=== PATIENT | male | born 1940 | race Caucasian/White ===

== ENCOUNTER → 2017-10-23 | Outpatient (CLI) | payer MEDICARE, OTHER ==
[~2017-10-23] MED LIST: ESOM40CA42 PO; FAMO20TA28 PO; HYDR-318 PO; HYDR-3250 PO; IBUP800T37 PO; LEVO-85 PO; LOR5/325 PO; NIAC100T35 PO; OMEP-218 PO; OXY10 PO; PHEN200T32 PO; PROBIOTIC1 EACH PO; TAMS0.4C70 PO; WAR5 PO
--- NOTE | 2017-10-23 12:34 | RADIOLOGY IMAGING REPORT ---
FACILITY: [facility] - [place] PATIENT NAME: Jose D Wilson : 1940 MR: [id number] V: [id number] EXAM DATE: ORDERING PHYSICIAN: ZULEMA RICHARD TECHNOLOGIST: Location: [facility] - [place] Patient: Jose D Wlison : 1940 Visit/Account:[id number] Date of Sevice: 10/23/2017 Exam type: HIP LEFT History: Left hip pain, no trauma Comparison: Right hip series February 09, 2012. Findings: There are mild degenerative changes of both hip joints, right greater than left. There is no evidenc e of acute fracture-dislocation involving the left hip. Incidentally noted are degenerative changes at the pubic symphysis and visualized lower lumbar spine IMPRESSION: 1. Mild degenerative changes of both hip joints , right greater than left. No evidence of acute fra cture or dislocation Report Dictated By: Tiffanie Gautam MD at 10/23/2017 12:27 PM Report E-Signed By: Tiffanie Gautam MD at 10/23/2017 12:29 PM WSN:[id number]
== END ==
LOC: RAD 09:00
PROVIDERS: ATTEND Family Medicine
DX: M16.0 Bilateral primary osteoarthritis of hip (principal)

== ENCOUNTER 2017-11-06 10:45 | Outpatient (RCR) | payer MEDICARE, OTHER ==
--- NOTE | 2017-10-25 11:12 | PT INITIAL EVALUATION ---
MEDICAL DIAGNOSIS: Thigh pain TREATMENT DIAGNOSIS: L hip OA, pain DATE OF ONSET: 08/06/17 SUBJECTIVE: Jose D Wilson (Lou) presents to PT for L groin pain, anterior hip pain with transferring into the passenger seat of a car, climbing rocks, donning his L pant leg in the morning, 5/10 pain scale. Pain first thing in the morning is 2/10, groin region. Hip FOTO 32% impairment. Pain location is L groin and described as ache. Pain scale is 2 on a ten point pain scale. Pain is worse with L active hip flexion and better with rest. REHAB PROBLEM LIST: Increased Pain Decreased ROM Decreased Strength Decreased Function Decreased Gait PREVIOUS MEDICAL HISTORY: R TKA, L RCR. OCCUPATION: Retired. Hikes 3-4 miles with [employer] on the go and L groin area ache is 2/10. OBJECTIVE: Posture: Even iliac crests. ROM: PROM L hip 125 deg. flexion, extension 10 deg., abd./adduction WNL with adduction, flexion painful at the groin. AROM L hip flexion 100 degrees, groin pain. Strength: L hip flexor 3+/5, pain limited, abductors 3/5, adductors 4/5, quad and hamstrings 5-/5. Special Tests: Positive scour, DAVID, overpressure flexion. Mobility: Independent. Gait: Mild L limp first 3-4 steps. ASSESSMENT: Pao Wilson presents as ASHLEY, OA affecting L hip flexion, pain. I' m concerned that his OA is more than moderate. Short Term Goals 4 weeks: Pao transfers into a passenger seat of a car without assisting his L hip flexion, hip pain 2/10. Patient's Goals Transfer without assisting L leg into passenger seat of car. PLAN: Patient to be seen for Strengthening/condition, Range of Motion, Stretching, Home Exercise Program focus 1x/Week for 4 Weeks Thank you for this referral. If you have any questions, comments, or concerns about this report or plan, please contact me at . [facility]
--- NOTE | 2017-11-17 16:29 | PT PLAN OF CARE ---
Physician: Dr. Aman Elliott Patient is being seen: 1x/week Therapist: Nalini Gregg, PT Medical Diagnosis: Thigh pain Treatment Diagnosis: L hip OA, pain Date of Onset: 08/06/17 Date of Initial Evaluation: 10/25/17 Date patient was last seen: 11/06/17 Number of treatments: 3 Number of cancellations/No shows: 3 INTERVENTIONS: Strengthening/condition Range of Motion Stretching Home Exercise Program GOALS: 4 weeks: Pao transfers into a passenger seat of a car without assisting his L hip flexion, hip pain 06/17. not met PATIENT'S GOAL: Transfer without assisting L leg into passenger seat of car. not met Patient Compliance: Excellent Prognosis: Good Reasons for discontinuing therapy: S: Pao's L hip pain continued to worsen, even with HEP.Ambulating 2 miles was slower and more painful. He saw Dr. Duenas this week and will have a L hip steroid injection 11/24/17. O: As of 11/06/17: ROM: PROM L hip remained the same Gait: Pao had more L trunk lean in L stance with gait and had more stiff gait the first 4-5 steps after sitting. Special Tests: Positive scour, DAVID, overpressure flexion. Mobility: Independent. A/P: Jose D Wilson continued with L hip OA symptoms that worsened over the last month. He feels he's done as much PT as he needs. I'll DC PT to HEP. Thank you. PATI
== END 2017-11-06 18:00 | disposition home or self-care (01) ==
LOC: PT 10:45
PROVIDERS: ATTEND Family Medicine
DX: M79.652 Pain in left thigh (principal); M16.12 Unilateral primary osteoarthritis, left hip
CPT/HCPCS: 97161

== ENCOUNTER 2017-12-02 14:31 | Emergency (ER) | payer MEDICARE, OTHER ==
[2017-12-02] MEDS ORDERED: BACL-1 PO (14:43)
[2017-12-02] MEDS ORDERED: CHLO25TA19 PO (14:43)
[2017-12-02] MEDS ORDERED: OMEP-218 PO (14:53)
[2017-12-02] MEDS ORDERED: ACETAMINOPHEN 325 MG TAB PO ONE (15:05)
[2017-12-02] MEDS ORDERED: METHOCARBAMOL 500 MG TAB PO ONE (15:10)
--- NOTE | 2017-12-02 15:15 | EKG ---
FACILITY: [facility] - [place] PATIENT NAME: ARMAAN VORA : [id number] MR: [id number] V: [id number] EXAM DATE: ORDERING PHYSICIAN: GRAY NO TECHNOLOGIST: Test Reason : Blood Pressure : / mmHG Vent. Rate : 093 BPM Atrial Rate : 093 BPM P-R Int : 192 ms QRS Dur : 110 ms QT Int : 358 ms P-R-T Axes : 070 018 075 degrees QTc Int : 445 ms Normal sinus rhythm Incomplete right bundle branch block Borderline ECG When compared with ECG of 27-AUG-2015 13:01, NV interval has decreased Incomplete right bundle branch block is now present Confirmed by CHRIST VALLES ([id number]) on 12/02/2017 9:53:32 PM Referred By: Confirmed By:CHRIST VALLES
[2017-12-02 15:42] LABS: PLATELET COUNT, AUTOMATED 117 K/uL (150-450)
--- NOTE | 2017-12-02 15:45 | RADIOLOGY IMAGING REPORT ---
FACILITY: [facility] - [place] PATIENT NAME: Jose D Wilson : 1940 MR: [id number] V: [id number] EXAM DATE: ORDERING PHYSICIAN: GRAY NO TECHNOLOGIST: Location: [facility] - [place] Patient: Jose D Wilson : 1940 Visit/Account:[id number] Date of Sevice: 12/02/2017 Examination: CHEST PA AND LAT Comparison: 06/11/2010. History: Chest discomfort. Findings: Mild pulmonary hyperexpansion. No consolidation, nodule, or acute peribronchial inflammatio n. No pneumothorax, edema, or effusion. Cardiac and hilar contour size is within normal limits. Thora cic spine anterior compression at approximately T8 has progressed since 2010. IMPRESSION: 1. No evidence of acute cardial pulmonary disease. 2. T8 anterior compression has progressed since 2010. Correlation with any history of acute mid thora cic pain is recommended. Report Dictated By: Tavon Guzman MD at 12/02/2017 3:39 PM Report E-Signed By: Tavon Guzman MD at 12/02/2017 3:41 PM WSN:[id number]
[2017-12-02] MEDS ORDERED: METH-542 PO (16:26)
--- NOTE | 2017-12-02 16:28 | ER Report ---
History and Physical Time Seen By MD: 14:45 Hx. of Stated Complaint: PT REPORTS CHRONIC BACK PAIN THAT'S WORSE AFTER A CORTISONE SHOT A WEEK AGO, PT ALSO REPORTS "HICCUPS" THAT ARE SEVERE. HPI/ROS CHIEF COMPLAINT: 1) hiccups, 2) back pain HISTORY OF PRESENT ILLNESS: Pt is 1 wk s/p his first corticosteroid injection into L hip for ongoing hip/back pain. Hours after injection, developed intractible hiccups. Has been placed on baclofen, and thorazine as of yesterday. At home, pt was having frequent hiccups, so brings him in for eval. Pt also has ongoing low back pain with raditation to l ant thigh. He has not had acute change in this; no new weakness, numbness, incontinence, fevers, falls. He is able to nellie po both liquids and solids. REVIEW OF SYSTEMS: Constitutional: No fever, no chills. Eyes: No discharge. ENT: No sore throat. Cardiovascular: No chest pain, no palpitations. Respiratory: No cough, no shortness of breath. Gastrointestinal: No abdominal pain, no vomiting. Genitourinary: No hematuria. Musculoskeletal: as above Skin: No rashes. Neurological: No headache. Remainder of the 14 system rev: Yes Allergies: Coded Allergies: oxycodone HCl (Verified Allergy, Unknown, RASH, 12/02/17) Home Meds Active Scripts Methocarbamol (ROBAXIN) 500 Mg Tablet, 500 MG PO TID for Muscle Relaxant for 10 Days, #30 TAB Prov:GRAY NO MD 12/02/17 Reported Medications Omeprazole Magnesium (PRILOSEC OTC) 20 Mg Tablet.dr, 1 TAB PO QDAY, TAB 12/02/17 Baclofen (BACLOFEN) 10 Mg Tablet, 10 MG PO TID, #30 TAB 12/02/17 Chlorpromazine Hcl (CHLORPROMAZINE HCL) 25 Mg Tablet, 25 MG PO 3-4XD Y for HICCUPS 12/02/17 Tamsulosin Hcl (TAMSULOSIN HCL) 0.4 Mg Cap.er.24h, 0.4 MG PO BID, CAP 08/25/15 Discontinued Reported Medications Ibuprofen (IBUPROFEN) 800 Mg Tablet, 1 TAB PO TID Y for PAIN, #50 TAB 0 Refills 09/03/15 Phenazopyridine Hcl (PHENAZOPYRIDINE HCL) 200 Mg Tablet, 200 MG PO TID Y for SPASMS, #20 TAB 0 Refills 09/03/15 Famotidine (PEPCID) 20 Mg Tablet, 20 MG PO BID, #20 TAB 0 Refills 09/03/15 Hydrocodone/Acetaminophen (Lortab 7.5-325 mg Tablet) 1 Each Tablet, 1 TAB PO Q4- 6H Y for PAIN, #30 0 Refills 09/03/15 Levofloxacin 500 Mg Tab (LEVAQUIN 500 MG TAB) 500 Mg Tablet, 500 MG PO QDAY, # 10 TAB 0 Refills 09/03/15 Niacin (NIACIN) 100 Mg Tablet, PO DAILY 08/25/15 Omeprazole Magnesium (PRILOSEC OTC) 20 Mg Tablet.dr, 1 TAB PO QDAY, TAB 08/25/15 Hx Smoking: No Smoking Status: Never Smoker Hx Substance Use Disorder: No Hx Alcohol Use: No Constitutional Vital Sign - Last 24 Hours 12/02/17 14:35 Temp 97.8 Pulse 107 Resp 14 B/P (MAP) 148/98 Pulse Ox 92 O2 Delivery Room Air Physical Exam General Appearance: The patient is alert, has no immediate need for airway protection and no signs of toxicity. [ ] Eyes: Pupils equal and round no pallor or injection. ENT, Mouth: Mucous membranes are moist. Respiratory: There are no retractions, lungs are clear to auscultation. Cardiovascular: Regular rate and rhythm. [ ] Gastrointestinal: Abdomen is soft and non tender, no masses, bowel sounds normal. Neurological: alert, oriented, nad Skin: Warm and dry, no rashes. Musculoskeletal: Neck is supple non tender. L1 ttp, no stepoffs, Extremities are nontender, nonswollen and have full range of motion. Pt has 5/5 ms le bilaterally with exception of L hip flexion/ext limited secondary to pain. No foot drop. No L5 distribution anesthesia. No singultus during ED evaluation DIFFERENTIAL DIAGNOSIS: After history and physical exam differential diagnosis was considered for back pain including but not limited to muscular pain, cauda equina, aaa, herniated disc, spine fracture, intra-abdominal causes and urinary tract infection. Medical Decision Making Data Points Result Diagram: 12/02/17 1526 12/02/17 1526 Laboratory Hematology Test 12/02/17 15:26 Red Blood Count 5.51 M/uL (4.00-5.60) Mean Corpuscular Volume 86.6 fL (80.0-96.0) Mean Corpuscular Hemoglobin 29.7 pg (26.0-33.0) Mean Corpuscular Hemoglobin Concent 34.3 g/dL (32.0-36.0) Red Cell Distribution Width 14.6 % (11.5-14.5) Mean Platelet Volume 7.9 fL (7.2-11.1) Neutrophils (%) (Auto) 71.2 % (39.4-72.5) Lymphocytes (%) (Auto) 18.0 % (17.6-49.6) Monocytes (%) (Auto) 8.6 % (4.1-12.4) Eosinophils (%) (Auto) 1.8 % (0.4-6.7) Basophils (%) (Auto) 0.4 % (0.3-1.4) Nucleated RBC Relative Count (auto) 0.7 /100WBC Neutrophils # (Auto) 7.3 K/uL (2.0-7.4) Lymphocytes # (Auto) 1.9 K/uL (1.3-3.6) Monocytes # (Auto) 0.9 K/uL (0.3-1.0) Eosinophils # (Auto) 0.2 K/uL (0.0-0.5) Basophils # (Auto) 0.0 K/uL (0.0-0.1) Nucleated RBC Absolute Count (auto) 0.07 K/uL Sodium Level 138 mmol/L (137-145) Potassium Level 4.2 mmol/L (3.5-5.0) Chloride Level 101 mmol/L (98-107) Carbon Dioxide Level 25 mmol/L (22-30) Blood Urea Nitrogen 25 mg/dl (9-21) Creatinine 1.20 mg/dl (0.66-1.25) Glomerular Filtration Rate Calc 59.0 Random Glucose 98 mg/dl (75-110) Calcium Level 10.1 mg/dl (8.4-10.2) Total Bilirubin 0.5 mg/dl (0.2-1.3) Aspartate Amino Transf (AST/SGOT) 39 U/L (0-35) Alanine Aminotransferase (ALT/SGPT) 35 U/L (0-56) Alkaline Phosphatase 77 U/L (0-126) Troponin I < 0.012 ng/ml Total Protein 7.5 g/dl (6.3-8.2) Albumin 4.0 g/dl (3.5-5.0) Lipase 113 U/L (23-300) Chemistry Test 12/02/17 15:26 White Blood Count 10.3 k/uL (4.5-11.0) Red Blood Count 5.51 M/uL (4.00-5.60) Hemoglobin 16.4 g/dL (14.0-18.0) Hematocrit 47.7 % (42.0-52.0) Mean Corpuscular Volume 86.6 fL (80.0-96.0) Mean Corpuscular Hemoglobin 29.7 pg (26.0-33.0) Mean Corpuscular Hemoglobin Concent 34.3 g/dL (32.0-36.0) Red Cell Distribution Width 14.6 % (11.5-14.5) Platelet Count 117 K/uL (150-450) Mean Platelet Volume 7.9 fL (7.2-11.1) Neutrophils (%) (Auto) 71.2 % (39.4-72.5) Lymphocytes (%) (Auto) 18.0 % (17.6-49.6) Monocytes (%) (Auto) 8.6 % (4.1-12.4) Eosinophils (%) (Auto) 1.8 % (0.4-6.7) Basophils (%) (Auto) 0.4 % (0.3-1.4) Nucleated RBC Relative Count (auto) 0.7 /100WBC Neutrophils # (Auto) 7.3 K/uL (2.0-7.4) Lymphocytes # (Auto) 1.9 K/uL (1.3-3.6) Monocytes # (Auto) 0.9 K/uL (0.3-1.0) Eosinophils # (Auto) 0.2 K/uL (0.0-0.5) Basophils # (Auto) 0.0 K/uL (0.0-0.1) Nucleated RBC Absolute Count (auto) 0.07 K/uL Glomerular Filtration Rate Calc 59.0 Calcium Level 10.1 mg/dl (8.4-10.2) Total Bilirubin 0.5 mg/dl (0.2-1.3) Aspartate Amino Transf (AST/SGOT) 39 U/L (0-35) Alanine Aminotransferase (ALT/SGPT) 35 U/L (0-56) Alkaline Phosphatase 77 U/L (0-126) Troponin I < 0.012 ng/ml Total Protein 7.5 g/dl (6.3-8.2) Albumin 4.0 g/dl (3.5-5.0) Lipase 113 U/L (23-300) EKG/Imaging EKG Interpretation 12 lead EKG: Rhythm: normal sinus rhythm [place]: normal QRS: inc rbbb ST segments: normal Monitor Interpretation: Normal Sinus Rhythm Imaging X-ray: chest was obtained. I viewed the images myself on the PACS system. My interpretation of the images is: NACPD. The radiologist interpretation had no clinically significant variation from this interpretation of note T8 compression ; pt does not have acute pain at this point ED Course/Re-evaluation ED Course Pt remains without hiccups in ED. Recommend continuing thorazine until hiccups resolved 24 hrs; no e/o acute cardiopulm/electolyte etiology; may be c/w cs adminsitration. No e/o cauda equina or other emergent cause or result of back pain. Pt comfortable in ED; we disucssed at length complications for which to return, and f/u plan. Has f/u with orthopedist this week. Ambulates without discomfort on d/c, understands SRP's. Decision to Disposition Date: Dec 02, 2017 Decision to Disposition Time: 16:49 Depart Departure Latest Vital Signs Vital Signs Date Time Temp Pulse Resp B/P (MAP) Pulse Ox O2 Delivery O2 Flow Rate FiO2 12/02/17 14:35 97.8 107 14 148/98 92 Room Air Impression: Primary Impression: Singultus Additional Impression: Back pain Condition: Improved Disposition: HOME OR SELF-CARE Referrals: ZULEMA RICHARD MD (PCP) New Scripts Methocarbamol (ROBAXIN) 500 Mg Tablet 500 MG PO TID for Muscle Relaxant for 10 Days, #30 TAB Prov: GRAY NO MD 12/02/17 Patient Instructions: Back Pain (ED), Hiccups (ED) Additional Instructions: As we discussed, return immediately if hiccups preclude your ability to eat or drink, or are associated with concerning chest pain, shortness of breath, or vomiting. Return if you develop new leg weakness, numbness, incontinence or fevers. Continue to take thorazine until your hiccups are resolved. You may take robaxin as prescribed and tylenol 650mg every 4-6 hours for back pain. Problem Qualifiers Additional Impression: Back pain Back pain location: low back pain Back pain laterality: left Sciatica presence: without sciatica GRAY NO MD Dec 02, 2017 16:28
[2017-12-02 16:40] VITALS: BP 120/86
== END 2017-12-02 16:40 | disposition home or self-care (01) ==
LOC: ER 14:49
DX: R06.6 Hiccough (principal); M54.5 Low back pain; R07.89 Other chest pain
CPT/HCPCS: 36415; 71046; 83690; 84484; 85025; 93005; 99284; A9270; 82040; 82247; 82310; 82374; 82435; 82565; 82947; 84075; 84132; 84155; 84295; 84450; 84460; 84520

== ENCOUNTER → 2017-12-08 | Outpatient (REF) | payer MEDICARE, OTHER ==
[~2017-12-08] MED LIST changes: +BACL-1 PO; +CHLO25TA19 PO; +METH-542 PO
== END ==
LOC: ZZSENDIN 10:49
PROVIDERS: ATTEND Physician Assistant
DX: M54.5 Low back pain (principal)
CPT/HCPCS: 81001

== ENCOUNTER → 2017-12-11 | Outpatient (CLI) | payer MEDICARE, OTHER ==
[~2017-12-11] MED LIST changes: +IOPAMIDOL 76% 100 ML INFUS BTL 100 ML ONE
--- NOTE | 2017-12-11 11:20 | RADIOLOGY IMAGING REPORT ---
FACILITY: [facility] - [place] PATIENT NAME: Jose D Wilson : 1940 MR: [id number] V: [id number] EXAM DATE: ORDERING PHYSICIAN: VANNESA SUAREZ TECHNOLOGIST: Location: [facility] - [place] Patient: Jose D Wilson : 1940 Visit/Account:[id number] Date of Sevice: 12/11/2017 CHEST/AB/PELV W/CONTRAST HISTORY: Neoplasm of the left kidney ADDITIONAL HISTORY: None. TECHNIQUE: Following administration of IV contrast axial images acquired through the chest abdomen a nd pelvis during the portal venous phase. Coronal and sagittal reformatting was also performed. Dose Lowering Technique One of the following dose optimization techniques was utilized in the performance of this exam: Autom ated exposure control; adjustment of the mA and/or kV according to the patient's size; or use of an i terative reconstruction technique. Specific details can be referenced in the facility's radiology C T exam operational policy. CONTRAST: 75 mL Isovue-370 COMPARISON: MR lumbar spine December 07, 2017 FINDINGS: CHEST: Lungs/Pleura: There is a 6 mm noncalcified nodule lateral aspect of the left upper lobe abutting the pleural margin best seen on image 56 of series 3. There is a 6 x 7 mm noncalcified pulmonary nodule along the posterior medial aspect the left upper lo be abutting the major fissure best seen on image 72 of series 3 There is a cluster of small nodules measuring up to 5 mm in the left upper lobe best seen on images 1 27 145 of series 3. There is a small 3 mm calcified nodule anterior aspect left lower lobe best seen on image 192 There is a three millimeter noncalcified nodule medial aspect right upper lobe best seen on image 59 There is a 7 x 3 mm noncalcified nodule right upper lobe best seen on image 73. there is a 7 mm noncalcified nodule posterior aspect of the right upper lobe best seen on image 134. . This a 3 mm nodule posterior aspect right upper lobe abutting the major fissure best seen on image 14 2 Mediastinum/lymph nodes: There are multiple enlarged hilar and mediastinal lymph nodes. The largest etta mass is in the subcarinal region measuring 5.5 x 3.4 x 5.1 cm There is a anterior mediastinal lymph node measuring 2.5 x 1.1 cm. There is a pretracheal lymph node measuring 1.2 x 0.8 cm. There is an AP window lymph node measuring 1.2 x 0.8 cm. There is a left hilar lymph node measuring 1.3 x 1.3 cm. There is a right hilar lymph node measuring 1.3 x 0.9 cm Heart/vessels: There is severe extrinsic compression along the medial aspect of the inferior vena ca va as it passes through the diaphragm secondary to herniated fat Bones/soft tissues: Metallic anchoring devices are seen in the right humeral head. There is a lytic destructive process involving the anterior aspect of the right 11th and 10th ribs. There is a lytic destructive process involving the T7 vertebral body with a moderate compression frac ture likely pathologic. Lytic destructive lesions are also seen involving L1 and L4 vertebral bodies There is a large destructive lesion involving the left iliac bone with a large heterogeneous soft tis jimi component measuring approximately 6.7 x 6.5 x 7.5 cm and extends to the anterior aspect of the le ft acetabulum where there is a pathologic fracture. There are several additional lytic lesions seen in the visualized proximal left femoral shaft. A sclerotic density in the left femoral head could re present a bone island. There are spondylotic changes also noted in the thoracolumbar spine ABDOMEN AND PELVIS: . Hepatobiliary: A faint hyperdensity is seen in the dependent portion the gallbladder possibly represe nting stones Spleen: Negative. Pancreas: The uncinate process appear slightly heterogeneous Adrenals: Is a 2.8 x 2.7 x 2.8 cm heterogeneous left adrenal mass is 1.7 x 1.5 x 1.5 cm right adrena l mas Kidneys ureters and bladder : There is a huge heterogeneous left renal mass measuring approxima tely 12.5 cm in length 8 cm in AP dimension and 11.2 cm in width extremely concerning for neoplasm. There are extensive collateral vessels surrounding the left kidney and extending into the left side o f the retroperitoneum and into the soft tissues surrounding the left hip and buttocks. There appears to be thrombosis of the right common femoral vein visualized proximal superficial femoral vein and p rofunda femoral vein, right common iliac vein, proximal left superficial femoral vein profunda femora l vein and partial thrombus in the left common iliac vein . There is also a heterogeneous appearanc e to the contrast in the inferior vena cava low the level of the renal veins suspicious for additiona l thrombus Genitalia: Prostate gland is markedly enlarged heterogeneous impinging upon the floor the bladder GI: There is extensive diverticulosis throughout the left-sided colon although no CT evidence of ac [place] diverticulitis. The appendix is visualized and does not appear inflamed. There is a small hiata l hernia. There is a 2.5 cm diverticulum projecting from the third portion of the duodenum. Vessels/spaces/nodes: There are multiple retroperitoneal lymph nodes present. A lymph node to the l eft of the SMA measures 9 x 10 mm. A lymph node just anterior to the third portion the duodenum marcin ures 1.4 x 1.1 cm . Please see above discussion under kidneys ureter and bladder describing extensive venous thrombosis. Bones/soft tissues: Please see above discussion concerning bones and soft tissues listed under the c hest CT dictation Additional findings: None pertinent. IMPRESSION: There is a very large heterogeneous left renal mass as detailed above extremely concerning for neopla sm. Extensive collateral vessels surround the left kidney extending the left-sided retroperitoneum a nd into the soft tissues surrounding the left hip and buttocks. There appears to be venous thrombosis of multiple veins in the pelvis and upper thighs likely extendi ng into the inferior vena cava as described above. There are numerous pulmonary nodules likely representing pulmonary metastases. Also noted is mediast inal adenopathy which likely metastatic Numerous lytic destructive lesions are identified in the bones including the anterior aspect of the r ight 10th and 11th ribs, T7, L1 and L4. There is also a large destructive lesion involving the left iliac bone with a large heterogeneous soft tissue component extending into the anterior aspect the le ft acetabulum where there is a pathologic fracture. Additional lytic lesions as described Uncinate process appear slightly heterogeneous this could be further evaluated with MR
== END ==
LOC: CT 01:39
PROVIDERS: ATTEND Physician Assistant
DX: D41.02 Neoplasm of uncertain behavior of left kidney (principal); N40.0 Benign prostatic hyperplasia without lower urinary tract symptoms; K57.30 Diverticulosis of large intestine without perforation or abscess without bleeding; R59.0 Localized enlarged lymph nodes; I82.890 Acute embolism and thrombosis of other specified veins; I82.3 Embolism and thrombosis of renal vein; R91.8 Other nonspecific abnormal finding of lung field
CPT/HCPCS: 71260; 74177; Q9967

== ENCOUNTER → 2017-12-18 | Outpatient (REF) | payer MEDICARE, OTHER ==
[~2017-12-18] MED LIST changes: +APIX5TAB PO; -IOPAMIDOL 76% 100 ML INFUS BTL 100 ML ONE; +LACT1CAP6 PO; +[UNRECOGNIZED DRUG - CODE] PO
[2017-12-18 16:15] LABS: PLATELET COUNT, AUTOMATED 167 K/uL (150-450)
[2017-12-18 16:19] LABS: INR 1.06
== END ==
LOC: ZZSENDIN 15:52
PROVIDERS: ATTEND Family Medicine
DX: C64.9 Malignant neoplasm of unspecified kidney, except renal pelvis (principal)
CPT/HCPCS: 85025; 85610

== ENCOUNTER → 2017-12-19 | Outpatient (CLI) | payer MEDICARE, OTHER ==
[~2017-12-19] MED LIST changes: +GADOBENATE 529MG/1ML 15ML VIAL IVP ONE
--- NOTE | 2017-12-19 11:09 | RADIOLOGY IMAGING REPORT ---
[place] [facility] [place] NAME: Jose D Wilson : 1940 MR: [id number] V: [id number] EXAM DATE: ORDERING PHYSICIAN: DOMINIQUE CLIFTON TECHNOLOGIST: Location: [facility] [place] Patient: Jose D Wilson : 1940 Visit/Account:[id number] Date of Sevice: 12/19/2017 BRAIN W W/O CONTRAST ADDITIONAL PERTINENT HISTORY: Renal cell carcinoma COMPARISON STUDIES: None. TECHNIQUE: Multi-planar, multi-sequence brain MRI was performed with and without IV contrast adminis tration. Contrast: 50 mL MultiHance FINDINGS: Ventricles / sulci / fissures: Negative. Masses / hemorrhage / midline shift: Negative. White matter: There is a tiny punctate focus of restricted diffusion in the high right parietal whit e matter with no associated mass effect or contrast enhancement. This could represent a tiny infarct and less likely a metastatic focus given the lack of contrast enhancement and mass effect Castillo-white differentiation: Normal. Extra-axial fluid collections: Negative. Intracranial vasculature and dural sinuses: Negative. Skull base / calvarium: There is a 9 x 4 mm ovoid area of contrast-enhancement in the posterior right parietal bone concerning for an osseous metastasis particularly in light of the extensive osseous me tastases seen on the recent CT of the chest abdomen and pelvis.. There is an additional 9 x 5 mm foc us of increased T1 and FLAIR signal intensity in the posterior medial right parietal bone without con trast enhancement . Visualized mastoid air cells / paranasal sinuses: There is mild mucosal thickening in the left maxill nupur sinus and left frontal sinus. Orbits: Negative. Upper neck:Negative. IMPRESSION: A tiny punctate focus of restricted diffusion in the high right parietal white matter with no associa zahida mass effect or contrast enhancement could represent a tiny infarct and less likely metastatic foc us given the lack of contrast enhancement mass effect 9 x 4 mm ovoid area of contrast-enhancement in the posterior right parietal bone which is concerning for an osseous metastasis There is an additional 9 x 5 mm focus of increased T1 and FLAIR signal intensity posterior medial rig ht parietal bone without contrast enhancement Report Dictated By: Tiffanie Gautam MD at 12/19/2017 10:47 AM Report E-Signed By: Tiffanie Gautam MD at 12/19/2017 11:04 AM WSN:[email or web address]
== END ==
LOC: MRI 01:21
PROVIDERS: ATTEND Internal Medicine Hematology
DX: R90.82 White matter disease, unspecified (principal)
CPT/HCPCS: 70553; A9577

== ENCOUNTER 2017-12-21 00:09 | Day surgery (SDC) | payer MEDICARE, OTHER ==
[~2017-12-21] VITALS: Ht 179.1 cm; Wt 76.2 kg
[2017-12-21] VITALS (10 sets, daily range): BP systolic 139–179; BP diastolic 84–114
[~2017-12-21 00:09] MED LIST changes: -GADOBENATE 529MG/1ML 15ML VIAL IVP ONE
[2017-12-21] MEDS ORDERED: PROPOFOL EMUL(*) 10MG/ML 20 ML 20 ML ONE (07:16)
[2017-12-21] MEDS ORDERED: LIDOCAINE MPF 1% 5 ML VIAL ONE (07:16)
[2017-12-21] MEDS ORDERED: ONDANSETRON 4 MG/2 ML VIAL ONE (07:16)
[2017-12-21] MEDS ORDERED: DEXAMETHASONE SOD 4 MG/ML VIAL ONE (07:16)
[2017-12-21] MEDS ORDERED: KETAMINE HCL 200 MG/20 ML MDV ONE (07:20)
[2017-12-21] MEDS ORDERED: LIDOCAINE/SOD BICARB 8.4% SYR ID ONE (07:30)
[2017-12-21] MEDS ORDERED: NORMOSOL R SOLN(*) 1000 ML BAG 1,000 ML IV PRN (07:30)
[2017-12-21] MEDS ORDERED: ceFAZolin(*) 2GM/D5W 50ML 50 ML IVPB ONE (07:30)
[2017-12-21] MEDS ORDERED: MIDAZOLAM 2 MG/2 ML VIAL IVP PRN (07:30)
[2017-12-21] MEDS ORDERED: NS(*) 0.9% 10 ML VIAL 20 ML ONE (08:13)
[2017-12-21] MEDS ORDERED: ROPIVACAINE 0.5% 20 ML VIAL ONE (08:13)
[2017-12-21] MEDS ORDERED: HEPARIN SOD LCK FLSH 100 UN/ML ONE (08:13)
--- NOTE | 2017-12-21 09:40 | Short(Outpt) Discharge Summary ---
Discharge Summary Reason for Hosp/Final Diag: (1) Renal cell carcinoma Status: Chronic Hospital Course & Plan: Right IJ Power Port placement completed without problems. Departure Discharge to: Home, Self Care Discharge Instructions Home Meds Reported Medications Omeprazole Magnesium (PRILOSEC OTC) 20 Mg Tablet.dr, 1 TAB PO QDAY, TAB 12/19/17 Lactobacillus Combination No.4 (PROBIOTIC) 1 Each Capsule, 1 EACH PO DAILY, CAPSULE 12/15/17 Hydrocodone/Acetaminophen (Lorcet Hd 10-325 mg Tablet) 1 Each Tablet, 1 TAB PO Q6-8H Y for PAIN 12/15/17 Apixaban (ELIQUIS) 5 Mg Tablet, 5 MG PO DAILY 12/15/17 Tamsulosin Hcl (TAMSULOSIN HCL) 0.4 Mg Cap.er.24h, 0.4 MG PO BID, CAP 08/25/15 Discontinued Reported Medications Omeprazole Magnesium (PRILOSEC OTC) 20 Mg Tablet.dr, 1 TAB PO QDAY, TAB 12/02/17 Baclofen (BACLOFEN) 10 Mg Tablet, 10 MG PO TID, #30 TAB 12/02/17 Chlorpromazine Hcl (CHLORPROMAZINE HCL) 25 Mg Tablet, 25 MG PO 3-4XD Y for HICCUPS 12/02/17 Discontinued Scripts Methocarbamol (ROBAXIN) 500 Mg Tablet, 500 MG PO TID for Muscle Relaxant for 10 Days, #30 TAB Prov:GRAY NO MD 12/02/17 Diet: Regular Activity: As Tolerated Special Instructions: You may shower starting on 12/23/17 but don't immerse the incisions for 2 weeks. Leave the steristrips in place until they fall off on their own. There is a stitch in your skin on the right side of your neck that SHOULD fall out over the next 2 weeks. If it doesn't, gently pull on it and see if it comes out. If not, cancer center staff can remove the suture or you can call my office at [phone] and we can have you come in to remove the suture. Follow up with your oncologist next week. Problem Qualifiers (1) Renal cell carcinoma: Laterality: unspecified laterality Qualified Codes: C64.9 - Malignant neoplasm of unspecified kidney, except renal pelvis ZULEMA RUDD MD Dec 21, 2017 09:39
--- NOTE | 2017-12-21 09:54 | Post Operative Progress Note ---
Post Operative Progress Note Date: Dec 21, 2017 Time: 09:41 Surgeon: Luciana Dictation number: [id number] Anesthesia: LMA by Dr. Geller Pre-Op Diagnosis: Renal Cell Carcinoma Post-Op Diagnosis: LYNSEY Findings: None Procedure(s): Right IJ Power Port insertion Specimen Removed:(May be N/A): None Complications: None Fluids: See anesthesia record Estimated Blood Loss: Minimal Date OP Note Dictated: Dec 21, 2017 Time OP Note Dictated: 09:43 ZULEMA RUDD MD Dec 21, 2017 09:53
--- NOTE | 2017-12-21 09:56 | RADIOLOGY IMAGING REPORT ---
FACILITY: [facility] [place] PATIENT NAME: Jose D Wilson : 1940 MR: [id number] V: [id number] EXAM DATE: ORDERING PHYSICIAN: ZULEMA RUDD TECHNOLOGIST: Location: [facility] Patient: Jose D Wilson : 1940 Visit/Account:[id number] Date of Sevice: 12/21/2017 Exam type: C-ARM FLUORO PORT/CATH History: PORT PLACEMENT Comparison: None. Findings: There is been placement of a right-sided implanted port the distal tip projects over the superior norman a cava. Two fluoroscopic spot images over the right upper chest were submitted. The total fluorosco py time was 19 seconds. The total continuous fluoroscopy dose was 0.45205 mGray per meter squared IMPRESSION: 1. As above Report Dictated By: Tiffanie Gautam MD at 12/21/2017 9:37 AM Report E-Signed By: Tiffanie Gautam MD at 12/21/2017 9:38 AM WSN:[email or web address]
--- NOTE | 2017-12-21 10:09 | RADIOLOGY IMAGING REPORT ---
FACILITY: [facility] - [place] PATIENT NAME: Jose D Wilson : 1940 MR: [id number] V: [id number] EXAM DATE: ORDERING PHYSICIAN: ZULEMA RUDD TECHNOLOGIST: Location: [facility] - [place] Patient: Jose D Wilson : 1940 Visit/Account:[id number] Date of Sevice: 12/21/2017 Exam type: CHEST SINGLE AP History: Right IJ Power Port placement Comparison: December 02, 2017. Findings: There has been placement of a right IJ catheter the distal tip projects over the superior vena cava. No pneumothorax is seen. Mildly prominent peribronchial markings and interstitial markings are seen which appear more prominent when compared the prior study. There are hypoventilatory changes from a limited inspiratory effort which could in part be related to this finding. The cardiac silhouette i s within normal limits. IMPRESSION: 1. Interval placement of a right IJ port distal tip projects over the superior vena cava with no liz dence of a pneumothorax seen Mildly prominent interstitium peribronchial markings when compared the prior study. There are hypove ntilatory changes from a limited inspiration which could account for this finding. Report Dictated By: Tiffanie Gautam MD at 12/21/2017 10:01 AM Report E-Signed By: Tiffanie Gautam MD at 12/21/2017 10:05 AM WSN:[email or web address]
--- NOTE | 2017-12-21 11:17 | OPERATIVE REPORT 1 ---
EVENT DATE: December 21, 2017 SURGEON: Aman Chowdhury MD ANESTHESIOLOGIST: Troy Geller MD ANESTHESIA: LMA PREOPERATIVE DIAGNOSIS Renal cell cancer. POSTOPERATIVE DIAGNOSIS Renal cell cancer. PROCEDURE PERFORMED Right IJ PowerPort insertion. COMPLICATIONS None. CONDITION Stable. ESTIMATED BLOOD LOSS Minimal. INDICATIONS This is a 77-year-old gentleman who has been under the care of the oncologist for renal cell cancer. They referred him to me for a PowerPort placement to facilitate chemotherapy. DESCRIPTION OF PROCEDURE The patient was brought to the operating room and placed upon the operating table. LMA anesthesia was administered and his right neck, shoulder, and chest were prepped and draped in sterile fashion. A timeout was completed, and with him in Trendelenburg, I used the ultrasound to identify the right internal jugular vein and used the access needle to access the vein. I threaded the wire through the needle and then removed the needle. I used the C-arm to confirm the wire's placement in the superior vena cava. I then anesthetized the skin in the right neck where the wire enters as well as the right infraclavicular skin, and then made a stab incision in the neck at the wire entry site, and a transverse incision in the infraclavicular skin. I dissected through the dermis and subcutaneous fat, and then made a pocket caudad to the incision. I made sure this was hemostatic, and then used the tunneler and dragged the catheter from the pocket up to the stab incision in the neck, and then threaded a dilator and sheath over the wire. I removed the dilator and wire, and then threaded the catheter through the sheath and removed the sheath. I then used the C-arm and pulled the catheter back so the tip was in the superior vena cava just below the right atrium and then cut the catheter at the length, place the port on the catheter, locked it into place, and then sutured the port down to the underlying muscle fascia with interrupted 3-0 Nylon sutures at the corners. I took some more C-arm images to confirm good placement. I then aspirated blood through the catheter and port and flushed it with 10 mL. normal saline, followed by 5 mL. of 100 units per mL. of Heparinated saline. It aspirated and flushed with no problems. I then closed the stab incision in the neck with single 3-0 chromic sutures and the infraclavicular incision was closed with 3-0 Vicryl interrupted deep dermal sutures and 4-0 Monocryl running subcuticular sutures. The skin was cleaned, dried, and Steri-Strips were applied over the incisions. The patient was awakened and LMA removed. He was transported to the recovery room in stable condition having tolerated the procedure without any apparent problems. PATI
--- NOTE | 2017-12-21 19:12 | ONCOLOGY FOLLOW UP NOTE ---
EVENT DATE: December 21, 2017 Patient is under my care for metastatic disease involving multiple bones especially the left iliac bone, multiple pulmonary nodules, mediastinal adenopathy, with big left renal mass 12.5 cm under evaluation. Patient is complaining of severe pain because of his bone metastasis and he will benefit from the use of a wheelchair at home, as he has significant pain related to his cancer, to help him for the mobility and transfers. PATI
[2017-12-28] MEDS ORDERED: CHLO25TA19 PO (17:19)
== END 2017-12-21 10:13 | disposition home or self-care (01) ==
LOC: OR 00:09
PROVIDERS: ATTEND Surgery
DX: C64.9 Malignant neoplasm of unspecified kidney, except renal pelvis (principal); N40.0 Benign prostatic hyperplasia without lower urinary tract symptoms; K21.9 Gastro-esophageal reflux disease without esophagitis; Z86.718 Personal history of other venous thrombosis and embolism
CPT/HCPCS: 36561; 71045; 76942; 77001; C1788; J1100; J1642; J2001; J2405; J2704; J2795; J3490; J0690

== ENCOUNTER 2017-12-25 02:02 | Emergency (ER) | payer MEDICARE, OTHER ==
[2017-12-25] MEDS ORDERED: METH-278 PO (02:13)
--- NOTE | 2017-12-25 02:15 | ER Report ---
History and Physical Time Seen By MD: 02:15 Hx. of Stated Complaint: back pain in the center of his back. recently diagnosed with renal cell carcinoma, in the bones HPI/ROS CHIEF COMPLAINT: back pain, hiccups HISTORY OF PRESENT ILLNESS: This is a 77 year old male. He is having mid back pain. He has a history of newly diagnosed renal cell cancer, has multiple mets to bone including the spine and hips. He has been having increased pain, and not being relieved by the hydrocodone/apap 10/325 that they have. Also trying to use Robaxin without improvement. Has chronic intractable hiccups as well, but the hiccups went away when they got in the car to head here. He has been urinating more often, despite using Flomax. No bowel movement for 7 days. No nausea, but has poor appetite, so not eating or drinking much. No fever or chills. Had recent port placement, but first use to be done later today. Biopsy of cancer, follow-up today for further planning of his care. Denies chest pain. Denies shortness of breath. Denies abdominal pain. The pain in midback is worse with any movement. Allergies: Coded Allergies: oxycodone HCl (Verified Allergy, Unknown, RASH, 12/25/17) Home Meds Active Scripts Hydromorphone Hcl (DILAUDID) 2 Mg Tablet, 2 MG PO Q4H Y for PAIN, #15 TAB 0 Refills Prov:JEANNA GOULD MD 12/25/17 Metoclopramide Hcl (REGLAN) 10 Mg Tablet, 10 MG PO Q8H Y for HICCUPS, #30 TAB 0 Refills Prov:JEANNA GOULD MD 12/25/17 Reported Medications Methocarbamol (METHOCARBAMOL) 500 Mg Tablet, 500 MG PO TID 12/25/17 Omeprazole Magnesium (PRILOSEC OTC) 20 Mg Tablet., 1 TAB PO QDAY, TAB 12/19/17 Lactobacillus Combination No.4 (PROBIOTIC) 1 Each Capsule, 1 EACH PO DAILY, CAPSULE 12/15/17 Hydrocodone/Acetaminophen (Lorcet Hd 10-325 mg Tablet) 1 Each Tablet, 1 TAB PO Q6-8H Y for PAIN 12/15/17 Apixaban (ELIQUIS) 5 Mg Tablet, 5 MG PO DAILY 12/15/17 Tamsulosin Hcl (TAMSULOSIN HCL) 0.4 Mg Cap.er.24h, 0.4 MG PO BID, CAP 08/25/15 Reviewed Nurses Notes: Yes Hx Smoking: No Smoking Status: Never Smoker Hx Substance Use Disorder: No Hx Alcohol Use: No Constitutional Vital Sign - Last 24 Hours 12/25/17 12/25/17 12/25/17 12/25/17 02:06 02:07 02:17 02:30 Temp 98.1 Pulse 123 119 Resp 16 B/P (MAP) 131/32 131/92 (105) 139/82 (101) Pulse Ox 89 89 O2 Delivery Room Air 12/25/17 12/25/17 12/25/17 12/25/17 02:32 02:47 03:00 03:02 Pulse 116 ? B/P (MAP) ???/??? (1665) Pulse Ox 90 12/25/17 12/25/17 12/25/17 12/25/17 03:17 03:30 03:47 04:00 Pulse ??? 108 B/P (MAP) 117/74 (88) 124/81 (95) Pulse Ox 94 12/25/17 12/25/17 12/25/17 12/25/17 04:07 04:22 04:30 04:37 Pulse 106 115 112 B/P (MAP) ???/??? (1665) Pulse Ox 99 97 90 12/25/17 12/25/17 12/25/17 12/25/17 04:42 04:43 06:04 06:09 Pulse 110 105 B/P (MAP) 130/94 (106) 132/86 (101) Pulse Ox 96 94 12/25/17 12/25/17 12/25/17 06:24 06:30 06:37 Pulse 96 B/P (MAP) 122/80 (94) 133/86 (102) Pulse Ox 89 Physical Exam General Appearance: The patient is alert. No acute distress. Eyes: Pupils are equal, round. No pallor, injection or icterus. ENT: Mucous membranes are moist. Respiratory: Lungs are clear to auscultation. Cardiovascular: Regular rate and rhythm. No murmurs, gallops or rubs. Gastrointestinal: Abdomen is soft, nontender to palpation. Nondistended. Normal active bowel sounds. Neurological: Alert and oriented x3. Skin: Warm and dry. No rashes. Musculoskeletal: Pain with palpation of midline spine in lower thoracic and upper lumbar are. Pain with palpation in the left hip area. DIFFERENTIAL DIAGNOSIS: After history and physical exam, differential diagnosis was considered for a patient with new diagnosis metastatic renal cell cancer, increasing pain to the mid back. On reviewing his recent imaging, there are some lesions in the spine. He also has pain in the hip or has metastatic lesions as well. No bowel movement for some time, increased urination. We'll check for urinary infection, constipation problems, and other causes of these symptoms. We'll try and provide some relief from the hiccups although no current hiccups right now. Medical Decision Making Data Points Result Diagram: 12/25/17 0240 12/25/17 0240 Laboratory Hematology Test 12/25/17 02:40 12/25/17 02:47 Red Blood Count 5.20 M/uL (4.00-5.60) Mean Corpuscular Volume 86.0 fL (80.0-96.0) Mean Corpuscular Hemoglobin 30.0 pg (26.0-33.0) Mean Corpuscular Hemoglobin Concent 34.9 g/dL (32.0-36.0) Red Cell Distribution Width 15.1 % (11.5-14.5) Mean Platelet Volume 7.4 fL (7.2-11.1) Neutrophils (%) (Auto) 72.0 % (39.4-72.5) Lymphocytes (%) (Auto) 17.4 % (17.6-49.6) Monocytes (%) (Auto) 8.1 % (4.1-12.4) Eosinophils (%) (Auto) 1.7 % (0.4-6.7) Basophils (%) (Auto) 0.8 % (0.3-1.4) Nucleated RBC Relative Count (auto) 0.0 /100WBC Neutrophils # (Auto) 6.2 K/uL (2.0-7.4) Lymphocytes # (Auto) 1.5 K/uL (1.3-3.6) Monocytes # (Auto) 0.7 K/uL (0.3-1.0) Eosinophils # (Auto) 0.1 K/uL (0.0-0.5) Basophils # (Auto) 0.1 K/uL (0.0-0.1) Nucleated RBC Absolute Count (auto) 0.00 K/uL Sodium Level 137 mmol/L (137-145) Potassium Level 3.7 mmol/L (3.5-5.0) Chloride Level 100 mmol/L (98-107) Carbon Dioxide Level 24 mmol/L (22-30) Blood Urea Nitrogen 17 mg/dl (9-21) Creatinine 1.00 mg/dl (0.66-1.25) Glomerular Filtration Rate Calc > 60.0 Random Glucose 121 mg/dl (75-110) Calcium Level 12.6 mg/dl (8.4-10.2) Total Bilirubin 1.0 mg/dl (0.2-1.3) Aspartate Amino Transf (AST/SGOT) 50 U/L (0-35) Alanine Aminotransferase (ALT/SGPT) 24 U/L (0-56) Alkaline Phosphatase 99 U/L (0-126) Total Protein 7.2 g/dl (6.3-8.2) Albumin 3.9 g/dl (3.5-5.0) Urine Color Yellow Urine Clarity Cloudy Urine pH 7.0 pH (4.8-9.5) Urine Specific Lester 1.011 Urine Protein Negative mg/dL (NEGATIVE) Urine Glucose (UA) Negative mg/dL (NEGATIVE) Urine Ketones Negative mg/dL (NEGATIVE) Urine Blood Moderate (NEGATIVE) Urine Nitrite Negative (NEGATIVE) Urine Bilirubin Negative (NEGATIVE) Urine Urobilinogen 2.0 mg/dL (0.2-1.9) Urine Leukocyte Esterase Negative (NEGATIVE) Urine RBC 3 /HPF (0-2/HPF) Urine WBC 2 /HPF (0-5/HPF) Urine Squamous Epithelial Cells None /LPF (</=FEW) Urine Amorphous Crystals Few /HPF Urine Bacteria Negative /HPF (NONE-FEW) Urine Mucus Few /HPF (NONE-FEW) Urine Yeast (Budding) Moderate /HPF Chemistry Test 12/25/17 02:40 12/25/17 02:47 White Blood Count 8.6 k/uL (4.5-11.0) Red Blood Count 5.20 M/uL (4.00-5.60) Hemoglobin 15.6 g/dL (14.0-18.0) Hematocrit 44.7 % (42.0-52.0) Mean Corpuscular Volume 86.0 fL (80.0-96.0) Mean Corpuscular Hemoglobin 30.0 pg (26.0-33.0) Mean Corpuscular Hemoglobin Concent 34.9 g/dL (32.0-36.0) Red Cell Distribution Width 15.1 % (11.5-14.5) Platelet Count 165 K/uL (150-450) Mean Platelet Volume 7.4 fL (7.2-11.1) Neutrophils (%) (Auto) 72.0 % (39.4-72.5) Lymphocytes (%) (Auto) 17.4 % (17.6-49.6) Monocytes (%) (Auto) 8.1 % (4.1-12.4) Eosinophils (%) (Auto) 1.7 % (0.4-6.7) Basophils (%) (Auto) 0.8 % (0.3-1.4) Nucleated RBC Relative Count (auto) 0.0 /100WBC Neutrophils # (Auto) 6.2 K/uL (2.0-7.4) Lymphocytes # (Auto) 1.5 K/uL (1.3-3.6) Monocytes # (Auto) 0.7 K/uL (0.3-1.0) Eosinophils # (Auto) 0.1 K/uL (0.0-0.5) Basophils # (Auto) 0.1 K/uL (0.0-0.1) Nucleated RBC Absolute Count (auto) 0.00 K/uL Glomerular Filtration Rate Calc > 60.0 Calcium Level 12.6 mg/dl (8.4-10.2) Total Bilirubin 1.0 mg/dl (0.2-1.3) Aspartate Amino Transf (AST/SGOT) 50 U/L (0-35) Alanine Aminotransferase (ALT/SGPT) 24 U/L (0-56) Alkaline Phosphatase 99 U/L (0-126) Total Protein 7.2 g/dl (6.3-8.2) Albumin 3.9 g/dl (3.5-5.0) Urine Color Yellow Urine Clarity Cloudy Urine pH 7.0 pH (4.8-9.5) Urine Specific Lester 1.011 Urine Protein Negative mg/dL (NEGATIVE) Urine Glucose (UA) Negative mg/dL (NEGATIVE) Urine Ketones Negative mg/dL (NEGATIVE) Urine Blood Moderate (NEGATIVE) Urine Nitrite Negative (NEGATIVE) Urine Bilirubin Negative (NEGATIVE) Urine Urobilinogen 2.0 mg/dL (0.2-1.9) Urine Leukocyte Esterase Negative (NEGATIVE) Urine RBC 3 /HPF (0-2/HPF) Urine WBC 2 /HPF (0-5/HPF) Urine Squamous Epithelial Cells None /LPF (</=FEW) Urine Amorphous Crystals Few /HPF Urine Bacteria Negative /HPF (NONE-FEW) Urine Mucus Few /HPF (NONE-FEW) Urine Yeast (Budding) Moderate /HPF Urinalysis Test 12/25/17 02:47 Urine Color Yellow Urine Clarity Cloudy Urine pH 7.0 pH (4.8-9.5) Urine Specific Lester 1.011 Urine Protein Negative mg/dL (NEGATIVE) Urine Glucose (UA) Negative mg/dL (NEGATIVE) Urine Ketones Negative mg/dL (NEGATIVE) Urine Blood Moderate (NEGATIVE) Urine Nitrite Negative (NEGATIVE) Urine Bilirubin Negative (NEGATIVE) Urine Urobilinogen 2.0 mg/dL (0.2-1.9) Urine Leukocyte Esterase Negative (NEGATIVE) Urine RBC 3 /HPF (0-2/HPF) Urine WBC 2 /HPF (0-5/HPF) Urine Squamous Epithelial Cells None /LPF (</=FEW) Urine Amorphous Crystals Few /HPF Urine Bacteria Negative /HPF (NONE-FEW) Urine Mucus Few /HPF (NONE-FEW) Urine Yeast (Budding) Moderate /HPF EKG/Imaging Imaging X-ray: abdomen 3 view, and thoracic and lumbar spine films were obtained. I viewed the images myself on the PACS system. My interpretation of the images is : Significant constipation, no acute disease in the chest. Some lytic lesions of L1 and L4, spondylitis change. Radiology evaluation is pending. ED Course/Re-evaluation Clinical Indication for ER IV: Hydration, IV Access ED Course Improved pain with IV Dilaudid and then Reglan to help with hiccups. Based on history, constipation seemed likely and this was demonstrated on imaging. A liter of normal saline given IV. 30cc of Milk of Magnesia, 30cc of Prune juice given orally. Dulcolax 10mg Suppository given. These were given time to work. The patient was then given an enema, combination of Fleets and soap suds. minimal production. Recommended stool softeners, Miralax, fiber, and discussion with the patient's doctors later today. Decision to Disposition Date: Dec 25, 2017 Decision to Disposition Time: 04:31 Depart Departure Latest Vital Signs Vital Signs Date Time Temp Pulse Resp B/P (MAP) Pulse Ox O2 Delivery O2 Flow Rate FiO2 12/25/17 06:37 133/86 (102) 12/25/17 06:24 96 89 12/25/17 02:06 98.1 16 Room Air Impression: Primary Impression: Back pain Additional Impressions: Metastatic renal cell carcinoma to bone Constipation Hiccups Condition: Improved Disposition: HOME OR SELF-CARE Referrals: ZULEMA RICHARD MD (PCP) New Scripts Hydromorphone Hcl (DILAUDID) 2 Mg Tablet 2 MG PO Q4H Y for PAIN, #15 TAB 0 Refills Prov: JEANNA GUOLD MD 12/25/17 Metoclopramide Hcl (REGLAN) 10 Mg Tablet 10 MG PO Q8H Y for HICCUPS, #30 TAB 0 Refills Prov: JEANNA GOULD MD 12/25/17 Patient Instructions: Back Pain (ED), Constipation (ED) Additional Instructions: Your pain in the back and hip are from cancer in the bone. We will give you the pain medication Dilaudid 2mg tablets, one every 4 hours as needed for severe pain. Talk to your doctor about plans to control chronic pain associated with the cancer and resulting pain. Part of your pain may be due to severe constipation. The hiccups you are having are due to irritation of the diaphragm, and the constipation could be contributing to this as well. The pain medicines and decreased oral intake can make constipation worse as well. Take a stool softener called colace 100mg twice a day. Take Miralax powder, one capful, mixed in liquid and taken orally, once a day. Keep drinking fluids during the day to prevent dehydration. For further hiccups, you can try taking Reglan 10mg tablets every 8 hours as needed. Problem Qualifiers Primary Impression: Back pain Back pain location: thoracic back pain Chronicity: acute Back pain laterality: midline Qualified Codes: M54.6 - Pain in thoracic spine Additional Impressions: Constipation Constipation type: unspecified constipation type Qualified Codes: K59.00 - Constipation, unspecified JEANNA GOULD MD Dec 25, 2017 02:15
[2017-12-25] MEDS ORDERED: HYDROMORPHONE HCL 1 MG/ML SYRINGE IVP ONE (02:30)
[2017-12-25] MEDS ORDERED: METOCLOPRAMIDE 10 MG/2 ML SDV IVP ONE (02:30)
[2017-12-25 02:51] LABS: PLATELET COUNT, AUTOMATED 165 K/uL (150-450)
[2017-12-25] MEDS ORDERED: BISACODYL 10 MG SUPP PR ONE (03:55)
[2017-12-25] MEDS ORDERED: MAGNESIUM HYDROXIDE* 30ML UDCP PO ONE (03:55)
[2017-12-25] MEDS ORDERED: NS(*) 0.9% 1000 ML BAG 1,000 ML IV ONE (03:55)
[2017-12-25] MEDS ORDERED: METO-734 PO (04:35)
[2017-12-25] MEDS ORDERED: HYDR2TAB74 PO (04:35)
[2017-12-25 06:37] VITALS: BP 133/86
--- NOTE | 2017-12-25 07:59 | RADIOLOGY IMAGING REPORT ---
FACILITY: [facility] [place] PATIENT NAME: Jose D Wilson : 1940 MR: [id number] V: [id number] EXAM DATE: ORDERING PHYSICIAN: JEANNA GOULD TECHNOLOGIST: Location: [facility] Patient: Jose D Wilson : 1940 Visit/Account:[id number] Date of Sevice: 12/25/2017 INDICATION: midline back pain. Midline back pain DATE: 12/25/2017 7:17 AM. TECHNIQUE: THORACIC SPINE 3 VIEWS COMPARISON: CT chest abdomen and pelvis of December 11, 2017 FINDINGS: The metastatic compression deformity of T7 is grossly unchanged. Bone density is diffusely decreased. A fracture is not immediately conspicuous. A right chest port likely terminates in the SVC . IMPRESSION: An acute fracture is not conspicuous with a metastatic compression deformity at T7 noted. Other lytic lesions are not well demonstrated. Report Dictated By: Juliette Youngblood MD at 12/25/2017 7:17 AM Report E-Signed By: Juliette Youngblood MD at 12/25/2017 7:24 AM WSN:[id number]
--- NOTE | 2017-12-25 07:59 | RADIOLOGY IMAGING REPORT ---
FACILITY: [facility] PATIENT NAME: Jose D Wilson : 1940 MR: [id number] V: [id number] EXAM DATE: ORDERING PHYSICIAN: JEANNA GOULD TECHNOLOGIST: Location: [facility] [place] Patient: Jose D Wilson : 1940 Visit/Account:[id number] Date of Sevice: 12/25/2017 INDICATION: EXAM DATE: 12/25/2017 3:03 AM COMPARISON: CT chest, abdomen and pelvis 12/11/2017. FINDINGS: PA view of the chest with upright and supine AP views of the abdomen (4 images total). The lungs are well-expanded and clear. No pleural effusion or pneumothorax. Heart size is normal. Ri ght IJ central venous catheter with port terminates in the superior vena cava. Bowel gas pattern is nonobstructive. No pneumatosis, pneumoperitoneum or portal venous gas. No eviden ce of large volume ascites or mass. There is a large volume of stool in the colon. No acute osseous abnormality. IMPRESSION: Large volume of stool in the colon suspicious for constipation. Report Dictated By: Gio Mueller MD at 12/25/2017 3:39 AM Report E-Signed By: Gio Mueller MD at 12/25/2017 3:41 AM WSN:[id number]
--- NOTE | 2017-12-26 03:23 | RADIOLOGY IMAGING REPORT ---
FACILITY: [facility] PATIENT NAME: Jose D Wilson : 1940 MR: [id number] V: [id number] EXAM DATE: ORDERING PHYSICIAN: JEANNA GOULD TECHNOLOGIST: Location: [facility] Patient: Jose D Wilson : 1940 Visit/Account:[id number] Date of Sevice: 12/25/2017 INDICATION: Back pain. EXAM DATE: 12/25/2017 3:14 AM COMPARISON: CT chest, abdomen and pelvis 12/11/2017. FINDINGS: 3 views lumbar spine. Mineralization appears low. No acute alignment abnormality or fracture. Moderat e multilevel spondylosis. Destructive lesions in the bodies of L4 and L1 better demonstrated on CT, but are apparent in at least L4 on this exam. Large amount of stool in the colon. IMPRESSION: No definite acute osseous abnormality of the lumbar spine. Destructive lesions in the L 4 and L1 better demonstrated on prior CT. Report Dictated By: Gio Mueller MD at 12/25/2017 3:42 AM Report E-Signed By: Gio Mueller MD at 12/25/2017 3:46 AM WSN:[id number]
== END 2017-12-25 06:30 | disposition home or self-care (01) ==
LOC: ER 02:15
DX: M54.6 Pain in thoracic spine (principal); M54.5 Low back pain; K59.00 Constipation, unspecified; C64.9 Malignant neoplasm of unspecified kidney, except renal pelvis; C79.51 Secondary malignant neoplasm of bone; R06.6 Hiccough
CPT/HCPCS: 72070; 72100; 74022; 81001; 85025; 96361; 96374; 96375; 99284; A9270; J1170; J2765; J7030; 82040; 82247; 82310; 82374; 82435; 82565; 82947; 84075; 84132; 84155; 84295; 84450; 84460; 84520

== ENCOUNTER 2017-12-29 06:07 | Inpatient (IN) | payer MEDICARE, OTHER ==
[~2017-12-29] VITALS: Ht 179.1 cm; Wt 72.6 kg
[~2017-12-29 06:07] MED LIST changes: +HYDR2TAB74 PO; +METH-278 PO; +METO-734 PO
--- NOTE | 2017-12-29 06:15 | ER Report ---
History and Physical Time Seen By MD: 06:14 (EDENILSON GALO DO) HPI/ROS CHIEF COMPLAINT: Weakness, not eating HISTORY OF PRESENT ILLNESS: 77-year-old male with a history of metastatic renal CA, patient was seen here in the ER on 12/25/17. He had elevated calcium of 12.6. He was discharged home on Dilaudid for back pain. There is a recent oncology note from last evening. Explained his course and plan of treatment. Patient's been having difficulty swallowing secondary to metastasis to the mediastinum and the lungs. There is a barium swallow ordered by oncology clinic. Patient's family is very concerned and is not eating. He is extremely weak. They're concerned if he falls and will not be able to get him off the floor. Patient notes that he has pain with swallowing. He has no appetite. I think secondary to his hypercalcemia. REVIEW OF SYSTEMS: Respiratory: No cough, no dyspnea. Cardiovascular: No chest pain, no palpitations. Gastrointestinal: No vomiting, no abdominal pain. Musculoskeletal: No back pain. (EDENILSON GALO DO) Allergies: Coded Allergies: oxycodone HCl (Verified Allergy, Unknown, RASH, 12/25/17) Home Meds Active Scripts Hydromorphone Hcl (DILAUDID) 2 Mg Tablet, 2 MG PO Q4H PRN for PAIN, #15 TAB 0 Refills Prov:JEANNA GOULD MD 12/25/17 Reported Medications Morphine Sulfate 15 Mg Er Tab (MORPHINE SULFATE 15 MG ER TAB) 15 Mg Tablet.er, 1 TAB PO DAILY 12/29/17 Sennosides/Docusate Sodium (SENNA-S TABLET) 1 Each Tablet, 1 EACH PO BID 12/29/17 Docusate Sodium (COLACE) 100 Mg Capsule, 100 MG PO BID, CAPSULE 12/29/17 Chlorpromazine Hcl (CHLORPROMAZINE HCL) 25 Mg Tablet, 25 MG PO TID take for hiccups 12/28/17 Omeprazole Magnesium (PRILOSEC OTC) 20 Mg Tablet.dr, 1 TAB PO QDAY, TAB 12/19/17 Lactobacillus Combination No.4 (PROBIOTIC) 1 Each Capsule, 1 EACH PO DAILY, CAPSULE 12/15/17 Apixaban (ELIQUIS) 5 Mg Tablet, 5 MG PO BID 12/15/17 Tamsulosin Hcl (TAMSULOSIN HCL) 0.4 Mg Cap.er.24h, 0.4 MG PO BID, CAP 08/25/15 Discontinued Reported Medications Methocarbamol (METHOCARBAMOL) 500 Mg Tablet, 500 MG PO TID 12/25/17 Hydrocodone/Acetaminophen (Lorcet Hd 10-325 mg Tablet) 1 Each Tablet, 1 TAB PO Q6-8H PRN for PAIN 12/15/17 Discontinued Scripts Metoclopramide Hcl (REGLAN) 10 Mg Tablet, 10 MG PO Q8H PRN for HICCUPS, #30 TAB 0 Refills Prov:JEANNA GOULD MD 12/25/17 Past Medical/Surgical History Below data was copy from oncology note last evening DIAGNOSES 1. Metastatic renal cell carcinoma. 2. Bone metastases. CHIEF COMPLAINT Patient is here today for followup of his metastatic left renal carcinoma. ONCOLOGY HISTORY Patient is a 77-year-old male who saw Nola Nunez for low back pain and left groin pain. He started the process of followup of his pain since October as per patient. He had some physical therapy and cortisone injection into the left hip without improvement. He had an MRI which showed renal mass with mets to the spine, so the patient had after that CT chest, abdomen, and pelvis done on December 11, 2017, which showed a big heterogeneous mass of the left kidney, 12.5 cm. There was also venous thrombosis with multiple veins in the pelvis and upper thighs likely extending into the inferior vena cava. There were numerous pulmonary nodules likely representing pulmonary metastasis with mediastinal adenopathy likely metastatic. There were numerous lytic, destructive lesions in the bones including the anterior aspect of the right 10th and 11th ribs, T7, L1, and L4. There was also a large destructive lesion involving the left iliac bone with a large heterogeneous soft tissue mass component extending into the anterior aspect of the left acetabulum where there is pathologic fracture. The uncinate process of the liver is heterogeneous. PET CT scan done on the December showed a large mass involving the left kidney measuring nearly 13 cm with maximum SUV of 21.3. There were bilateral adrenal gland metastases, mediastinal and lung metastases, intra-abdominal adenopathy, left axillary lymphadenopathy, and extensive osseous metastatic disease. CT-guided biopsy of the left iliac crest showed metastases consistent with clear-cell renal cell carcinoma, and the biopsy was done on the December. HISTORY OF PRESENT ILLNESS Patient is here today for followup of his left renal carcinoma with metastases to multiple organs. He is complaining of back pain, hiccups lately, and shortness of breath, especially with the hiccups. He has also benign prostatic hypertrophy, on tamsulosin. He has some swallowing difficulties. PAST MEDICAL HISTORY Benign prostatic hypertrophy with urinary retention in 2016, currently on tamsulosin. PAST SURGICAL HISTORY 1. Right knee replacement in 2010. 2. Prostate biopsy in 2008. 3. Left rotator cuff injury repair. 4. Bilateral cataract surgery. FAMILY HISTORY Brother had squamous cell carcinoma of the lip. Father had lung cancer. Sister had lung cancer. He had brother with kidney cancer. He had multiple cousins with brain, kidney, and lung cancer. SOCIAL HISTORY Patient is with two children. 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 He is a never smoker. He occasionally drinks beer. Denies any abuse of illicit drugs. (EDENILSON GALO DO) Reviewed Nurses Notes: Yes Old Medical Records Reviewed: Yes (EDENILSON GALO DO) Hx Smoking: No Smoking Status: Never Smoker Hx Substance Use Disorder: No Hx Alcohol Use: No (EDENILSON GALO DO) Constitutional Vital Sign - Last 24 Hours 12/29/17 12/29/17 12/29/17 12/29/17 06:15 06:17 06:17 06:22 Temp 98.3 Pulse 115 113 Resp 14 14 B/P (MAP) 140/89 (106) 140/89 Pulse Ox 90 94 O2 Delivery Room Air O2 Flow Rate 2.0 12/29/17 12/29/17 12/29/17 12/29/17 06:29 06:30 06:37 06:52 Pulse 108 104 Resp 11 11 B/P (MAP) 115/75 (88) 116/77 (90) Pulse Ox 93 95 12/29/17 12/29/17 12/29/17 12/29/17 07:00 07:05 07:30 07:35 Pulse 105 103 Resp 15 12 B/P (MAP) 129/80 (96) 128/82 (97) Pulse Ox 93 94 12/29/17 12/29/17 12/29/17 07:40 08:00 08:40 Pulse 102 113 Resp 13 B/P (MAP) 127/83 (98) Pulse Ox 93 89 (GRAY BARNHART MD) Physical Exam Vital signs stable, tachycardic, pulse ox 88% does not where O2 General Appearance: The patient is alert, has no immediate need for airway protection and no current signs of toxicity. Skin warm, dry, pink HEENT: Pupils equal and round no injection. Oropharynx with dry mucous membrane s, mild erythema, no exudate Respiratory: Chest is non tender, lungs are clear to auscultation. Cardiac: regular rate and rhythm Gastrointestinal: Abdomen is soft and non tender, no masses, bowel sounds normal. Musculoskeletal: Neck: Neck is supple and non tender. No lymphadenopathy Extremities have full range of motion and are non tender. No edema Skin: No rashes or lesions. DIFFERENTIAL DIAGNOSIS: After history and physical exam differential diagnosis was considered for weakness including but not limited to electrolyte abnormality, depression, anxiety, CVA, spinal cord abnormality, and infectious causes. (EDENILSON GALO DO) Medical Decision Making Data Points Result Diagram: 12/29/17 0633 12/29/17 1558 Laboratory Hematology Test 12/29/17 06:15 12/29/17 06:33 Urine Color Yellow Urine Clarity Cloudy Urine pH 6.0 pH (4.8-9.5) Urine Specific [place] 1.009 Urine Protein Negative mg/dL (NEGATIVE) Urine Glucose (UA) Negative mg/dL (NEGATIVE) Urine Ketones Negative mg/dL (NEGATIVE) Urine Blood Negative (NEGATIVE) Urine Nitrite Negative (NEGATIVE) Urine Bilirubin Negative (NEGATIVE) Urine Urobilinogen Negative mg/dL (0.2-1.9) Urine Leukocyte Esterase Negative (NEGATIVE) Urine RBC <1 /HPF (0-2/HPF) Urine WBC 1 /HPF (0-5/HPF) Urine Squamous Epithelial Cells Few /LPF (</=FEW) Urine Bacteria Few /HPF (NONE-FEW) Urine Mucus None /HPF (NONE-FEW) Red Blood Count 5.16 M/uL (4.00-5.60) Mean Corpuscular Volume 86.5 fL (80.0-96.0) Mean Corpuscular Hemoglobin 30.0 pg (26.0-33.0) Mean Corpuscular Hemoglobin Concent 34.7 g/dL (32.0-36.0) Red Cell Distribution Width 15.2 % (11.5-14.5) Mean Platelet Volume 7.6 fL (7.2-11.1) Neutrophils (%) (Auto) 77.0 % (39.4-72.5) Lymphocytes (%) (Auto) 13.3 % (17.6-49.6) Monocytes (%) (Auto) 7.8 % (4.1-12.4) Eosinophils (%) (Auto) 1.1 % (0.4-6.7) Basophils (%) (Auto) 0.8 % (0.3-1.4) Nucleated RBC Relative Count (auto) 0.0 /100WBC Neutrophils # (Auto) 7.1 K/uL (2.0-7.4) Lymphocytes # (Auto) 1.2 K/uL (1.3-3.6) Monocytes # (Auto) 0.7 K/uL (0.3-1.0) Eosinophils # (Auto) 0.1 K/uL (0.0-0.5) Basophils # (Auto) 0.1 K/uL (0.0-0.1) Nucleated RBC Absolute Count (auto) 0.00 K/uL Sodium Level 137 mmol/L (137-145) Potassium Level 3.9 mmol/L (3.5-5.0) Chloride Level 97 mmol/L (98-107) Carbon Dioxide Level 32 mmol/L (22-30) Blood Urea Nitrogen 21 mg/dl (9-21) Creatinine 1.20 mg/dl (0.66-1.25) Glomerular Filtration Rate Calc 59.0 Random Glucose 116 mg/dl (75-110) Calcium Level 13.1 mg/dl (8.4-10.2) Total Bilirubin 0.9 mg/dl (0.2-1.3) Aspartate Amino Transf (AST/SGOT) 52 U/L (0-35) Alanine Aminotransferase (ALT/SGPT) 30 U/L (0-56) Alkaline Phosphatase 96 U/L (0-126) Total Protein 7.1 g/dl (6.3-8.2) Albumin 3.8 g/dl (3.5-5.0) Chemistry Test 12/29/17 06:15 12/29/17 06:33 Urine Color Yellow Urine Clarity Cloudy Urine pH 6.0 pH (4.8-9.5) Urine Specific [place] 1.009 Urine Protein Negative mg/dL (NEGATIVE) Urine Glucose (UA) Negative mg/dL (NEGATIVE) Urine Ketones Negative mg/dL (NEGATIVE) Urine Blood Negative (NEGATIVE) Urine Nitrite Negative (NEGATIVE) Urine Bilirubin Negative (NEGATIVE) Urine Urobilinogen Negative mg/dL (0.2-1.9) Urine Leukocyte Esterase Negative (NEGATIVE) Urine RBC <1 /HPF (0-2/HPF) Urine WBC 1 /HPF (0-5/HPF) Urine Squamous Epithelial Cells Few /LPF (</=FEW) Urine Bacteria Few /HPF (NONE-FEW) Urine Mucus None /HPF (NONE-FEW) White Blood Count 9.2 k/uL (4.5-11.0) Red Blood Count 5.16 M/uL (4.00-5.60) Hemoglobin 15.5 g/dL (14.0-18.0) Hematocrit 44.7 % (42.0-52.0) Mean Corpuscular Volume 86.5 fL (80.0-96.0) Mean Corpuscular Hemoglobin 30.0 pg (26.0-33.0) Mean Corpuscular Hemoglobin Concent 34.7 g/dL (32.0-36.0) Red Cell Distribution Width 15.2 % (11.5-14.5) Platelet Count 167 K/uL (150-450) Mean Platelet Volume 7.6 fL (7.2-11.1) Neutrophils (%) (Auto) 77.0 % (39.4-72.5) Lymphocytes (%) (Auto) 13.3 % (17.6-49.6) Monocytes (%) (Auto) 7.8 % (4.1-12.4) Eosinophils (%) (Auto) 1.1 % (0.4-6.7) Basophils (%) (Auto) 0.8 % (0.3-1.4) Nucleated RBC Relative Count (auto) 0.0 /100WBC Neutrophils # (Auto) 7.1 K/uL (2.0-7.4) Lymphocytes # (Auto) 1.2 K/uL (1.3-3.6) Monocytes # (Auto) 0.7 K/uL (0.3-1.0) Eosinophils # (Auto) 0.1 K/uL (0.0-0.5) Basophils # (Auto) 0.1 K/uL (0.0-0.1) Nucleated RBC Absolute Count (auto) 0.00 K/uL Glomerular Filtration Rate Calc 59.0 Calcium Level 13.1 mg/dl (8.4-10.2) Total Bilirubin 0.9 mg/dl (0.2-1.3) Aspartate Amino Transf (AST/SGOT) 52 U/L (0-35) Alanine Aminotransferase (ALT/SGPT) 30 U/L (0-56) Alkaline Phosphatase 96 U/L (0-126) Total Protein 7.1 g/dl (6.3-8.2) Albumin 3.8 g/dl (3.5-5.0) Urinalysis Test 12/29/17 06:15 Urine Color Yellow Urine Clarity Cloudy Urine pH 6.0 pH (4.8-9.5) Urine Specific [place] 1.009 Urine Protein Negative mg/dL (NEGATIVE) Urine Glucose (UA) Negative mg/dL (NEGATIVE) Urine Ketones Negative mg/dL (NEGATIVE) Urine Blood Negative (NEGATIVE) Urine Nitrite Negative (NEGATIVE) Urine Bilirubin Negative (NEGATIVE) Urine Urobilinogen Negative mg/dL (0.2-1.9) Urine Leukocyte Esterase Negative (NEGATIVE) Urine RBC <1 /HPF (0-2/HPF) Urine WBC 1 /HPF (0-5/HPF) Urine Squamous Epithelial Cells Few /LPF (</=FEW) Urine Bacteria Few /HPF (NONE-FEW) Urine Mucus None /HPF (NONE-FEW) (GRAY BARNHART MD) ED Course/Re-evaluation Clinical Indication for ER IV: Hydration, IV Access ED Course Patient was admitted to an examination room. H&P was done. The differential diagnoses was considered. Patient's old records reviewed. There is an extensive oncology note from last evening explaining his entire case. Patient appears grossly dehydrated. I think secondary to hypercalcemia. He is unable to eat or swallow secondary to metastasis to lungs and mediastinum. A barium swallows been ordered as an outpatient test by oncology clinic. I called radiology will be scheduled this morning approximately 8:30. He'll aggressively hydrated with lactated Ringer's. Care was turned over to Dr. Barnhart at shift change. Turned Over The care of the patient was turned over to Dr. Barnhart. Dr. Galo I authorize my typed signature that I authenticated this report. (EDENILSON GALO DO) Clinical Indication for ER IV: Hydration, IV Access ED Course 12/29/2017 8:57:26 am I had spoken with gastroenterology at [facility] Dr. Veronica Alexander; explained that patient has a mediastinal mass that is compressing the esophagus causing difficulty with swallowing. She states that because this is an extrinsic mass rather than a narrowing of the esophagus itself endoscopy with dilatation would not be the best option as it could subsequently fail due to sliding of the tumor. She recommends that for nutrition patient would be best served with a PEG tube. I did speak with Dr. White who is our general surgeon technical solutions consultant and states that he is comfortable and able to do the procedure. He understands that the patient has had nothing by mouth since last evening. Plan at this time will be to call internal medicine for admission into dehydration and then placed a surgical consult for PEG tube. Family and patient are in agreement with this plan. Decision to Disposition Date: Dec 29, 2017 Decision to Disposition Time: 09:19 (GRAY BARNHART MD) Depart Departure Latest Vital Signs Vital Signs Date Time Temp Pulse Resp B/P (MAP) Pulse Ox O2 Delivery O2 Flow Rate FiO2 12/29/17 08:40 113 89 12/29/17 08:00 127/83 (98) 12/29/17 07:40 13 12/29/17 06:17 2.0 12/29/17 06:17 98.3 Room Air (GRAY BARNHART MD) Impression: Primary Impression: Dehydration Additional Impressions: Hypercalcemia Dysphagia Metastatic renal cell carcinoma to bone Renal cell carcinoma Condition: Condition Unchanged Disposition: Admitted from ER (to Dr Redd) Referrals: ZULEMA RICHARD MD (PCP) Problem Qualifiers Additional Impressions: Dysphagia Dysphagia type: unspecified Qualified Codes: R13.10 - Dysphagia, unspecified Renal cell carcinoma Laterality: unspecified laterality Qualified Codes: C64.9 - Malignant neoplasm of unspecified kidney, except renal pelvis EDENILSON GALO DO Dec 29, 2017 06:15 GRAY BARNHART MD Dec 29, 2017 08:59
[2017-12-29] MEDS ORDERED: LR(*) 1000 ML BAG 1,000 ML IV ONE (06:23)
[2017-12-29 06:45] LABS: PLATELET COUNT, AUTOMATED 167 K/uL (150-450)
[2017-12-29] MEDS ORDERED: PROMETHAZINE 25 MG/ML 1 ML AMP IVP PRN (10:05)
[2017-12-29] MEDS ORDERED: ACETAMINOPHEN 325 MG TAB PO PRN (10:05)
[2017-12-29 10:17] VITALS: BP 139/89
[2017-12-29] MEDS ORDERED: CHLORPROMAZINE IVPB PRN (10:55)
[2017-12-29] MEDS ORDERED: NS 0.9% IVPB PRN (10:55)
[2017-12-29] MEDS: D5 1/2 NS(*) 1000 ML BAG 1,000 ML IV PRN ×2 (11:02→20:41)
[2017-12-29] MEDS ORDERED: DOCU-416 PO (11:08)
[2017-12-29] MEDS ORDERED: MORP-20 PO (11:16)
[2017-12-29] MEDS ORDERED: SENN1TAB10 PO (11:16)
--- NOTE | 2017-12-29 11:19 | History & Physical ---
History of Present Illness Chief Complaint Weakness, not eating History of Present Illness He is a 77-year-old male that presented to the emergency department with complaints of weakness and not eating. He has a history of metastatic renal cancer, which has metastasized to the bone, mediastinum and lungs. He saw Dr. Umair De Luna and has planned to start immunotherapy on Monday. He has been having difficulty swallowing and has decreased appetite. The family is very concerned about the patient. At this time, the family wishes to keep him a full code and wants full treatment. He was found to have hypercalcemia. He was recommended for admission for IV hydration and PEG tube placement. History Problems: (1) Metastatic renal cell carcinoma to bone Status: Acute (2) Hiccups Status: Acute Home Meds Active Scripts Hydromorphone Hcl (DILAUDID) 2 Mg Tablet, 2 MG PO Q4H PRN for PAIN, #15 TAB 0 Refills Prov:JEANNA GOULD MD 12/25/17 Reported Medications Chlorpromazine Hcl (CHLORPROMAZINE HCL) 25 Mg Tablet, 25 MG PO TID take for hiccups 12/28/17 Methocarbamol (METHOCARBAMOL) 500 Mg Tablet, 500 MG PO TID 12/25/17 Omeprazole Magnesium (PRILOSEC OTC) 20 Mg Tablet.dr, 1 TAB PO QDAY, TAB 12/19/17 Lactobacillus Combination No.4 (PROBIOTIC) 1 Each Capsule, 1 EACH PO DAILY, CAPSULE 12/15/17 Hydrocodone/Acetaminophen (Lorcet Hd 10-325 mg Tablet) 1 Each Tablet, 1 TAB PO Q6-8H PRN for PAIN 12/15/17 Apixaban (ELIQUIS) 5 Mg Tablet, 5 MG PO DAILY 12/15/17 Tamsulosin Hcl (TAMSULOSIN HCL) 0.4 Mg Cap.er.24h, 0.4 MG PO BID, CAP 08/25/15 Discontinued Scripts Metoclopramide Hcl (REGLAN) 10 Mg Tablet, 10 MG PO Q8H PRN for HICCUPS, #30 TAB 0 Refills Prov:JEANNA GOULD MD 12/25/17 Allergies: Coded Allergies: oxycodone HCl (Verified Allergy, Unknown, RASH, 12/25/17) Hx Smoking: No Smoking Status: Never Smoker Caffeine/Cups Per Day: OCC Hx Alcohol Use: No Hx Substance Use Disorder: No Social Drug Use: Never Review of Systems All Systems Reviewed/Normal: Yes, Except as Noted Gastrointestinal: Nausea Exam Vital Signs Vital Signs Date Time Temp Pulse Resp B/P (MAP) Pulse Ox O2 Delivery O2 Flow Rate FiO2 12/29/17 10:17 98.2 112 12 139/89 (106) 86 Room Air 12/29/17 06:17 2.0 General Appearance: Alert, Awake, No Acute Distress, Afebrile Neuro: No Gross deficits Cardiovascular: Other (tachycardia) Respiratory: No Respiratory Distress, Clear to Auscultation GI: Abd Soft and Non-Tender, Other (hiccups noted throughout exam) Extremities: No Edema Integumentary: Other (small rash noted to right ankle) Psych: Alert & Oriented X3, Appropriate Mood & Affect Medical Decision Making Data Points Result Diagram: 12/29/1763212/29/17632 EKG / Imaging Imaging CT reviewed from 12/11/17 EXAM DATE: ORDERING PHYSICIAN: VANNESA SUAREZ TECHNOLOGIST: Location: [facility] Patient: Jose D Wilson : 1940 Visit/Account:[id number] Date of Sevice: 12/11/2017 CHEST/AB/PELV W/CONTRAST HISTORY: Neoplasm of the left kidney ADDITIONAL HISTORY: None. TECHNIQUE: Following administration of IV contrast axial images acquired through the chest abdomen and pelvis during the portal venous phase. Coronal and sagittal reformatting was also performed. Dose Lowering Technique One of the following dose optimization techniques was utilized in the performan ce of this exam: Automated exposure control; adjustment of the mA and/or kV according to the patient's size; or use of an iterative reconstruction technique. Specific details can be referenced in the facility's radiology CT exam operational policy. CONTRAST: 75 mL Isovue-370 COMPARISON: MR lumbar spine December 07, 2017 FINDINGS: CHEST: Lungs/Pleura: There is a 6 mm noncalcified nodule lateral aspect of the left upper lobe abutting the pleural margin best seen on image 56 of series 3. There is a 6 x 7 mm noncalcified pulmonary nodule along the posterior medial aspect the left upper lobe abutting the major fissure best seen on image 72 of series 3 There is a cluster of small nodules measuring up to 5 mm in the left upper lobe best seen on images 127 145 of series 3. There is a small 3 mm calcified nodule anterior aspect left lower lobe best seen on image 192 There is a three millimeter noncalcified nodule medial aspect right upper lobe best seen on image 59 There is a 7 x 3 mm noncalcified nodule right upper lobe best seen on image 73. there is a 7 mm noncalcified nodule posterior aspect of the right upper lobe best seen on image 134.. This a 3 mm nodule posterior aspect right upper lobe abutting the major fissure best seen on image 142 Mediastinum/lymph nodes: There are multiple enlarged hilar and mediastinal lymph nodes. The largest etta mass is in the subcarinal region measuring 5.5 x 3.4 x 5.1 cm There is a anterior mediastinal lymph node measuring 2.5 x 1.1 cm. There is a pretracheal lymph node measuring 1.2 x 0.8 cm. There is an AP window lymph node measuring 1.2 x 0.8 cm. There is a left hilar lymph node measuring 1.3 x 1.3 cm. There is a right hilar lymph node measuring 1.3 x 0.9 cm Heart/vessels: There is severe extrinsic compression along the medial aspect of the inferior vena cava as it passes through the diaphragm secondary to herniated fat Bones/soft tissues: Metallic anchoring devices are seen in the right humeral head. There is a lytic destructive process involving the anterior aspect of the right 11th and 10th ribs. There is a lytic destructive process involving the T7 vertebral body with a moderate compression fracture likely pathologic. Lytic destructive lesions are also seen involving L1 and L4 vertebral bodies There is a large destructive lesion involving the left iliac bone with a large heterogeneous soft tissue component measuring approximately 6.7 x 6.5 x 7.5 cm a nd extends to the anterior aspect of the left acetabulum where there is a pathologic fracture. There are several additional lytic lesions seen in the visualized proximal left femoral shaft. A sclerotic density in the left femoral head could represent a bone island. There are spondylotic changes also noted in the thoracolumbar spine ABDOMEN AND PELVIS: . Hepatobiliary: A faint hyperdensity is seen in the dependent portion the gallbladder possibly representing stones Spleen: Negative. Pancreas: The uncinate process appear slightly heterogeneous Adrenals: Is a 2.8 x 2.7 x 2.8 cm heterogeneous left adrenal mass is 1.7 x 1.5 x 1.5 cm right adrenal mas Kidneys ureters and bladder : There is a huge heterogeneous left renal mass measuring approximately 12.5 cm in length 8 cm in AP dimension and 11.2 cm in width extremely concerning for neoplasm. There are extensive collateral vessels surrounding the left kidney and extending into the left side of the retroperitoneum and into the soft tissues surrounding the left hip and buttocks. There appears to be thrombosis of the right common femoral vein visualized proximal superficial femoral vein and profunda femoral vein, right common iliac vein, proximal left superficial femoral vein profunda femoral vein and partial thrombus in the left common iliac vein . There is also a heterogeneous appearance to the contrast in the inferior vena cava low the level of the renal veins suspicious for additional thrombus Genitalia: Prostate gland is markedly enlarged heterogeneous impinging upon the floor the bladder GI: There is extensive diverticulosis throughout the left-sided colon although no CT evidence of acute diverticulitis. The appendix is visualized and does not appear inflamed. There is a small hiatal hernia. There is a 2.5 cm diverticulum projecting from the third portion of the duodenum. Vessels/spaces/nodes: There are multiple retroperitoneal lymph nodes present. A lymph node to the left of the SMA measures 9 x 10 mm. A lymph node just anterior to the third portion the duodenum measures 1.4 x 1.1 cm . Please see above discussion under kidneys ureter and bladder describing extensive venous thrombosis. Bones/soft tissues: Please see above discussion concerning bones and soft tissues listed under the chest CT dictation Additional findings: None pertinent. IMPRESSION: There is a very large heterogeneous left renal mass as detailed above extremely concerning for neoplasm. Extensive collateral vessels surround the left kidney extending the left-sided retroperitoneum and into the soft tissues surrounding the left hip and buttocks. There appears to be venous thrombosis of multiple veins in the pelvis and upper thighs likely extending into the inferior vena cava as described above. There are numerous pulmonary nodules likely representing pulmonary metastases. Also noted is mediastinal adenopathy which likely metastatic Numerous lytic destructive lesions are identified in the bones including the anterior aspect of the right 10th and 11th ribs, T7, L1 and L4. There is also a large destructive lesion involving the left iliac bone with a large heterogeneous soft tissue component extending into the anterior aspect the left acetabulum where there is a pathologic fracture. Additional lytic lesions as described Uncinate process appear slightly heterogeneous this could be further evaluated with MR Assessment and Plan Problems: (1) Metastatic renal cell carcinoma to bone Status: Acute Assessment & Plan: His CT from 12/11/17 showed metastatic renal cell carcinoma of the left side into the left iliac bone, with pulmonary metastasis, mediastinal adenopathy, left axillary adenopathy. He plans to start immunotherapy on Monday at the cancer center. Dr. White consulted for insertion of PEG tube. PEG tube to be placed tomorrow after hydration. Lovenox will be held in the morning. (2) Hypercalcemia Status: Acute Assessment & Plan: His calcium upon admission was 13.1. We will hydrate the patient. We will recheck BMP at 1600 today. (3) Hiccups Status: Acute Assessment & Plan: He has been receiving treatment with Clorpromazine. He will receive Clorpromazine IV BID prn during admission. (4) Dehydration Status: Acute Assessment & Plan: We will hydrate patient with IV fluids. He will have labs checked again this afternoon. (5) DVT (deep venous thrombosis) Status: Acute Assessment & Plan: He is on Eliquis for DVT to the right lower extremity. We will place him on full dosed Lovenox. Venous Thromboembolism Antithrombotics Is Pt On Any Antithrombotics?: Yes Exam Sepsis Risk: No Definite Risk Problem Qualifiers (1) DVT (deep venous thrombosis): DVT location: lower extremity Affected thrombotic vein of extremity: femoral Chronicity: acute Laterality: right Qualified Codes: I82.411 - Acute embolism and thrombosis of right femoral vein DANYELLE CHINCHILLAP Dec 29, 2017 11:18
[2017-12-29 12:28] VITALS: Ht 179.1 cm; Wt 72.6 kg
[2017-12-29 15:39] VITALS: BP 129/83
--- NOTE | 2017-12-29 16:12 | CONSULTATION ---
EVENT DATE: December 29, 2017 CONSULTING PHYSICIAN Nicholas White MD CHIEF COMPLAINT Dysphagia. HISTORY OF PRESENT ILLNESS This is a 77-year-old male who presented to the Emergency Department today with complaints of weakness and not being able to eat. He is known to have metastatic renal cancer with metastases to the bone, mediastinum, and lungs. Immunotherapy is scheduled to begin in four days. However, the patient reports that he has been having difficulty swallowing for several weeks, gradually worsening, and now he is able to swallow essentially no solids and also has difficulty with liquids. He is also reporting diminished appetite and for about three weeks has been having difficulty with persistent hiccups. PAST MEDICAL HISTORY 1. Metastatic renal cell carcinoma as above. 2. Intractable hiccups. 3. DVT diagnosed within the past month. PAST SURGICAL HISTORY 1. Left shoulder surgery. 2. Right knee replacement. HOME MEDICATIONS 1. Dilaudid 2 mg tab q.4 hours p.r.n. 2. Chlorpromazine 25 mg p.o. t.i.d. for hiccups. 3. Methocarbamol 500 mg p.o. t.i.d. 4. Omeprazole 20 mg q. day. 5. Lactobacillus combination #4 one capsule daily. 6. Lorcet 10/325 times one tab q.6-8 p.r.n. for pain. 7. Eliquis 5 mg daily. 8. Tamsulosin 0.4 mg b.i.d. ALLERGIES OXYCODONE. SOCIAL HISTORY Patient denies use of tobacco, alcohol, and illicit drugs. He is . REVIEW OF SYSTEMS CONSTITUTIONAL: No fevers. ENT/MOUTH: Dysphagia as noted above. RESPIRATORY: No dyspnea. CARDIOVASCULAR: No chest pain, although the patient does note some back pain. GASTROINTESTINAL: Appetite is greatly diminished. There is no nausea or vomiting. PHYSICAL EXAMINATION GENERAL: This is a well-developed, well-nourished, elderly, male in no acute distress, but appears weak. VITAL SIGNS: Temperature is 98.2 orally, pulse rate is 112, respiratory rate 12, blood pressure is 139/89, and O2 saturation is 86% on room air. HEAD/NECK: Head is atraumatic and normocephalic. Neck is unremarkable. The thyroid is normal size and texture. EYES: Pupils are equally reactive bilaterally. His sclerae are anicteric. Conjunctivae are not pale. ENT/MOUTH: External ears and nose appear normal. Oropharynx shows dry mucous membranes. RESPIRATORY: Lungs are clear to auscultation bilaterally. CARDIOVASCULAR: The heart has a regular rate and rhythm with an S3 noted. No murmurs detected. ABDOMEN: Bowel sounds are positive. The abdomen is soft. It is nontender. It is nondistended. There are no scars seen on the abdominal wall. INTEGUMENTARY: Skin is clear, warm, and dry. EXTREMITIES: Limbs without deformities. Legs have no edema. NEUROLOGIC: Hand nursing education consultant are equal and fairly strong bilaterally. PSYCHIATRIC: Patient is awake. He is a little drowsy during the exam, but he responds appropriately throughout the interview and exam. LABORATORY STUDIES WBC is 9.2 with 77.0% neutrophils, H/H are 15.5/44.7, platelet count is 167,000. CMP reveals the following abnormalities: Chloride is 97, CO2 is 32, random glucose is 116, calcium is 13.1, AST is 52, other LFTs within normal limits. RADIOLOGICAL STUDIES A chest x-ray was done on December 21. It shows interval placement of a right IJ port with the distal tip in the SVC. No pneumothorax was seen. There were mildly prominent interstitial peribronchial markings compared to the previous studies. CT scan of the chest, abdomen, and pelvis with contrast was done on December 11 and shows numerous nodules in both lungs. There are also multiple enlarged lymph nodes seen in the mediastinum. There was noted to be "severe extrinsic compression along the medial aspect of the IVC as it passes through the diaphragm secondary to herniated fat." There were lytic destructive lesions noted in the anterior aspect of the right 11th and 10th ribs and in the T7 vertebral body with a moderate compression fracture, also lytic destructive lesions seen involving L1 and L4 vertebral bodies. There was a large destructive lesion involving the left iliac bone "with a large heterogeneous soft tissue component measuring 6.7 x 6.5 x 7.5 cm and extends to the anterior aspect of the left acetabulum where there is a pathologic fracture. There are several additional lytic lesions in the proximal left femoral shaft." In the abdomen, there was seen a left adrenal mass on each side. There is a "huge heterogeneous left renal mass measuring approximately 12.5 cm in length, 8 cm in AP dimension, and 11.2 in width." There were extensive collateral vessels seen around the left kidney. There was noted thrombosis of the right femoral venous system. There were similar findings as well, such as an enlarged prostate gland, extensive diverticulosis, and possible gallbladder stones. ASSESSMENT 1. Advanced renal cell carcinoma with metastases to both lungs and mediastinum as well as several bones. 2. Dysphagia secondary to external esophageal compression. PLAN I have discussed with the patient and his family his dysphagia and its cause. We have also discussed ways to address his inability to take in nutrition. We discussed the use of a feeding tube, and I think it is unlikely to be successful in placement given the patient's poor ability to swallow. Patient is on the schedule for tomorrow morning to undergo PEG tube placement. I have discussed with the patient and his family the procedure, the reasons for doing it, the options, and the risks associated including bleeding and infection. They voice understanding and are in agreement with this approach. PATI
[2017-12-29] MEDS ORDERED: NS(*) 0.9% 250 ML BAG 250 ML IV PRN (16:35)
[2017-12-29] MEDS: ACETAMINOPHEN(*)1000 MG/100 ML 100 ML IVPB PRN (16:48)
[2017-12-29 19:52] VITALS: BP 142/89
[2017-12-29] MEDS ORDERED: NS 0.9% IVPB SCH (21:00)
[2017-12-29] MEDS ORDERED: CHLORPROMAZINE IVPB SCH (21:00)
[2017-12-29] MEDS ORDERED: ENOXAPARIN 100 MG/ML SYR SC ONE (21:00)
[2017-12-29 22:55] VITALS: BP 148/79
[2017-12-30] VITALS (15 sets, daily range): BP systolic 121–147; BP diastolic 79–93
[2017-12-30] MEDS: D5 1/2 NS(*) 1000 ML BAG 1,000 ML IV PRN (05:12)
[2017-12-30 05:44] LABS: PLATELET COUNT, AUTOMATED 150 K/uL (150-450)
[2017-12-30 05:51] LABS: INR 1.08
[2017-12-30] MEDS ORDERED: NORMOSOL R SOLN(*) 1000 ML BAG 1,000 ML IV ONE (08:00)
[2017-12-30] MEDS ORDERED: FAMOTIDINE(*) 20MG/50ML PREMIX 50 ML IVPB ONE (08:00)
[2017-12-30] MEDS: PANTOPRAZOLE SOD 40 MG IV VIAL IVP SCH (08:17)
[2017-12-30] MEDS ORDERED: BUPIV/EPI 0.25% 1:200,000 50ML INFIL ONE (08:38)
[2017-12-30] MEDS ORDERED: LIDOCAINE 1%MDV(*)200 MG/20 ML 1 ML ONE (08:39)
[2017-12-30] MEDS ORDERED: NS(*) 0.9% 1000 ML BAG 1,000 ML ONE (08:59)
[2017-12-30] MEDS ORDERED: MIDAZOLAM 2 MG/2 ML VIAL ONE ×2 (09:00)
[2017-12-30] MEDS ORDERED: KETAMINE HCL 500 MG/10 ML VIAL ONE ×2 (09:00)
--- NOTE | 2017-12-30 10:27 | Hospitalist Progress Note ---
Subjective Progress Notes Subjective This patient was admitted for weakness and dehydration. He had no acute events overnight. Patient Complains of: Cardiovascular: No: Chest Pain Respiratory: No: Shortness of Breath Physical Exam Vital Signs Date Time Temp Pulse Resp B/P (MAP) Pulse Ox O2 Delivery O2 Flow Rate FiO2 12/30/17 07:40 102 12/30/17 07:29 97.8 16 145/87 (106) 95 Nasal Cannula 1.0 Intake and Output 12/30/17 07:00 Intake Total 2202 ml Output Total 1650 ml Balance 552 ml Intake Oral 0 ml IV Total 2202 ml Output Urine Total 1650 ml # Voids 3 # Bowel Movements 1 Cardiovascular: Regular Rate and Rhythm Respiratory: Clear to Auscultation Extremities: No Edema Integumentary: No Cyanosis Result Diagram: 12/30/1752312/30/17523 Assessment and Plan Problems: (1) Metastatic renal cell carcinoma to bone Status: Acute Assessment & Plan: His CT from 12/11/17 showed metastatic renal cell carcinoma of the left side into the left iliac bone, with pulmonary metastasis, mediastinal adenopathy, and left axillary adenopathy. He plans to start immunotherapy on Monday at the cancer center. (2) Dehydration Status: Acute Assessment & Plan: Resolved with IV fluids. (3) Malnutrition Assessment & Plan: The malignant lesions are now causing compression of the esophagus to the point where he is unable to swallow. Dr. White is placing a PEG tube today. (4) Hypercalcemia Status: Acute Assessment & Plan: His corrected calcium is 13.2 today. We will increase his IV fluids and give him a dose of Zometa after surgery. (5) Hiccups Status: Acute Assessment & Plan: He is on treatment with Thorazine as needed. (6) DVT (deep venous thrombosis) Status: Acute Assessment & Plan: He is on Eliquis for DVT to the right lower extremity. We held this and placed him on Lovenox secondary to his procedure. Exam Sepsis Risk: No Definite Risk Problem Qualifiers (1) DVT (deep venous thrombosis): DVT location: lower extremity Affected thrombotic vein of extremity: femoral Chronicity: acute Laterality: right Qualified Codes: I82.411 - Acute embolism and thrombosis of right femoral vein ZULEMA MCGHEE DO Dec 30, 2017 10:27
[2017-12-30] MEDS ORDERED: ZOLEDRONIC ACID 4 MG/5 ML VIAL 4 MG in NS(*) 0.9% 100 ML BAG 100 ML IVPB ONE (11:00)
--- NOTE | 2017-12-30 11:01 | Medical Nutrition Therapy ---
Nutrition Anthropometrics Height (Inches): 70.50 Height (Calculated Centimeters: 179.348377 Weight (Pounds): 160 Weight (Calculated Kilograms): 72.575 Basilio Nutrition Score: Very Poor Basilio Nutrition Risk Score: 15 Dietary Referral Nutrition Risk Factors: Unplanned Loss >10lbs Nutrition Risk Comment: Physical Findings Physical Appearance: BMI 22.6 Skin Appearance Skin Appearance: Edema Edema Location Modifier: Edema Location: Type of Edema: Degree of Edema: Gastrointestinal Symptoms GI Symtoms: Appetite Changes, Weight Changes, Change in Bowel Pattern Tube Present: Bowel Sounds: Recent Bowel Pattern: Constipated Stool Characteristics: Nutritional Diagnosis Nutritional Risk Acuity 1: No Appetite Nutritional Risk Acuity 2: Swallowing Problem Nutritional Risk Acuity 3: Nausea, Cancer Past Medical History: metastatic renal cell carcinoma, hiccups Nutritional Acuity: 1-High Nutrition Diagnosis: Inadequate Food Intake Nutrition Etiology: Physiological Causes Nutrition Problem/Etiology/Sym: Inadequate oral intake related to physiological causes as evidenced by swallowing difficulty, decreased oral intake, loss of appetite and wt loss. Energy Requirement: 1908 ([id number] ([place] x 1.2-1.5)) Protein Requirement: 72 (72-86 g (1-1.2 g/kg)) Fluid Requirement: 2175 (30 ml/kg) Diet Type: Tube Feeding (TF) Nutrition Intervention: Incr diet as tolerated Nutritional Support Current Enteral / Parental: Tube Feeding Tube Feeding Formulas: Jevity 1cal/ml-Standard Current Tube Feeding Formula C: Start at 20ml/hr and increase by 20 ml q 4-6hr to final rate of 77ml/hr Feeding Route: PEG Rate: 77 ml/hr final rate Current Duration: 24 Current Calories: 8 Current Protein: 82 Total Current Calories: 1958 Free H2O bolus for hydration (: 105 ml q 4 Nutrition Monitoring & Eval RD Patient Assessment Time: [address] Assessment Type: RD Assessment Patient Nutrition Acuity: 1-High Follow Up Date: Jan 01, 2018 Nutritional Comment: 12/29. Admitted for weakness and not eating. Pt was seen in ER on 12/25, was having trouble swallowing and had no appetite. Barium swallow ordered. Pt is being treated for metastatic renal cell carcinoma, hypercalcemia, hiccups, dehydration and DVT. Pt reported nausea and constipation. Pt is within normal BMI 22.6, but reports unplanned weight loss of >10lbs. Noteable labs include: elevated random BG 116, calcium 13.2, and AST 52. Planned to be placed on PEG tube tomorrow. Will monitor pt diet, labs, and swallowing difficulty. MR 12/30 PEG tube placed this morning. Recommend starting Jevity 1 at 20ml/hr and increasing q 4-6hr to final rate of 77ml/hr. At goal rate of 77ml/hr, TF will be providing 1958 kcals and 82 g pro which will meet 100% of his estimated energy and protein needs. Recommend providing 105ml free water flush q 4hr to meet remaining fluid needs. Since pt hasn't been eating well, recommend monitoring K, phos and Mg for refeeding syndrome. Notable labs include glc 125-130, AST 42, tot pro 5.8 and alb 3.1. Monitor residuals and TF tolerance. Will remain available for further consult-KARLEE ROSE Dec 30, 2017 11:01
--- NOTE | 2017-12-30 11:06 | OPERATIVE REPORT 1 ---
EVENT DATE: December 30, 2017 SURGEON: Nicholas White MD ANESTHESIOLOGIST: Toni Gerardo MD ANESTHESIA: MAC plus local. PREOPERATIVE DIAGNOSIS Severe dysphagia secondary to stage IV renal cancer. POSTOPERATIVE DIAGNOSIS Severe dysphagia secondary to stage IV renal cancer. PROCEDURE PERFORMED Placement of PEG feeding tube. ESTIMATED BLOOD LOSS None SPECIMENS None. COMPLICATIONS None. INDICATIONS The patient has had progressive dysphagia secondary to metastatic renal cell carcinoma. He is now unable to swallow solids and very little liquids. FINDINGS At initial EGD the stomach appeared within normal limits. The esophagus was somewhat tortuous as it appeared to have extrinsic compression. There was some inflammation noted in the esophagus. DESCRIPTION OF PROCEDURE The patient was brought into the operating room and kept on the transportation cart. A timeout verified the patient's identity, the procedure, and other pertinent details. After the administration of sedation, the gastroscope was introduced into the posterior pharynx and then easily into the proximal esophagus. The scope was advanced through the entire length of the esophagus with little difficulty with the scope finally reaching the stomach. An appropriate site on the abdominal wall was selected with direct visualization of the anterior gastric wall. The epigastric abdominal wall was then clipped and was prepped and draped in sterile fashion. A 50-50 mixture of 1% plain lidocaine and 0.25% bupivacaine with epinephrine was injected into the skin and then into the subcutaneous tissues, all the way to the gastric wall. The procedure then continued in standard fashion with the passing of a catheter over a needle, through the abdominal wall and anterior gastric wall into the stomach. A guidewire was passed through this, brought out using the gastroscope, attached to the feeding tube and then drawn back through the esophagus, into the stomach and out through the abdominal wall. With the guidewire in place, a very small incision was made in the skin of the abdominal wall and this allowed the dilator tip and then the catheter to be brought easily through the abdominal wall. The scope was then replaced into the stomach and the inner cuff of the feeding tube was directly visualized and was noted to be up against the anterior gastric wall but not too tight. No blanching was observed of the mucosa. The external retaining disc was put in place and then sutured to the skin of the abdominal wall using 5 simple interrupted sutures of 0 silk. After this was done, the inner cuff was again visualized to be sure that it was not too tight. The gastroscope was withdrawn from the patient. The cap was placed on the feeding tube and he was then returned to his room in stable condition. He tolerated the procedure quite well. PATI
[2017-12-30] MEDS: NS(*) 0.9% 1000 ML BAG 1,000 ML IV PRN ×2 (11:36→17:56)
[2017-12-30] MEDS: ACETAMINOPHEN(*)1000 MG/100 ML 100 ML IVPB PRN ×2 (12:31→18:42)
[2017-12-30] MEDS: HYDROmorphone HCL 2 MG/ML SDV IVP PRN ×2 (18:00→23:42)
[2017-12-30] MEDS: ENOXAPARIN 100 MG/ML SYR SC SCH (20:41)
[2017-12-31] MEDS: NS(*) 0.9% 1000 ML BAG 1,000 ML IV PRN ×3 (01:30→22:22)
[2017-12-31 03:26] VITALS: BP 151/87
[2017-12-31] MEDS: HYDROmorphone HCL 2 MG/ML SDV IVP PRN ×2 (03:41→07:45)
[2017-12-31] MEDS: ACETAMINOPHEN(*)1000 MG/100 ML 100 ML IVPB PRN ×3 (03:41→23:34)
[2017-12-31 06:59] VITALS: BP 135/81
[2017-12-31] MEDS: ENOXAPARIN 100 MG/ML SYR SC SCH ×2 (08:32→20:55)
[2017-12-31] MEDS: PANTOPRAZOLE SOD 40 MG IV VIAL IVP SCH (08:33)
[2017-12-31] MEDS ORDERED: PHENAZOPYRIDINE 200 MG TAB FT PRN ×2 (10:05→15:20)
--- NOTE | 2017-12-31 11:52 | EKG ---
FACILITY: [facility] PATIENT NAME: ARMAAN VORA : [id number] MR: [id number] V: [id number] EXAM DATE: ORDERING PHYSICIAN: BAYRON TONEY TECHNOLOGIST: MAXIMINO Test Reason : TACHYCARDIA Blood Pressure : / mmHG Vent. Rate : 118 BPM Atrial Rate : 118 BPM P-R Int : 192 ms QRS Dur : 114 ms QT Int : 302 ms P-R-T Axes : 051 006 079 degrees QTc Int : 423 ms Sinus tachycardia Incomplete right bundle branch block Minimal voltage criteria for LVH, may be normal variant Nonspecific ST and T wave abnormality Abnormal ECG When compared with ECG of 02-DEC-2017 15:10, T wave inversion now evident in Anterior leads and diffuse ST-T abnormalities Confirmed by BAYRON TONEY ([id number]) on 12/31/2017 1:25:58 PM Referred By: DWANA Confirmed By:BAYRON TONEY
--- NOTE | 2017-12-31 12:40 | Hospitalist Progress Note ---
Subjective Progress Notes Subjective Fairly sleepy this morning, but answers questions. His and daughter are present. They are concerned about his somnolence and whether he will improve enough to begin cancer treatment. Physical Exam Vital Signs Date Time Temp Pulse Resp B/P (MAP) Pulse Ox O2 Delivery O2 Flow Rate FiO2 12/31/17 08:11 92 12/31/17 08:08 125 12/31/17 07:40 Room Air 12/31/17 06:59 98.4 15 135/81 (99) 12/31/17 03:26 0.5 Intake and Output 12/31/17 07:00 Intake Total 6105 ml Output Total 975 ml Balance 5130 ml IV Total 4200 ml Tube Feeding 640 ml Tube Irrigant 265 ml Other 1000 ml Output Urine Total 975 ml # Voids 8 General Appearance: No Acute Distress (Answers some questions, but confused) Cardiovascular: Other (Regular, tachy) GI: Other (Soft, non-distended, mild tenderness inferior to the PEG tube) Integumentary: No Jaundice, No Cyanosis Result Diagram: 12/30/17 0524 12/31/17 0529 Assessment and Plan Problems: (1) Metastatic renal cell carcinoma to bone Status: Acute Assessment & Plan: His CT from 12/11/17 showed metastatic renal cell carcinoma of the left side into the left iliac bone, with pulmonary metastasis, mediastinal adenopathy, and left axillary adenopathy. He plans to start immunotherapy on at the cancer center. However, he is too physically impaired to begin therapy at this point. I had a long discussion with his and daughter about their frustrations. They feel like the diagnosis of the cancer took many months to figure out and now that he has a diagnosis, treatment has not begun. Also, they are concerned that he is more somnolent and are afraid that this will be his new normal. They were very tearful. I also spoke with the patient's sister, by phone, who is a nurse and explained my understanding of the situation. She expressed understanding and was going to try and explain it to the family. (2) Dehydration Status: Acute Assessment & Plan: He continues to have a sinus tachycardia, which was worse this morning, but then returned to his baseline. He is not having any reported chest pain or SOB. Also, tachycardia has been noted back to 12/21 by chart review. Will follow. (3) Malnutrition Assessment & Plan: The malignant lesions are now causing compression of the esophagus to the point where he is unable to swallow. Dr. White placed a PEG tube on 12/30. Jevity has been started, but hasn't reached the full rate of administration secondary to higher residuals. (4) Hypercalcemia Status: Acute Assessment & Plan: Secondary to bone metastasis. His calcium is decreasing with IVF and Zometa (12/30). Continue to follow and hydrate. (5) Urine retention Status: Acute Assessment & Plan: He has a bit over 300cc of PVR and dysuria, so a catheter was placed. No evidence of infection. Will restart tamsulosin, then can do a voiding trial. Likely, narcotics are exacerbating. (6) Hiccups Status: Acute Assessment & Plan: Significantly improved. He is on treatment with Thorazine as needed. (7) DVT (deep venous thrombosis) Status: Acute Assessment & Plan: He is on Eliquis for DVT to the right lower extremity. We held this and placed him on Lovenox secondary to his procedure. Exam Sepsis Risk: No Definite Risk Problem Qualifiers (1) DVT (deep venous thrombosis): DVT location: lower extremity Affected thrombotic vein of extremity: femoral Chronicity: acute Laterality: right Qualified Codes: I82.411 - Acute embolism and thrombosis of right femoral vein BAYRON TONEY MD Dec 31, 2017 12:40
[2017-12-31 15:00] VITALS: BP 117/72
[2017-12-31] MEDS: CHLORPROMAZINE IVPB PRN (18:17)
[2017-12-31] MEDS: NS 0.9% IVPB PRN (18:17)
[2017-12-31 19:32] VITALS: BP 120/74
[2017-12-31] MEDS: TAMSULOSIN HCL 0.4 MG CAP FT SCH (20:55)
[2017-12-31 23:27] VITALS: BP 114/68
[2018-01-01 03:30] VITALS: BP 100/63
[2018-01-01 05:26] LABS: PLATELET COUNT, AUTOMATED 110 K/uL (150-450)
[2018-01-01 08:31] VITALS: BP 112/66
[2018-01-01] MEDS: TAMSULOSIN HCL 0.4 MG CAP FT SCH ×2 (08:42→20:48)
[2018-01-01] MEDS: ENOXAPARIN 100 MG/ML SYR SC SCH ×2 (08:43→20:49)
[2018-01-01] MEDS: NS(*) 0.9% 1000 ML BAG 1,000 ML IV PRN (08:43)
[2018-01-01] MEDS: PANTOPRAZOLE SOD 40 MG IV VIAL IVP SCH (08:50)
--- NOTE | 2018-01-01 12:00 | Medical Nutrition Therapy ---
Nutrition Anthropometrics Height (Inches): 70.50 Height (Calculated Centimeters: 179.830327 Weight (Pounds): 160 Weight (Calculated Kilograms): 72.575 Basilio Nutrition Score: Very Poor Basilio Nutrition Risk Score: 13 Dietary Referral Nutrition Risk Factors: Unplanned Loss >10lbs Nutrition Risk Comment: Physical Findings Physical Appearance: BMI 22.6 Skin Appearance Skin Appearance: Edema Edema Location Modifier: Edema Location: Type of Edema: Degree of Edema: Gastrointestinal Symptoms GI Symtoms: Appetite Changes, Weight Changes, Change in Bowel Pattern Tube Present: PEG Bowel Sounds: Recent Bowel Pattern: Constipated Stool Characteristics: Nutritional Diagnosis Nutritional Risk Acuity 2: Tube Feed Stable, Swallowing Problem Nutritional Risk Acuity 3: Cancer Past Medical History: metastatic renal cell carcinoma, hiccups Nutritional Acuity: 2-Moderate Nutrition Diagnosis: Inadequate Food Intake Nutrition Etiology: Physiological Causes Nutrition Problem/Etiology/Sym: Inadequate oral intake related to physiological causes as evidenced by swallowing difficulty, decreased oral intake, loss of appetite and wt loss. Energy Requirement: 1908 ([id number] ([place] x 1.2-1.5)) Protein Requirement: 72 (72-86 g (1-1.2 g/kg)) Fluid Requirement: 2175 (30 ml/kg) Diet Type: Tube Feeding (TF) Nutrition Intervention: Incr diet as tolerated Nutritional Support Current Enteral / Parental: Tube Feeding Tube Feeding Formulas: Jevity 1cal/ml-Standard Current Tube Feeding Formula C: Start at 20ml/hr and increase by 20 ml q 4-6hr to final rate of 77ml/hr Tube Feeding Supplement Streng: Full Feeding Route: PEG Rate: 77 ml/hr final rate Current Duration: 24 Current Calories: 1958 Current Protein: 82 Total Current Calories: 1958 Free H2O bolus for hydration (: 105 ml q 4 Nutrition Monitoring & Eval RD Patient Assessment Time: [address] Assessment Type: RD Re-Assessment Patient Nutrition Acuity: 2-Moderate Follow Up Date: Jan 06, 2018 Nutritional Comment: 12/29. Admitted for weakness and not eating. Pt was seen in ER on 12/25, was having trouble swallowing and had no appetite. Barium swallow ordered. Pt is being treated for metastatic renal cell carcinoma, hypercalcemia, hiccups, dehydration and DVT. Pt reported nausea and constipation. Pt is within normal BMI 22.6, but reports unplanned weight loss of >10lbs. Noteable labs include: elevated random BG 116, calcium 13.2, and AST 52. Planned to be placed on PEG tube tomorrow. Will monitor pt diet, labs, and swallowing difficulty. MR 8 PEG tube placed this morning. Recommend starting Jevity 1 at 20ml/hr and increasing q 4-6hr to final rate of 77ml/hr. At goal rate of 77ml/hr, TF will be providing 1958 kcals and 82 g pro which will meet 100% of his estimated energy and protein needs. Recommend providing 105ml free water flush q 4hr to meet remaining fluid needs. Since pt hasn't been eating well, recommend monitoring K, phos and Mg for refeeding syndrome. Notable labs include glc 125-130, AST 42, tot pro 5.8 and alb 3.1. Monitor residuals and TF tolerance. Will remain available for further consult-EK 01/01. TF cont and is being administered at final rate, 77ml/hr. Pt is tolerating TF well and has minimal residuals. Noteable labs include: low Hgb 12.9, Hct 37.7, potassium 3.1, albumin 2.4, and total protein 4.9. Elevated labs include: AST 88 and ALT 84. Will cont to monitor labs and TF. ROBERT CAMILO Jan 01, 2018 10:11
[2018-01-01] MEDS: POTASSIUM CHL 20 MEQ TABCR PO SCH ×2 (12:43→16:49)
[2018-01-01] MEDS: ACETAMINOPHEN(*)1000 MG/100 ML 100 ML IVPB PRN (12:56)
--- NOTE | 2018-01-01 13:33 | Hospitalist Progress Note ---
Subjective Progress Notes Subjective 77M presented with inability to swallow, pain. AMY overnight, at goal tube feed. Awake this am, having hiccups. Patient Complains of: Neurological: No: Syncope, Confusion Gastrointestinal: Other (+hiccup) Genitourinary: No Dysuria Musculoskeletal: Pain Physical Exam Vital Signs Date Time Temp Pulse Resp B/P (MAP) Pulse Ox O2 Delivery O2 Flow Rate FiO2 01/01/18 08:31 97.8 101 20 112/66 (81) 94 Room Air 01/01/18 03:30 1.0 Intake and Output0 01/01/18 07:00 Intake Total 5338 ml Output Total 1050 ml Balance 4288 ml Intake Oral 300 ml IV Total 3073 ml Tube Feeding 1435 ml Tube Irrigant 530 ml Output Urine Total 1050 ml # Bowel Movements 2 General Appearance: Alert, Awake, No Acute Distress, Other (chronically ill appearing) Neuro: No Gross deficits Eyes: PERRLA ENT: Normal Neck: No Masses Cardiovascular: Normal Rhythm & Peripheral Pulses Respiratory: No Respiratory Distress Chest: No Tenderness GI: Soft and Non-Tender Musculoskeletal: Other (+ pain) Integumentary: Skin Intact without Lesion / Mass Psych: Alert & Oriented X3 Result Diagram: 01/01/18 0513 01/01/18 0513 Assessment and Plan Problems: (1) Metastatic renal cell carcinoma to bone Status: Acute Assessment & Plan: His CT from 12/11/17 showed metastatic renal cell carcinoma of the left side into the left iliac bone, with pulmonary metastasis, mediastinal adenopathy, and left axillary adenopathy. He plans to start immunotherapy on 01/02 at the cancer center. However, he is too physically impaired to begin therapy at this point. Will offer family the option to discuss with hospice, spoke with sister by phone who is nurse (retired). Poor prognosis. (2) Dehydration Status: Acute Assessment & Plan: He continues to have a sinus tachycardia, which was worse this morning, but then returned to his baseline. He is not having any reported chest pain or SOB. Also, tachycardia has been noted back to 12/21 by chart revi ew. Will follow. (3) Malnutrition Assessment & Plan: The malignant lesions are now causing compression of the esophagus to the point where he is unable to swallow. Dr. White placed a PEG tube on 12/30. Jevity at goal. (4) Hypercalcemia Status: Acute Assessment & Plan: Secondary to bone metastasis. His calcium is decreasing with IVF and Zometa (12/30). Improving. (5) Urine retention Status: Acute Assessment & Plan: He has a bit over 300cc of PVR and dysuria, so a catheter was placed. No evidence of infection. Will restart tamsulosin, then can do a voiding trial. Likely, narcotics are exacerbating. (6) Hiccups Status: Acute Assessment & Plan: Significantly improved. He is on treatment with Thorazine as needed. No sedation this am. (7) DVT (deep venous thrombosis) Status: Acute Assessment & Plan: He is on Eliquis for DVT to the right lower extremity. We held this and placed him on Lovenox secondary to his procedure. Exam Sepsis Risk: No Definite Risk Problem Qualifiers (1) DVT (deep venous thrombosis): DVT location: lower extremity Affected thrombotic vein of extremity: femoral Chronicity: acute Laterality: right Qualified Codes: I82.411 - Acute embolism and thrombosis of right femoral vein ESTEFANIA SANTOS DO Jan 01, 2018 13:33
[2018-01-01 16:50] VITALS: BP 124/73
[2018-01-01 20:53] VITALS: BP 138/81
[2018-01-01 23:56] VITALS: BP 131/79
[2018-01-02] MEDS: NS(*) 0.9% 1000 ML BAG 1,000 ML IV PRN ×3 (01:49→23:59)
[2018-01-02 04:42] VITALS: BP 130/79
[2018-01-02 07:41] VITALS: BP 127/79
[2018-01-02] MEDS: NS 0.9% IVPB PRN ×2 (08:09→20:53)
[2018-01-02] MEDS: CHLORPROMAZINE IVPB PRN ×2 (08:09→20:53)
[2018-01-02] MEDS: POTASSIUM CHL 20 MEQ TABCR PO SCH ×2 (08:10→18:01)
[2018-01-02] MEDS: ENOXAPARIN 100 MG/ML SYR SC SCH ×2 (08:18→20:52)
[2018-01-02] MEDS: TAMSULOSIN HCL 0.4 MG CAP FT SCH ×2 (08:18→20:51)
[2018-01-02] MEDS: PANTOPRAZOLE SOD 40 MG IV VIAL IVP SCH (08:18)
[2018-01-02 10:45] VITALS: BP 119/72
--- NOTE | 2018-01-02 11:38 | Hospitalist Progress Note ---
Subjective Progress Notes Subjective This patient was admitted for weakness and malnutrition. He had no acute changes overnight. Patient Complains of: Cardiovascular: No: Chest Pain Respiratory: No: Shortness of Breath Physical Exam Vital Signs Date Time Temp Pulse Resp B/P (MAP) Pulse Ox O2 Delivery O2 Flow Rate FiO2 01/02/18 10:45 98.2 88 24 119/72 (88) 89 Room Air 01/01/18 03:30 1.0 Intake and Output 01/02/18 06:59 Intake Total 5539 ml Output Total 1600 ml Balance 3939 ml IV Total 2005 ml Tube Feeding 2655 ml Tube Irrigant 879 ml Output Urine Total 1600 ml Cardiovascular: Regular Rate and Rhythm Respiratory: Clear to Auscultation Result Diagram: 01/01/1851201/01/18512 Assessment and Plan Problems: (1) Metastatic renal cell carcinoma to bone Status: Acute Assessment & Plan: His CT from 12/11/17 showed metastatic renal cell carcinoma of the left side into the left iliac bone, with pulmonary metastasis, mediastinal adenopathy, and left axillary adenopathy. He plans to start immunotherapy on 01/02 at the cancer center. However, he is too physically impaired to begin therapy at this point. We have talked with the family about hospice and they are considering this. (2) Dehydration Status: Acute Assessment & Plan: He continues to have a sinus tachycardia. It has been doc umented in the past and he is asymptomatic. (3) Malnutrition Assessment & Plan: The malignant lesions are now causing compression of the esophagus to the point where he is unable to swallow. Dr. White placed a PEG tube on 12/30. He is receiving Jevity at goal. (4) Hypercalcemia Status: Acute Assessment & Plan: Secondary to bone metastasis. His calcium has decreased with IVF and Zometa (12/30). (5) Urine retention Status: Acute Assessment & Plan: He has a bit over 300cc of PVR and dysuria, so a catheter was placed. His tamsulosin has been restarted. He can likely do a voiding trial prior to discharge. (6) Hiccups Status: Acute Assessment & Plan: He is on treatment with Thorazine as needed. (7) DVT (deep venous thrombosis) Status: Acute Assessment & Plan: He is on Eliquis for DVT to the right lower extremity. We have held this and placed him on Lovenox secondary to his procedure. Exam Sepsis Risk: No Definite Risk Problem Qualifiers (1) DVT (deep venous thrombosis): DVT location: lower extremity Affected thrombotic vein of extremity: femoral Chronicity: acute Laterality: right Qualified Codes: I82.411 - Acute embolism and thrombosis of right femoral vein ZULEMA MCGHEE DO Jan 02, 2018 11:38
[2018-01-02 15:56] VITALS: BP 135/84
[2018-01-02 19:40] VITALS: BP 138/82
[2018-01-02 20:02] VITALS: BP 135/84
[2018-01-02] MEDS ORDERED: PROMETHAZINE 25 MG/ML 1 ML AMP IVP PRN (20:15)
[2018-01-03] VITALS: BP 107/68
[2018-01-03 04:05] VITALS: BP 133/78
[2018-01-03] MEDS: POTASSIUM CHL 20 MEQ TABCR PO SCH (08:16)
[2018-01-03] MEDS: TAMSULOSIN HCL 0.4 MG CAP FT SCH ×2 (08:16→21:38)
[2018-01-03] MEDS: ENOXAPARIN 100 MG/ML SYR SC SCH ×2 (08:17→21:38)
[2018-01-03] MEDS: PANTOPRAZOLE SOD 40 MG IV VIAL IVP SCH (08:17)
[2018-01-03 09:50] VITALS: BP 135/84
--- NOTE | 2018-01-03 10:23 | Hospitalist Progress Note ---
Subjective Progress Notes Subjective He is awake and alert. He reports pain in back/pelvis when ambulating, but fairly comfortable at rest. Physical Exam Vital Signs Date Time Temp Pulse Resp B/P (MAP) Pulse Ox O2 Delivery O2 Flow Rate FiO2 01/03/18 08:15 92 Room Air 01/03/18 06:00 82 01/03/18 04:05 98.5 16 133/78 (96) 2.0 Intake and Output 01/03/18 06:59 Intake Total 5602 ml Output Total 3375 ml Balance 2227 ml Intake Oral 200 ml IV Total 2751 ml Tube Feeding 2021 ml Tube Irrigant 630 ml Output Urine Total 3375 ml # Voids 1 # Bowel Movements 2 General Appearance: Alert, Awake, Other (speaks softly/slowly) Cardiovascular: Regular Rate and Rhythm Respiratory: Clear to Auscultation Chest: Other (port right upper chest) GI: Other (soft/minimal tenderness with PEG tube) Extremities: Warm, Perfused Result Diagram: 01/01/1851201/01/18512 Assessment and Plan Problems: (1) Metastatic renal cell carcinoma to bone Status: Acute Assessment & Plan: His CT from 12/11/17 showed metastatic renal cell carcinoma of the left side into the left iliac bone, with pulmonary metastasis, mediastinal adenopathy, and left axillary adenopathy. He had planned to start immunotherapy on 01/02 at the [facility], but he is too physically impaired to begin therapy at this point. We have talked with the family about other options such as Hospice and they are considering this. (2) Dehydration Status: Acute Assessment & Plan: Improved with IV fluids. (3) Malnutrition Assessment & Plan: The malignant lesions are now causing compression of the esophagus to the point where he was unable to swallow. Dr. White placed a PEG tube on 12/30. He is receiving Jevity at goal. (4) Hypercalcemia Status: Acute Assessment & Plan: Secondary to bone metastasis. His calcium has decreased with IV fluids and Zometa (12/30). (5) Urine retention Status: Acute Assessment & Plan: He had over 300cc of PVR and dysuria, so a catheter was placed. His tamsulosin has been restarted. He can likely do a voiding trial prior to discharge. (6) Hiccups Status: Acute Assessment & Plan: He is on treatment with Thorazine as needed. (7) DVT (deep venous thrombosis) Status: Acute Assessment & Plan: He is on Eliquis for DVT to the right lower extremity. We have held this and placed him on Lovenox secondary to his procedure. Exam Sepsis Risk: No Definite Risk Problem Qualifiers (1) DVT (deep venous thrombosis): DVT location: lower extremity Affected thrombotic vein of extremity: femoral Chronicity: acute Laterality: right Qualified Codes: I82.411 - Acute embolism and thrombosis of right femoral vein GABE BRYANT MD Jan 03, 2018 10:23
[2018-01-03] MEDS: NS(*) 0.9% 1000 ML BAG 1,000 ML IV PRN ×2 (10:35→20:03)
[2018-01-03] MEDS: ACETAMINOPHEN(*)1000 MG/100 ML 100 ML IVPB PRN ×2 (10:35→22:00)
[2018-01-03 17:10] VITALS: BP 127/79
[2018-01-03 20:24] VITALS: BP 136/80
[2018-01-03] MEDS: POTASSIUM CHL PWDR 20 MEQ PKT FT SCH (21:38)
[2018-01-04 03:17] VITALS: BP 126/78
[2018-01-04] MEDS: NS(*) 0.9% 1000 ML BAG 1,000 ML IV PRN (05:35)
[2018-01-04 05:49] LABS: PLATELET COUNT, AUTOMATED 133 K/uL (150-450)
[2018-01-04] MEDS: TAMSULOSIN HCL 0.4 MG CAP FT SCH (10:11)
[2018-01-04] MEDS: POTASSIUM CHL PWDR 20 MEQ PKT FT SCH (10:11)
[2018-01-04] MEDS: ENOXAPARIN 100 MG/ML SYR SC SCH (10:12)
[2018-01-04] MEDS: PANTOPRAZOLE SOD 40 MG IV VIAL IVP SCH (10:13)
[2018-01-04 12:46] VITALS: BP 136/77
[2018-01-04] MEDS ORDERED: PHEN200T32 FT (14:18)
--- NOTE | 2018-01-04 14:28 | Hospitalist Depart ---
Discharge Summary Reason for Hosp/Final Diag: (1) Metastatic renal cell carcinoma to bone Status: Acute Hospital Course & Plan: His CT from 12/11/17 showed metastatic renal cell carcinoma of the left side into the left iliac bone, with pulmonary metastasis, mediastinal adenopathy, and left axillary adenopathy. He had planned to start immunotherapy on 01/02 but was inpatient at that time. We have talked with the family about other options such as Hospice they currently wish to pursue aggressive therapies. Will begin immunotherapy 01.05.2018. (2) Dehydration Status: Acute Hospital Course & Plan: Improved with IV fluids. (3) Malnutrition Hospital Course & Plan: The malignant lesions are now causing compression of the esophagus to the point where he was unable to swallow. Dr. White placed a PEG tube on 12/30. Home with Jenvity 1.0 bolus tube feeds. (4) Hypercalcemia Status: Acute Hospital Course & Plan: Secondary to bone metastasis. His calcium has decreased with IV fluids and Zometa (12/30). (5) Urine retention Status: Acute Hospital Course & Plan: He had over 300cc of PVR and dysuria, so a catheter was placed. His tamsulosin has been restarted. Will d/c with [facility], will need follow up evaluation for PVR. (6) Hiccups Status: Acute Hospital Course & Plan: He is on treatment with Thorazine as needed. (7) DVT (deep venous thrombosis) Status: Acute Hospital Course & Plan: He is on Eliquis for DVT to the right lower extremity. May need changing to Savaysa in setting of malignancy. Departure Weight (Pounds): 160 Result Diagram: 01/04/1852301/04/18523 Condition: Improved Discharge: Home, Home Health PT/OT Follow Up For: PT For Strengthening Home Health RN Follow Up For: Other Discharge Instructions Home Meds Active Scripts Hydromorphone Hcl (DILAUDID) 2 Mg Tablet, 2 MG PO Q4H PRN for PAIN, #15 TAB 0 Refills Prov:JEANNA GOULD MD 12/25/17 Reported Medications Morphine Sulfate 15 Mg Er Tab (MORPHINE SULFATE 15 MG ER TAB) 15 Mg Tablet.er, 1 TAB PO DAILY 12/29/17 Sennosides/Docusate Sodium (SENNA-S TABLET) 1 Each Tablet, 1 EACH PO BID 12/29/17 Docusate Sodium (COLACE) 100 Mg Capsule, 100 MG PO BID, CAPSULE 12/29/17 Chlorpromazine Hcl (CHLORPROMAZINE HCL) 25 Mg Tablet, 25 MG PO TID take for hiccups 12/28/17 Omeprazole Magnesium (PRILOSEC OTC) 20 Mg Tablet.dr, 1 TAB PO QDAY, TAB 12/19/17 Lactobacillus Combination No.4 (PROBIOTIC) 1 Each Capsule, 1 EACH PO DAILY, CAPSULE 12/15/17 Apixaban (ELIQUIS) 5 Mg Tablet, 5 MG PO BID 12/15/17 Tamsulosin Hcl (TAMSULOSIN HCL) 0.4 Mg Cap.er.24h, 0.4 MG PO BID, CAP 08/25/15 Discontinued Reported Medications Methocarbamol (METHOCARBAMOL) 500 Mg Tablet, 500 MG PO TID 12/25/17 Hydrocodone/Acetaminophen (Lorcet Hd 10-325 mg Tablet) 1 Each Tablet, 1 TAB PO Q6-8H PRN for PAIN 12/15/17 Discontinued Scripts Metoclopramide Hcl (REGLAN) 10 Mg Tablet, 10 MG PO Q8H PRN for HICCUPS, #30 TAB 0 Refills Prov:JEANNA GOULD MD 12/25/17 Activity: As Tolerated, With Walker Special Instructions: Follow up with the cancer center tomorrow at 8am Venous Thromboembolism Antithrombotics Is Pt On Any Antithrombotics?: Yes [id number] Certification Face to Face Home Health Certification Institutional Provider conducted the [id number] encounter. Electronic Undersigning Physician Certifies Home Health. I certify that the patient has been under my care and that I had a [id number] encounter that meets the physician [id number] encounter requirements with this patient. This patient is home-bound due to safety issues and continues to require assistance with ADL's. I certify that based on my findings, that Nursing, Aides and the following Home Health services are medically necessary: Medication management, PT Medical Necessity: Nursing, Rehab Date Face to Face Conducted: Jan 04, 2018 Problem Qualifiers (1) DVT (deep venous thrombosis): DVT location: lower extremity Affected thrombotic vein of extremity: femoral Chronicity: acute Laterality: right Qualified Codes: I82.411 - Acute embolism and thrombosis of right femoral vein ESTEFANIA SANTOS DO Jan 04, 2018 14:28
--- NOTE | 2018-01-04 15:01 | Medical Nutrition Therapy ---
Nutritional Education Nutrition Education Topic: Other (tube feeding) Learning Readiness: Interested (family) Teaching Methods: Discussion, Handout Response to Teaching: Verbalize understanding Teaching Recipient: Patient, Family Nutrition Monitoring & Eval RD Patient Assessment Time: [address] Assessment Type: RD Education Patient Nutrition Acuity: 2-Moderate Follow Up Date: Jan 06, 2018 Nutritional Comment: 12/29. Admitted for weakness and not eating. Pt was seen in ER on 12/25, was having trouble swallowing and had no appetite. Barium swallow ordered. Pt is being treated for metastatic renal cell carcinoma, hypercalcemia, hiccups, dehydration and DVT. Pt reported nausea and constipation. Pt is within normal BMI 22.6, but reports unplanned weight loss of >10lbs. 01/04 Pt Noteable labs include: elevated random BG 116, calcium 13.2, and AST 52. Planned to be placed on PEG tube tomorrow. Will monitor pt diet, labs, and swallowing difficulty. MR 8/25 PEG tube placed this morning. Recommend starting Jevity 1 at 20ml/hr and increasing q 4-6hr to final rate of 77ml/hr. At goal rate of 77ml/hr, TF will be providing 1958 kcals and 82 g pro which will meet 100% of his estimated energy and protein needs. Recommend providing 105ml free water flush q 4hr to meet remaining fluid needs. Since pt hasn't been eating well, recommend monitoring K, phos and Mg for refeeding syndrome. Notable labs include glc 125-130, AST 42, tot pro 5.8 and alb 3.1. Monitor residuals and TF tolerance. Will remain available for further consult-EK 01/01. TF cont and is being administered at final rate, 77ml/hr. Pt is tolerating TF well and has minimal residuals. Noteable labs include: low Hgb 12.9, Hct 37.7, potassium 3.1, albumin 2.4, and total protein 4.9. Elevated labs include: AST 88 and ALT 84. Will cont to monitor labs and TF. MR 8/30 Pt to go home on bolis feedings of Jevity 1. Pt will recieve 360ml jevity with 120ml water flush 5X/day. Provided education to pt and family. OTILIA MCCALLUM Jan 04, 2018 15:01
== END 2018-01-04 16:00 | disposition home health service (06) | DRG 543 ==
LOC: ER 06:10 → MED 09:47
PROVIDERS: ADMIT Internal Medicine; ATTEND Internal Medicine
PROC: 0DH63UZ Insertion of Feeding Device into Stomach, Percutaneous Approach (ICD-10-PCS; principal; 2017-12-31)
PROC: 3E0G76Z Introduction of Nutritional Substance into Upper GI, Via Natural or Artificial Opening (ICD-10-PCS; 2017-12-31)
DX: C79.51 Secondary malignant neoplasm of bone (principal); C64.2 Malignant neoplasm of left kidney, except renal pelvis; C78.00 Secondary malignant neoplasm of unspecified lung; E46 Unspecified protein-calorie malnutrition; I82.411 Acute embolism and thrombosis of right femoral vein; C79.72 Secondary malignant neoplasm of left adrenal gland; C79.71 Secondary malignant neoplasm of right adrenal gland; E86.0 Dehydration; E83.52 Hypercalcemia; R06.6 Hiccough; R13.10 Dysphagia, unspecified; N40.1 Benign prostatic hyperplasia with lower urinary tract symptoms; R33.8 Other retention of urine; Z96.651 Presence of right artificial knee joint; Z88.5 Allergy status to narcotic agent; Z68.22 Body mass index [BMI] 22.0-22.9, adult
CPT/HCPCS: 36415; 36416; 81001; 82040; 82247; 82310; 82374; 82435; 82565; 82947; 82948; 83735; 84075; 84100; 84132; 84155; 84295; 84450; 84460; 84484; 84520; 85025; 85610; 87040; 87088; 93005; 96365; 97163; 97166; 99285; C9113; J0131; J1170; J1650; J2001; J2250; J2550; J3230; J3489; J3490; J7030; J7050; J7120

== ENCOUNTER 2018-01-07 22:34 | Emergency (ER) | payer MEDICARE, OTHER ==
[2017-12-29 12:28] VITALS: Wt 71.7 kg
[~2018-01-07 22:34] MED LIST changes: +DOCU-416 PO; +MORP-20 PO; +PHEN200T32 FT; +SENN1TAB10 PO
--- NOTE | 2018-01-07 22:45 | ER Report ---
History and Physical Time Seen By MD: 22:46 HPI/ROS CHIEF COMPLAINT: Hematuria HISTORY OF PRESENT ILLNESS: 77-year-old male presents with hematuria and his indwelling Reid catheter. Patient has a known history of renal cell cancer. He was recently admitted here approximately a week ago and had a G-tube placed for a tumor that was obstructing his esophagus. Agents, also undergoing immunotherapy at the [place]. Patient also has history of DVT on L Quintus 5 mg by mouth twice a day. Patient notes no symptoms of urinary burning discomfort or back pain that are new. Patient has multiple metastatic lesions secondary to renal cell carcinoma. Patient's been tolerating his tube feedings. He looks much better than he did when I saw him one week ago. REVIEW OF SYSTEMS: Respiratory: No cough, no dyspnea. Cardiovascular: No chest pain, no palpitations. Gastrointestinal: No vomiting, no abdominal pain. Musculoskeletal: No back pain. Allergies: Coded Allergies: oxycodone HCl (Verified Allergy, Unknown, RASH, 12/25/17) Home Meds Active Scripts Cephalexin 250 Mg/5 Ml Susp (KEFLEX 250 MG/5 ML SUSP) 250 Mg/5 Ml Susp.recon, 250 MG PO TID for infection, #250 BOT Prov:EDENILSON GLOVER DO 01/07/18 Phenazopyridine Hcl (PHENAZOPYRIDINE HCL) 200 Mg Tablet, 200 MG FT TID PRN for DISCOMFORT for 10 Days, #30 TAB Prov:ESTEFANIA SANTOS DO 01/04/18 Reported Medications Sennosides/Docusate Sodium (SENNA-S TABLET) 1 Each Tablet, 1 EACH PO BID 12/29/17 Docusate Sodium (COLACE) 100 Mg Capsule, 100 MG PO BID, CAPSULE 12/29/17 Chlorpromazine Hcl (CHLORPROMAZINE HCL) 25 Mg Tablet, 25 MG PO TID take for hiccups 12/28/17 Omeprazole Magnesium (PRILOSEC OTC) 20 Mg Tablet.dr, 1 TAB PO QDAY, TAB 12/19/17 Lactobacillus Combination No.4 (PROBIOTIC) 1 Each Capsule, 1 EACH PO DAILY, CAPSULE 12/15/17 Apixaban (ELIQUIS) 5 Mg Tablet, 5 MG PO BID 12/15/17 Tamsulosin Hcl (TAMSULOSIN HCL) 0.4 Mg Cap.er.24h, 0.4 MG PO BID, CAP 08/25/15 Discontinued Reported Medications Morphine Sulfate 15 Mg Er Tab (MORPHINE SULFATE 15 MG ER TAB) 15 Mg Tablet.er, 1 TAB PO DAILY 12/29/17 Discontinued Scripts Hydromorphone Hcl (DILAUDID) 2 Mg Tablet, 2 MG PO Q4H PRN for PAIN, #15 TAB 0 Refills Prov:BRYANNAJEANNA Mattson MD 12/25/17 Past Medical/Surgical History Below data was copy from recent oncology note DIAGNOSES 1. Metastatic renal cell carcinoma. 2. Bone metastases. CHIEF COMPLAINT Patient is here today for followup of his metastatic left renal carcinoma. ONCOLOGY HISTORY Patient is a 77-year-old male who saw Nola Nunez for low back pain and left groin pain. He started the process of followup of his pain since October as per patient. He had some physical therapy and cortisone injection into the left hip without improvement. He had an MRI which showed renal mass with mets to the spine, so the patient had after that CT chest, abdomen, and pelvis done on December 11, 2017, which showed a big heterogeneous mass of the left kidney, 12.5 cm. There was also venous thrombosis with multiple veins in the pelvis and upper thighs likely extending into the inferior vena cava. There were numerous pulmonary nodules likely representing pulmonary metastasis with mediastinal adenopathy likely metastatic. There were numerous lytic, destructive lesions in the bones including the anterior aspect of the right 10th and 11th ribs, T7, L1, and L4. There was also a large destructive lesion involving the left iliac bone with a large heterogeneous soft tissue mass component extending into the anterior aspect of the left acetabulum where there is pathologic fracture. The uncinate process of the liver is heterogeneous. PET CT scan done on the December showed a large mass involving the left kidney measuring nearly 13 cm with maximum SUV of 21.3. There were bilateral adrenal gland metastases, mediastinal and lung metastases, intra-abdominal adenopathy, left axillary lymphadenopathy, and extensive osseous metastatic disease. CT-guided biopsy of the left iliac crest showed metastases consistent with clear-cell renal cell carcinoma, and the biopsy was done on the December. HISTORY OF PRESENT ILLNESS Patient is here today for followup of his left renal carcinoma with metastases to multiple organs. He is complaining of back pain, hiccups lately, and shortness of breath, especially with the hiccups. He has also benign prostatic hypertrophy, on tamsulosin. He has some swallowing difficulties. PAST MEDICAL HISTORY Benign prostatic hypertrophy with urinary retention in 2016, currently on tamsulosin. PAST SURGICAL HISTORY 1. Right knee replacement in 2010. 2. Prostate biopsy in 2008. 3. Left rotator cuff injury repair. 4. Bilateral cataract surgery. FAMILY HISTORY Brother had squamous cell carcinoma of the lip. Father had lung cancer. Sister had lung cancer. He had brother with kidney cancer. He had multiple cousins with brain, kidney, and lung cancer. SOCIAL HISTORY Patient is with two children. 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 He is a never smoker. He occasionally drinks beer. Denies any abuse of illicit drugs. Reviewed Nurses Notes: Yes Old Medical Records Reviewed: Yes Hx Smoking: No Smoking Status: Never Smoker Hx Substance Use Disorder: No Hx Alcohol Use: Yes Constitutional Vital Sign - Last 24 Hours 01/07/18 01/07/18 01/07/18 01/07/18 22:42 22:42 22:49 23:00 Temp 98.5 Pulse 120 117 Resp 18 B/P (MAP) 133/80 133/80 (97) 108/68 (81) Pulse Ox 90 88 O2 Delivery Room Air 01/07/18 01/07/18 01/07/18 01/07/18 23:04 23:19 23:30 23:34 Pulse 112 109 106 B/P (MAP) 115/75 (88) Pulse Ox 88 90 89 01/07/18 23:49 Pulse 104 Pulse Ox 90 Physical Exam General Appearance: The patient is alert, has no immediate need for airway protection and no current signs of toxicity. I'll signs stable, afebrile Eyes: Pupils equal and round no injection. Respiratory: Chest is non tender, lungs are clear to auscultation. Cardiac: regular rate and rhythm Gastrointestinal: Abdomen is soft and non tender, no masses, bowel sounds normal. Reid catheter with red tinged urine Musculoskeletal: Neck: Neck is supple and non tender. Extremities have full range of motion and are non tender. Skin: No rashes or lesions. DIFFERENTIAL DIAGNOSIS: After history and physical exam differential diagnosis was considered for urinary tract infection, renal bleed, bladder bleeding. Medical Decision Making Data Points Laboratory Hematology Test 01/07/18 23:17 Urine Color Red Urine Clarity Slightly-cloudy Urine pH 6.0 pH (4.8-9.5) Urine Specific [place] 1.004 Urine Protein 100 mg/dL (NEGATIVE) Urine Glucose (UA) Negative mg/dL (NEGATIVE) Urine Ketones Negative mg/dL (NEGATIVE) Urine Blood Large (NEGATIVE) Urine Nitrite Negative (NEGATIVE) Urine Bilirubin Negative (NEGATIVE) Urine Urobilinogen Negative mg/dL (0.2-1.9) Urine Leukocyte Esterase Small (NEGATIVE) Urine RBC 17 /HPF (0-2/HPF) Urine WBC 20 /HPF (0-5/HPF) Urine Squamous Epithelial Cells Few /LPF (NONE-FEW) Urine Transitional Epithelial Cells Few /LPF (NONE-FEW) Urine Bacteria Moderate /HPF (NONE-FEW) Urine Mucus None /HPF (NONE-FEW) Chemistry Test 01/07/18 23:17 Urine Color Red Urine Clarity Slightly-cloudy Urine pH 6.0 pH (4.8-9.5) Urine Specific [place] 1.004 Urine Protein 100 mg/dL (NEGATIVE) Urine Glucose (UA) Negative mg/dL (NEGATIVE) Urine Ketones Negative mg/dL (NEGATIVE) Urine Blood Large (NEGATIVE) Urine Nitrite Negative (NEGATIVE) Urine Bilirubin Negative (NEGATIVE) Urine Urobilinogen Negative mg/dL (0.2-1.9) Urine Leukocyte Esterase Small (NEGATIVE) Urine RBC 17 /HPF (0-2/HPF) Urine WBC 20 /HPF (0-5/HPF) Urine Squamous Epithelial Cells Few /LPF (NONE-FEW) Urine Transitional Epithelial Cells Few /LPF (NONE-FEW) Urine Bacteria Moderate /HPF (NONE-FEW) Urine Mucus None /HPF (NONE-FEW) Urinalysis Test 01/07/18 23:17 Urine Color Red Urine Clarity Slightly-cloudy Urine pH 6.0 pH (4.8-9.5) Urine Specific [place] 1.004 Urine Protein 100 mg/dL (NEGATIVE) Urine Glucose (UA) Negative mg/dL (NEGATIVE) Urine Ketones Negative mg/dL (NEGATIVE) Urine Blood Large (NEGATIVE) Urine Nitrite Negative (NEGATIVE) Urine Bilirubin Negative (NEGATIVE) Urine Urobilinogen Negative mg/dL (0.2-1.9) Urine Leukocyte Esterase Small (NEGATIVE) Urine RBC 17 /HPF (0-2/HPF) Urine WBC 20 /HPF (0-5/HPF) Urine Squamous Epithelial Cells Few /LPF (NONE-FEW) Urine Transitional Epithelial Cells Few /LPF (NONE-FEW) Urine Bacteria Moderate /HPF (NONE-FEW) Urine Mucus None /HPF (NONE-FEW) ED Course/Re-evaluation ED Course She was minute to an examination room. H&P was done. The dental diagnoses was considered. Patient underwent immunotherapy. On 01/05/18. He's having some hematuria now. His hematuria has no infectious symptoms associated with it. A urinalysis will be performed. There are a few white cells in it and some leukocyte esterase. A urinary cultures ordered. Patient will be covered with Keflex. The hematuria may be from his Eliquis. It may also be from tumor related to his immunotherapy. Causing some hematuria since he has renal cell carcinoma. I reassured the family that it is not likely serious. He's advised to continue on all of his medications. In follow-up with oncology next week. Decision to Disposition Date: Jan 07, 2018 Decision to Disposition Time: 23:40 Depart Departure Latest Vital Signs Vital Signs Date Time Temp Pulse Resp B/P (MAP) Pulse Ox O2 Delivery O2 Flow Rate FiO2 01/07/18 23:49 104 90 01/07/18 23:30 115/75 (88) 01/07/18 22:42 98.5 18 Room Air Impression: Primary Impression: Hematuria Additional Impressions: Urinary tract infection Metastatic renal cell carcinoma Condition: Improved Disposition: HOME OR SELF-CARE Referrals: ZULEMA RICHARD MD (PCP) New Scripts Cephalexin 250 Mg/5 Ml Susp (KEFLEX 250 MG/5 ML SUSP) 250 Mg/5 Ml Susp.recon 250 MG PO TID for infection, #250 BOT Prov: EDENILSON GLOVER DO 01/07/18 Patient Instructions: Urinary Tract Infection in Men (ED) Additional Instructions: Give Keflex 125 mg per 5 mL>>> give 20 mL 3 times daily for the 1st day, then use prescription that was written Follow-up with your oncology doctors next week Problem Qualifiers Primary Impression: Hematuria Hematuria type: unspecified type Qualified Codes: R31.9 - Hematuria, unsp ecified Additional Impressions: Urinary tract infection Urinary tract infection type: acute cystitis Hematuria presence: without hematuria Qualified Codes: N30.00 - Acute cystitis without hematuria Metastatic renal cell carcinoma Laterality: unspecified laterality Qualified Codes: C64.9 - Malignant neoplasm of unspecified kidney, except renal pelvis EDENILSON GLOVER DO Jan 07, 2018 22:45
[2018-01-07 23:30] VITALS: BP 115/75
[2018-01-07] MEDS ORDERED: CEPHALEXIN SUSP 125 MG/5 ML PO ONE (23:40)
[2018-01-07] MEDS ORDERED: CEPH250S35 PO (23:55)
[2018-01-08] MEDS ORDERED: LOR5/325 PO (18:43)
[2018-01-08] MEDS ORDERED: ONDA4TAB97 PO (18:43)
[2018-01-08] MEDS ORDERED: PROC-5 PO (18:43)
== END 2018-01-08 00:35 | disposition home or self-care (01) ==
LOC: ER 22:38
DX: R31.9 Hematuria, unspecified (principal); N30.00 Acute cystitis without hematuria; C64.9 Malignant neoplasm of unspecified kidney, except renal pelvis
CPT/HCPCS: 81001; 87088; 99283; A9270

== ENCOUNTER → 2018-01-14 | Outpatient (CLI) | payer MEDICARE, OTHER ==
[2017-12-29 12:28] VITALS: BMI 22.6
[~2018-01-14] MED LIST changes: +AMOX400S72 FT; +CEFT1VIA63 IVP; +CEPH250S35 PO; +DOCU50LI30 FT; +ENOX100D5 SC; +HYDR5SOL FT; +ONDA4TAB97 PO; +PROC-5 PO
[2018-01-21 16:31] VITALS: BP 120/75
== END ==
LOC: AMB 16:29
PROVIDERS: ATTEND Nurse Practitioner
DX: R31.9 Hematuria, unspecified (principal); N13.9 Obstructive and reflux uropathy, unspecified
CPT/HCPCS: A0425; A0428

== ENCOUNTER 2018-01-21 16:19 | Inpatient (IN) | payer MEDICARE, OTHER ==
[~2018-01-21] VITALS: Ht 180.3 cm; Wt 77.1 kg
[~2018-01-21 16:19] MED LIST changes: -AMOX400S72 FT; -DOCU50LI30 FT; -ENOX100D5 SC; -HYDR5SOL FT
[2018-01-21 16:32] VITALS: BP 120/75
--- NOTE | 2018-01-21 17:52 | History & Physical ---
History of Present Illness Chief Complaint Weak History of Present Illness 77yo male with PMHx significant for metastatic renal cell carcinoma, lower extremity DVT, gross hematuria, recent IVC filter placement, embolization of left kidney/renal cell tumor. He was admitted to [facility] approximately two weeks ago with gross hematuria, which ultimately necessitated his transfer to [facility] for IVC filter placement and embolization of the left kidney/tumor. Following his procedures, his course has been complicated by intolerance of tube feedings, progressive weakness, low grade fever, decreased level of functioning. His family was also having a very difficult time being with him due to the distance from his home in [place], [place]. He has now been transferred back to [facility] to continue his care. 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 (4) Back pain Status: Chronic (5) Renal cell carcinoma Status: Chronic (6) Dehydration Status: Acute (7) DVT (deep venous thrombosis) Status: Chronic (8) Malnutrition Status: Chronic (9) Urine retention Status: Chronic (10) Status post insertion of percutaneous endoscopic gastrostomy (PEG) tube Status: Resolved Home Meds Active Scripts Ceftriaxone Sodium (CEFTRIAXONE) 1 Gm Vial, 1 GM IVP Q24H@0800 for 3 Days, VIAL Prov:BAYRON TONEY MD 01/14/18 Phenazopyridine Hcl (PHENAZOPYRIDINE HCL) 200 Mg Tablet, 200 MG FT TID PRN for DISCOMFORT for 10 Days, #30 TAB Prov:ESTEFANIA SANTOS DO 01/04/18 Reported Medications Hydrocodone Bit/Acetaminophen (HYDROCODON-ACETAMINOPHEN 5-325) 1 Each Tablet, 1 EACH PO Q4-6H, TAB 01/08/18 Ondansetron Hcl (ZOFRAN) 4 Mg Tablet, 4 MG PO Q8H, TAB 01/08/18 Docusate Sodium (COLACE) 100 Mg Capsule, 100 MG PO BID, CAPSULE 12/29/17 Chlorpromazine Hcl (CHLORPROMAZINE HCL) 25 Mg Tablet, 25 MG PO TID take for hiccups 12/28/17 Omeprazole Magnesium (PRILOSEC OTC) 20 Mg Tablet., 1 TAB PO QDAY, TAB 12/19/17 Lactobacillus Combination No.4 (PROBIOTIC) 1 Each Capsule, 1 EACH PO DAILY, CAPSULE 12/15/17 Discontinued Reported Medications Prochlorperazine Maleate (PROCHLORPERAZINE MALEATE) 10 Mg Tablet, 10 MG PO Q8H PRN for NAUSEA/VOMITING, TAB 01/08/18 Sennosides/Docusate Sodium (SENNA-S TABLET) 1 Each Tablet, 1 EACH PO BID 12/29/17 Apixaban (ELIQUIS) 5 Mg Tablet, 5 MG PO BID 12/15/17 Tamsulosin Hcl (TAMSULOSIN HCL) 0.4 Mg Cap.er.24h, 0.4 MG PO BID, CAP 08/25/15 Discontinued Scripts Cephalexin 250 Mg/5 Ml Susp (KEFLEX 250 MG/5 ML SUSP) 250 Mg/5 Ml Susp.recon, 250 MG PO TID for infection, #250 BOT Prov:EDENILSON GLOVER Erik KIDD 01/07/18 Allergies: Coded Allergies: oxycodone HCl (Verified Allergy, Unknown, RASH, 12/25/17) Patient History: FH: diabetes mellitus MOTHER, BROTHER OR SISTER FH: heart disease MOTHER, FH: kidney cancer BROTHER OR SISTER FH: lung cancer FATHER, BROTHER OR SISTER Hx Smoking: No Smoking Status: Never Smoker Caffeine/Cups Per Day: OCC Hx Alcohol Use: Yes Hx Substance Use Disorder: No Social Drug Use: Never Review of Systems Constitutional: Fever, Weight Loss Neurological: Weakness Gastrointestinal: Nausea, Constipation, Abdominal Pain Genitourinary: Hematuria Musculoskeletal: Pain Exam General Appearance: Other (He is somewhat somnolent, but awakens easily and answers questions/states "it is good to be home") Neuro: Other (generalized weakness in all muscle groups) Eyes: PERRLA ENT: Other (oral mucosa dry/tacky) Neck: No Masses Cardiovascular: Regular Rate and Rhythm Respiratory: Other (poor effort/diminished breath sounds at bases/no obvious rales or wheezes) Chest: No Tenderness, Other (Port right upper chest) GI: Other (Soft, but some tenderness elicited with palaption over upper abdomen/PEG tube site clean and dry/BS present, but diminished) Extremities: Warm, Perfused, Edema Integumentary: Generalized Fragile Skin Assessment and Plan Problems: (1) Renal cell carcinoma Status: Chronic Assessment & Plan: Advanced stage/metastatic. His left kidney/tumor has now been embolized and hematuria appears to have resolved. He is back on anticoagulation with Lovenox. His functional status has declined significantly. Will evaluate to see if any specific cause (ie acute infection) and treat as needed. He and his family have decided to pursue DNI/DNR status. (2) DVT (deep venous thrombosis) Status: Chronic Assessment & Plan: He has IVC filter in place and has been restarted on anticoagulation therapy with Lovenox. (3) Fever Status: Acute Assessment & Plan: He could have at least a few potential causes including acute infectious etiologies, tumor/kidney necrosis/lysis following the embolization, malignancy. Will check CXR, UA and culture. Will cover with broad spectrum IV antibiotics at least until have results. (4) Dehydration Status: Acute Assessment & Plan: Will give gentle IV fluids. Try to resume his tube feedings, but apparently he was not tolerating very well due to what sounds like an ileus (following his embolization). (5) Malnutrition Status: Chronic Assessment & Plan: Will try to restart his tube feedings. Copies to: DOMINIQUE CLIFTON MD; ALFA ROJO MD ; Venous Thromboembolism Antithrombotics Is Pt On Any Antithrombotics?: Yes Problem Qualifiers (1) Renal cell carcinoma: Laterality: left Qualified Codes: C64.2 - Malignant neoplasm of left kidney, except renal pelvis GABE BRYANT MD Jan 21, 2018 17:52
[2018-01-21 18:00] LABS: PLATELET COUNT, AUTOMATED 231 K/uL (150-450)
--- NOTE | 2018-01-21 19:02 | RADIOLOGY IMAGING REPORT ---
FACILITY: [facility] PATIENT NAME: Jose D Wilson : 1940 MR: [id number] V: [id number] EXAM DATE: ORDERING PHYSICIAN: GABE BRYANT TECHNOLOGIST: Location: [facility] [place] Patient: Jose D Wilson : 1940 Visit/Account:[id number] Date of Sevice: 01/21/2018 EXAMINATION: Portable chest radiograph single view at 6:05 PM. HISTORY: Fever/lethargy. COMPARISON: 12/21/2017. FINDINGS: A single portable AP view of the chest is obtained. Lines/tubes: Right internal jugular approach port with catheter tip in the region of the lower SVC. Lungs/pleura: Mild streaky opacity at the left lung base. No evidence of pneumothorax or pleural eff usion. Mild prominence of the pulmonary interstitium, similar to previous examination. Heart: Negative. Mediastinum: Stable mediastinal contours. Calcified plaque at the aortic arch. Bony structures/body wall: Multilevel degenerative changes in the spine. IMPRESSION: Mild streaky opacity at the left lung base may represent subsegmental atelectasis. Small superimposed infiltrate is not excluded. Stable mild prominence of the pulmonary interstitium. Report Dictated By: Osman Britton MD at 01/21/2018 6:55 PM Report E-Signed By: Osman Britton MD at 01/21/2018 6:58 PM WSN:[id number]
[2018-01-21] MEDS: PIPERACILLIN/TAZO*3.375GM VIAL 3.375 GM in NS(*) 0.9% 100 ML ADDVANT BAG 100 ML IVPB SCH (19:54)
[2018-01-21 20:05] VITALS: BP 126/72
[2018-01-21] MEDS: DOCUSATE SOD LIQ 100 MG/10 ML UDC FT SCH (20:16)
[2018-01-21] MEDS: HYDROmorphone HCL 2 MG/ML SDV IVP PRN (22:14)
[2018-01-21] MEDS: ENOXAPARIN 100 MG/ML SYR SC SCH (22:16)
[2018-01-22] MEDS: PIPERACILLIN/TAZO*3.375GM VIAL 3.375 GM in NS(*) 0.9% 100 ML ADDVANT BAG 100 ML IVPB SCH ×4 (00:45→18:25)
[2018-01-22] MEDS: NS(*) 0.9% 1000 ML BAG 1,000 ML IV PRN ×2 (04:33→15:55)
[2018-01-22 07:10] VITALS: BP 119/65
--- NOTE | 2018-01-22 08:47 | Antimicrobial Stewardship ---
Antimicrobial Time Out Antimicrobial Stewardship MD Service: Hospitalist Indications: HAP Antimicrobial Used [facility] Start Date: Jan 19, 2018 Culture Results: No Eligible for PO Conversion Eligable for PO Conversion: No Reviewed with Provider Reviewed w/ Provider on Rounds: Yes Date Reviewed w/ Provider: Jan 22, 2018 Comments Comments 1. HAP- Reported fever, elevated WBC, possible infiltrate on Chest Xray per [facility], started on empiric Zosyn on 01/19/18 at [facility]. Continue present management until complete evaluation. Chest xray at [facility] shows possible infiltrate. Pt not coughing or symptomatic, but received immunotherapy on 01/05/18 (opdivo + yervoy). Will monitor and de-escalate therapy as appropriate. Antibiotics for 5 days would be complete course. WIll continue to follow. Milana Moore, PharmD, BCOP MILANA MOORE Jan 22, 2018 08:47
--- NOTE | 2018-01-22 09:33 | Hospitalist Progress Note ---
Subjective Progress Notes Subjective This patient was transferred from [facility] for ongoing management of renal cell carcinoma. He had no acute events overnight. Patient Complains of: Cardiovascular: No: Chest Pain Respiratory: No: Shortness of Breath Physical Exam Vital Signs Date Time Temp Pulse Resp B/P (MAP) Pulse Ox O2 Delivery O2 Flow Rate FiO2 01/22/18 07:22 92 Room Air 01/22/18 07:10 98.2 104 24 119/65 (83) 01/21/18 20:20 0.5 Intake and Output 01/22/18 07:00 Intake Total 1802 ml Output Total 1300 ml Balance 502 ml Intake Oral 20 ml IV Total 1300 ml Tube Feeding 452 ml Tube Irrigant 30 ml Output Urine Total 1300 ml Cardiovascular: Regular Rate and Rhythm Respiratory: Clear to Auscultation Result Diagram: 01/21/18175301/21/181753 Assessment and Plan Problems: (1) Renal cell carcinoma Status: Chronic Assessment & Plan: Advanced stage/metastatic. His left kidney/tumor has now been embolized and hematuria appears to have resolved. He is back on anticoagulation with Lovenox. His functional status has declined significantly. (2) DVT (deep venous thrombosis) Status: Chronic Assessment & Plan: He has IVC filter in place and has been restarted on anticoagulation therapy with Lovenox. (3) Fever Status: Acute Assessment & Plan: He was started on treatment with Zosyn while at [facility]. He has a faint infiltrate, but no symptoms of pneumonia. We will continue the Zosyn for another 24hrs and reevaluate. (4) Dehydration Status: Acute Assessment & Plan: Resolved with IV fluids and tube feedings. (5) Malnutrition Status: Chronic Assessment & Plan: His tube feedings have been restarted. Exam Sepsis Risk: Sepsis Risk Problem Qualifiers (1) Renal cell carcinoma: Laterality: left Qualified Codes: C64.2 - Malignant neoplasm of left kidney, except renal pelvis ZULEMA MCGHEE DO Jan 22, 2018 09:33
[2018-01-22 10:40] VITALS: Ht 180.3 cm; Wt 77.1 kg
[2018-01-22] MEDS: ENOXAPARIN 100 MG/ML SYR SC SCH ×2 (10:51→23:46)
[2018-01-22] MEDS: DOCUSATE SOD LIQ 100 MG/10 ML UDC FT SCH ×2 (10:51→22:03)
[2018-01-22] MEDS: HYDROmorphone HCL 2 MG/ML SDV IVP PRN (13:50)
[2018-01-22 13:57] VITALS: BP 113/69
--- NOTE | 2018-01-22 16:02 | Medical Nutrition Therapy ---
Nutrition Anthropometrics Height (Inches): 70.00 Height (Calculated Centimeters: 177.262504 Weight (Pounds): 158 Weight (Calculated Kilograms): 71.668 BMI: 22.7 Basilio Nutrition Score: Probably Inadequate Basilio Nutrition Risk Score: 15 Dietary Referral Nutrition Risk Factors: Unplanned Loss >10lbs, Diff. Swallowing, Tube Feeding Nutrition Risk Comment: Physical Findings Physical Appearance: 22.7 Skin Appearance Skin Appearance: Edema Edema Location Modifier: Both Edema Location: Ankle Type of Edema: Degree of Edema: Gastrointestinal Symptoms GI Symtoms: Constipation Tube Present: PEG Bowel Sounds: Recent Bowel Pattern: Constipated Stool Characteristics: Nutrition/Food History Poor TF Tolerance Nutritional Diagnosis Nutritional Risk Acuity 1: Malnutrition Nutritional Risk Acuity 2: Tube Feed Stable Nutritional Risk Acuity 3: Cancer Nutritional Risk Acuity 4: Modified Diet Past Medical History: Hx of hematuria, singultus, renal cell carcinoma, DVT, malnutrition Nutritional Acuity: 1-High Nutrition Diagnosis: Inadequate Nutr. Support Nutrition Etiology: Intol. Nutrition Support Nutrition Problem/Etiology/Sym: Inadequate Nutrition support, as related to intolerance of nutrition support, as evidenced by TF. Energy Requirement: 2200 (Prior vists needs) Protein Requirement: 94 (prior visit needs) Diet Type: Tube Feeding (TF) Nutrition Intervention: Cont diet as ordered Nutrition Monitoring & Eval RD Patient Assessment Time: [address] Assessment Type: RD Screen Patient Nutrition Acuity: 1-High Follow Up Date: Jan 25, 2018 Nutritional Comment: 01/22. Pt admitted after complaint of weakness. Pt is being treated for acute fever and dehydration and chronic renal cell carcinoma, DVT, and malnutrition. Notable labs include: elevated RBC 13.4, creatinine 1.3, AST 89, ALT 66. Low labs: RBC 3.19, Hgb 9.1, Hct 27.1, sodium 129, and albumin 2.8. Reported from last visit, pt was 70in and 158lbs. Pt on TF. Recommend Jevity 1, final rate of 90ml/hr, for a total of 2290 kcal and 96g of protein. This will meet 100% of kcal and 100% protein needs. Pt currently receiving at 60ml/hr, tolerating well. Increase TF as tolerated til final rate. Will cont to monitor TF. MR Nutritional Support Current Enteral / Parental: Tube Feeding Tube Feeding Supplement Streng: Full Rate: 80ml/hr final rate Current Calories: 5 Current Protein: 85 Total Current Calories: 2035 Recommended Enteral / Parental: Tube Feeding Recommended Tube Feeding Formu: Jevity 1cal/ml-Standard Tube Feeding Supplement Streng: Full Recommended Rate: 90ml/hr final rate Recommended Calories: 2290 Recommended Protein: 96 Total Recommended Calories: 2290 ROBERT LOGAN Jan 22, 2018 14:12
[2018-01-22] MEDS: chlorproMAZINE 25 MG TAB PO PRN (18:26)
[2018-01-22 19:40] VITALS: BP 129/75
[2018-01-23] MEDS: PIPERACILLIN/TAZO*3.375GM VIAL 3.375 GM in NS(*) 0.9% 100 ML ADDVANT BAG 100 ML IVPB SCH ×4 (01:19→19:30)
[2018-01-23] MEDS: NS(*) 0.9% 1000 ML BAG 1,000 ML IV PRN ×2 (03:07→17:19)
[2018-01-23] MEDS: chlorproMAZINE 25 MG TAB PO PRN ×2 (07:14→17:19)
[2018-01-23 07:27] VITALS: BP 135/73
[2018-01-23] MEDS: DOCUSATE SOD LIQ 100 MG/10 ML UDC FT SCH ×2 (09:42→20:15)
--- NOTE | 2018-01-23 10:07 | Hospitalist Progress Note ---
Subjective Progress Notes Subjective 77M admitted for bleeding, AMY overnight. Doing well after ablation of kidney to stop bleeding. Patient Complains of: Neurological: Weakness Cardiovascular: No: Chest Pain Gastrointestinal: Other (hiccups); No Nausea, No Vomiting Physical Exam Vital Signs Date Time Temp Pulse Resp B/P (MAP) Pulse Ox O2 Delivery O2 Flow Rate FiO2 01/23/18 07:38 91 Room Air 01/23/18 07:27 98.6 105 20 135/73 (93) 01/21/18 20:20 0.5 Intake and Output 01/23/18 07:00 Intake Total 3265 ml Output Total 2275 ml Balance 990 ml Intake Oral 35 ml IV Total 1589 ml Tube Feeding 1581 ml Tube Irrigant 60 ml Output Urine Total 2275 ml # Bowel Movements 2 General Appearance: Alert, Awake (easily falls asleep while we are in room discussing plan), No Acute Distress Neuro: No Gross deficits Eyes: PERRLA ENT: Normal Cardiovascular: Normal Rhythm & Peripheral Pulses Respiratory: No Respiratory Distress GI: Soft and Non-Tender : Normal (+ jaime) Extremities: Soft and Non Tender, Warm, Pulses, Perfused Psych: Alert & Oriented X3 Result Diagram: 01/21/18175301/21/181753 Assessment and Plan Problems: (1) Renal cell carcinoma Status: Chronic Assessment & Plan: Advanced stage/metastatic. His left kidney/tumor has now been embolized and hematuria appears to have resolved. He is back on anticoagulation with Lovenox. His functional status has declined significantly. Does not qualify for ECF likely needs SNU, cost of immunotherapy likely to be barrier. insists it is up to patient how much treatment he wants to pursue. Continue PT/OT. (2) DVT (deep venous thrombosis) Status: Chronic Assessment & Plan: He has IVC filter in place and has been restarted on anti coagulation therapy with Lovenox. (3) Fever Status: Acute Assessment & Plan: He was started on treatment with Zosyn while at [facility]. He has a faint infiltrate, but no symptoms of pneumonia. We will continue the Zosyn through 01.23.2018 and then monitor off Abx. (4) Dehydration Status: Acute Assessment & Plan: Resolved with IV fluids and tube feedings. (5) Malnutrition Status: Chronic Assessment & Plan: His tube feedings have been restarted. Exam Sepsis Risk: Sepsis Risk Problem Qualifiers (1) Renal cell carcinoma: Laterality: left Qualified Codes: C64.2 - Malignant neoplasm of left kidney, except renal pelvis ESTEFANIA SANTOS DO Jan 23, 2018 10:07
[2018-01-23] MEDS: HYDROCOD/ACETAMIN 2.5-108/5 ML 5 ML UDC FT PRN ×2 (10:23→20:14)
[2018-01-23] MEDS: ENOXAPARIN 100 MG/ML SYR SC SCH ×2 (10:34→23:36)
[2018-01-23 17:27] VITALS: BP 138/80
[2018-01-23 21:18] VITALS: BP 118/62
[2018-01-24] MEDS: NS(*) 0.9% 1000 ML BAG 1,000 ML IV PRN (01:19)
[2018-01-24 06:16] LABS: PLATELET COUNT, AUTOMATED 270 K/uL (150-450)
[2018-01-24] MEDS ORDERED: PIPERACILLIN/TAZO*3.375GM VIAL 3.375 GM in NS(*) 0.9% 100 ML ADDVANT BAG 100 ML IVPB SCH (09:00)
[2018-01-24] MEDS: DOCUSATE SOD LIQ 100 MG/10 ML UDC FT SCH (09:11)
[2018-01-24] MEDS: chlorproMAZINE 25 MG TAB PO PRN (09:11)
[2018-01-24 09:12] VITALS: BP 139/80
[2018-01-24] MEDS: HYDROCOD/ACETAMIN 2.5-108/5 ML 5 ML UDC FT PRN (09:12)
[2018-01-24] MEDS ORDERED: COLCHICINE 0.6 MG TAB FT ONE ×2 (10:30→14:00)
[2018-01-24] MEDS ORDERED: AMOX/CLAV 400 MG/5 ML 50ML BTL FT SCH ×2 (10:30→14:00)
[2018-01-24] MEDS: ENOXAPARIN 100 MG/ML SYR SC SCH (10:31)
[2018-01-24] MEDS ORDERED: AMOX400S72 FT (10:33)
[2018-01-24] MEDS ORDERED: HYDR5SOL FT (10:33)
[2018-01-24] MEDS ORDERED: DOCU50LI30 FT (10:33)
[2018-01-24] MEDS ORDERED: ENOX100D5 SC (10:33)
--- NOTE | 2018-01-24 10:40 | Medical Nutrition Therapy ---
Nutrition Anthropometrics Height (Inches): 71.00 Height (Calculated Centimeters: 180.595830 Weight (Pounds): 170 Weight (Calculated Kilograms): 77.111 BMI: 22.7 Basilio Nutrition Score: Probably Inadequate Basilio Nutrition Risk Score: 14 Dietary Referral Nutrition Risk Factors: Unplanned Loss >10lbs, Diff. Swallowing, Tube Feeding Nutrition Risk Comment: Nutritional Diagnosis Nutritional Risk Acuity 1: Malnutrition Nutritional Risk Acuity 2: Head/Neck/GI Cancer (RENAL cA), Tube Feed Stable Nutritional Risk Acuity 4: Modified Diet Past Medical History: Hx of hematuria, singultus, renal cell carcinoma, DVT, malnutrition Nutritional Acuity: 1-High Nutrition Diagnosis: Increased Nutrient Needs Nutrition Etiology: Physiological Causes Nutrition Problem/Etiology/Sym: Increased nutritional needs r/t dx stage 4 renal Ca AEB alb 2.3, H/H 8.8/26.1. Energy Requirement: 2200 (Prior vists needs) Protein Requirement: 94 (prior visit needs) Diet Type: Tube Feeding (TF) Nutrition Intervention: Nutrition support Nutritional Support Current Enteral / Parental: Tube Feeding Tube Feeding Formulas: Jevity 1cal/ml-Standard Tube Feeding Supplement Streng: Full Rate: 90ml/hr final rate Current Calories: 2290 Current Protein: 90 Total Current Calories: 2290 Nutrition Monitoring & Eval Nutritional Goals Comment: TF will meet nutritional needs RD Patient Assessment Time: [address] Assessment Type: RD Re-Assessment Patient Nutrition Acuity: 1-High Follow Up Date: Jan 28, 2018 Nutritional Comment: 01/22. Pt admitted after complaint of weakness. Pt is being treated for acute fever and dehydration and chronic renal cell carcinoma, DVT, and malnutrition. Notable labs include: elevated RBC 13.4, creatinine 1.3, AST 89, ALT 66. Low labs: RBC 3.19, Hgb 9.1, Hct 27.1, sodium 129, and albumin 2.8. Reported from last visit, pt was 70in and 158lbs. Pt on TF. Recommend Jevity 1, final rate of 90ml/hr, for a total of 2290 kcal and 96g of protein. This will meet 100% of kcal and 100% protein needs. Pt currently receiving at 60ml/hr, tolerating well. Increase TF as tolerated til final rate. Will cont to monitor TF. MR 01/24 TF increased to 90ml/hr which meet nutr needs. Pt has been recieving 80ml/hr and is tolerating it well with no residuals and soft abdomin. Pt has dx hemaotoma with kidney/tumor embolized . Alb cont low at 2.3 H/h low at 8.8/26.1. Will cont to monitor. OTILIA ALBERTO Jan 24, 2018 10:40
--- NOTE | 2018-01-24 10:44 | Hospitalist Depart ---
Discharge Summary Reason for Hosp/Final Diag: (1) Pneumonia Status: Acute Hospital Course & Plan: He was started on treatment with Zosyn while at [facility]. He has a faint LLL infiltrate, which is most likely brand representative of a pneumonia. He was initially placed on IV Zosyn for a healthcare associated pneumonia and then transitioned to Augmentin 1000mg BID via feeding tube. He showed improvement in his clinical status during his stay. He will finish a full course of antibiotics with his evening dose on 01/28/18. (2) Renal cell carcinoma Status: Chronic Hospital Course & Plan: Advanced stage/metastatic. His left kidney/tumor has now been embolized and hematuria appears to have resolved. He is back on anticoagulation with Lovenox. His functional status had declined significantly, but did improve with treatment of his LLL pneumonia, dehydration, poor nutrition. [facility] to continue [facility]/OT as well as his immunotherapy. (3) DVT (deep venous thrombosis) Status: Chronic Hospital Course & Plan: He has IVC filter in place and has been restarted on anticoagulation therapy with Lovenox. (4) Dehydration Status: Acute Hospital Course & Plan: Resolved with IV fluids and tube feedings. (5) Malnutrition Status: Chronic Hospital Course & Plan: His tube feedings were restarted. He has been tolerating them without significant problems. Departure Weight (Pounds): 170 Result Diagram: 01/24/18 0532 01/24/18 0532 Item Value Date Time Random Glucose 89 mg/dl 01/10/18 0537 Glomerular Filtration Rate Calc > 60.0 01/10/18 0537 Carbon Dioxide Level 25 mmol/L 01/10/18 0537 Blood Urea Nitrogen 15 mg/dl 01/10/18 0537 Creatinine 1.10 mg/dl 01/10/18 0537 Prothrombin Time 14.9 seconds H 01/08/18 1907 Prothromb Time International Ratio 1.17 01/08/18 1907 Carbon Dioxide Level 25 mmol/L 01/09/18 0513 Blood Urea Nitrogen 15 mg/dl 01/09/18 0513 Creatinine 0.90 mg/dl 01/09/18 0513 Glomerular Filtration Rate Calc > 60.0 01/09/18 0513 White Blood Count 13.4 k/uL H 01/21/18 1754 Hemoglobin 9.1 g/dL L 01/21/18 1754 Hematocrit 27.1 % L 01/21/18 1754 Platelet Count 231 K/uL 01/21/18 1754 Sodium Level 129 mmol/L L 01/21/18 1754 Potassium Level 3.9 mmol/L 01/21/18 1754 Chloride Level 98 mmol/L 01/21/18 1754 Carbon Dioxide Level 26 mmol/L 01/21/18 1754 Blood Urea Nitrogen 18 mg/dl 01/21/18 1754 Creatinine 1.30 mg/dl H 01/21/18 1754 Glomerular Filtration Rate Calc 53.8 01/21/18 1754 Random Glucose 108 mg/dl 01/21/18 1754 Calcium Level 8.3 mg/dl L 01/21/18 1754 Total Bilirubin 0.7 mg/dl 01/21/18 1754 Aspartate Amino Transf (AST/SGOT) 89 U/L H 01/21/18 1754 Alanine Aminotransferase (ALT/SGPT) 66 U/L H 01/21/18 1754 Alkaline Phosphatase 112 U/L 01/21/18 1754 Total Protein 6.3 g/dl 01/21/18 1754 Albumin 2.8 g/dl L 01/21/18 1754 Urine Mucus None /HPF 01/21/18 2130 Urine Granular Casts Few /LPF H 01/21/18 2130 Urine Bacteria Few /HPF 01/21/180 Urine Transitional Epithelial Cells Few /LPF 01/21/180 Urine Squamous Epithelial Cells None /LPF 01/21/180 Urine WBC Clumps Few /HPF 01/21/182129 Urine WBC 67 /HPF 01/21/182129 Urine RBC 35 /HPF 01/21/180 Urine Leukocyte Esterase Trace H 01/21/182129 Urine Urobilinogen Negative mg/dL 01/21/182129 Urine Bilirubin Negative 01/21/182129 Urine Nitrite Negative 01/21/182129 Urine Blood Large 01/21/182129 Urine Ketones Negative mg/dL 01/21/182129 Urine Glucose (UA) Negative mg/dL 01/21/182129 Urine Protein 100 mg/dL 01/21/182129 Urine Specific [place] 1.017 01/21/182129 Urine pH 5.0 pH 01/21/182129 Urine Clarity Slightly-cloudy 01/21/182129 Urine Color Yellow 01/21/182129 [facility] *LIVE* [address] [place] [address] BOBO RICHARDSON M.D., DIRECTOR OF LABORATORY SERVICES ESTEFANIA MERRITT M.D., PATHOLOGIST RUN DATE: 01/24/18 Specimen Inquiry Report PAGE 1 RUN TIME: 1004 PATIENT: JOSE D WILSON ACCT: [id number] LOC: [facility] U: [id number] AGE/SX: 77/M ROOM: [facility] RE01/21/[address]: GABE BRYANT MD : 1940 BED: 271 DIS: STATUS: ADM IN TLOC: -------- ---- SPEC #: [id number] NOE: 01/21/18 STATUS: COMP REQ #: [id number] RECD: 01/21/[address]: GABE BRYANT MD SOURCE: JODIE ENTR: 01/21/[address] [facility] [address]: ALFA ROJO MD [facility]: ORDERED: CULT URINE COMMENTS: Has specimen been collected/obtained? Y Procedure Result Verified ------ ------ URINE CULTURE Final 01/24/18-1004 NO GROWTH AFTER 2 DAYS Imaging PATIENT NAME: Jose D Wilson : 1940 MR: [id number] V: [id number] EXAM DATE: ORDERING PHYSICIAN: GABE BRYANT TECHNOLOGIST: Location: [facility] [place] Patient: Jose D Wilson : 1940 Visit/Account:[id number] Date of Sevice: 01/21/2018 EXAMINATION: Portable chest radiograph single view at 6:05 PM. HISTORY: Fever/lethargy. COMPARISON: 12/21/2017. FINDINGS: A single portable AP view of the chest is obtained. Lines/tubes: Right internal jugular approach port with catheter tip in the region of the lower SVC. Lungs/pleura: Mild streaky opacity at the left lung base. No evidence of pneumothorax or pleural effusion. Mild prominence of the pulmonary interstitium, similar to previous examination. Heart: Negative. Mediastinum: Stable mediastinal contours. Calcified plaque at the aortic arch. Bony structures/body wall: Multilevel degenerative changes in the spine. IMPRESSION: Mild streaky opacity at the left lung base may represent subsegmental atelectasis. Small superimposed infiltrate is not excluded. Stable mild prominence of the pulmonary interstitium. Report Dictated By: Osman Britton MD at 01/21/2018 6:55 PM Report E-Signed By: Osman Britton MD at 01/21/2018 6:58 PM WSN:[id number] Condition: Improved Discharge: [facility] Time Spent: > 30 min Discharge Instructions Home Meds Active Scripts Docusate Sodium (DOCU LIQUID) 50 Mg/5 Ml Liquid, 100 MG FT BID for 30 Days, #1 BOTTLE 1 Refill Prov:GABE BRYANT MD 01/24/18 Hydrocodone Bit/Acetaminophen (HYDROCODONE-ACETAMIN 2.5-108/5) 5 Ml Solution, 10 ML FT Q4H PRN for PAIN for 30 Days, #1 BOT 0 Refills Prov:GABE BRYANT MD 01/24/18 Enoxaparin Sodium (LOVENOX) 100 Mg/1 Ml Disp.syrin, 70 MG SC Q12H@1100,2300 for 60 Days, #1 VIAL 1 Refill Prov:GABE BRYANT MD 01/24/18 Amoxicillin/Potassium Clav (AMOX TR-K CLV 400-57/5 SUSP) 400 Mg/5 Ml Susp.recon, 1000 MG FT Q12H for 5 Days, #1 BOT 0 Refills Prov:GABE BRYANT MD 01/24/18 Reported Medications Chlorpromazine Hcl (CHLORPROMAZINE HCL) 25 Mg Tablet, 25 MG PO TID take for hiccups 12/28/17 Discontinued Reported Medications Hydrocodone Bit/Acetaminophen (HYDROCODON-ACETAMINOPHEN 5-325) 1 Each Tablet, 1 EACH PO Q4-6H, TAB 01/08/18 Ondansetron Hcl (ZOFRAN) 4 Mg Tablet, 4 MG PO Q8H, TAB 01/08/18 Docusate Sodium (COLACE) 100 Mg Capsule, 100 MG PO BID, CAPSULE 12/29/17 Omeprazole Magnesium (PRILOSEC OTC) 20 Mg Tablet.dr, 1 TAB PO QDAY, TAB 12/19/17 Lactobacillus Combination No.4 (PROBIOTIC) 1 Each Capsule, 1 EACH PO DAILY, CAPSULE 12/15/17 Discontinued Scripts Ceftriaxone Sodium (CEFTRIAXONE) 1 Gm Vial, 1 GM IVP Q24H@0800 for 3 Days, VIAL Prov:BAYRON TONEY MD 01/14/18 Phenazopyridine Hcl (PHENAZOPYRIDINE HCL) 200 Mg Tablet, 200 MG FT TID PRN for DISCOMFORT for 10 Days, #30 TAB Prov:ESTEFANIA SANTOS DO 01/04/18 Activity: As Tolerated (with assistance/PT/OT) Special Instructions: Tube feedings as written (Jevity full-strength at 90cc/hr). Copies to: DOMINIQUE CLIFTON MD; ALFA ROJO MD ; Venous Thromboembolism Antithrombotics Is Pt On Any Antithrombotics?: Yes Problem Qualifiers (1) Renal cell carcinoma: Laterality: left Qualified Codes: C64.2 - Malignant neoplasm of left kidney, except renal pelvis GABE BRYANT MD Jan 24, 2018 10:44
[2018-01-31] MEDS ORDERED: CARISOPRODOL 350 MG TAB ONE (07:53)
[2018-02-08] MEDS ORDERED: TRIA15OI20 TP (10:02)
== END 2018-01-24 12:55 | DRG 194 ==
LOC: MED 16:19
PROVIDERS: ADMIT Internal Medicine; ATTEND Internal Medicine
PROC: 3E0G76Z Introduction of Nutritional Substance into Upper GI, Via Natural or Artificial Opening (ICD-10-PCS; principal; 2018-01-21)
DX: J18.9 Pneumonia, unspecified organism (principal); C64.2 Malignant neoplasm of left kidney, except renal pelvis; C79.9 Secondary malignant neoplasm of unspecified site; I82.509 Chronic embolism and thrombosis of unspecified deep veins of unspecified lower extremity; E44.1 Mild protein-calorie malnutrition; E86.0 Dehydration; Z79.01 Long term (current) use of anticoagulants; R06.6 Hiccough; Z93.1 Gastrostomy status; Z68.22 Body mass index [BMI] 22.0-22.9, adult
CPT/HCPCS: 36415; 71045; 81001; 82040; 82247; 82310; 82374; 82435; 82565; 82947; 84075; 84100; 84132; 84155; 84295; 84450; 84460; 84520; 84550; 85025; 87088; 97163; 97166; J1170; J1650; J2543; J7030; J7050; Q0161

== ENCOUNTER 2018-01-24 12:55 | Inpatient (IN) | payer MEDICARE, OTHER ==
[2018-01-22 10:40] VITALS: Ht 177.8 cm; Wt 75.3 kg
[~2018-01-24] VITALS: Ht 177.8 cm; Wt 75.3 kg
[~2018-01-24 12:55] MED LIST changes: +AMOX400S72 FT; +DOCU50LI30 FT; +ENOX100D5 SC; +HYDR5SOL FT
[2018-01-24 13:10] VITALS: BP 141/75
--- NOTE | 2018-01-24 13:57 | ECF H&P BLANK ---
ECF H&P UPDATE History of Present Illness Chief Complaint Weak History of Present Illness 77yo male with PMHx significant for metastatic renal cell carcinoma, lower extremity DVT, gross hematuria, recent IVC filter placement, embolization of left kidney/renal cell tumor. He was admitted to [facility] approximately two weeks ago with gross hematuria, which ultimately necessitated his transfer to [facility] for IVC filter placement and embolization of the left kidney/tumor. Following his procedures, his course has been complicated by intolerance of tube feedings, progressive weakness, low grade fever, decreased level of functioning. His family was also having a very difficult time being with him due to the distance from his home in [place], [place]. He has now been transferred back to [facility] to continue his care. 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 (4) Back pain Status: Chronic (5) Renal cell carcinoma Status: Chronic (6) Dehydration Status: Acute (7) DVT (deep venous thrombosis) Status: Chronic (8) Malnutrition Status: Chronic (9) Urine retention Status: Chronic (10) Status post insertion of percutaneous endoscopic gastrostomy (PEG) tube Status: Resolved Home Meds Active Scripts Ceftriaxone Sodium (CEFTRIAXONE) 1 Gm Vial, 1 GM IVP Q24H@0800 for 3 Days, VIAL Prov:BAYRON TONEY MD 01/14/18 Phenazopyridine Hcl (PHENAZOPYRIDINE HCL) 200 Mg Tablet, 200 MG FT TID PRN for DISCOMFORT for 10 Days, #30 TAB Prov:ESTEFANIA SANTOS DO 01/04/18 Reported Medications Hydrocodone Bit/Acetaminophen (HYDROCODON-ACETAMINOPHEN 5-325) 1 Each Tablet, 1 EACH PO Q4-6H, TAB 01/08/18 Ondansetron Hcl (ZOFRAN) 4 Mg Tablet, 4 MG PO Q8H, TAB 01/08/18 Docusate Sodium (COLACE) 100 Mg Capsule, 100 MG PO BID, CAPSULE 12/29/17 Chlorpromazine Hcl (CHLORPROMAZINE HCL) 25 Mg Tablet, 25 MG PO TID take for hiccups 12/28/17 Omeprazole Magnesium (PRILOSEC OTC) 20 Mg Tablet., 1 TAB PO QDAY, TAB 12/19/17 Lactobacillus Combination No.4 (PROBIOTIC) 1 Each Capsule, 1 EACH PO DAILY, CAPSULE 12/15/17 Discontinued Reported Medications Prochlorperazine Maleate (PROCHLORPERAZINE MALEATE) 10 Mg Tablet, 10 MG PO Q8H PRN for NAUSEA/VOMITING, TAB 01/08/18 Sennosides/Docusate Sodium (SENNA-S TABLET) 1 Each Tablet, 1 EACH PO BID 12/29/17 Apixaban (ELIQUIS) 5 Mg Tablet, 5 MG PO BID 12/15/17 Tamsulosin Hcl (TAMSULOSIN HCL) 0.4 Mg Cap.er.24h, 0.4 MG PO BID, CAP 08/25/15 Discontinued Scripts Cephalexin 250 Mg/5 Ml Susp (KEFLEX 250 MG/5 ML SUSP) 250 Mg/5 Ml Susp.recon, 250 MG PO TID for infection, #250 BOT Prov:EDENILSON GLOVER Erik KIDD 01/07/18 Allergies: Coded Allergies: oxycodone HCl (Verified Allergy, Unknown, RASH, 12/25/17) Patient History: FH: diabetes mellitus MOTHER, BROTHER OR SISTER FH: heart disease MOTHER, FH: kidney cancer BROTHER OR SISTER FH: lung cancer FATHER, BROTHER OR SISTER Hx Smoking: No Smoking Status: Never Smoker Caffeine/Cups Per Day: OCC Hx Alcohol Use: Yes Hx Substance Use Disorder: No Social Drug Use: Never Review of Systems Constitutional: Fever, Weight Loss Neurological: Weakness Gastrointestinal: Nausea, Constipation, Abdominal Pain Genitourinary: Hematuria Musculoskeletal: Pain Exam General Appearance: Other (He is somewhat somnolent, but awakens easily and answers questions/states "it is good to be home") Neuro: Other (generalized weakness in all muscle groups) Eyes: PERRLA ENT: Other (oral mucosa dry/tacky) Neck: No Masses Cardiovascular: Regular Rate and Rhythm Respiratory: Other (poor effort/diminished breath sounds at bases/no obvious rales or wheezes) Chest: No Tenderness, Other (Port right upper chest) GI: Other (Soft, but some tenderness elicited with palaption over upper abdomen/PEG tube site clean and dry/BS present, but diminished) Extremities: Warm, Perfused, Edema Integumentary: Generalized Fragile Skin Assessment and Plan Problems: (1) Renal cell carcinoma Status: Chronic Assessment & Plan: Advanced stage/metastatic. His left kidney/tumor has now been embolized and hematuria appears to have resolved. He is back on anticoagulation with Lovenox. His functional status has declined significantly. Will evaluate to see if any specific cause (ie acute infection) and treat as needed. He and his family have decided to pursue DNI/DNR status. (2) DVT (deep venous thrombosis) Status: Chronic Assessment & Plan: He has IVC filter in place and has been restarted on anticoagulation therapy with Lovenox. (3) Fever Status: Acute Assessment & Plan: He could have at least a few potential causes including a cute infectious etiologies, tumor/kidney necrosis/lysis following the embolization, malignancy. Will check CXR, UA and culture. Will cover with broad spectrum IV antibiotics at least until have results. (4) Dehydration Status: Acute Assessment & Plan: Will give gentle IV fluids. Try to resume his tube feedings, but apparently he was not tolerating very well due to what sounds like an ileus (following his embolization). (5) Malnutrition Status: Chronic Assessment & Plan: Will try to restart his tube feedings. Copies to: DOMINIQUE CLIFTON MD; ALFA ROJO MD ; Venous Thromboembolism Antithrombotics Is Pt On Any Antithrombotics?: Yes Problem Qualifiers (1) Renal cell carcinoma: Laterality: left Qualified Codes: C64.2 - Malignant neoplasm of left kidney, except renal pelvis GABE BRYANT MD Jan 21, 2018 17:52 <Electronically signed by GABE BRYANT MD> D/ 53 51 [address] [facility]ENTERPaulo/ CC: DOMINIQUE CLIFTON MD; ALFA ROJO MD Mr. Wilson will be admitted to [facility] for ongoing rehabilitative therapy, antibiotics, immunotherapy. GABE BRYANT MD Jan 24, 2018 13:57
[2018-01-24] MEDS ORDERED: COLCHICINE 0.6 MG TAB FT ONE (14:00)
[2018-01-24] MEDS: AMOX/CLAV 400 MG/5 ML 50ML BTL FT SCH ×2 (14:21→20:21)
[2018-01-24] MEDS: chlorproMAZINE 25 MG TAB PO PRN ×2 (14:43→20:29)
[2018-01-24] MEDS: DOCUSATE SOD LIQ 100 MG/10 ML UDC FT SCH (20:21)
[2018-01-24] MEDS: ENOXAPARIN 100 MG/ML SYR SC SCH (22:38)
[2018-01-25 07:30] VITALS: BP 130/71
[2018-01-25] MEDS: DOCUSATE SOD LIQ 100 MG/10 ML UDC FT SCH ×2 (09:00→20:57)
[2018-01-25] MEDS: AMOX/CLAV 400 MG/5 ML 50ML BTL FT SCH ×2 (09:25→20:57)
[2018-01-25] MEDS: HYDROCOD/ACETAMIN 2.5-108/5 ML 5 ML UDC FT PRN ×2 (09:25→18:04)
--- NOTE | 2018-01-25 10:21 | PT ECF NOTE ---
Type of Note: Initial Note Primary Medical Diagnosis: Metastatic Renal Cell Carcinoma Physical Therapy Evaluation Date: 01/24/2018 SUBJECTIVE: Prior Hospitalization: 12/25/17: [facility] due to [facility] pain, was discharged home that day. 12/29-01/04: [facility] for dehydration. Pt having difficulty swallowing. Found to have metastasis to the mediastinum and lungs. PEG tube placed 12/30/2017. Pt discharged home. 01/08-01/14: [facility] for hematuria. Pt's admission complicated by Eliquis and Lovenox. Pt underwent cystoscopy 01/13. Pt transferred to [facility] ([facility]) on 01/14/18. 01/21-01/24: Pt transferred from [facility] back to [facility] following IVC filter placement and embolization of L kidney renal cell tumor. It is reported Pt had the following complications while at [facility]: intolerance to tube feeds, weakness, fever, decrease in function. 01/24: Pt admitted [facility] for [facility]. Prior Level of Function: Prior to hospitalizations stated above, Pt's family reports he was able to ambulate house-hold distances with his Rollator walker. Prior Living Status: Single level house, Spouse, Assist by family Community Services: Home health [facility] Accessibility: All needs on one level, no stairs. Equipment Owned: Rollator, Wheelchair Medical Complications/Past Medical History: Metastatic Renal Cell CA. Psychosocial Support: Pt's and children Pain Scale (0-10): Pt reports neck pain, L hip/thigh pain, and L great toe pain "from gout". OBJECTIVE: Strength: NT due to low energy Bed Mobility: Mod-Max A x2 Assistive device: Bed rail, Head of bed elevated Transfers: unable at this time due to L great toe gout. ASSESSMENT: Pt presents with decreased strength, activity tolerance, and independence with functional mobility compared to before recent hospitalizations (outlined above). Pt will benefit from skilled PT for strengthening and functional mobility training in order to increase independence and quality of life as Pt is expressing desire to treat cancer and be more mobile. Problem List/Current Limitations: Pain, Decreased activity tolerance, Decreased strength, Decreased balance, Generalized weakness Short Term Goals: 1. SBA bed mobility. 2. SBA transfers. 3. SBA ambulation x 50' with RW/Rollator walker. 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 Patient Goals: "Get up and move around" Rehabilitation Prognosis: Poor Barriers for Discharge: advanced cancer diagnosis PLAN: The patient will benefit from skilled physical therapy services 5 times per week for 2 weeks including: Therapeutic Exercise, Therapeutic Activities, Transfer Training, Gait Training, Stair Training, Manual Therapy, ADL's, Safety Training, Neuromuscular Re-educ., Wound Care, Pt/Caregiver Training, Bed Mobility Thank you for this referral. If you have any questions, concerns, or comments about this report or plan, please contact me at . Katherine Galo, PT, DPT [facility]CS MTDD
[2018-01-25] MEDS: ENOXAPARIN 100 MG/ML SYR SC SCH ×2 (11:09→22:17)
--- NOTE | 2018-01-25 11:46 | OT ECF NOTE ---
Type of Note: Initial Note Primary Medical Diagnosis: Generalized weakness with diagnosis of Metastatic Renal Cell Carcinoma Occupational Therapy Evaluation Date: 01/24/18 SUBJECTIVE: Prior Hospitalization: 12/25/17: [facility] due to back pain, was discharged home that day. 12/29-01/04: [facility] for dehydration. Pt having difficulty swallowing. Found to have metastasis to the mediastinum and lungs. PEG tube placed 12/30/2017. Pt discharged home. 01/08-01/14: [facility] for hematuria. Pt's admission complicated by Eliquis and Lovenox. Pt underwent cystoscopy 01/13. Pt transferred to [facility] ([facility]) on 01/14/18. 01/21-01/24: Pt transferred from [facility] to [facility] following IVC filter placement and embolization of L kidney renal cell tumor. It is reported Pt had the following complications while at [facility]: intolerance to tube feeds, weakness, fever, decrease in function. 01/24: Pt admitted [facility] for [facility]. Prior Level of Function: Prior to hospitalizations stated above, Pt's family reports he was able to ambulate house-hold distances with his Rollator walker. Prior Level of Function: Prior to recent hospitalizations, pt's family reports he was ambulating household distances with 4WW and occasionally requiring assist for ADLs/IADLs. Prior Living Status: Single level house Spouse Assist by family Community Services: Home health custodial Accessibility: All needs on one level Equipment Owned: Rollator, Wheelchair, Bedside commode, Hospital bed Medical Complications/Past Medical History: Please refer to EMR Psychosocial Support: Supportive spouse Pain Scale (0-10): No numerical rating. Pt reporting pain in neck, back, L) LE, and bilateral toes from "gout" OBJECTIVE: Strength: MMT: Right Left Shoulder Flexion WFL WFL Elbow Flexion WFL WFL Wrist Extension WFL WFL Forklift Wheel Loader WFL WFL (5= normal, 4= good, 3= fair, 2= poor, 1= trace) ROM: Both upper extremities, Minimally limited Functional Transfer: Assistive Device: EZ lift/RW Transfer Ability: Mod Ax2 supine to sit and sit to supine bed mobility with HOB raised. Seated EOB for UB/LB ther ex and reaching. Pt unable to tolerate standing at this time secondary to pain in feet due to possible gout. ADL: Upper body dressing: Assistive device: Upper body dressing ability: N/T Lower body dressing: Assistive device: Lower body dressing ability: N/T Toileting: Assistive device: Toileting ability: N/T Grooming/hygiene: Assistive device: Grooming ability: N/T Bathing: Assistive device: Bathing ability: N/T Standardized Assessment: Jayson Index of Activities of Daily Livin/20 upon initial evaluation (01/24/18). ASSESSMENT: Pao presents to [facility] with significant weakness s/p multiple recent hospital admissions. Currently, he requires EZ lift for functional mobility, assist for stand pivots with RW, and Mod-Max A for ADLs. He will benefit from skilled OT services to improve activity tolerance and optimize (I) with ADLs to improve quality of life. Problem List/Current Limitations: Pain Decreased activity tolerance Decreased strength Decreased ROM Generalized weakness Short Term Goals: 1) Pt will be Min A toileting. 2) Pt will be Min A UB/LB dressing. 3) Pt will be Min A grooming/hygiene. 4) Pt will be Mod A shower task. 5) Pt Jayson Index of ADLs score will improve by 2 points. 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 If you have any questions, concerns, or comments about this report or plan, please contact me at . Veronica Bernstein MS, OTR/L Occupational Therapist PATI
[2018-01-25] MEDS: COLCHICINE 0.6 MG TAB PO SCH ×2 (12:22→20:57)
[2018-01-25] MEDS: chlorproMAZINE 25 MG TAB PO PRN ×2 (13:45→16:11)
--- NOTE | 2018-01-25 13:51 | Consultant Pharmacy Review ---
Intermodal Dispatcher Review Medication Review Do All Mecications have a Diag: Yes Beers Criteria Medication 2015 Antipsycholtics (conventional): Chlorpromazine (for hiccups) Other General Cautions Lexicomp Interaction Analysis A = No known interaction C = Monitor therapy X = Avoid combination B = No action needed D = Consider therapy modification Drugs in this analysis: Augmentin; ChlorproMAZINE; Docusate Sodium (SYN); Lortab; Lovenox * Drug-Drug Interactions D ChlorproMAZINE ([employer] OPERATIONS SPECIALIST Depressants) Lortab (HYDROcodone) Pneumococcal Vaccine HX Pneumo Vac ([id number]): Yes (74) HX Pneumo Vac (Pneumovax): No Comments Regarding the Review Patient is a candidate to receive the Pneumovax 1 year after the Prevnar 13 vaccine. Patient should receive an influenza vaccination when it is available. Monitor patient for falls due to lortab elixir and chlorpromazine. BETZY ARELLANO Jan 25, 2018 13:51
--- NOTE | 2018-01-25 16:10 | Medical Nutrition Therapy ---
Nutrition Anthropometrics Height (Inches): 70.00 Height (Calculated Centimeters: 177.677721 Weight (Pounds): 166 Weight (Calculated Kilograms): 75.296 BMI: 23.8 Basilio Nutrition Score: Basilio Nutrition Risk Score: Dietary Referral Nutrition Risk Factors: Unplanned Loss >10lbs, Diff. Swallowing, Tube Feeding Nutrition Risk Comment: Physical Findings Physical Appearance: 23.8 Skin Appearance Skin Appearance: Edema Edema Location Modifier: Both Edema Location: Lower Extremity Type of Edema: Degree of Edema: 1+ Gastrointestinal Symptoms GI Symtoms: Nausea, Appetite Changes, Change in Bowel Pattern Tube Present: Bowel Sounds: Recent Bowel Pattern: Stool Characteristics: Nutrition/Food History Difficulty Swallowing, Tube Feed Prior to Admit Nutritional Diagnosis Nutritional Risk Acuity 1: Malnutrition Nutritional Risk Acuity 2: Head/Neck/GI Cancer, Tube Feed Stable Nutritional Risk Acuity 4: Modified Diet Past Medical History: Hx of hematuria, singultus, renal cell carcinoma, DVT, malnutrition Nutritional Acuity: 1-High Nutrition Diagnosis: Increased Nutrient Needs Nutrition Problem/Etiology/Sym: Increased nutritional needs r/t dx stage 4 renal Ca AEB alb 2.3, H/H 8.8/26.1. Energy Requirement: 2200 (prior visit) Protein Requirement: 94 (prior visit) Fluid Requirement: 2200 Diet Type: Tube Feeding (TF) Nutrition Intervention: Cont diet as ordered Nutritional Support Current Enteral / Parental: Tube Feeding Tube Feeding Formulas: Jevity 1cal/ml-Standard Tube Feeding Supplement Streng: Full Feeding Route: PEG Rate: 80ml/hr final rate Current Calories: 2035 Current Protein: 85 Total Current Calories: 2035 Recommended Enteral / Parental: Tube Feeding Recommended Tube Feeding Formu: Jevity 1cal/ml-Standard Tube Feeding Supplement Streng: Full Recommended Rate: 90ml/hr final rate Recommended Calories: 2290 Recommended Protein: 90 Total Recommended Calories: 2290 Nutrition Monitoring & Eval RD Patient Assessment Time: [address] Assessment Type: RD Assessment Patient Nutrition Acuity: 1-High Follow Up Date: Jan 30, 2018 Nutritional Comment: 01/24. Pt transfered to [facility] from [facility] floor. Pt currently on TF, receving at final rate of 80ml/hr and had been tolerating it well. Recommend increasing TF to 90ml/hr, providing 2290kcal and 90g of protein. This will meet pt needs. Pt has dx hemaotoma with kidney/tumor embolized . NOtable labs include: low albumin 2.3, RBC 3.04, Hct 26.1, sodium 131. Elevated labs include WBC 13.1, random BG 140, and AST 52. Will cont to monitor. ROBERT CAMILO Jan 24, 2018 16:21
[2018-01-25 16:20] VITALS: BP 178/93
[2018-01-25 17:45] VITALS: BP 146/88
--- NOTE | 2018-01-25 18:45 | ONCOLOGY FOLLOW UP NOTE ---
EVENT DATE: January 25, 2018 DIAGNOSES 1. Metastatic renal cell carcinoma. 2. Bone metastases. CHIEF COMPLAINT Patient is admitted for extending care for physical therapy, and he is due for his second cycle of Yervoy and Opdivo on the January. ONCOLOGY HISTORY Patient is a 77-year-old male who saw Nola Nunez for low back pain and left groin pain. He started the process of followup of his pain since October as per patient. He had some physical therapy and cortisone injection into the left hip without improvement. He had an MRI which showed renal mass with mets to the spine, so the patient had after that CT chest, abdomen, and pelvis done on December 11, 2017, which showed a big heterogeneous mass of the left kidney, 12.5 cm. There was also venous thrombosis with multiple veins in the pelvis and upper thighs likely extending into the inferior vena cava. There were numerous pulmonary nodules likely representing pulmonary metastasis with mediastinal adenopathy likely metastatic. There were numerous lytic, destructive lesions in the bones including the anterior aspect of the right 10th and 11th ribs, T7, L1, and L4. There was also a large destructive lesion involving the left iliac bone with a large heterogeneous soft tissue mass component extending into the anterior aspect of the left acetabulum where there is pathologic fracture. The uncinate process of the liver is heterogeneous. PET CT scan done on the December showed a large mass involving the left kidney measuring nearly 13 cm with maximum SUV of 21.3. There were bilateral adrenal gland metastases, mediastinal and lung metastases, intra-abdominal adenopathy, left axillary lymphadenopathy, and extensive osseous metastatic disease. CT-guided biopsy of the left iliac crest showed metastases consistent with clear-cell renal cell carcinoma, and the biopsy was done on the December. Patient started treatment with Opdivo and Yervoy at the beginning of January 2018. HISTORY OF PRESENT ILLNESS Patient is doing fine currently. His general condition is improving currently on physical therapy and feeding. Patient developed with his anticoagulation hematuria, and the patient has been referred to hospital in [place] where he had placement of an IVC filter, which was placed from above rather than down because IVC was blocked from below. He had also tying of the blood vessels supplying the kidney where he had bleeding. His hematuria resolved completely, and his general condition is improving gradually. He was back to the hospital in [facility] two to three days ago, and his general condition is improving. He is complaining of some hiccups and pain, especially in the back, but generally his pain is under control. PAST MEDICAL HISTORY Benign prostatic hypertrophy with urinary retention in 2016, currently on tamsulosin. PAST SURGICAL HISTORY 1. Right knee replacement in 2010. 2. Prostate biopsy in 2008. 3. Left rotator cuff injury repair. 4. Bilateral cataract surgery. FAMILY HISTORY Brother had squamous cell carcinoma of the lip. Father had lung cancer. Sister had lung cancer. He had brother with kidney cancer. He had multiple cousins with brain, kidney, and lung cancer. SOCIAL HISTORY Patient is with two children. 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 He is a never smoker. He occasionally drinks beer. Denies any abuse of illicit drugs. CURRENT MEDICATIONS 1. Tamsulosin 0.4 mg daily. 2. Baclofen 10 mg t.i.d. p.r.n. ALLERGIES OXYCONTIN which caused rash. REVIEW OF SYSTEMS CONSTITUTIONAL: Patient has loss of appetite and loss of weight. He lost about 10 pounds in the last three weeks. No fever, chills, or sweating. No recent infection. HEENT: Ears: No tinnitus or hearing problem. Nose: No nasal discharge or epistaxis. Throat: No sore throat or mouth ulcers. Eyes: No diplopia or visual changes. RESPIRATORY: He has shortness of breath. No cough, expectoration, or hemoptysis. CARDIOVASCULAR: No chest pain, orthopnea, or paroxysmal nocturnal dyspnea (PND). No edema. No palpitations. GASTROINTESTINAL: He has the hiccups, and he has some difficulty swallowing lately. No nausea or vomiting. No diarrhea. He has constipation. No heartburn or swallowing difficulties. No abdominal pain. No jaundice. No hematemesis, melena, or rectal bleeding. GENITOURINARY: He has benign prostatic hypertrophy, on tamsulosin. MUSCULOSKELETAL: He has back pain. NEUROLOGICAL: He had one episode of numbness in the chin of the face. No tingling or numbness in the hands or feet. No headaches or convulsions. HEMATOLOGIC/LYMPHATIC: No bleeding or easy bruising. No weakness or fatigue. No enlarged lymph nodes. SKIN: No skin rash or lumps. PSYCHIATRIC: No anxiety or depression. PHYSICAL EXAMINATION GENERAL: Looks stable. Well developed, well nourished, and in no acute distress. VITAL SIGNS: Reviewed. HEENT: Head: Atraumatic. No sinus tenderness to palpation. Eyes: No icterus or conjunctivitis. Mouth and Throat: No oral thrush or mucositis. NECK: Supple. No cervical or supraclavicular lymphadenopathy. LUNGS: Clear to auscultation and percussion bilaterally. HEART: Regular rate and rhythm. No gallops, murmurs, clicks, or rubs. ABDOMEN: Soft and lax. No tenderness. No hepatosplenomegaly. No masses. EXTREMITIES: No cyanosis, clubbing, or edema. LYMPHATICS: No peripheral lymphadenopathy. NEUROLOGICAL: Conscious, alert, and oriented times three. No focal motor or sensory deficits. PSYCHIATRIC: Mood and affect appear normal. SKIN: No skin rash, bruise, or purpuric eruption. DIAGNOSTIC DATA CBC showed white count 8.8, hemoglobin 14.5, hematocrit 42.2, platelets 158,000. Patient will have blood work which will be done tomorrow prior to his treatment. ASSESSMENT 1. Metastatic renal cell carcinoma of the left side, especially the left iliac bone, with multiple pulmonary metastases, mediastinal adenopathy, bilateral adrenal and intra-abdominal adenopathy, left axillary adenopathy. MRI of the brain done on the December was negative for brain metastasis, but there may be some osseous metastasis in the posterior right parietal bone. PET/CT scan done on the December showed a large mass involving the left kidney measuring nearly 13 cm with SUV 21.3 with bilateral adrenal gland metastases, mediastinal and lung metastases, intra-abdominal adenopathy, left axillary lymphadenopathy, and extensive osseous metastatic disease. CT-guided biopsy the left iliac bone done on the December came back positive for metastases from clear-cell renal cell carcinoma. Patient started treatment with Yervoy and Opdivo the beginning of January 2018. He tolerated the first cycle well without any complications. He developed hematuria from anticoagulation, and the patient referred to the hospital in [place] where he had placement of IVC filter and tying of the blood vessels of the bleeding kidney. He is doing fine currently. There is not any hematuria. It seems also his general condition is improving. I had a long discussion with the patient and his regarding further management. I told them that imaging right now would not be a good idea to decide about response to treatment because of the progression expected from the immune therapy. I am planning to treat him at least for two to three months prior to doing an imaging study at that time, but if his general condition continues to improve, this means that he is responding to the current treatment. They are agreeable with the plan of management. I am planning to proceed with his second cycle of Yervoy and Opdivo on the January. I will see him in three weeks after that with CBC, chemistry panel, TSH, free T3, free T4, and magnesium level. 2. Bone metastases. I am planning to continue Xgeva 120 mg subcutaneously every four weeks. PLAN 1. Yervoy and Opdivo cycle #2. 2. Xgeva 120 mg subcutaneously every four weeks. 3. Patient to return in three weeks prior to the next cycle of Yervoy and Opdivo with CBC, chem panel, TSH, free T3, free T4, and magnesium level. 4. Continue Lovenox as anticoagulation. 5. Patient to contact us for any new concerns or complaints. MTDD
[2018-01-25] MEDS: TAMSULOSIN HCL 0.4 MG CAP PO SCH (20:57)
[2018-01-26] MEDS: HYDROCOD/ACETAMIN 2.5-108/5 ML 5 ML UDC FT PRN ×2 (02:50→16:48)
[2018-01-26 05:59] LABS: PLATELET COUNT, AUTOMATED 319 K/uL (150-450)
[2018-01-26 07:35] VITALS: BP 133/78
[2018-01-26] MEDS: DOCUSATE SOD LIQ 100 MG/10 ML UDC FT SCH ×2 (09:00→20:34)
[2018-01-26] MEDS: TAMSULOSIN HCL 0.4 MG CAP PO SCH ×2 (11:12→20:39)
[2018-01-26] MEDS: COLCHICINE 0.6 MG TAB PO SCH ×2 (11:12→20:38)
[2018-01-26] MEDS: AMOX/CLAV 400 MG/5 ML 50ML BTL FT SCH ×3 (11:13→20:39)
[2018-01-26] MEDS: ENOXAPARIN 100 MG/ML SYR SC SCH ×2 (11:13→21:35)
[2018-01-26 16:40] VITALS: BP 111/68
[2018-01-26] MEDS: chlorproMAZINE 25 MG TAB PO PRN (16:48)
[2018-01-27] MEDS: chlorproMAZINE 25 MG TAB PO PRN ×3 (00:35→14:11)
[2018-01-27 07:50] VITALS: BP 135/76
[2018-01-27] MEDS: DOCUSATE SOD LIQ 100 MG/10 ML UDC FT SCH ×2 (09:00→20:42)
[2018-01-27] MEDS: COLCHICINE 0.6 MG TAB PO SCH ×2 (09:39→20:42)
[2018-01-27] MEDS: TAMSULOSIN HCL 0.4 MG CAP PO SCH ×2 (09:39→20:42)
[2018-01-27] MEDS: AMOX/CLAV 400 MG/5 ML 50ML BTL FT SCH ×2 (09:40→20:43)
[2018-01-27] MEDS: ENOXAPARIN 100 MG/ML SYR SC SCH ×2 (11:37→23:09)
[2018-01-27 16:45] VITALS: BP 130/77
[2018-01-27] MEDS: HYDROCOD/ACETAMIN 2.5-108/5 ML 5 ML UDC FT PRN (19:37)
[2018-01-28] MEDS: chlorproMAZINE 25 MG TAB PO PRN ×2 (01:29→19:39)
[2018-01-28 07:57] VITALS: BP 130/80
[2018-01-28] MEDS: DOCUSATE SOD LIQ 100 MG/10 ML UDC FT SCH ×2 (09:00→19:18)
[2018-01-28] MEDS: TAMSULOSIN HCL 0.4 MG CAP PO SCH ×2 (09:19→20:28)
[2018-01-28] MEDS: AMOX/CLAV 400 MG/5 ML 50ML BTL FT SCH ×2 (09:19→20:29)
[2018-01-28] MEDS: COLCHICINE 0.6 MG TAB PO SCH ×2 (09:20→20:28)
[2018-01-28] MEDS: ENOXAPARIN 100 MG/ML SYR SC SCH ×2 (10:51→23:41)
[2018-01-28 16:30] VITALS: BP 134/83
[2018-01-28] MEDS: HYDROCOD/ACETAMIN 2.5-108/5 ML 5 ML UDC FT PRN (20:28)
[2018-01-28] MEDS: HYDROCORTISONE 1% CR 28.35 GM TP SCH (20:29)
[2018-01-29 07:50] VITALS: BP 148/78
[2018-01-29] MEDS: DOCUSATE SOD LIQ 100 MG/10 ML UDC FT SCH ×2 (09:00→21:00)
[2018-01-29] MEDS: HYDROCORTISONE 1% CR 28.35 GM TP SCH ×2 (09:02→21:23)
[2018-01-29] MEDS: COLCHICINE 0.6 MG TAB PO SCH ×2 (09:02→21:22)
[2018-01-29] MEDS: TAMSULOSIN HCL 0.4 MG CAP PO SCH ×2 (09:02→21:23)
[2018-01-29] MEDS: AMOX/CLAV 400 MG/5 ML 50ML BTL FT SCH ×2 (09:06→21:22)
[2018-01-29] MEDS: ENOXAPARIN 100 MG/ML SYR SC SCH ×2 (11:06→23:00)
--- NOTE | 2018-01-29 13:22 | Medical Nutrition Therapy ---
Nutrition Anthropometrics Height (Inches): 70.00 Height (Calculated Centimeters: 177.884324 Weight (Pounds): 166 Weight (Calculated Kilograms): 75.296 BMI: 23.8 Basilio Nutrition Score: Basilio Nutrition Risk Score: Dietary Referral Nutrition Risk Factors: Unplanned Loss >10lbs, Diff. Swallowing, Tube Feeding Nutrition Risk Comment: Physical Findings Physical Appearance: 23.8 Skin Appearance Skin Appearance: Edema Edema Location Modifier: Left Edema Location: Lower Extremity Type of Edema: Degree of Edema: 2+ Gastrointestinal Symptoms GI Symtoms: Appetite Changes Tube Present: Bowel Sounds: Recent Bowel Pattern: Stool Characteristics: Nutritional Diagnosis Nutritional Risk Acuity 1: Malnutrition Nutritional Risk Acuity 2: Head/Neck/GI Cancer, Tube Feed Stable Nutritional Risk Acuity 4: Modified Diet Past Medical History: Hx of hematuria, singultus, renal cell carcinoma, DVT, malnutrition Nutritional Acuity: 1-High Nutrition Diagnosis: Increased Nutrient Needs Nutrition Problem/Etiology/Sym: Increased nutritional needs r/t dx stage 4 renal Ca AEB alb 2.3, H/H 8.8/26.1. Energy Requirement: 2200 (prior visit) Protein Requirement: 94 (prior visit) Fluid Requirement: 2200 Diet Type: Tube Feeding (TF) Nutrition Intervention: Cont diet as ordered Nutritional Support Current Enteral / Parental: Tube Feeding Tube Feeding Formulas: Jevity 1cal/ml-Standard Tube Feeding Supplement Streng: Full Feeding Route: PEG Rate: 80ml/hr final rate Current Calories: 2035 Current Protein: 85 Total Current Calories: 2035 Recommended Enteral / Parental: Tube Feeding Recommended Tube Feeding Formu: Jevity 1cal/ml-Standard Tube Feeding Supplement Streng: Full Recommended Rate: 90ml/hr final rate Recommended Calories: 2290 Recommended Protein: 90 Total Recommended Calories: 2290 Nutrition Monitoring & Eval RD Patient Assessment Time: [address] Assessment Type: RD Re-Assessment Patient Nutrition Acuity: 1-High Follow Up Date: Feb 06, 2018 Nutritional Comment: 01/24. Pt transfered to [facility] from [facility]. Pt currently on TF, receving at final rate of 80ml/hr and had been tolerating it well. Recommend increasing TF to 90ml/hr, providing 2290kcal and 90g of protein. This will meet pt needs. Pt has dx hemaotoma with kidney/tumor embolized . NOtable labs include: low albumin 2.3, RBC 3.04, Hct 26.1, sodium 131. Elevated labs include WBC 13.1, random BG 140, and AST 52. Will cont to monitor. MR 01/29. Pt cont on TF and clear liquids. Now, receiving at final rate of 90ml/hr, tolerating well. Noted 10ml of residuals this morning. No new labs available for pt. Will cont to monitor TF. MR LOGANROBERT Jan 29, 2018 08:18
[2018-01-29] MEDS ORDERED: OMEP-125 PO (14:44)
[2018-01-29] MEDS ORDERED: L.AC1CAP6 PO (14:44)
[2018-01-29] MEDS ORDERED: CHLO25TA19 PO (14:44)
[2018-01-29] MEDS ORDERED: TAMS0.4C70 PO (14:44)
[2018-01-29] MEDS ORDERED: SENN1TAB28 PO (14:44)
[2018-01-29] MEDS ORDERED: ONDA4TAB PO (14:44)
[2018-01-29] MEDS ORDERED: PROC10TA4 PO (14:44)
[2018-01-29] MEDS ORDERED: DOCU-416 PO (14:44)
[2018-01-29] MEDS ORDERED: APIX5TAB4 PO (14:44)
[2018-01-29] MEDS ORDERED: HYDR2TAB74 PO (14:44)
[2018-01-29] MEDS: chlorproMAZINE 25 MG TAB PO PRN ×2 (14:54→23:00)
[2018-01-29 15:10] VITALS: BP 126/81
[2018-01-29] MEDS ORDERED: INFLUENZA VIRUS VAC 0.5ML SYR IM ONLY ONE (15:50)
[2018-01-29] MEDS: HYDROmorphone HCL 2 MG TAB PO PRN (21:23)
[2018-01-30 07:20] VITALS: BP_SYST 118; BP_SYST 137; BP_DIAS 71; BP_DIAS 73
[2018-01-30] MEDS: TAMSULOSIN HCL 0.4 MG CAP PO SCH ×2 (08:59→20:38)
[2018-01-30] MEDS: COLCHICINE 0.6 MG TAB PO SCH ×2 (08:59→20:38)
[2018-01-30] MEDS: AMOX/CLAV 400 MG/5 ML 50ML BTL FT SCH ×2 (08:59→20:38)
[2018-01-30] MEDS: HYDROCORTISONE 1% CR 28.35 GM TP SCH ×2 (09:00→20:38)
[2018-01-30] MEDS: DOCUSATE SOD LIQ 100 MG/10 ML UDC FT SCH ×3 (09:00→21:00)
[2018-01-30] MEDS: ENOXAPARIN 100 MG/ML SYR SC SCH ×2 (10:48→22:13)
[2018-01-30] MEDS: chlorproMAZINE 25 MG TAB PO PRN ×2 (11:49→20:38)
[2018-01-30 15:50] VITALS: BP 106/69
[2018-01-31 08:00] VITALS: BP 113/70
[2018-01-31] MEDS: DOCUSATE SOD LIQ 100 MG/10 ML UDC FT SCH ×2 (09:00→20:52)
[2018-01-31] MEDS: AMOX/CLAV 400 MG/5 ML 50ML BTL FT SCH (09:28)
[2018-01-31] MEDS: HYDROCORTISONE 1% CR 28.35 GM TP SCH ×2 (09:28→20:52)
[2018-01-31] MEDS: TAMSULOSIN HCL 0.4 MG CAP PO SCH ×2 (09:29→20:52)
[2018-01-31] MEDS: COLCHICINE 0.6 MG TAB PO SCH ×2 (09:29→20:52)
[2018-01-31] MEDS: ENOXAPARIN 100 MG/ML SYR SC SCH ×2 (11:27→23:00)
[2018-01-31] MEDS: chlorproMAZINE 25 MG TAB PO PRN ×2 (12:40→20:52)
--- NOTE | 2018-01-31 13:17 | Hospitalist Progress Note ---
Subjective Progress Notes Subjective Still a bit weak but overall feeling better. Physical Exam Vital Signs Date Time Temp Pulse Resp B/P (MAP) Pulse Ox O2 Delivery O2 Flow Rate FiO2 01/31/18 12:40 95 Room Air 01/31/18 08:00 97.8 109 14 113/70 (84) Intake and Output 01/31/18 07:00 Intake Total 2102 ml Output Total 1375 ml Balance 727 ml Intake Oral 250 ml Tube Feeding 1672 ml Tube Irrigant 180 ml Output Urine Total 1375 ml # Bowel Movements 2 General Appearance: Alert, Awake, No Acute Distress Neuro: No Gross deficits Eyes: PERRLA Cardiovascular: Other (Tachy, regular.) Respiratory: No Respiratory Distress, Clear to Auscultation GI: Soft and Non-Tender, Other (Feeding tube in RUQ) Extremities: Warm, Perfused, Other (No edema.) Psych: Appropriate Mood & Affect Assessment and Plan Problems: (1) Pneumonia Status: Acute Assessment & Plan: He was started on treatment with Zosyn while at [facility]. He had a faint LLL infiltrate, which was most likely premium service representative of a pneumonia. He was initially placed on IV Zosyn for a healthcare associated pneumonia and then transitioned to Augmentin 1000mg BID via feeding tube. He showed improvement in his clinical status during his stay. He completed a full course of antibiotics. (2) Renal cell carcinoma Status: Chronic Assessment & Plan: Advanced stage/metastatic. His left kidney/tumor has now been embolized and hematuria appears to have resolved. He is back on anticoagulation with Lovenox. His functional status had declined significantly, but did improve with treatment of his LLL pneumonia, dehydration, poor nutrition. He was transferred to [facility] to continue PT/OT as well as his immunotherapy. (3) DVT (deep venous thrombosis) Status: Chronic Assessment & Plan: He has IVC filter in place and has been restarted on anticoagulation therapy with Lovenox. Will talk with Dr. De Luna about Lovenox versus Eliquis at [place]. (4) Dehydration Status: Acute Assessment & Plan: Resolved with IV fluids and tube feedings. (5) Malnutrition Status: Chronic Assessment & Plan: His tube feedings were restarted. He has been tolerating them without significant problems. For convenience, will switch him to 12 hour feedings at night. (6) Hypothyroidism Status: Acute Assessment & Plan: His TSH is high and free T3 is low. This can be caused by Opdivo. Will start levothyroxine at 25mcg daily. He will need a repeat TSH in 4- 6 weeks. Time Spent on Plan of Care: < 30 min GUERA BRYANT MD Jan 31, 2018 13:17
[2018-01-31] MEDS ORDERED: HYDR28OI TP (14:23)
--- NOTE | 2018-01-31 14:35 | Hospitalist Depart ---
Discharge Summary Reason for Hosp/Final Diag: (1) Pneumonia Status: Acute Hospital Course & Plan: He was started on treatment with Zosyn while at [facility]. He had a faint LLL infiltrate, which was most likely residential sales representative of a pneumonia. He was initially placed on IV Zosyn for a healthcare associated pneumonia and then transitioned to Augmentin 1000mg BID via feeding tube. He showed improvement in his clinical status during his stay. He completed a full course of antibiotics. (2) Renal cell carcinoma Status: Chronic Hospital Course & Plan: Advanced stage/metastatic. His left kidney/tumor has now been embolized and hematuria appears to have resolved. He is back on anticoagulation with Lovenox. His functional status had declined significantly, but did improve with treatment of his LLL pneumonia, dehydration, poor nutrit ion. He was transferred to [facility] to continue PT/OT as well as his immunotherapy. (3) DVT (deep venous thrombosis) Status: Chronic Hospital Course & Plan: He had IVC filter placed and was restarted on anticoagulation therapy with Lovenox. The patient was switched to Eliquis, which he had been on in the past, for discharge. (4) Dehydration Status: Acute Hospital Course & Plan: Resolved with IV fluids and tube feedings. (5) Malnutrition Status: Chronic Hospital Course & Plan: His tube feedings were restarted. He has been tolerating them without significant problems. For convenience, will switch him to 12 hour feedings at night. (6) Hypothyroidism Status: Acute Hospital Course & Plan: His TSH is high and free T3 is low. This can be caused by Opdivo. Will start levothyroxine at 25mcg daily. He will need a repeat TSH in 4-6 weeks. Departure Weight (Pounds): 166 Result Diagram: 01/26/18 0550 01/26/18 0550 Condition: Improved Discharge: Home, Home Health PT/OT Follow Up For: PT For Strengthening, OT For ADL's Home Health RN Follow Up For: Cathether Care, Nursing Assessment Time Spent: < 30 min Discharge Instructions Home Meds Active Scripts Levothyroxine Sodium (LEVOTHYROXINE SODIUM) 25 Mcg Tablet, 0.025 MG PO QDAY@06, #30 TAB Prov:DANYELLE CHINCHILLAP 02/02/18 Apixaban (Eliquis) 5 Mg (74 Tabs) Tab.ds.pk, 1 TAB PO BID, #60 TAB Prov:DANYELLE CHINCHILLA HOUSE STEWARD/STEWARDESS 02/02/18 Ondansetron (ZOFRAN ODT) 8 Mg Tab.rapdis, 8 MG PO Q8H PRN for NAUSEA, #30 TAB Prov:DANYELLE CHINCHILLA HOUSE STEWARD/STEWARDESS 02/01/18 Hydrocortisone Acetate (ANTI-ITCH) 28 Gm Oint...g., 1 ROSS TP BID PRN for ITCHING, #28 GM Prov:GUERA BRYANT MD 01/31/18 Reported Medications Docusate Sodium (COLACE) 100 Mg Capsule, 100 MG PO BID, CAPSULE 01/29/18 Chlorpromazine Hcl (CHLORPROMAZINE HCL) 25 Mg Tablet, 25 MG PO TID PRN for HICCUPS 01/29/18 L.acidoph & Paracasei,B.lactis (Probiotic) 1 Each Capsule, PO DAILY 01/29/18 Omeprazole (OMEPRAZOLE) 20 Mg Capsule.dr, 1 CAP PO QDAY PRN for REFLUX, CAP 01/29/18 Tamsulosin Hcl (TAMSULOSIN HCL) 0.4 Mg Cap.er.24h, 0.4 MG PO BID, CAP 01/29/18 Discontinued Reported Medications Ondansetron (ZOFRAN ODT) 4 Mg Tab.rapdis, 8 MG PO Q8H PRN for NAUSEA, TAB.KEVIN 01/29/18 Hydromorphone Hcl (DILAUDID) 2 Mg Tablet, 2 MG PO Q4H PRN for PAIN 01/29/18 Sennosides/Docusate Sodium (SENNA S TABLET) 1 Each Tablet, 1 EACH PO BID 01/29/18 Prochlorperazine Maleate (Compazine) 10 Mg Tablet, 1 TAB PO Q6-8H PRN for NAUSEA 01/29/18 Chlorpromazine Hcl (CHLORPROMAZINE HCL) 25 Mg Tablet, 25 MG PO TID take for hiccups 12/28/17 Discontinued Scripts Hydrocodone Bit/Acetaminophen (HYDROCODONE-ACETAMIN 2.5-108/5) 5 Ml Solution, 10 ML FT Q4H PRN for PAIN for 30 Days, #1 BOT 0 Refills Prov:GABE BRYANT MD 01/24/18 Docusate Sodium (DOCU LIQUID) 50 Mg/5 Ml Liquid, 100 MG FT BID for 30 Days, #1 BOTTLE 1 Refill Prov:GABE BRYANT MD 01/24/18 Enoxaparin Sodium (LOVENOX) 100 Mg/1 Ml Disp.syrin, 70 MG SC Q12H@1100,2300 for 60 Days, #1 VIAL 1 Refill Prov:GABE BRYANT MD 01/24/18 Amoxicillin/Potassium Clav (AMOX TR-K CLV 400-57/5 SUSP) 400 Mg/5 Ml Susp.recon, 1000 MG FT Q12H for 5 Days, #1 BOT 0 Refills Prov:GABE BRYANT MD 01/24/18 Follow up Referrals: Internal Medicine @ [facility] with EFRAÍN CANTU MD Oncology @ [facility] with Dr. De Luna Urology with SAMANTHA MORRIS MD Activity: As Tolerated Special Instructions: F/U with Dr. Cantu 02/08/2018 at 9:15am Continue tube feeding diet. Copies to: DOMINIQUE CLIFTON MD; SAMANTHA MORRIS MD; EFRAÍN CANTU MD ; Venous Thromboembolism Antithrombotics Is Pt On Any Antithrombotics?: Yes [id number] Certification Face to Face Home Health Certification Institutional Provider conducted the [id number] encounter. Electronic Undersigning Physician Certifies Home Health. I certify that the patient has been under my care and that I had a [id number] encounter that meets the physician [id number] encounter requirements with this patient. This patient is home-bound due to safety issues and continues to require assistance with ADL's. I certify that based on my findings, that Nursing, Aides and the following Home Health services are medically necessary: PT, OT Medical Necessity: Nursing, Rehab Date Face to Face Conducted: Jan 31, 2018 GUERA BRYANT MD Jan 31, 2018 14:35
--- NOTE | 2018-01-31 15:08 | Medical Nutrition Therapy ---
Nutrition Anthropometrics Height (Inches): 70.00 Height (Calculated Centimeters: 177.105651 Weight (Pounds): 166 Weight (Calculated Kilograms): 75.296 BMI: 23.8 Basilio Nutrition Score: Basilio Nutrition Risk Score: Dietary Referral Nutrition Risk Factors: Unplanned Loss >10lbs, Diff. Swallowing, Tube Feeding Nutrition Risk Comment: Nutritional Diagnosis Nutritional Risk Acuity 1: Tube Feed Unstable, Malnutrition Nutritional Risk Acuity 2: Head/Neck/GI Cancer Nutritional Risk Acuity 4: Modified Diet Past Medical History: Hx of hematuria, singultus, renal cell carcinoma, DVT, malnutrition Nutritional Acuity: 1-High Nutrition Diagnosis: Increased Nutrient Needs Nutrition Problem/Etiology/Sym: Increased nutritional needs r/t dx stage 4 renal Ca AEB alb 2.3, H/H 8.8/26.1. Energy Requirement: 2200 (prior visit) Protein Requirement: 94 (prior visit) Fluid Requirement: 2200 Diet Type: Soft Mechanical, Tube Feeding (TF) Nutrition Intervention: Cont diet as ordered, Nutrition support Nutritional Support Current Enteral / Parental: Tube Feeding Tube Feeding Formulas: Osmolite 1.5cal/ml-Hi Dani Tube Feeding Supplement Streng: Full Feeding Route: PEG Rate: 90ml/ hr increase 10, q 4 hrs to 125ml/hr final rate Current Duration: 12 Current Calories: 2250 Current Protein: 95 Total Current Calories: 2250 Recommended Enteral / Parental: Tube Feeding Recommended Tube Feeding Formu: Jevity 1cal/ml-Standard Tube Feeding Supplement Streng: Full Recommended Rate: 90ml/hr final rate Recommended Calories: 2290 Recommended Protein: 90 Total Recommended Calories: 2290 Nutrition Monitoring & Eval Nutritional Goals Comment: TF will meet nutr needs RD Patient Assessment Time: [address] Assessment Type: RD Re-Assessment Patient Nutrition Acuity: 1-High Follow Up Date: Feb 06, 2018 Nutritional Comment: 01/24. Pt transfered to [facility] from [facility] floor. Pt currently on TF, receving at final rate of 80ml/hr and had been tolerating it well. Recommend increasing TF to 90ml/hr, providing 2290kcal and 90g of protein. This will meet pt needs. Pt has dx hemaotoma with kidney/tumor embolized . NOtable labs include: low albumin 2.3, RBC 3.04, Hct 26.1, sodium 131. Elevated labs include WBC 13.1, random BG 140, and AST 52. Will cont to monitor. MR 01/29. Pt cont on TF and clear liquids. Now, receiving at final rate of 90ml/hr, tolerating well. Noted 10ml of residuals this morning. No new labs available for pt. Will cont to monitor TF. MR 01/31 Pt's TF changed to Osmolite 1.5 at final rate 125ml/hr X 12 hrs to meet nutritional needs at nighttime and allow more freedom during daytime and possibly increased intake during the daytime. This will continue for home use. OTILIA ALBERTO Jan 31, 2018 15:08
[2018-01-31 16:00] VITALS: BP 134/78
[2018-02-01] MEDS: HYDROmorphone HCL 2 MG TAB PO PRN (02:09)
[2018-02-01] MEDS: LEVOTHYROXINE SOD 0.025 MG TAB PO SCH (05:55)
[2018-02-01 08:00] VITALS: BP 102/69
[2018-02-01] MEDS: HYDROCORTISONE 1% CR 28.35 GM TP SCH ×2 (09:00→20:38)
[2018-02-01] MEDS: DOCUSATE SODIUM 100 MG CAP PO SCH ×2 (09:00→20:38)
[2018-02-01] MEDS: TAMSULOSIN HCL 0.4 MG CAP PO SCH ×2 (09:12→20:38)
[2018-02-01] MEDS: COLCHICINE 0.6 MG TAB PO SCH ×2 (09:14→20:38)
[2018-02-01] MEDS: ENOXAPARIN 100 MG/ML SYR SC SCH ×2 (11:22→20:41)
[2018-02-01] MEDS ORDERED: ONDANSETRON 4 MG ODT TABDP SL PRN ×2 (14:55→15:05)
[2018-02-01] MEDS ORDERED: ONDA8TAB94 PO (15:37)
[2018-02-01 19:00] VITALS: BP 92/68
[2018-02-02] MEDS: chlorproMAZINE 25 MG TAB PO PRN (02:50)
[2018-02-02] MEDS: LEVOTHYROXINE SOD 0.025 MG TAB PO SCH (05:54)
[2018-02-02 07:30] VITALS: BP 115/66
[2018-02-02] MEDS: DOCUSATE SODIUM 100 MG CAP PO SCH (09:00)
[2018-02-02] MEDS: HYDROCORTISONE 1% CR 28.35 GM TP SCH (09:02)
[2018-02-02] MEDS: TAMSULOSIN HCL 0.4 MG CAP PO SCH (09:02)
[2018-02-02] MEDS: COLCHICINE 0.6 MG TAB PO SCH (09:02)
[2018-02-02] MEDS ORDERED: APIX5TAB4 PO (09:06)
[2018-02-02] MEDS ORDERED: LEVO25TA61 PO (09:06)
--- NOTE | 2018-02-02 10:48 | OT ECF NOTE ---
Type of Note: Discharge Note Primary Medical Diagnosis: Generalized weakness with diagnosis of Metastatic Renal Cell Carcinoma Occupational Therapy Evaluation Date: 01/24/18 SUBJECTIVE: Prior Hospitalization: 12/25/17: Pt seen at [facility] ER due to back pain, was discharged home that day. 12/29-01/04: Admitted to [facility] for dehydration. Pt having difficulty swallowing. Found to have metastasis to the mediastinum and lungs. PEG tube placed 12/30/2017. Pt discharged home. 01/08-01/14: Admitted to [facility] for hematuria. Pt's admission complicated by Eliquis and Lovenox. Pt underwent cystoscopy 01/13. Pt transferred to [facility] ([facility]) on 01/14/18. 01/21-01/24: Pt transferred from [facility] back to [facility] following IVC filter placement and embolization of L kidney renal cell tumor. It is reported Pt had the following complications while at [facility]: intolerance to tube feeds, weakness, fever, decrease in function. 01/24: Pt admitted to [facility] ECF for rehabilitation. Prior Level of Function: Prior to hospitalizations stated above, Pt's family reports he was able to ambulate house-hold distances with his Rollator walker. Prior Level of Function: Prior to recent hospitalizations, pt's family reports he was ambulating household distances with 4WW and occasionally requiring assist for ADLs/IADLs. Prior Living Status: Single level house Spouse Assist by family Community Services: Home health assisted Accessibility: All needs on one level Equipment Owned: Rollator, Wheelchair, Bedside commode, Hospital bed Medical Complications/Past Medical History: Please refer to EMR Psychosocial Support: Supportive spouse Pain Scale (0-10): No numerical rating. 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 Toileting: Assistive device: Toileting ability: Min A Grooming/hygiene: Assistive device: Grooming ability: Set up Bathing: Assistive device: Bath chair, hand held shower, grab bars. Bathing ability: Min A Standardized Assessment: Jayson Index of Activities of Daily Livin/20 upon initial evaluation (01/24/18). on this evaluation upon d/c. ASSESSMENT: Pao presents to [facility] with significant weakness s/p multiple recent hospital admissions. Currently, he requires EZ lift for functional mobility, assist for stand pivots with RW, and Mod-Max A for ADLs. He will benefit from skilled OT services to improve activity tolerance and optimize (I) with ADLs to improve quality of life. Problem List/Current Limitations: Pain Decreased activity tolerance Decreased strength Decreased ROM Generalized weakness Short Term Goals: 1) Pt will be Min A toileting. Goal met. 2) Pt will be Min A UB/LB dressing. Goal met. 3) Pt will be Min A grooming/hygiene. Goal met. 4) Pt will be Mod A shower task. Goal met. 5) Pt Jayson Index of ADLs score will improve by 2 points. Goal met. Systems Checkout Mechanic Goals: Optimize (I) with ADLs and functional mobility Patient Goals: "Get up and move around" Rehabilitation Prognosis: Poor Barriers to Discharge: Advanced cancer diagnosis PLAN: The patient will d/c to home with HH care and assistance from for ADL's. Thank you for this referral. If you have any questions, concerns, or comments about this report or plan, please contact me at . Alessandra García, OTR/L Occupational Therapist PATI
--- NOTE | 2018-02-02 20:52 | PT ECF NOTE ---
Type of Note: Initial Note Primary Medical Diagnosis: Metastatic Renal Cell Carcinoma Physical Therapy Evaluation Date: 01/24/2018 SUBJECTIVE: Prior Hospitalization: 12/25/17: [facility] due to [facility] pain, was discharged home that day. 12/29-01/04: Admitted to [facility] for dehydration. Pt having difficulty swallowing. Found to have metastasis to the mediastinum and lungs. PEG tube placed 12/30/2017. Pt discharged home. 01/08-01/14: [facility] for hematuria. Pt's admission complicated by Eliquis and Lovenox. Pt underwent cystoscopy 01/13. Pt transferred to [facility] ([facility]) on 01/14/18. 01/21-01/24: Pt transferred from [facility] to [facility] following IVC filter placement and embolization of L kidney renal cell tumor. It is reported Pt had the following complications while at [facility]: intolerance to tube feeds, weakness, fever, decrease in function. 01/24: Pt admitted to [facility] for rehabilitation. Prior Level of Function: Prior to hospitalizations stated above, Pt's family reports he was able to ambulate house-hold distances with his Rollator walker. Prior Living Status: Single level house, Spouse, Assist by family Community Services: Home health [facility] Accessibility: All needs on one level, no stairs. Equipment Owned: Rollator, Wheelchair Medical Complications/Past Medical History: Metastatic Renal Cell CA. Psychosocial Support: Pt's and children Pain Scale (0-10): Pt reports neck pain, L hip/thigh pain, and L great toe pain "from gout". OBJECTIVE: Bed Mobility: SBA/Modified indep Assistive device: Bed rail Transfers: SBA/Modified indep Gait: SBA/modified indep x 200' with FWW ASSESSMENT: Pt demos significant improvement with functional mobility and has been provided with handouts for home exercise routine. Short Term Goals: (Met) 1. SBA bed mobility. 2. SBA transfers. 3. SBA ambulation x 50' with RW/Rollator walker. Fpc Goals: Increase independence with functional mobility. (Met) Patient Goals: "Get up and move around" (Met) Rehabilitation Prognosis: Poor Barriers for Discharge: advanced cancer diagnosis PLAN: Pt plans to transition home with assistance from [facility] services and family support. Thank you for this referral. If you have any questions, concerns, or comments about this report or plan, please contact me at . H. Dunia Artis, PT, MPT, OMAbdelrahman FELIPED
== END 2018-02-02 10:15 | disposition home health service (06) | DRG 193 ==
LOC: ECF 12:55
PROVIDERS: ADMIT Internal Medicine; ATTEND Internal Medicine
DX: J18.9 Pneumonia, unspecified organism (principal); I82.221 Chronic embolism and thrombosis of inferior vena cava; C64.2 Malignant neoplasm of left kidney, except renal pelvis; I82.509 Chronic embolism and thrombosis of unspecified deep veins of unspecified lower extremity; C79.51 Secondary malignant neoplasm of bone; C78.00 Secondary malignant neoplasm of unspecified lung; C79.72 Secondary malignant neoplasm of left adrenal gland; C79.71 Secondary malignant neoplasm of right adrenal gland; E46 Unspecified protein-calorie malnutrition; R06.6 Hiccough; N40.0 Benign prostatic hyperplasia without lower urinary tract symptoms; Z23 Encounter for immunization; Z79.01 Long term (current) use of anticoagulants; Z93.1 Gastrostomy status; Z68.22 Body mass index [BMI] 22.0-22.9, adult; Z96.651 Presence of right artificial knee joint; Z88.5 Allergy status to narcotic agent
CPT/HCPCS: 36415; 82040; 82247; 82310; 82374; 82435; 82565; 82947; 84075; 84132; 84155; 84295; 84450; 84460; 84520; 85025; 90471; 90674; 97163; 97167; J1650; Q0161; S0119

== ENCOUNTER → 2018-02-23 | Outpatient (REF) | payer MEDICARE, OTHER ==
[2018-01-22 10:40] VITALS: BMI 22.7
[~2018-02-23] MED LIST changes: +APIX5TAB4 PO; +HYDR28OI TP; +L.AC1CAP6 PO; +LEVO25TA61 PO; +OMEP-125 PO; +ONDA4TAB PO; +ONDA8TAB94 PO; +PROC10TA4 PO; +SENN1TAB28 PO; +SENN8.6T34 PO; +TRIA15OI20 TP
== END ==
DX: Z02.9 Encounter for administrative examinations, unspecified (principal)
CPT/HCPCS: 87088

== ENCOUNTER 2018-03-07 10:49 | Inpatient (IN) | payer MEDICARE, OTHER ==
[2018-01-22 10:40] VITALS: Ht 177.8 cm; Wt 68.5 kg
[~2018-03-07] VITALS: Ht 177.8 cm; Wt 68.5 kg
[~2018-03-07 10:49] MED LIST changes: -SENN8.6T34 PO
[2018-03-07 11:23] VITALS: BP 134/83
[2018-03-07] MEDS ORDERED: LEVO25TA61 PO (12:01)
[2018-03-07] MEDS ORDERED: PROC-5 PO (12:01)
[2018-03-07] MEDS ORDERED: predniSONE 20 MG TAB PO SCH (12:20)
[2018-03-07] MEDS ORDERED: DOCUSATE SODIUM 100 MG CAP PO PRN (12:20)
[2018-03-07] MEDS ORDERED: PANTOPRAZOLE SOD 20 MG TABEC PO PRN (12:20)
--- NOTE | 2018-03-07 12:34 | History & Physical ---
History of Present Illness Chief Complaint Weakness History of Present Illness This patient presented to the oncology clinic for a routine visit and was noted to be significantly weaker than previously. He does have renal cell carcinoma with metastasis to the bone. He is on treatment with Ipilimumab and nivolumab. He also underwent embolization of his left kidney in January. He reports becoming progressively weaker since last Monday. His blood work from the cancer center showed elevated liver enzymes and an increased creatinine. History Problems: (1) Hypothyroidism Status: Acute (2) Renal cell carcinoma Status: Chronic (3) Hiccups Status: Chronic (4) Metastatic renal cell carcinoma to bone Status: Chronic (5) DVT (deep venous thrombosis) Status: Chronic (6) Status post insertion of percutaneous endoscopic gastrostomy (PEG) tube Status: Resolved Home Meds Active Scripts Apixaban (Eliquis) 5 Mg (74 Tabs) Tab.ds.pk, 1 TAB PO BID, #60 TAB 6 Refills Prov:EFRAÍN HESS MD 02/23/18 Triamcinolone Acetonide 0.1% Oint 15 Gm Tube (TRIAMCINOLONE ACETONIDE 0.1% 15 GM TUBE) 15 Gm Oint...g., 15 GM TP BID PRN for RASH, #30 TUBE 1 Refill Prov:EFRAÍN HESS MD 02/08/18 Reported Medications Prochlorperazine Maleate (PROCHLORPERAZINE MALEATE) 10 Mg Tablet, 1 TAB PO Q6-8H PRN for NAUSEA 03/07/18 Levothyroxine Sodium (LEVOTHYROXINE SODIUM) 25 Mcg Tablet, 25 MCG PO QDAY pt takes this at 1700 daily due to feeding tube feedings throughout NOC 03/07/18 Docusate Sodium (COLACE) 100 Mg Capsule, 100 MG PO BID PRN for constipation, CAPSULE 01/29/18 Chlorpromazine Hcl (CHLORPROMAZINE HCL) 25 Mg Tablet, 25 MG PO TID PRN for HICCUPS 01/29/18 L.acidoph & Paracasei,B.lactis (Probiotic) 1 Each Capsule, PO DAILY 01/29/18 Omeprazole (OMEPRAZOLE) 20 Mg Capsule.dr, 1 CAP PO QDAY PRN for REFLUX, CAP 01/29/18 Tamsulosin Hcl (TAMSULOSIN HCL) 0.4 Mg Cap.er.24h, 0.4 MG PO BID, CAP 01/29/18 Discontinued Scripts Levothyroxine Sodium (LEVOTHYROXINE SODIUM) 25 Mcg Tablet, 0.025 MG PO QDAY@06, #30 TAB Prov:DANYELLE CHINCHILLA HUMAN RESOURCES REPRESENTATIVE 02/02/18 Ondansetron (ZOFRAN ODT) 8 Mg Tab.rapdis, 8 MG PO Q8H PRN for NAUSEA, #30 TAB Prov:DANYELLE CHINCHILLA HUMAN RESOURCES REPRESENTATIVE 02/01/18 Allergies: Coded Allergies: oxycodone HCl (Verified Allergy, Unknown, RASH, 12/25/17) Patient History: FH: bladder cancer BROTHER OR SISTER FH: breast cancer BROTHER OR SISTER FH: diabetes mellitus MOTHER, , Age:82 BROTHER OR SISTER FH: heart disease MOTHER, , Age:82 BROTHER OR SISTER FH: kidney cancer FH: lung cancer FATHER, , Age:71 BROTHER OR SISTER Hx Smoking: No Smoking Status: Never Smoker Caffeine Intake: Soda Caffeine/Cups Per Day: Occasionally Hx Alcohol Use: No Hx Substance Use Disorder: No Social Drug Use: Never Review of Systems All Systems Reviewed/Normal: Yes, Except as Noted Neurological: Weakness Exam Vital Signs Vital Signs Date Time Temp Pulse Resp B/P (MAP) Pulse Ox O2 Delivery O2 Flow Rate FiO2 03/07/18 11:23 95 03/07/18 11:23 Room Air 03/07/18 11:23 111 18 134/83 (100) Neuro: No Gross deficits Eyes: PERRLA Cardiovascular: Regular Rate and Rhythm Respiratory: Clear to Auscultation GI: Abd Soft and Non-Tender Extremities: No Edema Integumentary: No Cyanosis Assessment and Plan Problems: (1) Hepatitis Assessment & Plan: 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 Dr. De Luna has recommended that he be started on prednisone and 1mg/kg daily. Follow up labs are ordered for the morning. (2) ARF (acute renal failure) Assessment & Plan: He did undergo embolization of the left kidney in early January, but his creatinine has been steadily increasing since early February. He has been started on IV fluids and a renal ultrasound has been ordered. (3) Renal cell carcinoma Status: Chronic Assessment & Plan: He is on immune treatments through the cancer center. (4) DVT (deep venous thrombosis) Status: Chronic Assessment & Plan: He is on chronic treatment with Eliquis and also had an IVC placed 2months ago. (5) Hypothyroidism Status: Acute Assessment & Plan: He is on chronic treatment with Synthroid. (6) Urine retention Status: Chronic Assessment & Plan: He is on chronic treatment with Flomax. Venous Thromboembolism Antithrombotics Is Pt On Any Antithrombotics?: Yes Exam Sepsis Risk: No Definite Risk ZULEMA MCGHEE DO Mar 07, 2018 12:34
[2018-03-07] MEDS ORDERED: DOCUSATE SOD LIQ 100 MG/10 ML UDC PO PRN (13:00)
[2018-03-07] MEDS: PREDNISONE PO SCH (13:47)
[2018-03-07] MEDS ORDERED: SENN8.6T35 PO (14:05)
[2018-03-07] MEDS: NS(*) 0.9% 1000 ML BAG 1,000 ML IV PRN (14:44)
--- NOTE | 2018-03-07 15:41 | RADIOLOGY IMAGING REPORT ---
FACILITY: [facility] PATIENT NAME: Jose D Wilson : 1940 MR: [id number] V: [id number] EXAM DATE: ORDERING PHYSICIAN: ZULEMA MCGHEE TECHNOLOGIST: Location: [facility] Patient: Jose D Wilson : 1940 Visit/Account:[id number] Date of Sevice: 03/07/2018 KIDNEYS EXAMINATION: Renal ultrasound. History: History of left adrenal/renal mass, renal failure COMPARISON STUDIES: CT of the chest abdomen and pelvis December 11, 2017 FINDINGS: Kidneys: Right kidney- 9.4 x 4.9 x 3.8 cm Left kidney-15.4 x 6.8 x 5.1 cm There is a huge heterogeneous partially enhancing mass in the left kidney posteriorly measuring appro ximately 10.9 x 8 x 9.5 cm the mass appears slightly decreased when compared to the prior study. Resistive index on the right 0.69 on the left 0.53 Hydronephrosis: none Bladder: Is a Reid catheter within the urinary bladder. Urinary bladder prevoid volume 96 mL. Post void residual 0 mL. Right ureteral jet was present. Prostate gland appears prominent measuring 5.4 x 4.3 x 5.8 cm. Abdominal aorta and IVC: Not seen due to anterior abdominal wall dressing IMPRESSION: Huge heterogeneous partially enhancing mass in left kidney as described above. This appears slightly decreased in size when compared the prior study from December 11, 2017. By history the patient has und ergone cryoablation Report Dictated By: Tiffanie Gautam MD at 03/07/2018 3:30 PM Report E-Signed By: Tiffanie Gautam MD at 03/07/2018 3:37 PM WSN:[email or web address]
[2018-03-07 15:55] VITALS: BP 147/89
[2018-03-07 19:03] VITALS: BP 132/87
[2018-03-07] MEDS: APIXABAN 2.5 MG TABLET PO SCH (21:44)
[2018-03-07] MEDS: TAMSULOSIN HCL 0.4 MG CAP PO SCH (21:44)
[2018-03-07 23:11] VITALS: BP 131/84
[2018-03-08 03:49] VITALS: BP 138/85
[2018-03-08] MEDS: NS(*) 0.9% 1000 ML BAG 1,000 ML IV PRN ×2 (04:27→21:39)
[2018-03-08] MEDS: LEVOTHYROXINE SOD 0.025 MG TAB PO SCH (06:07)
[2018-03-08 06:08] LABS: PLATELET COUNT, AUTOMATED 179 K/uL (150-450)
[2018-03-08 07:12] VITALS: BP 149/94
[2018-03-08] MEDS: PREDNISONE PO SCH (09:42)
[2018-03-08] MEDS: TAMSULOSIN HCL 0.4 MG CAP PO SCH ×2 (09:42→20:22)
[2018-03-08] MEDS: APIXABAN 2.5 MG TABLET PO SCH ×2 (09:42→20:22)
[2018-03-08] MEDS: PANTOPRAZOLE SOD 20 MG TABEC PO PRN (10:20)
[2018-03-08] MEDS: chlorproMAZINE 25 MG TAB PO PRN ×2 (10:20→20:22)
[2018-03-08 10:49] VITALS: BP 145/86
--- NOTE | 2018-03-08 12:29 | Hospitalist Progress Note ---
Subjective Progress Notes Subjective He and his report improvement in his strength. No concerns from staff. 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 Dr. Ross has recommended that he be started on prednisone and 1mg/kg daily. LFT's are trending down. Continue current treatment. (2) ARF (acute renal failure) Assessment & Plan: He did undergo embolization of the left kidney in early January, but his creatinine has been steadily increasing since early February. He has been started on IV fluids with some improvement in creatinine, which will be continued. Renal US showed a slightly decrease in size of the left renal mass. No abnormalities with the right kidney. (3) Renal cell carcinoma Status: Chronic Assessment & Plan: He is on immune treatments through the cancer center. (4) DVT (deep venous thrombosis) Status: Chronic Assessment & Plan: He is on chronic treatment with Eliquis, which has been continued and also had an IVC placed 2months ago. (5) Hypothyroidism Status: Acute Assessment & Plan: He is on chronic treatment with Synthroid. (6) Urine retention Status: Chronic Assessment & Plan: He is on chronic treatment with Flomax, but has a chronic Reid catheter currently, which was changed on 03/07. Exam Sepsis Risk: No Definite Risk BAYRNO TONEY MD Mar 08, 2018 12:29
--- NOTE | 2018-03-08 15:33 | Medical Nutrition Therapy ---
Nutrition Anthropometrics Height (Inches): 70.00 Height (Calculated Centimeters: 177.607791 Weight (Pounds): 152 Weight (Calculated Kilograms): 68.946 BMI: 21.8 Hx Weight Loss: Yes (166# -01/24/18) Basilio Nutrition Score: Probably Inadequate Basilio Nutrition Risk Score: 16 Dietary Referral Nutrition Risk Factors: Diff. Swallowing, Tube Feeding Nutrition Risk Comment: Nutritional Diagnosis Nutritional Risk Acuity 2: Head/Neck/GI Cancer (renal Ca), Tube Feed Stable Nutritional Risk Acuity 4: Modified Diet Past Medical History: Hx of hematuria, singultus, renal cell carcinoma, DVT, malnutrition Nutritional Acuity: 2-Moderate Nutrition Diagnosis: Increased Nutrient Needs Nutrition Etiology: Physiological Causes Nutrition Problem/Etiology/Sym: AEB dx renal Ca with alb 2.9 Energy Requirement: 2400 (M-St -J X 1.3 SF) Protein Requirement: 88 (1.3 gm/kg) Diet Type: Diet as Tolerated CHARLES/REG, Tube Feeding (TF) Nutrition Intervention: Cont diet as ordered, Encourage intake, Between meal supplement Additional Diet Restrictions: OFFER NUTR SUPPLMENT Nutritional Support Current Enteral / Parental: Tube Feeding Tube Feeding Formulas: Osmolite 1.5cal/ml-Hi Dani Current Tube Feeding Formula C: 95ml/hr Tube Feeding Supplement Streng: Full Feeding Route: PEG Current Duration: 16 Current Calories: 2280 Current Protein: 95 Free H2O bolus for hydration (: 125 ml q 4 hrs during TF Nutrition Monitoring & Eval Nutritional Goals Comment: TF would meet nutr need augments with oral intake as tolerated RD Patient Assessment Time: [address] Assessment Type: RD Assessment Patient Nutrition Acuity: 2-Moderate Nutritional Comment: 03/08 Pt admitted for weakness s/p chemo tx for renal Ca. Pt has been on TF of Osmolite 1.5 at home at 90ml/hr X 14 hrs. Pt tried to advance to 125ml/hr at 12 hrs but was unable to tolerate it. Pt currently on 95ml/hr X 16 hrs to meet 95% est kcal and 107% est protein needs. Pt is taking small amounts of oral intake. states was giving pt nutr supplment to augment TF at home. Will offer nutr supplment orally while in facility. Wt is down 14# (8%) past month. Alb 2.9, BUN 59, creatinine 2.8, BG 212. Pt is on prednisone which may contribute to elevated BG. Will cont to monitor. OTILIA MCCALLUM Mar 08, 2018 15:33
[2018-03-08 15:36] VITALS: BP 130/84
[2018-03-08 19:36] VITALS: BP 127/78
[2018-03-09] MEDS: LEVOTHYROXINE SOD 0.025 MG TAB PO SCH (05:25)
[2018-03-09 05:48] LABS: PLATELET COUNT, AUTOMATED 209 K/uL (150-450)
[2018-03-09 07:10] VITALS: BP 149/99
--- NOTE | 2018-03-09 08:03 | Medical Nutrition Therapy ---
Nutrition Monitoring & Eval RD Patient Assessment Time: [address] Assessment Type: RD Assessment Patient Nutrition Acuity: 2-Moderate Follow Up Date: Mar 12, 2018 Nutritional Comment: 03/08 Pt admitted for weakness s/p chemo tx for renal Ca. Pt has been on TF of Osmolite 1.5 at home at 90ml/hr X 14 hrs. Pt tried to advance to 125ml/hr at 12 hrs but was unable to tolerate it. Pt currently on 95ml/hr X 16 hrs to meet 95% est kcal and 107% est protein needs. Pt is taking small amounts of oral intake. states was giving pt nutr supplment to augment TF at home. Will offer nutr supplment orally while in facility. Wt is down 14# (8%) past month. Alb 2.9, BUN 59, creatinine 2.8, BG 212. Pt is on prednisone which may contribute to elevated BG. Will cont to monitor. OTILIA MCCALLUM Mar 09, 2018 08:03
[2018-03-09] MEDS: TAMSULOSIN HCL 0.4 MG CAP PO SCH ×2 (09:42→20:18)
[2018-03-09] MEDS: APIXABAN 2.5 MG TABLET PO SCH ×2 (09:42→20:18)
[2018-03-09] MEDS: PREDNISONE PO SCH (09:42)
[2018-03-09] MEDS: PANTOPRAZOLE SOD 20 MG TABEC PO PRN (10:42)
--- NOTE | 2018-03-09 12:08 | Hospitalist Progress Note ---
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 AMY overnight, eating well this am. Remains weak. Physical Exam Vital Signs Date Time Temp Pulse Resp B/P (MAP) Pulse Ox O2 Delivery O2 Flow Rate FiO2 03/08/18 20:26 Room Air 03/08/18 19:36 97.8 108 20 127/78 (94) 95 Intake and Output 03/09/18 06:59 Intake Total 1535 ml Output Total 3175 ml Balance -1640 ml Intake Oral 0 ml IV Total 1000 ml Tube Feeding 380 ml Tube Irrigant 155 ml Output Urine Total 3175 ml # Bowel Movements 1 General Appearance: Alert, Awake, No Acute Distress, Afebrile Neuro: No Gross deficits Eyes: PERRLA ENT: Normal Neck: No Masses Cardiovascular: Normal Rhythm & Peripheral Pulses Respiratory: No Respiratory Distress GI: Soft and Non-Tender (+ PEG) : Normal (+ Reid) Musculoskeletal: No Weakness/Pain Extremities: Soft and Non Tender, Warm, Pulses, Perfused; No Edema Integumentary: Skin Intact without Lesion / Mass Result Diagram: 03/09/18 05003/09/18 050 Assessment and Plan Problems: (1) Hepatitis Assessment & Plan: It is suspected that 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 Dr. Ross has recommended that he be started on prednisone and 1mg/kg daily. LFT's are trending down. Continue current treatment. (2) ARF (acute renal failure) Assessment & Plan: He did undergo embolization of the left kidney in early January, but his creatinine has been steadily increasing since early February. May be a component of autoimmune in FANNY as well. He has been started on IV fluids with some improvement in creatinine, which will be continued. Renal US showed a slightly decrease in size of the left renal mass. No abnormalities with the right kidney. (3) Renal cell carcinoma Status: Chronic Assessment & Plan: He is on immune treatments through the cancer center. (4) DVT (deep venous thrombosis) Status: Chronic Assessment & Plan: He is on chronic treatment with Eliquis, which has been continued and also had an IVC placed 2months ago. (5) Hypothyroidism Status: Acute Assessment & Plan: He is on chronic treatment with Synthroid. (6) Urine retention Status: Chronic Assessment & Plan: He is on chronic treatment with Flomax, but has a chronic Reid catheter currently, which was changed on 03/07. Discussed possible d/c of Reid, with current FANNY will keep in to monitor output. May be appropriate for d/c and voiding trial this hospitalization. Exam Sepsis Risk: No Definite Risk ROSARIO ESTEFANIA SESAY DO Mar 09, 2018 12:08
[2018-03-09] MEDS ORDERED: INFLUENZA VIRUS VAC 0.5ML SYR IM ONLY ONE (12:20)
--- NOTE | 2018-03-09 12:43 | PROGRESS NOTE ---
DATE: March 09, 2018 Patient is a 78-year-old male with metastatic renal cell carcinoma. He presented to the cancer center on 03/07/2018 for cycle #4 of Panda and Alonzo. However, at that time he was noted to be increasingly weak. He fell at home. He was requiring significant care. On review of his labs, he was noted to have significantly elevated LFTs (AST 190, ALT 328, alkaline phosphatase 958). Dr. Ross suspected an immune-mediated hepatitis from his immunotherapy. Treatment was held, and he was admitted to [facility]. I spoke with the hospitalist, and the patient was started on prednisone 1 mg/kg on 03/07/2018. When seen on 03/08/2018, LFTs had decreased somewhat He was re- evaluated again today. LFTs are slowly returning to normal. He also had noted renal insufficiency, but this is also very slowly improving. As reviewed with Dr. Hamilton, hospitalist, he will continue the current prednisone dose of 1 mg/kg (70 mg) for a total of two weeks. He will then be slowly tapered over the next one to two months. All of this was discussed with his who remains somewhat overwhelmed about the level of care he requires. Our social sciences lecturer will assist in this, but at this point, he will likely remain in the hospital for the next few days. Physical therapy will be consulted. A total of 30 minutes was spent with the patient, his and hospital staff reviewing current status and coordinating care. PATI
[2018-03-09 16:03] VITALS: BP 124/82
[2018-03-09 20:12] VITALS: BP 135/90
[2018-03-09] MEDS: chlorproMAZINE 25 MG TAB PO PRN (20:18)
[2018-03-09] MEDS: NS(*) 0.9% 1000 ML BAG 1,000 ML IV PRN (20:18)
[2018-03-10] MEDS: LEVOTHYROXINE SOD 0.025 MG TAB PO SCH (05:28)
[2018-03-10 06:55] VITALS: BP 153/100
[2018-03-10 09:15] VITALS: BP 130/99
[2018-03-10] MEDS: TAMSULOSIN HCL 0.4 MG CAP PO SCH ×2 (09:18→20:44)
[2018-03-10] MEDS: APIXABAN 2.5 MG TABLET PO SCH ×2 (09:18→20:44)
[2018-03-10] MEDS: PREDNISONE PO SCH (09:18)
--- NOTE | 2018-03-10 12:24 | Medical Nutrition Therapy ---
Nutrition Anthropometrics Height (Inches): 70.00 Height (Calculated Centimeters: 177.421336 Weight (Pounds): 152 Weight (Calculated Kilograms): 68.946 BMI: 21.8 Hx Weight Loss: Yes (166# -01/24/18) Basilio Nutrition Score: Probably Inadequate Basilio Nutrition Risk Score: 15 Dietary Referral Nutrition Risk Factors: Diff. Swallowing, Tube Feeding Nutrition Risk Comment: Physical Findings Physical Appearance: WNR Skin Appearance Skin Appearance: Edema Edema Location Modifier: Both Edema Location: Ankle Type of Edema: Degree of Edema: 1+ Gastrointestinal Symptoms GI Symtoms: Nausea Tube Present: PEG Bowel Sounds: Recent Bowel Pattern: Stool Characteristics: Nutrition/Food History Tube Feed Prior to Admit Improving Nutritional Diagnosis Nutritional Risk Acuity 2: Head/Neck/GI Cancer (renal Ca), Tube Feed Stable Nutritional Risk Acuity 4: Modified Diet Past Medical History: Hx of hematuria, singultus, renal cell carcinoma, DVT, malnutrition Nutritional Acuity: 2-Moderate Nutrition Diagnosis: Increased Nutrient Needs Nutrition Etiology: Physiological Causes Nutrition Problem/Etiology/Sym: AEB dx renal Ca with alb 2.9 Energy Requirement: 2400 (M-St -J X 1.3 SF) Protein Requirement: 88 (1.3 gm/kg) Diet Type: Diet as Tolerated CHARLES/REG, Tube Feeding (TF) Nutrition Intervention: Cont diet as ordered, Encourage intake, Between meal supplement Additional Diet Restrictions: OFFER NUTR SUPPLMENT Nutritional Support Current Enteral / Parental: Tube Feeding Tube Feeding Formulas: Osmolite 1.5cal/ml-Hi Dani Current Tube Feeding Formula C: 100 mL/hr Tube Feeding Supplement Streng: Full Feeding Route: PEG Current Duration: 12 Current Calories: 1800 Current Protein: 75 Free H2O bolus for hydration (: 125 ml q 4 hrs during TF Nutrition Monitoring & Eval RD Patient Assessment Time: [address] Assessment Type: RD Re-Assessment Patient Nutrition Acuity: 2-Moderate Follow Up Date: Mar 11, 2018 Nutritional Comment: 03/08 Pt admitted for weakness s/p chemo tx for renal Ca. Pt has been on TF of Osmolite 1.5 at home at 90ml/hr X 14 hrs. Pt tried to advance to 125ml/hr at 12 hrs but was unable to tolerate it. Pt currently on 95ml/hr X 16 hrs to meet 95% est kcal and 107% est protein needs. Pt is taking small amounts of oral intake. states was giving pt nutr supplment to augment TF at home. Will offer nutr supplment orally while in facility. Wt is down 14# (8%) past month. Alb 2.9, BUN 59, creatinine 2.8, BG 212. Pt is on prednisone which may contribute to elevated BG. Will cont to monitor. 03/10 TF updated to Osmolite 1.5 @ 100mL/hr X 12 hours. This provides 1800 Kcal, 75 grams protein, and 914mL free water. Pt has been tolerating TF with minimal residuals. Oral intake is fair with pt consuming 15-100% of meals and occasional nutritional supplement. TF plus oral intake probably meeting pts Kcal/protein needs. Alb 2.9, Glu 166, High AST/ALT/Alk Phos, High BUN/Creat. Follow labs, TF tolerance, oral intake, etc. -RUBI RODRIGUEZ Mar 10, 2018 12:24
--- NOTE | 2018-03-10 13:06 | Hospitalist Progress Note ---
Subjective Progress Notes Subjective He reports doing "OK". He has been tolerating tube feedings and a small amount of oral intake. Physical Exam Vital Signs Date Time Temp Pulse Resp B/P (MAP) Pulse Ox O2 Delivery O2 Flow Rate FiO2 03/10/18 06:55 97.5 111 16 153/100 (117) 95 Room Air Intake and Output 03/10/18 07:00 Intake Total 785 ml Output Total 2750 ml Balance -1965 ml Intake Oral 640 ml Tube Irrigant 145 ml Output Urine Total 2750 ml General Appearance: Alert, Awake Cardiovascular: Regular Rate and Rhythm Respiratory: Clear to Auscultation GI: Soft and Non-Tender, Other (PEG tube site clean and dry) Extremities: Warm, Perfused Result Diagram: 03/09/18 0507 03/10/18 0608 Item Value Date Time Albumin 2.9 g/dl L 03/10/18 0608 Total Protein 6.5 g/dl 03/10/18 0608 Alkaline Phosphatase 535 U/L H 03/10/18 0608 Alanine Aminotransferase (ALT/SGPT) 202 U/L H 03/10/18 0608 Aspartate Amino Transf (AST/SGOT) 73 U/L H 03/10/18 0608 Total Bilirubin 0.4 mg/dl 03/10/18 0608 Calcium Level 8.7 mg/dl 03/10/18 0608 Assessment and Plan Problems: (1) Hepatitis Assessment & Plan: 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 Dr. Ross has recommended that he be started on steroids. He is currently prednisone 70mg daily (1mg/kg). LFT's are continuing to trend down. No changes at this time. (2) ARF (acute renal failure) Assessment & Plan: He did undergo embolization of the left kidney in early January, but his creatinine has been steadily increasing since early February. May be a component of autoimmune in FANNY as well. He has been started on IV fluids with some improvement in creatinine, which will be continued. Renal US showed a slightly decrease in size of the left renal mass. No abnormalities with the right kidney. (3) Renal cell carcinoma Status: Chronic Assessment & Plan: He has been on Yervoy and Opdivo through the cancer center. He has been eating a little better. Will see if can modify his tube feedings to 12 hours overnight and allow him to eat during the day. Will see how his appetite responds and how much he is able to take in. (4) DVT (deep venous thrombosis) Status: Chronic Assessment & Plan: He is on chronic treatment with Eliquis, which has been continued. He also had an IVC placed 2 months ago. (5) Hypothyroidism Status: Acute Assessment & Plan: He is on chronic treatment with Synthroid. (6) Urine retention Status: Chronic Assessment & Plan: He is on chronic treatment with Flomax, but has a chronic Reid catheter (changed on 03/07). We discussed possible d/c of Reid - with current FANNY will keep in to monitor output. Will see if can contact Dr. Gramajo re nancying possible removal and voiding trial this hospitalization. Exam Sepsis Risk: No Definite Risk GABE BRYANT MD Mar 10, 2018 13:06
[2018-03-10 13:54] VITALS: BP 144/88
[2018-03-10] MEDS: chlorproMAZINE 25 MG TAB PO PRN ×2 (13:57→20:44)
[2018-03-10 19:06] VITALS: BP 146/99
[2018-03-10 22:36] VITALS: BP 140/86
[2018-03-11] MEDS: NS(*) 0.9% 1000 ML BAG 1,000 ML IV PRN ×2 (02:12→16:35)
[2018-03-11 02:16] VITALS: BP 147/93
[2018-03-11 06:04] LABS: PLATELET COUNT, AUTOMATED 210 K/uL (150-450)
[2018-03-11] MEDS: LEVOTHYROXINE SOD 0.025 MG TAB PO SCH (06:08)
[2018-03-11 08:16] VITALS: BP 143/95
[2018-03-11] MEDS: TAMSULOSIN HCL 0.4 MG CAP PO SCH ×2 (08:23→20:43)
[2018-03-11] MEDS: PREDNISONE PO SCH (08:23)
[2018-03-11] MEDS: APIXABAN 2.5 MG TABLET PO SCH ×2 (08:23→20:43)
--- NOTE | 2018-03-11 10:17 | Hospitalist Progress Note ---
Subjective Progress Notes Subjective This patient was admitted for hepatitis. He had no acute issues overnight. Patient Complains of: Neurological: Dizziness Cardiovascular: No: Chest Pain Respiratory: No: Shortness of Breath Physical Exam Vital Signs Date Time Temp Pulse Resp B/P (MAP) Pulse Ox O2 Delivery O2 Flow Rate FiO2 03/11/18 08:16 98.3 110 22 143/95 (111) 93 Room Air Intake and Output 03/11/18 07:00 Intake Total 2055 ml Output Total 3250 ml Balance -1195 ml Intake Oral 600 ml IV Total 1000 ml Tube Irrigant 455 ml Output Urine Total 1750 ml Other 1500 ml Cardiovascular: Regular Rate and Rhythm Respiratory: Clear to Auscultation Result Diagram: 03/11/1852103/11/18 0553 Assessment and Plan Problems: (1) Hepatitis Assessment & Plan: 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 Dr. Ross has recommended that he be started on steroids. He is currently prednisone 70mg daily (1mg/kg). There are no plans to taper therapy at this time. His liver function has been gradually improving. We will give him a lab holiday tomorrow. (2) ARF (acute renal failure) Assessment & Plan: He did undergo embolization of the left kidney in early January, but his creatinine has been steadily increasing since early February. Renal US showed a slightly decrease in size of the left renal mass. His creatinine has been improving with fluids and steroids. (3) Renal cell carcinoma Status: Chronic Assessment & Plan: He has been on Yervoy and Opdivo through the cancer center. He has been eating a little better. (4) DVT (deep venous thrombosis) Status: Chronic Assessment & Plan: He is on chronic treatment with Eliquis, which has been continued. He also had an IVC placed 2 months ago. (5) Hypothyroidism Status: Acute Assessment & Plan: He is on chronic treatment with Synthroid. (6) Urine retention Status: Chronic Assessment & Plan: He is on chronic treatment with Flomax, but has a chronic Reid catheter (changed on 03/07). We discussed possible d/c of Reid - with current FANNY will keep in to monitor output. (7) Malnutrition Assessment & Plan: He is on chronic tube feedings at home. We have modified his regimen. Exam Sepsis Risk: No Definite Risk ZULEMA MCGHEE DO Mar 11, 2018 10:17
[2018-03-11] MEDS: INSULIN HUM LISPRO 100 UN/ML 3 ML VIAL SUBQ PRN ×2 (11:43→21:08)
[2018-03-11 15:13] VITALS: BP 134/93
--- NOTE | 2018-03-11 15:35 | Medical Nutrition Therapy ---
Nutrition Anthropometrics Height (Inches): 70.00 Height (Calculated Centimeters: 177.739058 Weight (Pounds): 152 Weight (Calculated Kilograms): 68.946 BMI: 21.8 Hx Weight Loss: Yes (166# -01/24/18) Basilio Nutrition Score: Probably Inadequate Basilio Nutrition Risk Score: 16 Dietary Referral Nutrition Risk Factors: Diff. Swallowing, Tube Feeding Nutrition Risk Comment: Physical Findings Physical Appearance: WNR Skin Appearance Skin Appearance: Edema Edema Location Modifier: Both Edema Location: Ankle Type of Edema: Degree of Edema: 1+ Gastrointestinal Symptoms GI Symtoms: Nausea Tube Present: PEG Bowel Sounds: Recent Bowel Pattern: Stool Characteristics: Nutrition/Food History Tube Feed Prior to Admit Nutritional Diagnosis Nutritional Risk Acuity 2: Head/Neck/GI Cancer (renal Ca), Tube Feed Stable Nutritional Risk Acuity 4: Modified Diet Past Medical History: Hx of hematuria, singultus, renal cell carcinoma, DVT, malnutrition Nutritional Acuity: 2-Moderate Nutrition Diagnosis: Increased Nutrient Needs Nutrition Etiology: Physiological Causes Nutrition Problem/Etiology/Sym: AEB dx renal Ca with alb 2.9 Energy Requirement: 2400 (M-St -J X 1.3 SF) Protein Requirement: 88 (1.3 gm/kg) Diet Type: Diet as Tolerated CHARLES/REG, Tube Feeding (TF) Nutrition Intervention: Cont diet as ordered, Encourage intake, Between meal supplement Additional Diet Restrictions: OFFER NUTR SUPPLMENT Nutritional Support Current Enteral / Parental: Tube Feeding Tube Feeding Formulas: Osmolite 1.5cal/ml-Hi Dani Current Tube Feeding Formula C: 100 mL/hr Tube Feeding Supplement Streng: Full Feeding Route: PEG Current Duration: 12 Current Calories: 1800 Current Protein: 75 Free H2O bolus for hydration (: 125 ml q 4 hrs during TF Nutrition Monitoring & Eval Nutrition Goals: Eat 50-100% Meal RD Patient Assessment Time: [address] Assessment Type: RD Re-Assessment Patient Nutrition Acuity: 2-Moderate Follow Up Date: Mar 14, 2018 Nutritional Comment: 03/08 Pt admitted for weakness s/p chemo tx for renal Ca. Pt has been on TF of Osmolite 1.5 at home at 90ml/hr X 14 hrs. Pt tried to advance to 125ml/hr at 12 hrs but was unable to tolerate it. Pt currently on 95ml/hr X 16 hrs to meet 95% est kcal and 107% est protein needs. Pt is taking small amounts of oral intake. states was giving pt nutr supplment to augment TF at home. Will offer nutr supplment orally while in facility. Wt is down 14# (8%) past month. Alb 2.9, BUN 59, creatinine 2.8, BG 212. Pt is on prednisone which may contribute to elevated BG. Will cont to monitor. 03/10 TF updated to Osmolite 1.5 @ 100mL/hr X 12 hours. This provides 1800 Kcal, 75 grams protein, and 914mL free water. Pt has been tolerating TF with minimal residuals. Oral intake is fair with pt consuming 15-100% of meals and occasional nutritional supplement. TF plus oral intake probably meeting pts Kcal/protein needs. Alb 2.9, Glu 166, High AST/ALT/Alk Phos, High BUN/Creat. Follow labs, TF tolerance, oral intake, etc. -DEON 03/11/18 Alb 2.9, Glu 183, AST/ALT/Alk Phos continue to slow decrease. Tolerating TF. Also continues to tolerate and consume small portions of meals. Encourage intake, follow labs, etc. -RUBI RODRIGUEZ Mar 11, 2018 15:35
[2018-03-11 19:42] VITALS: BP 133/87
[2018-03-12] MEDS: chlorproMAZINE 25 MG TAB PO PRN (01:54)
[2018-03-12 03:20] VITALS: BP 128/83
[2018-03-12] MEDS: LEVOTHYROXINE SOD 0.025 MG TAB PO SCH (05:34)
[2018-03-12 06:41] VITALS: BP 142/93
[2018-03-12] MEDS: NS(*) 0.9% 1000 ML BAG 1,000 ML IV PRN (07:21)
[2018-03-12] MEDS: INSULIN HUM LISPRO 100 UN/ML 3 ML VIAL SUBQ PRN ×4 (07:48→21:34)
[2018-03-12] MEDS: PREDNISONE PO SCH (09:33)
[2018-03-12] MEDS: TAMSULOSIN HCL 0.4 MG CAP PO SCH ×2 (09:33→21:28)
[2018-03-12] MEDS: APIXABAN 2.5 MG TABLET PO SCH ×2 (09:33→21:28)
[2018-03-12] MEDS: PANTOPRAZOLE SOD 40 MG TABEC PO SCH (09:33)
--- NOTE | 2018-03-12 11:01 | Hospitalist Progress Note ---
Subjective Progress Notes Subjective He has no complaints this morning. He had no acute events overnight. Patient Complains of: Cardiovascular: No: Chest Pain Respiratory: No: Shortness of Breath Physical Exam Vital Signs Date Time Temp Pulse Resp B/P (MAP) Pulse Ox O2 Delivery O2 Flow Rate FiO2 03/12/18 06:41 97.9 114 20 142/93 (109) 94 Room Air Intake and Output 03/12/18 07:00 Intake Total 2136 ml Output Total 3350 ml Balance -1214 ml Intake Oral 836 ml IV Total 1000 ml Tube Irrigant 300 ml Output Urine Total 3350 ml General Appearance: Alert, Awake, No Acute Distress, Afebrile Neuro: No Gross deficits Cardiovascular: Regular Rate and Rhythm Respiratory: No Respiratory Distress, Clear to Auscultation Extremities: Warm, Perfused; No Edema Psych: Alert & Oriented X3, Appropriate Mood & Affect Result Diagram: 03/11/1852103/11/18 0553 Assessment and Plan Problems: (1) Hepatitis Assessment & Plan: 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 Dr. Ross has recommended that he be started on steroids. He is currently prednisone 70mg daily (1mg/kg). There are no plans to taper therapy at this time. His liver function has been gradually improving. We will draw labs tomorrow morning. PT/OT recommending patient have 2 caregivers with 24 hour care. Awaiting social work recommendations for discharge. (2) ARF (acute renal failure) Status: Acute Assessment & Plan: He did undergo embolization of the left kidney in early January, but his creatinine has been steadily increasing since early February. Renal US showed a slightly decrease in size of the left renal mass. His creatinine has been improving with fluids and steroids. (3) Renal cell carcinoma Status: Chronic Assessment & Plan: He has been on Yervoy and Opdivo through the cancer center. He has been eating a little better. (4) DVT (deep venous thrombosis) Status: Chronic Assessment & Plan: He is on chronic treatment with Eliquis, which has been continued. He also had an IVC placed 2 months ago. (5) Hypothyroidism Status: Acute Assessment & Plan: He is on chronic treatment with Synthroid. (6) Urine retention Status: Chronic Assessment & Plan: He is on chronic treatment with Flomax, but has a chronic Reid catheter (changed on 03/07). We discussed possible d/c of Reid - with current FANNY will keep in to monitor output. (7) Malnutrition Assessment & Plan: He is on chronic tube feedings at home. We have modified his regimen. Exam Sepsis Risk: No Definite Risk DANYELLE CHINCHILLA MASTER SCHEDULER Mar 12, 2018 11:01
[2018-03-12 14:54] VITALS: BP 127/89
[2018-03-12] MEDS ORDERED: ONDANSETRON 4 MG ODT TABDP SL PRN (15:35)
[2018-03-12 19:14] VITALS: BP 129/90
[2018-03-13] MEDS: chlorproMAZINE 25 MG TAB PO PRN ×2 (01:17→22:04)
[2018-03-13] MEDS: NS(*) 0.9% 1000 ML BAG 1,000 ML IV PRN ×2 (01:59→18:09)
[2018-03-13 05:43] LABS: PLATELET COUNT, AUTOMATED 210 K/uL (150-450)
[2018-03-13] MEDS: LEVOTHYROXINE SOD 0.025 MG TAB PO SCH (05:48)
[2018-03-13 08:10] VITALS: BP 145/95
[2018-03-13] MEDS: PANTOPRAZOLE SOD 40 MG TABEC PO SCH (08:22)
[2018-03-13] MEDS: TAMSULOSIN HCL 0.4 MG CAP PO SCH ×2 (08:22→21:35)
[2018-03-13] MEDS: PREDNISONE PO SCH (08:22)
[2018-03-13] MEDS: APIXABAN 2.5 MG TABLET PO SCH ×2 (08:23→21:35)
[2018-03-13] MEDS: INSULIN HUM LISPRO 100 UN/ML 3 ML VIAL SUBQ PRN ×4 (08:57→21:37)
--- NOTE | 2018-03-13 09:38 | Hospitalist Progress Note ---
Subjective Progress Notes Subjective He reports improvement in his stomach this morning. Denies nausea. He had no acute events overnight. Patient Complains of: Cardiovascular: No: Chest Pain Respiratory: No: Shortness of Breath Physical Exam Vital Signs Date Time Temp Pulse Resp B/P (MAP) Pulse Ox O2 Delivery O2 Flow Rate FiO2 03/12/18 19:52 Room Air 03/12/18 19:14 98.1 100 16 129/90 (103) 94 Intake and Output 03/13/18 06:59 Intake Total 700 ml Output Total 3325 ml Balance -2625 ml Intake Oral 340 ml Tube Irrigant 360 ml Output Urine Total 3325 ml # Voids 1 General Appearance: Alert, Awake, No Acute Distress, Afebrile Neuro: No Gross deficits Cardiovascular: Regular Rate and Rhythm Respiratory: No Respiratory Distress, Clear to Auscultation GI: Soft and Non-Tender Extremities: Warm, Perfused; No Edema Psych: Alert & Oriented X3, Appropriate Mood & Affect Result Diagram: 03/13/1852703/13/18527 Assessment and Plan Problems: (1) Hepatitis Assessment & Plan: 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 Dr. Ross has recommended that he be started on steroids. He is currently prednisone 70mg daily (1mg/kg). There are no plans to taper therapy at this time. His liver function has been gradually improving. We will draw labs tomorrow morning. PT/OT recommending patient have 2 caregivers with 24 hour care. Awaiting social work recommendations for discharge. (2) ARF (acute renal failure) Status: Acute Assessment & Plan: He did undergo embolization of the left kidney in early January, but his creatinine has been steadily increasing since early February. Renal US showed a slightly decrease in size of the left renal mass. His creatinine has been improving with fluids and steroids. (3) Renal cell carcinoma Status: Chronic Assessment & Plan: He has been on Yervoy and Opdivo through the cancer center. He has been eating a little better. (4) DVT (deep venous thrombosis) Status: Chronic Assessment & Plan: He is on chronic treatment with Eliquis, which has been continued. He also had an IVC placed 2 months ago. (5) Hypothyroidism Status: Acute Assessment & Plan: He is on chronic treatment with Synthroid. (6) Urine retention Status: Chronic Assessment & Plan: He is on chronic treatment with Flomax, but has a chronic Reid catheter (changed on 03/07). We discussed possible d/c of Reid - with current FANNY will keep in to monitor output. (7) Malnutrition Assessment & Plan: He is on chronic tube feedings at home. We have modified his regimen. (8) Hyperglycemia Status: Acute Assessment & Plan: He has hyperglycemia secondary to steroid use. He will be placed on sliding scale insulin #2. Exam Sepsis Risk: No Definite Risk DANYELLE CHINCHILLA LURE MAKER Mar 13, 2018 09:38
[2018-03-13 15:16] VITALS: BP 119/80
[2018-03-13 18:55] VITALS: BP 129/90
[2018-03-14 05:22] VITALS: BP 141/89
[2018-03-14] MEDS: LEVOTHYROXINE SOD 0.025 MG TAB PO SCH (05:27)
[2018-03-14 08:12] VITALS: BP 135/87
[2018-03-14] MEDS: APIXABAN 2.5 MG TABLET PO SCH ×2 (08:25→20:32)
[2018-03-14] MEDS: PANTOPRAZOLE SOD 40 MG TABEC PO SCH (08:25)
[2018-03-14] MEDS: TAMSULOSIN HCL 0.4 MG CAP PO SCH ×2 (08:25→20:32)
[2018-03-14] MEDS: NS(*) 0.9% 1000 ML BAG 1,000 ML IV PRN (08:26)
[2018-03-14] MEDS: PREDNISONE PO SCH (08:26)
[2018-03-14 11:21] VITALS: BP 132/92
--- NOTE | 2018-03-14 11:22 | Hospitalist Progress Note ---
Subjective Progress Notes Subjective 78M admitted for hepatitis 2/2 immunotherapy for stage 4 RCC. AMY overnight, family now refusing hospice as they will not allow tube feeds while on hospice. Patient Complains of: Cardiovascular: No: Chest Pain Gastrointestinal: No Nausea, No Vomiting Physical Exam Vital Signs Date Time Temp Pulse Resp B/P (MAP) Pulse Ox O2 Delivery O2 Flow Rate FiO2 03/14/18 08:12 98.7 97 16 135/87 (103) 95 Room Air Intake and Output 03/14/18 06:59 Intake Total 1295 ml Output Total 3325 ml Balance -2030 ml Intake Oral 905 ml Tube Irrigant 390 ml Output Urine Total 3325 ml General Appearance: Alert, Awake, No Acute Distress Neuro: No Gross deficits Eyes: PERRLA ENT: Normal Cardiovascular: Normal Rhythm & Peripheral Pulses Respiratory: No Respiratory Distress GI: Soft and Non-Tender Extremities: Soft and Non Tender, Warm, Pulses, Perfused; No Edema Integumentary: Skin Intact without Lesion / Mass Result Diagram: 03/13/1852703/13/18527 Assessment and Plan Problems: (1) Hepatitis Assessment & Plan: 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 Dr. Ross has recommended that he be started on steroids. He is currently prednisone 70mg daily (1mg/kg). There are no plans to taper therapy at this time. His liver function has been gradually improving. PT/OT recommending patient have 2 caregivers with 24 hour care. Awaiting social work recommendations for discharge. (2) ARF (acute renal failure) Status: Acute Assessment & Plan: He did undergo embolization of the left kidney in early January, but his creatinine has been steadily increasing since early February. Renal US showed a slightly decrease in size of the left renal mass. His creatinine has been improving with fluids and steroids. (3) Renal cell carcinoma Status: Chronic Assessment & Plan: Stage 4. He has been on Yervoy and Opdivo through the cancer center. He has been eating a little better. Dr Ross requesting abdominal CT before he sees him to evaluate for disease progression. (4) DVT (deep venous thrombosis) Status: Chronic Assessment & Plan: He is on chronic treatment with Eliquis, which has been continued. He also had an IVC placed 2 months ago. (5) Hypothyroidism Status: Acute Assessment & Plan: He is on chronic treatment with Synthroid. (6) Urine retention Status: Chronic Assessment & Plan: He is on chronic treatment with Flomax, but has a chronic Reid catheter (changed on 03/07). We discussed possible d/c of Reid - with current FANNY will keep in to monitor output. (7) Malnutrition Assessment & Plan: He is on chronic tube feedings at home. We have modified his regimen. (8) Hyperglycemia Status: Acute Assessment & Plan: He has hyperglycemia secondary to steroid use. He will be placed on sliding scale insulin #2. Exam Sepsis Risk: No Definite Risk ROSARIO ESTEFANIA SESAY DO Mar 14, 2018 11:22
--- NOTE | 2018-03-14 13:28 | Medical Nutrition Therapy ---
Nutrition Anthropometrics Height (Inches): 70.00 Height (Calculated Centimeters: [phone] Weight (Pounds): 152 Weight (Calculated Kilograms): 68.946 BMI: 21.8 Hx Weight Loss: Yes (166# -01/24/18) Basilio Nutrition Score: Probably Inadequate Basilio Nutrition Risk Score: 16 Dietary Referral Nutrition Risk Factors: Diff. Swallowing, Tube Feeding Nutrition Risk Comment: Nutritional Diagnosis Nutritional Risk Acuity 2: Head/Neck/GI Cancer (renal Ca), Tube Feed Stable, Swallowing Problem Nutritional Risk Acuity 4: Modified Diet Past Medical History: Hx of hematuria, singultus, renal cell carcinoma, DVT, malnutrition Nutritional Acuity: 2-Moderate Nutrition Diagnosis: Increased Nutrient Needs Nutrition Etiology: Physiological Causes Nutrition Problem/Etiology/Sym: AEB dx renal Ca with alb 2.9 Energy Requirement: 2400 (M-St -J X 1.3 SF) Protein Requirement: 88 (1.3 gm/kg) Diet Type: Diet as Tolerated CHARLES/REG, Tube Feeding (TF) Nutrition Intervention: Cont diet as ordered, Encourage intake, Between meal supplement Additional Diet Restrictions: OFFER NUTR SUPPLMENT Nutritional Support Current Enteral / Parental: Tube Feeding Tube Feeding Formulas: Osmolite 1.5cal/ml-Hi Dani Current Tube Feeding Formula C: 100 mL/hr Tube Feeding Supplement Streng: Full Feeding Route: PEG Current Duration: 12 Current Calories: 1800 Current Protein: 75 Free H2O bolus for hydration (: 125 ml q 4 hrs during TF Nutrition Monitoring & Eval Nutrition Goals: Eat 75-100% Meal Nutrition Follow-Up: Fair Intake RD Patient Assessment Time: [address] Assessment Type: RD Re-Assessment Patient Nutrition Acuity: 2-Moderate Follow Up Date: Mar 18, 2018 Nutritional Comment: 03/08 Pt admitted for weakness s/p chemo tx for renal Ca. Pt has been on TF of Osmolite 1.5 at home at 90ml/hr X 14 hrs. Pt tried to advance to 125ml/hr at 12 hrs but was unable to tolerate it. Pt currently on 95ml/hr X 16 hrs to meet 95% est kcal and 107% est protein needs. Pt is taking small amounts of oral intake. states was giving pt nutr supplment to augment TF at home. Will offer nutr supplment orally while in facility. Wt is down 14# (8%) past month. Alb 2.9, BUN 59, creatinine 2.8, BG 212. Pt is on prednisone which may contribute to elevated BG. Will cont to monitor. 03/10 TF updated to Osmolite 1.5 @ 100mL/hr X 12 hours. This provides 1800 Kcal, 75 grams protein, and 914mL free water. Pt has been tolerating TF with minimal residuals. Oral intake is fair with pt consuming 15-100% of meals and occasional nutritional supplement. TF plus oral intake probably meeting pts Kcal/protein needs. Alb 2.9, Glu 166, High AST/ALT/Alk Phos, High BUN/Creat. Follow labs, TF tolerance, oral intake, etc. -DRT 03/11/18 Alb 2.9, Glu 183, AST/ALT/Alk Phos continue to slow decrease. Tolerating TF. Also continues to tolerate and consume small portions of meals. Encourage intake, follow labs, etc. -DRT 03/14 Alb 3. BG elevated up to 275. Pt tolerating TF with no residual, diarrhea, distention etc. Will cont to monitor. states will handle TF when pt returns home. OTILIA ALBERTO Mar 14, 2018 13:28
[2018-03-14 14:11] VITALS: BP 126/83
[2018-03-14] MEDS ORDERED: NS(*) 0.9% 1000 ML BAG 1,000 ML IV PRN (15:22)
[2018-03-14] MEDS ORDERED: IOPAMIDOL 76% 75 ML INFUS BTL 75 ML ONE (15:49)
[2018-03-14] MEDS: INSULIN HUM LISPRO 100 UN/ML 3 ML VIAL SUBQ PRN ×2 (17:32→20:33)
[2018-03-14 19:13] VITALS: BP 132/88
--- NOTE | 2018-03-14 22:53 | RADIOLOGY IMAGING REPORT ---
FACILITY: [facility] PATIENT NAME: Jose D Wilson : 1940 MR: [id number] V: [id number] EXAM DATE: ORDERING PHYSICIAN: ESTEFANIA SESAY TECHNOLOGIST: Location: [facility] Patient: Jose D Wilson : 1940 Visit/Account:[id number] Date of Sevice: 03/14/2018 EXAMINATION: CT chest, abdomen, and pelvis with IV contrast HISTORY: Progression of disease, history of renal cell cancer TECHNIQUE: Axial CT images of the chest, abdomen, and pelvis were obtained with IV contrast, with c oronal and sagittal 2D reconstructed images. One of the following dose optimization techniques was utilized in the performance of this exam: Autom ated exposure control; adjustment of the mA and/or kV according to the patient's size; or use of an i terative reconstruction technique. Specific details can be referenced in the facility's radiology C T exam operational policy. Contrast: 75 mL of IV Isovue-[id number]. COMPARISON: 12/11/2017. FINDINGS: Chest: Lungs and pleura: Many of the previously noted small pulmonary nodules have decreased in size. On the prior exam there was a 6 mm subpleural nodule in the left upper lobe laterally. There is only a residual faint 1-2 mm nodular focus at this location on today's exam (series 3, image 87). On the prior exam there was a 7 mm subpleural nodule in the left upper lobe posteriorly along the med ial aspect of the fissure. There is only some faint linear density in this region on today's exam (im age 100). Small cluster of nodules in the left upper lobe anteriorly on the prior exam has resolved. Previously noted subcentimeter nodules in the right upper lobe have also resolved. There is a stable 3 mm nodule in the right lower lobe anteriorly (image 252). Stable 3 mm calcified granuloma in the right lower lobe anteriorly (image 287). There is no evidence of any new or enlarging pulmonary nodule or mass. No pleural effusion. The centr al airways are patent. Mediastinum and moris: Dominant etta mass in the subcarinal region has decreased in size and current ly measures 2.0 x 3.5 cm (series 2, image 63), previously 3.9 x 5.2 cm. An anterior mediastinal lymph node measures 1.4 x 0.7 cm (image 48), previously 2.5 x 1.1 cm. A lymph node in the AP window measures 0.9 x 0.7 cm (image 50), previously 1.2 x 0.8 cm. A right hilar lymph node has increased slightly in size and currently measures 2.1 x 1.6 cm (image 59 ), previously 1.8 x 1.3 cm. No other enlarging hilar or mediastinal lymph nodes. Heart, aorta, and great vessels: Normal caliber thoracic aorta. Vascular calcifications, including c oronary artery calcifications. Normal heart size. No pericardial effusion. Right IJ central venous po rt, with tip near the cavoatrial junction. Chest lymph node assessment: Hilar and mediastinal lymph nodes as noted above. No other enlarged lym ph nodes elsewhere in the chest. Bones: There are 13 rib-bearing thoracic-type vertebral segments. There has been progressive aide raquel of the T8 vertebral body with an underlying lytic lesion. Currently 80% loss of height at this l evel, previously 60%. This was previously labeled as T7 on the prior exam. No other focal osseous les ions in the chest. Chest wall: Negative. Lower neck: Negative. Abdomen/pelvis: Liver: Negative. Gallbladder and bile ducts: Negative. Spleen: Negative. Pancreas: Negative. Adrenal glands: The prior left adrenal mass has decreased in size and currently measures approximate ly 1.5 x 0.9 cm, previously 2.9 x 2.4 cm. There is mild thickening of the right adrenal gland without focal mass. Kidneys: There are new embolization coils along the left renal hilum, with localized streak artifact . This partially obscures visualization of the left kidney. There has however been moderate size decr ease of the heterogeneous left renal mass. This currently measures approximately 6.1 x 8.3 x 9.0 cm i n maximal diameter (AP x Trans x CC), previously 8 x 11 x 12.5 cm. Posterior margin of the ass sligh tly invades the left quadratus lumborum muscle. Stable small hypodensities in the right kidney.Bowel and peritoneum: The small bowel and colon are normal in caliber. No bowel obstruction. Extensive col onic diverticulosis. Percutaneous gastrostomy tube in place. No ascites. Pelvic structures: The urinary bladder is decompressed, with a Reid catheter in place. Moderate prostatic enlargement. Lymph node assessment: No enlarged lymph nodes in the abdomen or pelvis. Previously noted lymph node s adjacent to the upper SMA have decreased in size. For example, a lymph node to the right of the SMA and anterior to the third portion of the duodenum measures 0.9 x 0.5 cm, previously 1.4 x 1.1 cm. A lymph node to the left of the SMA has likely decreased in size, but this region is partially obscured on today's exam from the embolization coils. No progressive adenopathy along the retroperitoneum or elsewhere in the abdomen and pelvis. Vessels: Normal caliber abdominal aorta. Mild vascular calcifications. IVC filter in place. The left renal vessels are poorly visualized due to streak artifact from embolization coils. Musculoskeletal: Destructive lytic lesion again noted involving the anterior left iliac bone. On th e prior exam there was an associated large soft tissue component measuring up to 7.5 cm. No residual measurable soft tissue mass is present in this region. Destructive lytic lesions again noted involvin g the L1 and L4 vertebral bodies. There is new mild wedging of L1 measuring 20%. No other new osseous findings in the lumbar spine or bony pelvis. Body wall: Negative. IMPRESSION: 1. Overall positive treatment response. The left renal mass has partially decreased in size. In addit ion, there has been improvement in multiple pulmonary nodules, mediastinal lymph nodes, left adrenal mass, and soft tissue component of the left iliac bone metastasis. 2. A right hilar lymph node has mildly increased in size. Otherwise no evidence of progressive metast atic disease. 3. Progressive compression fracture at T8 with underlying metastasis. There is additional new mild we dging at L1 at the level of a metastatic lesion. Report Dictated By: Milton Abdullahi MD at 03/14/2018 10:11 PM Report E-Signed By: Milton Abdullahi MD at 03/14/2018 10:48 PM WSN:[id number]
[2018-03-15] MEDS: LEVOTHYROXINE SOD 0.025 MG TAB PO SCH (05:49)
[2018-03-15 07:15] VITALS: BP 134/81
[2018-03-15] MEDS: TAMSULOSIN HCL 0.4 MG CAP PO SCH ×2 (08:17→20:31)
[2018-03-15] MEDS: APIXABAN 2.5 MG TABLET PO SCH ×2 (08:17→20:31)
[2018-03-15] MEDS: PANTOPRAZOLE SOD 40 MG TABEC PO SCH (08:17)
[2018-03-15] MEDS: PREDNISONE PO SCH (08:18)
--- NOTE | 2018-03-15 09:39 | Hospitalist Progress Note ---
Subjective Progress Notes Subjective He has no complaints this morning. He had no acute events overnight. Patient Complains of: Cardiovascular: No: Chest Pain Respiratory: No: Shortness of Breath Physical Exam Vital Signs Date Time Temp Pulse Resp B/P (MAP) Pulse Ox O2 Delivery O2 Flow Rate FiO2 03/15/18 07:15 98.5 105 16 134/81 (98) 93 Room Air Intake and Output 03/15/18 06:59 Intake Total 6863 ml Output Total 4275 ml Balance 2588 ml Intake Oral 1317 ml IV Total 4256 ml Tube Feeding 1200 ml Tube Irrigant 90 ml Output Urine Total 4275 ml # Bowel Movements 1 General Appearance: Alert, Awake, No Acute Distress, Afebrile Neuro: No Gross deficits Cardiovascular: Regular Rate and Rhythm Respiratory: No Respiratory Distress, Clear to Auscultation GI: Soft and Non-Tender Psych: Alert & Oriented X3, Appropriate Mood & Affect Result Diagram: 03/13/18 0528 03/15/18 0720 Assessment and Plan Problems: (1) Hepatitis Assessment & Plan: 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 Dr. Ross has recommended that he be started on steroids. He is currently prednisone 70mg daily (1mg/kg). He will stay on 70 mg for 2 weeks, then decrease 10mg every week until done. His liver function has been gradually improving. PT/OT recommending patient have 2 caregivers with 24 hour care. Awaiting social work recommendations for discharge. (2) ARF (acute renal failure) Status: Acute Assessment & Plan: He did undergo embolization of the left kidney in early January, but his creatinine has been steadily increasing since early February. Renal US showed a slightly decrease in size of the left renal mass. His creatinine has been improving with fluids and steroids. (3) Renal cell carcinoma Status: Chronic Assessment & Plan: Stage 4. He has been on Yervoy and Opdivo through the cancer center. He has been eating a little better. Dr Ross requesting abdominal CT before he sees him to evaluate for disease progression, he will discuss results with patient this afternoon. (4) DVT (deep venous thrombosis) Status: Chronic Assessment & Plan: He is on chronic treatment with Eliquis, which has been continued. He also had an IVC placed 2 months ago. (5) Hypothyroidism Status: Acute Assessment & Plan: He is on chronic treatment with Synthroid. (6) Urine retention Status: Chronic Assessment & Plan: He is on chronic treatment with Flomax, but has a chronic Reid catheter (changed on 03/07). We discussed possible d/c of Reid - with current FANNY will keep in to monitor output. (7) Malnutrition Assessment & Plan: He is on chronic tube feedings at home. We have modified his regimen. (8) Hyperglycemia Status: Acute Assessment & Plan: He has hyperglycemia secondary to steroid use. He will be p laced on sliding scale insulin #2. Exam Sepsis Risk: No Definite Risk DANYELLE CHINCHILLA WILDLIFE PHOTOGRAPHER Mar 15, 2018 09:39
[2018-03-15] MEDS: HEPARIN FLSH (PORT) 500 UN/5ML IVP PRN (09:59)
[2018-03-15 11:17] VITALS: BP 123/78
[2018-03-15 11:28] VITALS: BP 120/70
[2018-03-15] MEDS: INSULIN HUM LISPRO 100 UN/ML 3 ML VIAL SUBQ PRN ×3 (11:59→20:32)
[2018-03-15 15:42] VITALS: BP 134/89
[2018-03-15 19:07] VITALS: BP 119/79
[2018-03-15 23:20] VITALS: BP 126/75
[2018-03-16] MEDS: LEVOTHYROXINE SOD 0.025 MG TAB PO SCH (05:48)
[2018-03-16 05:55] VITALS: BP 127/84
[2018-03-16 07:44] VITALS: BP 130/94
[2018-03-16] MEDS: TAMSULOSIN HCL 0.4 MG CAP PO SCH ×2 (09:35→21:08)
[2018-03-16] MEDS: PREDNISONE PO SCH (09:35)
[2018-03-16] MEDS: APIXABAN 2.5 MG TABLET PO SCH ×2 (09:35→21:08)
[2018-03-16] MEDS: PANTOPRAZOLE SOD 40 MG TABEC PO SCH (09:35)
--- NOTE | 2018-03-16 10:16 | Hospitalist Progress Note ---
Subjective Progress Notes Subjective He has no complaints this morning. He had no acute events overnight. Patient Complains of: Cardiovascular: No: Chest Pain Respiratory: No: Shortness of Breath Physical Exam Vital Signs Date Time Temp Pulse Resp B/P (MAP) Pulse Ox O2 Delivery O2 Flow Rate FiO2 03/16/18 07:44 94 Room Air 03/16/18 07:44 98.5 96 130/94 (106) 03/16/18 05:55 18 Intake and Output 03/16/18 07:00 Intake Total 4147 ml Output Total 3300 ml Balance 847 ml Intake Oral 1326 ml IV Total 1488 ml Tube Feeding 1183 ml Tube Irrigant 150 ml Output Urine Total 3300 ml General Appearance: Alert, Awake, No Acute Distress, Afebrile Neuro: No Gross deficits Cardiovascular: Regular Rate and Rhythm Respiratory: No Respiratory Distress, Clear to Auscultation Psych: Alert & Oriented X3, Appropriate Mood & Affect Result Diagram: 03/13/18 0528 03/15/18 0720 Assessment and Plan Problems: (1) Hepatitis Assessment & Plan: 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 Dr. Ross has recommended that he be started on steroids. He is currently prednisone 70mg daily (1mg/kg). He will stay on 70 mg for 2 weeks, then decrease 10mg every week until done. His liver function has been gradually improving. PT/OT recommending patient have 2 caregivers with 24 hour care. Awaiting social work recommendations for discharge. (2) ARF (acute renal failure) Status: Acute Assessment & Plan: He did undergo embolization of the left kidney in early January, but his creatinine has been steadily increasing since early February. Renal US showed a slightly decrease in size of the left renal mass. His creatinine has been improving with fluids and steroids. (3) Renal cell carcinoma Status: Chronic Assessment & Plan: Stage 4. He has been on Yervoy and Opdivo through the cancer center. He has been eating a little better. Dr Ross requesting abdominal CT before he sees him to evaluate for disease progression, he will discuss results with patient this afternoon. (4) DVT (deep venous thrombosis) Status: Chronic Assessment & Plan: He is on chronic treatment with Eliquis, which has been continued. He also had an IVC placed 2 months ago. (5) Hypothyroidism Status: Acute Assessment & Plan: He is on chronic treatment with Synthroid. (6) Urine retention Status: Chronic Assessment & Plan: He is on chronic treatment with Flomax, but has a chronic Reid catheter (changed on 03/07). We discussed possible d/c of Reid - with current FANNY will keep in to monitor output. (7) Malnutrition Assessment & Plan: He is on chronic tube feedings at home. We have modified his regimen. (8) Hyperglycemia Status: Acute Assessment & Plan: He has hyperglycemia secondary to steroid use. He will be placed on sliding scale insulin #2. Exam Sepsis Risk: No Definite Risk DANYELLE CHINCHILLA PERINATAL TECH Mar 16, 2018 10:16
[2018-03-16 15:31] VITALS: BP 119/81
[2018-03-16] MEDS: INSULIN HUM LISPRO 100 UN/ML 3 ML VIAL SUBQ PRN ×2 (16:34→21:09)
[2018-03-16 20:25] VITALS: BP 123/81
[2018-03-16 23:46] VITALS: BP 106/72
[2018-03-17 03:15] VITALS: BP 118/85
[2018-03-17] MEDS: LEVOTHYROXINE SOD 0.025 MG TAB PO SCH (06:04)
[2018-03-17 08:10] VITALS: BP 127/91
[2018-03-17] MEDS: TAMSULOSIN HCL 0.4 MG CAP PO SCH ×2 (12:04→21:16)
[2018-03-17] MEDS: PREDNISONE PO SCH (12:04)
[2018-03-17] MEDS: PANTOPRAZOLE SOD 40 MG TABEC PO SCH (12:04)
[2018-03-17] MEDS: APIXABAN 2.5 MG TABLET PO SCH ×4 (12:04→21:16)
--- NOTE | 2018-03-17 12:32 | Medical Nutrition Therapy ---
Nutrition Anthropometrics Height (Inches): 70.00 Height (Calculated Centimeters: 177.370486 Weight (Pounds): 150 Weight (Calculated Kilograms): 68.039 BMI: 21.8 Hx Weight Loss: Yes (166# -01/24/18) Basilio Nutrition Score: Probably Inadequate Basilio Nutrition Risk Score: 17 Dietary Referral Nutrition Risk Factors: Diff. Swallowing, Tube Feeding Nutrition Risk Comment: Physical Findings Physical Appearance: WNR Skin Appearance Skin Appearance: Edema Edema Location Modifier: Both Edema Location: Ankle Type of Edema: Degree of Edema: 1+ Gastrointestinal Symptoms GI Symtoms: Nausea Tube Present: PEG, Feeding Bowel Sounds: Recent Bowel Pattern: Stool Characteristics: Nutritional Diagnosis Nutritional Risk Acuity 2: Head/Neck/GI Cancer (renal Ca), Tube Feed Stable, Swallowing Problem Nutritional Risk Acuity 4: Modified Diet Past Medical History: Hx of hematuria, singultus, renal cell carcinoma, DVT, malnutrition Nutritional Acuity: 2-Moderate Nutrition Diagnosis: Increased Nutrient Needs Nutrition Etiology: Physiological Causes Nutrition Problem/Etiology/Sym: AEB dx renal Ca with alb 2.9 Energy Requirement: 2400 (M-St -J X 1.3 SF) Protein Requirement: 88 (1.3 gm/kg) Diet Type: Diet as Tolerated CHARLES/REG, Tube Feeding (TF) Nutrition Intervention: Cont diet as ordered, Encourage intake, Between meal supplement Additional Diet Restrictions: OFFER NUTR SUPPLMENT Nutritional Support Current Enteral / Parental: Tube Feeding Tube Feeding Formulas: Osmolite 1.5cal/ml-Hi Dani Current Tube Feeding Formula C: 100 mL/hr Tube Feeding Supplement Streng: Full Feeding Route: PEG Current Duration: 12 Current Calories: 1800 Current Protein: 75 Free H2O bolus for hydration (: 125 ml q 4 hrs during TF Nutrition Monitoring & Eval RD Patient Assessment Time: [address] Assessment Type: RD Re-Assessment Patient Nutrition Acuity: 2-Moderate Follow Up Date: Mar 18, 2018 Nutritional Comment: 03/08 Pt admitted for weakness s/p chemo tx for renal Ca. Pt has been on TF of Osmolite 1.5 at home at 90ml/hr X 14 hrs. Pt tried to advance to 125ml/hr at 12 hrs but was unable to tolerate it. Pt currently on 95ml/hr X 16 hrs to meet 95% est kcal and 107% est protein needs. Pt is taking small amounts of oral intake. states was giving pt nutr supplment to augment TF at home. Will offer nutr supplment orally while in facility. Wt is down 14# (8%) past month. Alb 2.9, BUN 59, creatinine 2.8, BG 212. Pt is on prednisone which may contribute to elevated BG. Will cont to monitor. 03/10 TF updated to Osmolite 1.5 @ 100mL/hr X 12 hours. This provides 1800 Kcal, 75 grams protein, and 914mL free water. Pt has been tolerating TF with minimal residuals. Oral intake is fair with pt consuming 15-100% of meals and occasional nutritional supplement. TF plus oral intake probably meeting pts Kcal/protein needs. Alb 2.9, Glu 166, High AST/ALT/Alk Phos, High BUN/Creat. Follow labs, TF tolerance, oral intake, etc. -DRT 03/11/18 Alb 2.9, Glu 183, AST/ALT/Alk Phos continue to slow decrease. Tolerating TF. Also continues to tolerate and consume small portions of meals. Encourage intake, follow labs, etc. -DRT 03/14 Alb 3. BG elevated up to 275. Pt tolerating TF with no residual, diarrhea, distention etc. Will cont to monitor. states will handle TF when pt returns home. BK 03/17/18 order for Calorie count to begin 03/17/18. Follow intake to calculate Kcal consumed. -RUBI RODRIGUEZ Mar 17, 2018 12:32
--- NOTE | 2018-03-17 13:03 | Hospitalist Progress Note ---
Subjective Progress Notes Subjective The patient denies pain. States he has been eating better. Still very weak. Physical Exam Vital Signs Date Time Temp Pulse Resp B/P (MAP) Pulse Ox O2 Delivery O2 Flow Rate FiO2 03/17/18 08:10 98.0 89 20 127/91 (103) 95 Room Air Intake and Output 03/17/18 07:00 Intake Total 1983 ml Output Total 2050 ml Balance -67 ml Intake Oral 658 ml Tube Feeding 1325 ml Output Urine Total 2050 ml # Bowel Movements 1 General Appearance: Alert, Awake, No Acute Distress Neuro: No Gross deficits Cardiovascular: Regular Rate and Rhythm Respiratory: Clear to Auscultation GI: Soft and Non-Tender Extremities: Warm, Perfused Psych: Appropriate Mood & Affect Result Diagram: 03/13/1828 03/15/18 07 Assessment and Plan Problems: (1) Hepatitis Assessment & Plan: 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 Dr. Ross has recommended that he be started on steroids. He is currently prednisone 70mg daily (1mg/kg). He will stay on 70 mg for 2 weeks, then decrease 10mg every week until done. His liver function has been gradually improving. PT/OT recommending patient have 2 caregivers with 24 hour care. Awaiting social work assistance with discharge. [facility]. (2) ARF (acute renal failure) Status: Acute Assessment & Plan: He did undergo embolization of the left kidney in early January, but his creatinine has been steadily increasing since early February. Renal US showed a slightly decrease in size of the left renal mass. His creatinine has been improving with fluids and steroids. Will repeat labs in am. (3) Renal cell carcinoma Status: Chronic Assessment & Plan: Stage 4. He has been on Yervoy and Opdivo through the cancer center. He has been eating a little better. Dr Ross requested abdominal CT and did see the patient to discuss these results. (4) DVT (deep venous thrombosis) Status: Chronic Assessment & Plan: He is on chronic treatment with Eliquis, which has been co ntinued. He also had an IVC placed 2 months ago. (5) Hypothyroidism Status: Acute Assessment & Plan: He is on chronic treatment with Synthroid. (6) Urine retention Status: Chronic Assessment & Plan: He is on chronic treatment with Flomax, but has a chronic Reid catheter (changed on 03/07). We discussed possible d/c of Reid - with current FANNY will keep in to monitor output. (7) Malnutrition Assessment & Plan: He is on chronic tube feedings at home. We have modified his regimen. He is now eating some as well. Will order daily calorie counts and weights. (8) Hyperglycemia Status: Acute Assessment & Plan: He has hyperglycemia secondary to steroid use. He will be placed on sliding scale insulin #2. Time Spent on Plan of Care: < 30 min Exam Sepsis Risk: No Definite Risk GUERA BRYANT MD Mar 17, 2018 13:03
[2018-03-17 16:28] VITALS: BP 128/86
[2018-03-17 19:11] VITALS: BP 125/76
[2018-03-17] MEDS: INSULIN HUM LISPRO 100 UN/ML 3 ML VIAL SUBQ PRN (21:15)
[2018-03-17] MEDS: chlorproMAZINE 25 MG TAB PO PRN (21:56)
[2018-03-17 23:41] VITALS: BP 118/74
[2018-03-18] MEDS: LEVOTHYROXINE SOD 0.025 MG TAB PO SCH (05:50)
[2018-03-18] MEDS: HEPARIN FLSH (PORT) 500 UN/5ML IVP PRN (05:51)
[2018-03-18 06:12] LABS: PLATELET COUNT, AUTOMATED 193 K/uL (150-450)
[2018-03-18] MEDS: TAMSULOSIN HCL 0.4 MG CAP PO SCH ×2 (08:06→21:10)
[2018-03-18] MEDS: PANTOPRAZOLE SOD 40 MG TABEC PO SCH (08:06)
[2018-03-18] MEDS: PREDNISONE PO SCH (08:07)
[2018-03-18] MEDS: APIXABAN 2.5 MG TABLET PO SCH ×2 (08:07→21:10)
[2018-03-18 08:31] VITALS: BP 112/79
[2018-03-18 11:03] VITALS: BP 134/89
--- NOTE | 2018-03-18 11:58 | Medical Nutrition Therapy ---
Nutrition Anthropometrics Height (Inches): 70.00 Height (Calculated Centimeters: 177.321722 Weight (Pounds): 150 Weight (Calculated Kilograms): 68.039 BMI: 21.8 Hx Weight Loss: Yes (166# -01/24/18) Basilio Nutrition Score: Probably Inadequate Basilio Nutrition Risk Score: 17 Dietary Referral Nutrition Risk Factors: Diff. Swallowing, Tube Feeding Nutrition Risk Comment: Physical Findings Physical Appearance: WNR Skin Appearance Skin Appearance: Edema Edema Location Modifier: Both Edema Location: Ankle Type of Edema: Degree of Edema: 1+ Gastrointestinal Symptoms GI Symtoms: Nausea Tube Present: PEG, Feeding Bowel Sounds: Recent Bowel Pattern: Stool Characteristics: Nutrition/Food History Tube Feed Prior to Admit Nutritional Diagnosis Nutritional Risk Acuity 2: Head/Neck/GI Cancer (renal Ca), Tube Feed Stable, Swallowing Problem Nutritional Risk Acuity 4: Modified Diet Past Medical History: Hx of hematuria, singultus, renal cell carcinoma, DVT, malnutrition Nutritional Acuity: 2-Moderate Nutrition Diagnosis: Increased Nutrient Needs Nutrition Etiology: Physiological Causes Nutrition Problem/Etiology/Sym: AEB dx renal Ca with alb 2.9 Energy Requirement: 2400 (M-St -J X 1.3 SF) Protein Requirement: 88 (1.3 gm/kg) Diet Type: Diet as Tolerated CHARLES/REG, Tube Feeding (TF) Nutrition Intervention: Cont diet as ordered, Encourage intake, Between meal supplement Calorie Count: 1450 Calorie/Protein Count Date: Mar 17, 2018 Protien: 59 Additional Diet Restrictions: OFFER NUTR SUPPLMENT Nutritional Support Current Enteral / Parental: Tube Feeding Tube Feeding Formulas: Osmolite 1.5cal/ml-Hi Dani Current Tube Feeding Formula C: 100 mL/hr Tube Feeding Supplement Streng: Full Feeding Route: PEG Current Duration: 12 Current Calories: 1800 Current Protein: 75 Free H2O bolus for hydration (: 125 ml q 4 hrs during TF Nutrition Monitoring & Eval RD Patient Assessment Time: [address] Assessment Type: RD Re-Assessment Patient Nutrition Acuity: 2-Moderate Follow Up Date: Mar 19, 2018 Nutritional Comment: 03/08 Pt admitted for weakness s/p chemo tx for renal Ca. Pt has been on TF of Osmolite 1.5 at home at 90ml/hr X 14 hrs. Pt tried to advance to 125ml/hr at 12 hrs but was unable to tolerate it. Pt currently on 95ml/hr X 16 hrs to meet 95% est kcal and 107% est protein needs. Pt is taking small amounts of oral intake. states was giving pt nutr supplment to augment TF at home. Will offer nutr supplment orally while in facility. Wt is down 14# (8%) past month. Alb 2.9, BUN 59, creatinine 2.8, BG 212. Pt is on prednisone which may contribute to elevated BG. Will cont to monitor. 03/10 TF updated to Osmolite 1.5 @ 100mL/hr X 12 hours. This provides 1800 Kcal, 75 grams protein, and 914mL free water. Pt has been tolerating TF with minimal residuals. Oral intake is fair with pt consuming 15-100% of meals and occasional nutritional supplement. TF plus oral intake probably meeting pts Kcal/protein needs. Alb 2.9, Glu 166, High AST/ALT/Alk Phos, High BUN/Creat. Follow labs, TF tolerance, oral intake, etc. -DRT 03/11/18 Alb 2.9, Glu 183, AST/ALT/Alk Phos continue to slow decrease. Tolerating TF. Also continues to tolerate and consume small portions of meals. Encourage intake, follow labs, etc. -DRT 03/14 Alb 3. BG elevated up to 275. Pt tolerating TF with no residual, diarrhea, distention etc. Will cont to monitor. states will handle TF when pt returns home. BK 03/17/18 order for Calorie count to begin 03/17/18. Follow intake to calculate Kcal consumed. -DRT 03/18/18 PO Calorie Count for 03/17: approximately 1450 Kcals and 59 grams protein. -RUBI RODRIGUEZ Mar 18, 2018 11:58
--- NOTE | 2018-03-18 12:13 | Hospitalist Progress Note ---
Subjective Progress Notes Subjective AMY overnight, has meeting with [facility] for intake evaluation today. Eating well. Patient Complains of: Neurological: No: Syncope Gastrointestinal: No Nausea, No Vomiting Physical Exam Vital Signs Date Time Temp Pulse Resp B/P (MAP) Pulse Ox O2 Delivery O2 Flow Rate FiO2 03/18/18 11:03 97.6 94 134/89 (104) 97 Room Air 03/17/18 23:41 20 Intake and Output 03/18/18 06:59 Intake Total 2374 ml Output Total 2650 ml Balance -276 ml Intake Oral 1155 ml Tube Feeding 1119 ml Tube Irrigant 100 ml Output Urine Total 2650 ml # Bowel Movements 1 General Appearance: Alert, Awake, No Acute Distress Neuro: No Gross deficits Eyes: PERRLA ENT: Normal Cardiovascular: Normal Rhythm & Peripheral Pulses Respiratory: No Respiratory Distress GI: Soft and Non-Tender : Normal (+ Reid) Extremities: Soft and Non Tender, Warm, Pulses, Perfused; No Edema Integumentary: Skin Intact without Lesion / Mass Result Diagram: 03/18/18 0540 03/18/18 0540 Assessment and Plan Problems: (1) Hepatitis Assessment & Plan: 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 Dr. Ross has recommended that he be started on steroids. He is currently prednisone 70mg daily (1mg/kg). He will stay on 70 mg for 2 weeks, then decrease 10mg every week until done. His liver function has been gradually improving. PT/OT recommending patient have 2 caregivers with 24 hour care. Awaiting social work assistance with discharge. The patient's has looked in to [facility] they are evaluating him 1330 today. (2) ARF (acute renal failure) Status: Acute Assessment & Plan: He did undergo embolization of the left kidney in early January, but his creatinine has been steadily increasing since early February. Renal US showed a slightly decrease in size of the left renal mass. His creatinine has been improving with fluids and steroids. Cr stable 1.4, appears to be new baseline. (3) Renal cell carcinoma Status: Chronic Assessment & Plan: Stage 4. He has been on Yervoy and Opdivo through the cancer center. He has been eating a little better. Dr Ross requested abdominal CT and did see the patient to discuss these results. (4) DVT (deep venous thrombosis) Status: Chronic Assessment & Plan: He is on chronic treatment with Eliquis, which has been continued. He also had an IVC placed 2 months ago. (5) Hypothyroidism Status: Acute Assessment & Plan: He is on chronic treatment with Synthroid. (6) Urine retention Status: Chronic Assessment & Plan: He is on chronic treatment with Flomax, but has a chronic Reid catheter (changed on 03/07). We discussed possible d/c of Reid - with current FANNY will keep in to monitor output. Recommend follow up outpatient to discuss d/c Reid. (7) Malnutrition Assessment & Plan: He is on chronic tube feedings at home. We have modified his regimen. He is now eating some as well. Will order daily calorie counts and weights. (8) Hyperglycemia Status: Acute Assessment & Plan: He has hyperglycemia secondary to steroid use. He will be placed on sliding scale insulin #2. Exam Sepsis Risk: No Definite Risk ROSARIO ESTEFANIA SESAY DO Mar 18, 2018 12:13
[2018-03-18 19:19] VITALS: BP 129/77
[2018-03-18] MEDS: INSULIN HUM LISPRO 100 UN/ML 3 ML VIAL SUBQ PRN (21:11)
[2018-03-18 23:11] VITALS: BP 115/75
[2018-03-19 03:04] VITALS: BP 101/92
[2018-03-19] MEDS: LEVOTHYROXINE SOD 0.025 MG TAB PO SCH (06:18)
[2018-03-19 07:14] VITALS: BP 114/70
[2018-03-19] MEDS: APIXABAN 2.5 MG TABLET PO SCH (08:55)
[2018-03-19] MEDS: PREDNISONE PO SCH (08:56)
[2018-03-19] MEDS: PANTOPRAZOLE SOD 40 MG TABEC PO SCH (08:56)
[2018-03-19] MEDS: TAMSULOSIN HCL 0.4 MG CAP PO SCH (08:57)
[2018-03-19] MEDS ORDERED: APIXABAN 2.5 MG TABLET PO SCH (09:00)
[2018-03-19] MEDS ORDERED: PRED20TA6 PO (09:54)
[2018-03-19] MEDS ORDERED: PANT40TA65 PO (09:54)
[2018-03-19] MEDS ORDERED: PRED-1 PO (09:54)
--- NOTE | 2018-03-19 10:21 | Hospitalist Depart ---
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 Dr. Clifton has recommended that he be started on steroids. He is currently prednisone 70mg daily (1mg/kg). He will stay on 70 mg for 2 weeks (03/20), then decrease 10mg every week on Monday until done. His liver function has been gradually improving. PT/OT recommending patient have 2 caregivers with 24 hour care. The patient's has looked in to [facility] they have accepted the patient. He will also have home health. (2) ARF (acute renal failure) Status: Acute Hospital Course & Plan: He did undergo embolization of the left kidney in early January, but his creatinine has been steadily increasing since early February. Renal US showed a slightly decrease in size of the left renal mass. His creatinine has been improving with fluids and steroids. Cr stable 1.4, appears to be new baseline. (3) Renal cell carcinoma Status: Chronic Hospital Course & Plan: Stage 4. He has been on Yervoy and Opdivo through the cancer center. He has been eating a little better. Dr Clifton requested abdominal CT and did see the patient to discuss these results. (4) DVT (deep venous thrombosis) Status: Chronic Hospital Course & Plan: He is on chronic treatment with Eliquis, which has been continued. He also had an IVC placed 2 months ago. (5) Hypothyroidism Status: Acute Hospital Course & Plan: He is on chronic treatment with Synthroid. (6) Urine retention Status: Chronic Hospital Course & Plan: He is on chronic treatment with Flomax, but has a chronic Reid catheter (changed on 03/07). We discussed possible d/c of Reid - with current FANNY and enlarged prostate will keep in to monitor output. Recommend follow up outpatient to discuss d/c Reid. Dr. Gramajo will follow up with patient after discharge. (7) Malnutrition Hospital Course & Plan: He is on chronic tube feedings at home. We have modified his regimen. He is now eating well at approximately 5864-8764 calories. (8) Hyperglycemia Status: Acute Hospital Course & Plan: He has hyperglycemia secondary to steroid use. He was placed on sliding scale insulin #2 during admission. He has been only requiring 2 units at times, with sugars 150 or less. At this time, recommend follow up with primary care provider to assure blood sugars are not elevated. Departure Latest Vital Signs Vital Signs 03/19/18 03/19/18 07:14 08:58 Temp 97.3 Pulse 88 Resp 17 B/P (MAP) 114/70 (85) Pulse Ox 94 O2 Delivery Room Air Weight (Pounds): 151 Result Diagram: 03/18/1853903/18/18539 Condition: Improved Discharge: Home Health, Assisted Living PT/OT Follow Up For: PT For Strengthening, OT For ADL's, PT Evaluation and Treat, OT Evaluation and Treat Home Health RN Follow Up For: Medication Management, Cathether Care Discharge Instructions Home Meds Active Scripts Prednisone 10 Mg Tab (PREDNISONE 10 MG TAB) 10 Mg Tablet, 10 MG PO DIRECTED, #40 TAB 70 mg for one day, then 60 mg for 7 days, then 50 mg for 7 days, then 40 mg for 7 days, then 30 mg for 7 days, then 20 mg, for 7 days, then 10 mg for 7 days (Decrease every Monday) (Split dose with 20mg and 10mg) Prov:DANYELLE CHINCHILLA [facility] 03/19/18 Prednisone (PREDNISONE) 20 Mg Tablet, 20 MG PO DIRECTED, #70 TAB 70 mg for one day, then 60 mg for 7 days, then 50 mg for 7 days, then 40 mg for 7 days, then 30 mg for 7 days, then 20 mg, for 7 days, then 10 mg for 7 days (Decrease every Monday) (Split dose with 20mg and 10mg) Prov:DANYELLE CHINCHILLA [facility] 03/19/18 Pantoprazole Sodium (PANTOPRAZOLE SODIUM) 40 Mg Tablet.dr, 40 MG PO QDAY, #30 TAB Prov:DANYELLE CHINCHILLA [facility] 03/19/18 Sennosides (SENNA) 8.6 Mg Tablet, 8.6 MG PO BID PRN for CONSTIPATION for 30 Days, #30 Prov:ZULEMA MCGHEE DO 03/07/18 Apixaban (Eliquis) 5 Mg (74 Tabs) Tab.ds.pk, 1 TAB PO BID, #60 TAB 6 Refills Prov:EFRAÍN CANTU MD 02/23/18 Triamcinolone Acetonide 0.1% Oint 15 Gm Tube (TRIAMCINOLONE ACETONIDE 0.1% 15 GM TUBE) 15 Gm Oint...g., 15 GM TP BID PRN for RASH, #30 TUBE 1 Refill Prov:EFRAÍN CANTU MD 02/08/18 Reported Medications Prochlorperazine Maleate (PROCHLORPERAZINE MALEATE) 10 Mg Tablet, 1 TAB PO Q6-8H PRN for NAUSEA 03/07/18 Levothyroxine Sodium (LEVOTHYROXINE SODIUM) 25 Mcg Tablet, 25 MCG PO QDAY pt takes this at 1700 daily due to feeding tube feedings throughout NOC 03/07/18 Docusate Sodium (COLACE) 100 Mg Capsule, 100 MG PO BID PRN for constipation, CAPSULE 01/29/18 Chlorpromazine Hcl (CHLORPROMAZINE HCL) 25 Mg Tablet, 25 MG PO TID PRN for HICCUPS 01/29/18 L.acidoph & Paracasei,B.lactis (Probiotic) 1 Each Capsule, PO DAILY 01/29/18 Tamsulosin Hcl (TAMSULOSIN HCL) 0.4 Mg Cap.er.24h, 0.4 MG PO BID, CAP 01/29/18 Discontinued Reported Medications Omeprazole (OMEPRAZOLE) 20 Mg Capsule.dr, 1 CAP PO QDAY PRN for REFLUX, CAP 01/29/18 Diet: Regular Activity: As Tolerated, With Walker Special Instructions: Please follow up with Cancer Center within 1-2 weeks regarding liver function, and further recommendations for taper of steroids. Please follow up with Dr. Cantu regarding blood sugars with steroid use. Copies to: DOMINIQUE CLIFTON MD; EFRAÍN CANTU MD ; Venous Thromboembolism Antithrombotics Is Pt On Any Antithrombotics?: Yes [id number] Certification Face to Face Home Health Certification Institutional Provider conducted the [id number] encounter. Electronic Undersigning Physician Certifies Home Health. I certify that the patient has been under my care and that I had a [id number] encounter that meets the physician [id number] encounter requirements with this patient. This patient is home-bound due to safety issues and continues to require assistance with ADL's. I certify that based on my findings, that Nursing, Aides and the following Home Health services are medically necessary. Medical Necessity: Nursing, Rehab Date Face to Face Conducted: Mar 19, 2018 DANYELLE CHINCHILLA Mar 19, 2018 10:21
[2018-03-19 11:15] VITALS: BP 111/67
--- NOTE | 2018-03-19 12:52 | Medical Nutrition Therapy ---
Nutrition Anthropometrics Height (Inches): 70.00 Height (Calculated Centimeters: 177.802925 Weight (Pounds): 151 Weight (Calculated Kilograms): 68.492 BMI: 21.8 Hx Weight Loss: Yes (166# -01/24/18) Basilio Nutrition Score: Probably Inadequate Basilio Nutrition Risk Score: 17 Dietary Referral Nutrition Risk Factors: Diff. Swallowing, Tube Feeding Nutrition Risk Comment: Physical Findings Physical Appearance: WNR Skin Appearance Skin Appearance: Edema Edema Location Modifier: Both Edema Location: Ankle Type of Edema: Degree of Edema: 1+ Gastrointestinal Symptoms GI Symtoms: Nausea Tube Present: PEG Bowel Sounds: Recent Bowel Pattern: Stool Characteristics: Nutritional Diagnosis Nutritional Risk Acuity 2: Head/Neck/GI Cancer (renal Ca), Tube Feed Stable, Swallowing Problem Nutritional Risk Acuity 4: Modified Diet Past Medical History: Hx of hematuria, singultus, renal cell carcinoma, DVT, malnutrition Nutritional Acuity: 2-Moderate Nutrition Diagnosis: Increased Nutrient Needs Nutrition Etiology: Physiological Causes Nutrition Problem/Etiology/Sym: AEB dx renal Ca with alb 2.9 Energy Requirement: 2400 (M-St -J X 1.3 SF) Protein Requirement: 88 (1.3 gm/kg) Diet Type: Diet as Tolerated CHARLES/REG, Tube Feeding (TF) Nutrition Intervention: Cont diet as ordered, Encourage intake, Between meal supplement Calorie Count: 1070 Calorie/Protein Count Date: Mar 18, 2018 Protien: 32 Additional Diet Restrictions: OFFER NUTR SUPPLMENT Nutritional Support Current Enteral / Parental: Tube Feeding Tube Feeding Formulas: Osmolite 1.5cal/ml-Hi Dani Current Tube Feeding Formula C: 100 mL/hr Tube Feeding Supplement Streng: Full Feeding Route: PEG Current Duration: 12 Current Calories: 1800 Current Protein: 75 Free H2O bolus for hydration (: 125 ml q 4 hrs during TF Nutrition Monitoring & Eval RD Patient Assessment Time: [address] Assessment Type: RD Re-Assessment Patient Nutrition Acuity: 2-Moderate Follow Up Date: Mar 23, 2018 Nutritional Comment: 03/08 Pt admitted for weakness s/p chemo tx for renal Ca. Pt has been on TF of Osmolite 1.5 at home at 90ml/hr X 14 hrs. Pt tried to advance to 125ml/hr at 12 hrs but was unable to tolerate it. Pt currently on 95ml/hr X 16 hrs to meet 95% est kcal and 107% est protein needs. Pt is taking small amounts of oral intake. states was giving pt nutr supplment to augment TF at home. Will offer nutr supplment orally while in facility. Wt is down 14# (8%) past month. Alb 2.9, BUN 59, creatinine 2.8, BG 212. Pt is on prednisone which may contribute to elevated BG. Will cont to monitor. 03/10 TF updated to Osmolite 1.5 @ 100mL/hr X 12 hours. This provides 1800 Kcal, 75 grams protein, and 914mL free water. Pt has been tolerating TF with minimal residuals. Oral intake is fair with pt consuming 15-100% of meals and occasional nutritional supplement. TF plus oral intake probably meeting pts Kcal/protein needs. Alb 2.9, Glu 166, High AST/ALT/Alk Phos, High BUN/Creat. Follow labs, TF tolerance, oral intake, etc. -DRT 03/11/18 Alb 2.9, Glu 183, AST/ALT/Alk Phos continue to slow decrease. Tolerating TF. Also continues to tolerate and consume small portions of meals. Encourage intake, follow labs, etc. -DRT 03/14 Alb 3. BG elevated up to 275. Pt tolerating TF with no residual, diarrhea, distention etc. Will cont to monitor. states will handle TF when pt returns home. BK 03/17/18 order for Calorie count to begin 03/17/18. Follow intake to calculate Kcal consumed. -DRT 03/18/18 PO Calorie Count for 03/17: approximately 1450 Kcals and 59 grams protein. -DRT 03/19 Day 2 PO Calorie count for 03/18: 1070 kcal, 32 grams protein. This is meeting 45% of kcal needs, and 36% protein needs. Encouraged pt to increase intake by ordering full meals instead of 1/2 servings. Pt's trying to get pt discharged and moved over to [facility] living today. Will be available for any questions or concerns. SHEFALI SAMANIEGO Mar 19, 2018 09:35
[2018-03-19] MEDS: HEPARIN FLSH (PORT) 500 UN/5ML IVP PRN (13:02)
== END 2018-03-19 13:39 | disposition home or self-care (01) | DRG 442 ==
LOC: MED 10:49
PROVIDERS: ADMIT Family Medicine; ATTEND Family Medicine
DX: K75.4 Autoimmune hepatitis (principal); N17.9 Acute kidney failure, unspecified; C64.9 Malignant neoplasm of unspecified kidney, except renal pelvis; E46 Unspecified protein-calorie malnutrition; T45.1X5A Adverse effect of antineoplastic and immunosuppressive drugs, initial encounter; E03.9 Hypothyroidism, unspecified; R33.9 Retention of urine, unspecified; R73.9 Hyperglycemia, unspecified; T38.0X5A Adverse effect of glucocorticoids and synthetic analogues, initial encounter; Y92.230 Patient room in hospital as the place of occurrence of the external cause; Z79.01 Long term (current) use of anticoagulants; Z86.718 Personal history of other venous thrombosis and embolism; Z91.81 History of falling; Z68.21 Body mass index [BMI] 21.0-21.9, adult
CPT/HCPCS: 36415; 36416; 71260; 74177; 76705; 82040; 82247; 82310; 82374; 82435; 82565; 82947; 82948; 83735; 84075; 84132; 84155; 84295; 84439; 84443; 84450; 84460; 84481; 84520; 85025; 85027; 87077; 87088; 87186; 97161; 97165; J1642; J7030; J7040; J7512; Q0161; Q9967; S0119

== ENCOUNTER 2018-03-09 09:00 | Outpatient (RCR) | payer MEDICARE, OTHER ==
[2017-12-15 10:01] VITALS: BP 134/77
--- NOTE | 2017-12-15 17:50 | ONCOLOGY CONSULTATION ---
EVENT DATE: December 15, 2017 REFERRING PHYSICIAN Nola Nunez PA-C REASON FOR CONSULTATION Evaluation and management of possible left kidney cancer with metastatic disease. ONCOLOGY HISTORY Patient is a 77-year-old male who saw Nola Nunez for low back pain and left groin pain. He started the process of followup of his pain since October as per patient. He had some physical therapy and cortisone injection into the left hip without improvement. He had an MRI which showed renal mass with mets to the spine, so the patient had after that CT chest, abdomen and pelvis done on December 11, 2017 which showed a big heterogeneous mass of the left kidney 12.5 cm. There was also venous thrombosis with multiple veins in the pelvis and upper thighs likely extending into the inferior vena cava. There were numerous pulmonary nodules likely representing pulmonary metastasis with mediastinal adenopathy likely metastatic. There were numerous lytic destructive lesions in the bones including the anterior aspect of the right tenth and eleventh ribs, T7 , L1 and number 4. There was also a large destructive lesion involving the left iliac bone with a large heterogeneous soft tissue mass component extending into the anterior aspect of the left acetabulum where there is pathologic fracture. The uncinate process of the liver is heterogeneous. PAST MEDICAL HISTORY Benign prostatic hypertrophy with urinary retention in 2016, currently on tamsulosin. PAST SURGICAL HISTORY 1. Right knee replacement in 2010. 2. Prostate biopsy in 2008. 3. Left rotator cuff injury repair. 4. Bilateral cataract surgery. FAMILY HISTORY Brother had squamous cell carcinoma of the lip. Father had lung cancer. Sister had lung cancer. He had brother with kidney cancer. He had multiple cousins with brain, kidney and lung cancer. SOCIAL HISTORY Patient is with two children. 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 He is a never smoker. He occasionally drinks beer. Denies any abuse of illicit drugs. CURRENT MEDICATIONS 1. Tamsulosin 0.4 mg daily. 2. Baclofen 10 mg t.i.d. p.r.n. ALLERGIES OXYCONTIN, with caused rash. REVIEW OF SYSTEMS CONSTITUTIONAL: Patient has loss of appetite and loss of weight. He lost about 10 pounds in the last three weeks. No fever, chills or sweating. No recent infection. HEENT: Ears: No tinnitus or hearing problem. Nose: No nasal discharge or epistaxis. Throat: No sore throat or mouth ulcers. Eyes: No diplopia or visual changes. RESPIRATORY: No shortness of breath. No cough, expectoration or hemoptysis. CARDIOVASCULAR: No chest pain, orthopnea, or paroxysmal nocturnal dyspnea (PND) . No edema. No palpitations. GASTROINTESTINAL: No nausea or vomiting. No diarrhea. He has constipation. No heartburn or swallowing difficulties. No abdominal pain. No jaundice. No hematemesis, melena or rectal bleeding. GENITOURINARY: He has benign prostatic hypertrophy, on tamsulosin. MUSCULOSKELETAL: He has pain in the back radiating to the left groin. NEUROLOGICAL: He had one episode of numbness in the chin of the face. No tingling or numbness in the hands or feet. No headaches or convulsions. HEMATOLOGIC/LYMPHATIC: No bleeding or easy bruising. No weakness or fatigue. No enlarged lymph nodes. SKIN: No skin rash or lumps. PSYCHIATRIC: No anxiety or depression. PHYSICAL EXAMINATION GENERAL: Looks stable. Well-developed, well-nourished, and in no acute distress. VITAL SIGNS: Blood pressure 134/77, pulse 103 per minute, respirations 16 per minute, temperature 97.3, pulse ox 94% on room air. HEENT: Head: Atraumatic. No sinus tenderness to palpation. Eyes: No icterus or conjunctivitis. Mouth and Throat: No oral thrush or mucositis. NECK: Supple. No cervical or supraclavicular lymphadenopathy. LUNGS: Clear to auscultation and percussion bilaterally. HEART: Regular rate and rhythm. No gallops, murmurs, clicks or rubs. ABDOMEN: Soft and lax. No tenderness. No hepatosplenomegaly. No masses. EXTREMITIES: No cyanosis, clubbing or edema. LYMPHATICS: No peripheral lymphadenopathy. NEUROLOGICAL: Conscious, alert and oriented times three. No focal motor or sensory deficits. PSYCHIATRIC: Mood and affect appear normal. SKIN: No skin rash, bruise or purpuric eruption. ASSESSMENT 1. Metastatic disease involving multiple bones, especially the left iliac bone , multiple pulmonary nodules, mediastinal adenopathy with a big left renal mass 12.5 cm. I had a long discussion with the patient and his family today regarding further evaluation and management. I am planning to get staging workup with MRI of the brain and PET CT scan . I am planning to send the patient for CT-guided biopsy of the left iliac bone. I will refer the patient to Dr. Chowdhury for placement of central port. Further management with depend on the results of the pathology. If the patient will prove to have clear cell renal cell carcinoma, then the treatment will be immunotherapy with Yervoy and Opdivo, but if the patient proves to have transitional cell carcinoma, then first line of treatment will be chemotherapy with rampart-based chemotherapy and immunotherapy with dicentric will be a second line treatment. I am planning also to check his LDH with CBC and chem panel. I will see the patient after all this to decide about further management. I talked to the patient and his family today including the and daughter about the prognosis and they are aware that the patient has incurable disease and the main purpose of treatment is actually palliative treatment. 2. Bone metastasis. I am planning to consider Xgeva 120 mg subcutaneously every month after dental evaluation and treatment. PLAN 1. PET CT scan. 2. MRI of the brain. 3. Referral to Dr. Chowdhury for placement of central port. 4. CBC, chem panel and LDH. 5. Stop Eliquis for three days prior to his procedure with a CT-guided biopsy. and to resume it the same night after the biopsy at the same dose. 6. Patient to return after the above for further evaluation and management. 7. Consider Xgeva 120 mg subcutaneously every month after dental evaluation and treatment. 8. Patient is to contact us for any new concerns or complaints. MTDD
[2017-12-28 16:34] VITALS: BP 120/70
--- NOTE | 2017-12-28 19:50 | [facility] ONCOLOGY NOTE ---
EVENT DATE: December 28, 2017 DIAGNOSES 1. Metastatic renal cell carcinoma. 2. Bone metastases. CHIEF COMPLAINT Patient is here today for followup of his metastatic left renal carcinoma. ONCOLOGY HISTORY Patient is a 77-year-old male who saw Nola Nunez for low back pain and left groin pain. He started the process of followup of his pain since October as per patient. He had some physical therapy and cortisone injection into the left hip without improvement. He had an MRI which showed renal mass with mets to the spine, so the patient had after that CT chest, abdomen, and pelvis done on December 11, 2017, which showed a big heterogeneous mass of the left kidney, 12.5 cm. There was also venous thrombosis with multiple veins in the pelvis and upper thighs likely extending into the inferior vena cava. There were numerous pulmonary nodules likely representing pulmonary metastasis with mediastinal adenopathy likely metastatic. There were numerous lytic, destructive lesions in the bones including the anterior aspect of the right 10th and 11th ribs, T7, L1, and L4. There was also a large destructive lesion involving the left iliac bone with a large heterogeneous soft tissue mass component extending into the anterior aspect of the left acetabulum where there is pathologic fracture. The uncinate process of the liver is heterogeneous. PET CT scan done on the December showed a large mass involving the left kidney measuring nearly 13 cm with maximum SUV of 21.3. There were bilateral adrenal gland metastases, mediastinal and lung metastases, intra-abdominal adenopathy, left axillary lymphadenopathy, and extensive osseous metastatic disease. CT-guided biopsy of the left iliac crest showed metastases consistent with clear-cell renal cell carcinoma, and the biopsy was done on the December. HISTORY OF PRESENT ILLNESS Patient is here today for followup of his left renal carcinoma with metastases to multiple organs. He is complaining of back pain, hiccups lately, and shortness of breath, especially with the hiccups. He has also benign prostatic hypertrophy, on tamsulosin. He has some swallowing difficulties. PAST MEDICAL HISTORY Benign prostatic hypertrophy with urinary retention in 2016, currently on tamsulosin. PAST SURGICAL HISTORY 1. Right knee replacement in 2010. 2. Prostate biopsy in 2008. 3. Left rotator cuff injury repair. 4. Bilateral cataract surgery. FAMILY HISTORY Brother had squamous cell carcinoma of the lip. Father had lung cancer. Sister had lung cancer. He had brother with kidney cancer. He had multiple cousins with brain, kidney, and lung cancer. SOCIAL HISTORY Patient is with two children. 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 He is a never smoker. He occasionally drinks beer. Denies any abuse of illicit drugs. CURRENT MEDICATIONS 1. Tamsulosin 0.4 mg daily. 2. Baclofen 10 mg t.i.d. p.r.n. ALLERGIES OXYCONTIN which caused rash. REVIEW OF SYSTEMS CONSTITUTIONAL: Patient has loss of appetite and loss of weight. He lost about 10 pounds in the last three weeks. No fever, chills, or sweating. No recent infection. HEENT: Ears: No tinnitus or hearing problem. Nose: No nasal discharge or epistaxis. Throat: No sore throat or mouth ulcers. Eyes: No diplopia or visual changes. RESPIRATORY: He has shortness of breath. No cough, expectoration, or hemoptysis. CARDIOVASCULAR: No chest pain, orthopnea, or paroxysmal nocturnal dyspnea (PND). No edema. No palpitations. GASTROINTESTINAL: He has the hiccups, and he has some difficulty swallowing lately. No nausea or vomiting. No diarrhea. He has constipation. No heartburn or swallowing difficulties. No abdominal pain. No jaundice. No hematemesis, melena, or rectal bleeding. GENITOURINARY: He has benign prostatic hypertrophy, on tamsulosin. MUSCULOSKELETAL: He has back pain. NEUROLOGICAL: He had one episode of numbness in the chin of the face. No tingling or numbness in the hands or feet. No headaches or convulsions. HEMATOLOGIC/LYMPHATIC: No bleeding or easy bruising. No weakness or fatigue. No enlarged lymph nodes. SKIN: No skin rash or lumps. PSYCHIATRIC: No anxiety or depression. PHYSICAL EXAMINATION GENERAL: Looks stable. Well developed, well nourished, and in no acute distress. VITAL SIGNS: Blood pressure 120/70, pulse 112 per minute, respirations 16 per minute, temperature 97.6, pulse ox 88% on room air. HEENT: Head: Atraumatic. No sinus tenderness to palpation. Eyes: No icterus or conjunctivitis. Mouth and Throat: No oral thrush or mucositis. NECK: Supple. No cervical or supraclavicular lymphadenopathy. LUNGS: Clear to auscultation and percussion bilaterally. HEART: Regular rate and rhythm. No gallops, murmurs, clicks, or rubs. ABDOMEN: Soft and lax. No tenderness. No hepatosplenomegaly. No masses. EXTREMITIES: No cyanosis, clubbing, or edema. LYMPHATICS: No peripheral lymphadenopathy. NEUROLOGICAL: Conscious, alert, and oriented times three. No focal motor or sensory deficits. PSYCHIATRIC: Mood and affect appear normal. SKIN: No skin rash, bruise, or purpuric eruption. DIAGNOSTIC DATA PET CT scan done on the December showed a large mass involving the left kidney measuring 13 cm with SUV 21.3. There were also bilateral adrenal gland metastases, mediastinal and lung metastases, intra-abdominal lymphadenopathy, left axillary lymphadenopathy, and extensive osseous metastatic disease. CT-guided biopsy of the left iliac bone done on the December came back positive for metastases from clear-cell renal cell carcinoma. ASSESSMENT 1. Metastatic renal cell carcinoma of the left side, especially the left iliac bone, with multiple pulmonary metastases, mediastinal adenopathy, bilateral adrenal and intra-abdominal adenopathy, left axillary adenopathy. MRI of the brain done on the December was negative for brain metastasis, but there may be some osseous metastasis in the posterior right parietal bone. PET CT scan done on the December showed a large mass involving the left kidney measuring nearly 13 cm with SUV 21.3 with bilateral adrenal gland metastases, mediastinal and lung metastases, intra-abdominal adenopathy, left axilla lymphadenopathy, and extensive osseous metastatic disease. CT-guided biopsy the left iliac bone done on the December came back positive for metastases from clear-cell renal cell carcinoma. I had a long discussion with the patient and his family today regarding further management. I am planning to treat him with immune therapy with combination of Yervoy and Opdivo. Patient had already his port placed, and I plan to start the treatment by the beginning of the next week. I explained the plan of management which will include four cycles of Yervoy and Opdivo for four cycles every three weeks. Then after that, the patient will have Opdivo every other week until disease progression. Side effects expected from the treatment were explained to the patient and his family. They are agreeable with such plan. 2. Bone metastases. I am planning to start Xgeva 120 mg subcutaneously every four weeks. PLAN 1. Yervoy and Opdiva to start next week. 2. CBC, chem panel to be checked weekly. 3. Xgeva 120 mg subcutaneously every four weeks. 4. Patient to return in three weeks after starting treatment with CBC, chem panel, TSH, free T4, and magnesium level. 5. Chlorpromazine 25 mg q.6 hours p.r.n. for hiccups. 6. Continue Eliquis. 7. Barium swallow for evaluation of the difficulty swallowing. 8. Physical therapy to avoid diffuse atrophy of his muscle as the patient is moving. 9. Radiation Therapy consult for possible radiation of the left iliac bone. 10. Patient is to contact us for any new concern or complaints. MTDD
[2018-01-05 10:06] VITALS: BP 133/81
[2018-01-05] MEDS: NS(*) 0.9% 500 ML BAG 500 ML IV PRN (11:36)
[2018-01-05] MEDS: HEPARIN FLSH (PORT) 500 UN/5ML IVP PRN (12:34)
[2018-01-05 13:00] VITALS: BP 129/81
--- NOTE | 2018-01-12 13:58 | Pharmacy Note ---
Pharmacy Note Note: Clinical Pharmacist Note (LATE ENTRY) Chemotherapy Education Visit Date: 01/05/18 Chemotherapy Regimen: Ipilimumab and Nivolumab Q21D The regimen includes ipilimumab and nivolumab given every 21 days for four cycles The schedule of treatment administration was explained in detail to the patient in regards to lab visits, timing and sequence of premedications and chemotherapy, followed by any supportive medications to be given. Discussed the purpose of the port and why we administer chemotherapy through a port. Port placed prior to chemo ed appointment. Patient's diagnosis, treatment plan, and intent of treatment along with goals are outlined on the signed consent form, that was reviewed and signed at the end of this appointment. The goal is palliative treatment (symptom control from disease). The potential for drug/drug interaction and drug/food interactions were explained to the patient. A medication reconciliation was reviewed by the pharmacist today. We reviewed and discussed toxicities of supportive care medications and how to appropriately use supportive medications including the schedule of anti-emetics. These medications include the following: Take home medications: ondansetron, prochlorperazine Pre-medications: none required Supportive Medications: none required at this time We have also discussed the potential for long and short term side effects of chemotherapy including, but not limited to the side effects outlined below: - Adrenal insufficiency: May occur requiring hormone replacement and/or steroid therapy. Monitor for signs and symptoms of adrenal insufficiency such as anorexia, nausea, vomiting, abdominal pain, weakness, fatigue, lethargy, and confusion. -Dermatologic Toxicity: Immune mediated rash, possible SJS or TEN, onset of rash between 18 days to 3 months after starting. Monitor for any signs of rash or skin changes. - Diabetes Mellitus: May experience increased blood sugars or even DKA. Monitor for hyperglycemia (increased thirst, headaches, blurred vision, fatigue, weight loss, frequent urination). - Encephalitis: Immune mediated encephalitis may occur. Monitor for signs and symptoms of new onset confusion, seizures, sensation, or movement changes. -GI Toxicity/Diarrhea: Diarrhea or colitis may occur in patients receiving immunotherapy. Monitor for diarrhea and signs of dehydration, electrolyte changes. -Hepatotoxicity: Monitor liver function tests ALT, AST, Alk Phos, T bili. Signs of hepatotoxicity include jaundice and confusion. -Hypophysitis: Monitor for signs of hypophysitis such as headache, nausea, vomiting, thirst, dilute urine. -Infusion-related reactions: Patient may experience severe infusion reactions during the infusion. Any signs or symptoms of infusion reaction should be reported immediately and the infusion interrupted. -Nephrotoxicity: Changes in renal function have been reported. Monitor Scr, CrCL, and for any changes in urine production. -Ocular Toxicity: Uveitis and Iritis have been reported, report any vision changes. -Pulmonary Toxicity: Immune therapy has been reported to cause pneumonitis and interstitial lung disease. Monitor for any changes in respiratory function. -Thyroid Toxicity: Immune mediated hyper or hypothyroidism have been reported as well as thyroiditis. Monitor thyroid function tests periodically. -Other Immune Mediated Toxicities: Other clinically relevant and potentially fatal immune mediated toxicities may occur or develop during treatment or after discontinuation as the immune system is activated and may attack any body system or tissue. More common toxicities related to treatment include: fatigue, headache, weight loss, diarrhea, nausea, vomiting, electrolyte changes, decreased appetite, cough, fever, and edema. -Low WBCs or neutropenia: Patient may experience bone marrow toxicity that would increase their risk for infection. Patient is aware to look for signs and symptoms of infection (e.g. fever of higher than 100.4F, chills, sore throat, etc.) and knows what number to call and when to contact the clinic. Advised patient of things they can do such as wash hands with soap and water often, avoid people who are sick, and avoid crowds during times of low blood counts (typically 7-10 days post chemotherapy). Discussed the need for pegfilgrastim with dose dense AC to reduce the risk of neutropenia. - Low RBCs or anemia: Anemia is when you don't have enough red blood cells to carry oxygen through your body, which causes fatigue, weakness, lightheadedness, pale skin, SOB, or headaches. Discussed the importance of getting enough restful sleep at night and eating a diet rich in iron. Lab values will be closely monitored to check your RBCs. Advised patient to contact the clinic if they have a fast heart rate, dizziness, or lightheadedness. -Low platelet counts or thrombocytopenia: Patient may experience low platelets which can lead to increased risk of bleeding, easy bruising, black or bloody stools, or small red or purple spots on the skin. Platelets help blood to clot and if your platelets are low enough, bleeding may not stop after a few minutes. Excessive bleeding or bruising, red spots on your skin or new onset headaches require a phone call to the clinic. - Fatigue (feeling tired): Some patients may experience fatigue, or feel tired, weak, low energy, drained or exhausted. You will experience fatigue after chemotherapy, but the amounts for each person and chemotherapy will differ. Advised patient to stay active as much as they can with light exercise, take short naps if needed, get a restful night of sleep, and eat a well-balanced diet. Call the clinic if you are unable to get out of bed or do typical daily activities, have shortness of breath, or have trouble walking small distances. -Nausea or vomiting: Most patients may experience some level of nausea (feeling queasy or sick to your stomach) or vomiting. Advised patient to take their anti-nausea medications as prescribed, drink plenty of fluids, eat several small meals throughout the day, eat bland easy to digest foods, and speak to our millwright supervisor if they have questions. Call the clinic if the nausea or vomiting is not eased by your medications and lasts 12 hours or longer, or if unable to eat or drink, or keep medicines down. - Appetite changes (eating less or more): You may experience a decrease or increase in your appetite that might last a day, weeks or months. Advised patient to set a schedule for eating and drink high protein drinks to maintain calories. Ask your doctor or nurse for a millwright supervisor consult to help manage your appetite changes or if you have concerns about your appetite changes. Contact the clinic if you notice a change in weight and if you are unable to take in more than a few bites of food or sips of liquid at mealtimes. Favorite foods may also taste different or may not be pleasing. Patient was given the Standard Chemotherapy Education Binder with appropriate phone numbers and we reviewed symptoms that would prompt a call to the clinic. Upcoming appointments were discussed and patient knows to follow up at the trouble locator test desk to get print outs of their schedule and the processes to change/cancel an appointment. Consent was reviewed with the patient and signed in my presence. The treating physician will review and sign the consent. Allergies were reviewed: Oxycodone At the end of this discussion, the patient and his and children verbalized understanding of the provided education and information and all of their questions were answered to their satisfaction. Patient and his family know how to reach me if further questions or concerns come up. Time spent with the patient: 180 minutes, with all 180 minutes being spent counseling on the detailed information above. Milana Moore, PharmD, [facility] MILANA MOORE Jan 12, 2018 13:57
[2018-01-22 10:40] VITALS: Ht 176.5 cm; Wt 67.0 kg
[2018-01-26 08:12] VITALS: BP 128/80
[2018-02-02 05:53] LABS: PLATELET COUNT, AUTOMATED 276 K/uL (150-450)
[2018-02-08 10:24] VITALS: BP 110/67
[2018-02-08 10:40] LABS: PLATELET COUNT, AUTOMATED 234 K/uL (150-450)
[2018-02-16 07:55] VITALS: BP 102/60
[2018-02-16] MEDS: HEPARIN FLSH (PORT) 500 UN/5ML IVP PRN (08:57)
[2018-02-16] MEDS: LIDOCAINE/SOD BICARB 8.4% SYR ID PRN (08:57)
[2018-02-16] MEDS: NS(*) 0.9% 500 ML BAG 500 ML IV PRN (08:57)
[2018-02-16 10:17] VITALS: BP 132/86
[2018-02-23 09:47] VITALS: BP 124/83
[2018-02-23 10:20] LABS: PLATELET COUNT, AUTOMATED 228 K/uL (150-450)
[2018-03-02 10:31] VITALS: BP 138/74
[2018-03-02 10:35] LABS: PLATELET COUNT, AUTOMATED 244 K/uL (150-450)
[2018-03-07 08:12] VITALS: BP 112/75
[2018-03-07] MEDS: NS(*) 0.9% 500 ML BAG 500 ML IV PRN (08:30)
[2018-03-07] MEDS: LIDOCAINE/SOD BICARB 8.4% SYR ID PRN (08:30)
--- NOTE | 2018-03-08 23:11 | ONCOLOGY FOLLOW UP NOTE ---
EVENT DATE: March 07, 2018 CHIEF COMPLAINT "I don't feel good." reports that she is having much difficulty caring for him at home. HISTORY OF PRESENT ILLNESS Patient is a 78-year-old male who is seen today for consideration of cycle #4 of Yervoy and Opdivo. He had been tolerating this fairly well, but over the past week has been increasingly weak. He fell at home yesterday. He relates no bowel movement for three to five days, and his tells me that he is not eating. He is receiving tube feeding per PEG. He is requiring significant care at home. His is not resting, and they are both overwhelmed by how poorly he feels. He has no increase in cough. He is producing urine via Reid catheter, which appears clear. ONCOLOGY HISTORY Patient is a 78-year-old male who presented with low back pain and left groin pain in October 2017. He had some physical therapy and cortisone injection into the left hip without improvement. He had an MRI which showed renal mass with mets to the spine, followed by CT chest, abdomen, and pelvis done on December 11, 2017, which showed a big heterogeneous mass of the left kidney, 12.5 cm. There was also venous thrombosis with multiple veins in the pelvis and upper thighs likely extending into the inferior vena cava. There were numerous pulmonary nodules likely representing pulmonary metastasis with mediastinal adenopathy, likely metastatic. There were numerous lytic, destructive lesions in the bones including the anterior aspect of the right 10th and 11th ribs, T7, L1, and L4. There was also a large destructive lesion involving the left iliac bone with a large heterogeneous soft tissue mass component extending into the anterior aspect of the left acetabulum where there is pathologic fracture. The uncinate process of the liver is heterogeneous. PET CT scan done on the December showed a large mass involving the left kidney measuring nearly 13 cm with maximum SUV of 21.3. There were bilateral adrenal gland metastases, mediastinal and lung metastases, intra-abdominal adenopathy, left axillary lymphadenopathy, and extensive osseous metastatic disease. CT-guided biopsy on the December of the left iliac crest showed metastases consistent with clear-cell renal cell carcinoma. Began Yervoy and Opdivo on 01/05/18 with plans to proceed with maintenance Opdivo after four cycles. PAST MEDICAL HISTORY 1. Metastatic renal cell carcinoma. 2. Bone metastases. 3. BPH with urinary retention. PAST SURGICAL HISTORY 1. Right knee replacement in 2010. 2. Prostate biopsy in 2008. 3. Left rotator cuff injury repair. 4. Bilateral cataract surgery. 5. Left renal embolization, 01/16/18. FAMILY HISTORY Brother had squamous cell carcinoma of the lip. Father had lung cancer. Sister had lung cancer. He had brother with kidney cancer. He had multiple cousins with brain, kidney, and lung cancer. SOCIAL HISTORY Patient is with two children. 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 He is a never smoker. He occasionally drinks beer. Denies any abuse of illicit drugs. REVIEW OF SYSTEMS A 12-point review of systems is performed and is negative except as stated above. PHYSICAL EXAMINATION VITAL SIGNS: Weight 67 kg, BP 112/75, P 120, R 18, temp 97.9, O2 saturation 96%. GENERAL: Patient is a well-developed but ill-appearing male in no acute distress. He requires significant assistance with transfers and is not ambulating well at this time. HEAD: Normocephalic, atraumatic. EYES: Sclerae anicteric. MOUTH: Slightly dry mucous membranes without lesions. NECK: Supple. No adenopathy. LUNGS: Slightly diminished but clear bilaterally. CARDIOVASCULAR: Heart rate regular, with mild tachycardia at 120 per minute. ABDOMEN: Soft, nontender, with hypoactive bowel sounds. PEG tube in place. EXTREMITIES: Bilateral lower-extremity edema. NEUROLOGIC: Nonfocal. LABORATORY CBC today reveals a WBC of 7.3, hemoglobin 11.1, hematocrit 33.2, platelets 208,000. CMP shows a sodium of 126, BUN 61, creatinine 3.2, AST 190, ALT 328, alkaline phosphatase 958. TSH and T4 are within normal limits. T3 is pending. IMPRESSION AND PLAN The patient is a 78-year-old male with metastatic left renal cell carcinoma with metastases to multiple organs. Today he presents with significantly increased liver function tests as well as increased BUN and creatinine. 1. Hold treatment today. 2. I reviewed above with Dr. Ross. Immune-mediated hepatitis is suspected. At this point, he will be admitted to the hospital for evaluation and treatment. We suggest prednisone 1 mg/kg, which I have communicated with Dr. Hunter, hospitalist. Will continue to evaluate and assess whether or not he can receive further immunotherapy based on his response to this treatment. 3. Renal insufficiency. BUN and creatinine are 61 and 3.2 respectively. He has had a left renal embolization in January 2018. Renal ultrasound is suggested to rule out the possibility of clot or other issue. 4. Follow up once he is released from the hospital and/or extended care facility for continued care. A total of one hour was spent with patient and his reviewing current status and arranging for coordination of care and admission to the hospital. PATI
[~2018-03-09] VITALS: Ht 176.5 cm; Wt 67.0 kg
[~2018-03-09 09:00] MED LIST changes: +ALTEPLASE RECOMB 2 MG VIAL IVP PRN; +DEXTROSE 5%(*) 100 ML BAG 100 ML IVPB PRN; +IPILIMUMAB IVPB ONE; +KETAMINE HCL 500 MG/10 ML VIAL ONE; +LIDOCAINE MPF 1% 5 ML VIAL ONE; +MIDAZOLAM 2 MG/2 ML VIAL ONE; +NIVOLUMAB IV ONE; +NS 0.9% IV ONE; +NS 0.9% IVPB ONE; +NS(*) 0.9% 100 ML BAG 100 ML IVPB PRN; +ONDANSETRON 4 MG/2 ML VIAL ONE; +PROPOFOL EMUL(*) 10MG/ML 20 ML 20 ML ONE; +ROCURONIUM BROM 10 MG/ML 10 ML ONE; +SENN8.6T35 PO; +WATER FOR INJ,STERILE 20 ML IVP PRN; +[UNRECOGNIZED DRUG - OTHER] IV ONE
== END 2018-03-14 ==
LOC: ONC 09:00
PROVIDERS: ATTEND Internal Medicine Hematology
DX: Z51.11 Encounter for antineoplastic chemotherapy (principal); C64.2 Malignant neoplasm of left kidney, except renal pelvis; C78.00 Secondary malignant neoplasm of unspecified lung; C79.51 Secondary malignant neoplasm of bone; C79.72 Secondary malignant neoplasm of left adrenal gland; C79.71 Secondary malignant neoplasm of right adrenal gland; R59.0 Localized enlarged lymph nodes; M54.9 Dorsalgia, unspecified; R06.02 Shortness of breath; M89.8X5 Other specified disorders of bone, thigh; N40.0 Benign prostatic hyperplasia without lower urinary tract symptoms; Z79.899 Other long term (current) drug therapy; K59.00 Constipation, unspecified
CPT/HCPCS: 36415; 83735; 84439; 84443; 84480; 84481; 85025; 85027; 96365; 96367; 96413; G0463; J1642; J7040; J7050; J9228; J9299; 82040; 82247; 82310; 82374; 82435; 82565; 82947; 84075; 84132; 84155; 84295; 84450; 84460; 84520; 87088; 99202; 99212; J2001; J2250; J2405; J2704; J3490

== ENCOUNTER 2018-03-13 16:15 | Outpatient (RCR) | payer MEDICARE, OTHER ==
[2018-01-22 10:40] VITALS: BMI 22.7
[~2018-03-13 16:15] MED LIST changes: -ALTEPLASE RECOMB 2 MG VIAL IVP PRN; +BELLADONNA ALKALOIDS/OPIUM 30 MG SUPP PR ONE; -DEXTROSE 5%(*) 100 ML BAG 100 ML IVPB PRN; -IPILIMUMAB IVPB ONE; -KETAMINE HCL 500 MG/10 ML VIAL ONE; -LIDOCAINE MPF 1% 5 ML VIAL ONE; -MIDAZOLAM 2 MG/2 ML VIAL ONE; -NIVOLUMAB IV ONE; -NS 0.9% IV ONE; -NS 0.9% IVPB ONE; -NS(*) 0.9% 100 ML BAG 100 ML IVPB PRN; -ONDANSETRON 4 MG/2 ML VIAL ONE; -PROPOFOL EMUL(*) 10MG/ML 20 ML 20 ML ONE; -ROCURONIUM BROM 10 MG/ML 10 ML ONE; +SENN8.6T34 PO; -SENN8.6T35 PO; -WATER FOR INJ,STERILE 20 ML IVP PRN; -[UNRECOGNIZED DRUG - OTHER] IV ONE
== END 2018-03-13 16:16 | disposition home or self-care (01) ==
LOC: PT 16:15
PROVIDERS: ATTEND Internal Medicine Hematology
DX: Z02.9 Encounter for administrative examinations, unspecified (principal)

== ENCOUNTER → 2018-03-27 | Outpatient (CLI) | payer MEDICARE, OTHER ==
[2018-01-22 10:40] VITALS: BMI 22.7
[~2018-03-27] MED LIST changes: -BELLADONNA ALKALOIDS/OPIUM 30 MG SUPP PR ONE; +PANT40TA65 PO; +PRED-1 PO; +PRED20TA6 PO; -SENN8.6T34 PO; +SENN8.6T35 PO
[2018-03-27 08:15] LABS: PLATELET COUNT, AUTOMATED 177 K/uL (150-450)
== END ==
LOC: ZZSPRING 01:41
PROVIDERS: ATTEND Internal Medicine Hematology
DX: C64.9 Malignant neoplasm of unspecified kidney, except renal pelvis (principal)
CPT/HCPCS: 36415; 82040; 82247; 82310; 82374; 82435; 82565; 82947; 84075; 84132; 84155; 84295; 84450; 84460; 84520; 85025

== ENCOUNTER 2018-04-03 01:01 | Emergency (ER) | payer MEDICARE, OTHER ==
[2018-01-22 10:40] VITALS: Wt 69.9 kg
--- NOTE | 2018-04-03 01:05 | ER Report ---
History and Physical Time Seen By : 01:04 HPI/ROS CHIEF COMPLAINT: Pain in penis HISTORY OF PRESENT ILLNESS: 78-year-old male with a known history of metastatic renal cell cancer with a chronic indwelling Reid catheter. History shows that they attempted to remove the catheter, but patient was unable to void his urine. He is undergoing chemotherapy and radiation. He is followed by oncology. Patient and his think that it was pulled while he was standing in the shower. They think that the bulb may be lodged in the prostate area. REVIEW OF SYSTEMS: Respiratory: No cough, no dyspnea. Cardiovascular: No chest pain, no palpitations. Gastrointestinal: As above Musculoskeletal: No back pain. Allergies: Coded Allergies: oxycodone HCl (Verified Allergy, Unknown, RASH, 12/25/17) Home Meds Active Scripts Prednisone 10 Mg Tab (PREDNISONE 10 MG TAB) 10 Mg Tablet, 10 MG PO DIRECTED, #40 TAB 70 mg for one day, then 60 mg for 7 days, then 50 mg for 7 days, then 40 mg for 7 days, then 30 mg for 7 days, then 20 mg, for 7 days, then 10 mg for 7 days (Decrease every Monday) (Split dose with 20mg and 10mg) Prov:DANYELLE CHINCHILLA [facility] 03/19/18 Prednisone (PREDNISONE) 20 Mg Tablet, 20 MG PO DIRECTED, #70 TAB 70 mg for one day, then 60 mg for 7 days, then 50 mg for 7 days, then 40 mg for 7 days, then 30 mg for 7 days, then 20 mg, for 7 days, then 10 mg for 7 days (Decrease every Monday) (Split dose with 20mg and 10mg) Prov:DANYELLE CHINCHILLA [facility] 03/19/18 Pantoprazole Sodium (PANTOPRAZOLE SODIUM) 40 Mg Tablet.dr, 40 MG PO QDAY, #30 TAB Prov:DANYELLE CHINCHILLA [facility] 03/19/18 Sennosides (SENNA) 8.6 Mg Tablet, 8.6 MG PO BID PRN for CONSTIPATION for 30 Days, #30 Prov:ZULEMA MCGHEE DO 03/07/18 Apixaban (Eliquis) 5 Mg (74 Tabs) Tab.ds.pk, 1 TAB PO BID, #60 TAB 6 Refills Prov:EFRAÍN HESS MD 02/23/18 Triamcinolone Acetonide 0.1% Oint 15 Gm Tube (TRIAMCINOLONE ACETONIDE 0.1% 15 GM TUBE) 15 Gm Oint...g., 15 GM TP BID PRN for RASH, #30 TUBE 1 Refill Prov:EFRAÍN HESS MD 02/08/18 Reported Medications Prochlorperazine Maleate (PROCHLORPERAZINE MALEATE) 10 Mg Tablet, 1 TAB PO Q6-8H PRN for NAUSEA 03/07/18 Levothyroxine Sodium (LEVOTHYROXINE SODIUM) 25 Mcg Tablet, 25 MCG PO QDAY pt takes this at 1700 daily due to feeding tube feedings throughout NOC 03/07/18 Docusate Sodium (COLACE) 100 Mg Capsule, 100 MG PO BID PRN for constipation, CAPSULE 01/29/18 Chlorpromazine Hcl (CHLORPROMAZINE HCL) 25 Mg Tablet, 25 MG PO TID PRN for HICCUPS 01/29/18 L.acidoph & Paracasei,B.lactis (Probiotic) 1 Each Capsule, PO DAILY 01/29/18 Tamsulosin Hcl (TAMSULOSIN HCL) 0.4 Mg Cap.er.24h, 0.4 MG PO BID, CAP 01/29/18 Reviewed Nurses Notes: Yes Old Medical Records Reviewed: Yes Hx Smoking: No Smoking Status: Never Smoker Hx Substance Use Disorder: No Hx Alcohol Use: No Constitutional Vital Sign - Last 24 Hours 04/03/18 04/03/18 04/03/18 04/03/18 01:06 01:30 01:31 01:44 Temp 97.8 Pulse 121 105 97 Resp 24 B/P (MAP) 132/106 110/80 (90) Pulse Ox 95 97 04/03/18 04/03/18 01:49 02:00 Pulse 96 B/P (MAP) 124/86 (99) Pulse Ox 95 Intake and Output 04/02/18 04/02/18 04/03/18 14:59 22:59 06:59 Output Total 500 ml Balance -500 ml Physical Exam General Appearance: patient is alert, has no immediate need for airway protection and no current signs of toxicity. Moderate distress, restless and agitated, appears uncomfortable Eyes: Pupils equal and round no injection. Respiratory: Chest is non tender, lungs are clear to auscultation. Cardiac: regular rate and rhythm Gastrointestinal: Abdomen is soft and non tender, no masses, bowel sounds normal. Genital:circumcised male genitalia with intact Reid catheter. There is no erythema, redness or discharge noted at the meatus. There appears to be draining yellow urine. The patient is still very uncomfortable Musculoskeletal: Neck: Neck is supple and non tender. Extremities have full range of motion and are non tender. Skin: No rashes or lesions. DIFFERENTIAL DIAGNOSIS: After history and physical exam differential diagnosis was considered for urinary tract infection, catheter problem, blocked catheter, Catheter dislodgment Medical Decision Making ED Course/Re-evaluation ED Course Patient was admitted to an examination room. H&P was done. The differential diagnoses was considered. On clinical examination, patient appears very uncomfortable. His catheter appears to be in the right place and draining urine. The balloon is deflated. The catheters inserted. Further, and the balloon is reinflated. There was a gush of urine. When the catheter was read placed in the proper place. There was good drainage of urine. Patient feels much better. Advised to follow-up as planned with oncology clinic Decision to Disposition Date: Apr 03, 2018 Decision to Disposition Time: 01:54 Depart Departure Latest Vital Signs Vital Signs Date Time Temp Pulse Resp B/P (MAP) Pulse Ox O2 Delivery O2 Flow Rate FiO2 04/03/18 02:00 124/86 (99) 04/03/18 01:49 96 95 04/03/18 01:06 97.8 24 Impression: Primary Impression: Problem with Reid catheter Additional Impression: Metastatic renal cell carcinoma to bone Condition: Improved Disposition: HOME OR SELF-CARE Referrals: EFRAÍN HESS MD (PCP) Patient Instructions: Reid Catheter Placement and Care (ED) Additional Instructions: Follow-up with Dr. Gramajo if any further problems develop Problem Qualifiers Primary Impression: Problem with Reid catheter Encounter type: initial encounter Qualified Codes: T83.9XXA - Unspecified complication of genitourinary prosthetic device, implant and graft, initial encounter EDENILSON GLOVER DO Apr 03, 2018 01:05
[2018-04-03] MEDS ORDERED: LIDOCAINE 2% JELLY 5 ML TUBE TP ONE (01:15)
[2018-04-03 02:00] VITALS: BP 124/86
== END 2018-04-03 02:06 | disposition home or self-care (01) ==
LOC: ER 01:23
DX: T83.9XXA Unspecified complication of genitourinary prosthetic device, implant and graft, initial encounter (principal); C64.9 Malignant neoplasm of unspecified kidney, except renal pelvis; C79.51 Secondary malignant neoplasm of bone
CPT/HCPCS: 99283; A9270

== ENCOUNTER → 2018-04-03 | Outpatient (CLI) | payer MEDICARE, OTHER ==
[2018-01-22 10:40] VITALS: BMI 22.7
[2018-04-03 08:20] LABS: PLATELET COUNT, AUTOMATED 127 K/uL (150-450)
== END ==
LOC: ZZSPRING 01:08
PROVIDERS: ATTEND Internal Medicine Hematology
DX: C64.9 Malignant neoplasm of unspecified kidney, except renal pelvis (principal)
CPT/HCPCS: 36415; 82040; 82247; 82310; 82374; 82435; 82565; 82947; 84075; 84132; 84155; 84295; 84450; 84460; 84520; 85025

== ENCOUNTER → 2018-04-10 | Outpatient (CLI) | payer MEDICARE, OTHER ==
[2018-01-22 10:40] VITALS: BMI 22.7
[2018-04-10 08:41] LABS: PLATELET COUNT, AUTOMATED 189 K/uL (150-450)
== END ==
LOC: ZZSPRING 00:56
PROVIDERS: ATTEND Internal Medicine Hematology
DX: C64.9 Malignant neoplasm of unspecified kidney, except renal pelvis (principal)
CPT/HCPCS: 36415; 82040; 82247; 82310; 82374; 82435; 82565; 82947; 84075; 84132; 84155; 84295; 84450; 84460; 84520; 85025

== ENCOUNTER → 2018-04-17 | Outpatient (CLI) | payer MEDICARE, OTHER ==
[2018-01-22 10:40] VITALS: BMI 22.7
[2018-04-17 08:21] LABS: PLATELET COUNT, AUTOMATED 247 K/uL (150-450)
== END ==
LOC: ZZSPRING 01:25
PROVIDERS: ATTEND Internal Medicine Hematology
DX: C64.9 Malignant neoplasm of unspecified kidney, except renal pelvis (principal)
CPT/HCPCS: 36415; 82040; 82247; 82310; 82374; 82435; 82565; 82947; 84075; 84132; 84155; 84295; 84450; 84460; 84520; 85025

== ENCOUNTER → 2018-06-07 | Outpatient (CLI) | payer MEDICARE, OTHER ==
[2018-01-22 10:40] VITALS: BMI 22.7
[~2018-06-07] MED LIST changes: +SULF-198 PO; +[UNRECOGNIZED DRUG - CODE] IV
--- NOTE | 2018-06-07 15:21 | RADIOLOGY IMAGING REPORT ---
FACILITY: [facility] [place] PATIENT NAME: Jose D Wilson : 1940 MR: [id number] V: [id number] EXAM DATE: ORDERING PHYSICIAN: EFRAÍN HESS TECHNOLOGIST: Location: [facility] Patient: Jose D Wilson : 1940 Visit/Account:[id number] Date of Sevice: 06/07/2018 Exam type: ACUTE ABDOMEN SERIES 3 VIEW History: Renal cell carcinoma and diarrhea Comparison: December 25, 2017. Findings: Bowel gas pattern is nonspecific. A vena cava umbrella projects over the right side of L1 and 2. Nu merous embolization coils project over the left mid abdomen.. Peg tube projects over the left mid ab domen. There is a lytic destructive lesions through the left iliac bone extending into the left acet abulum is present with suggestion of a pathologic fracture. PA view the chest reveals no evidence of acute pulmonary infiltrates or pleural effusions. The cardi ac swelling is normal in size. Some implanted right IJ port distal tip of the superior vena cava. T here are postsurgical changes the right shoulder. Mildly prominent right hilar shadows appear simila r to the prior study IMPRESSION: 1. Bowel gas pattern is nonspecific. Lytic destructive lesion through the left iliac bone extending the left acetabulum is present with reyes ggestion of a pathologic fracture No evidence of acute pulmonary consolidation Report Dictated By: Tiffanie Gautam MD at 06/07/2018 3:10 PM Report E-Signed By: Tiffanie Gautam MD at 06/07/2018 3:15 PM WSN:[id number]
== END ==
LOC: LAB 14:04
PROVIDERS: ATTEND Internal Medicine
DX: C64.9 Malignant neoplasm of unspecified kidney, except renal pelvis (principal); R19.7 Diarrhea, unspecified; E03.9 Hypothyroidism, unspecified
CPT/HCPCS: 74022; 81001

== ENCOUNTER → 2018-06-21 | Outpatient (RCR) | payer MEDICARE, OTHER ==
[2018-01-22 10:40] VITALS: Ht 176.5 cm; Wt 74.8 kg
[2018-03-23 10:00] VITALS: BP 112/76
[2018-03-23 10:20] LABS: PLATELET COUNT, AUTOMATED 195 K/uL (150-450)
[2018-04-13 12:05] VITALS: BP 112/70
[2018-04-13] MEDS: NS(*) 0.9% 500 ML BAG 500 ML IV PRN (12:09)
[2018-04-13] MEDS: LIDOCAINE/SOD BICARB 8.4% SYR ID PRN (12:09)
[2018-04-13] MEDS: HEPARIN FLSH (PORT) 500 UN/5ML IVP PRN (12:10)
[2018-04-13 13:39] VITALS: BP 112/74
--- NOTE | 2018-04-14 17:30 | [facility] ONCOLOGY NOTE ---
EVENT DATE: April 13, 2018 DIAGNOSES 1. Metastatic renal cell carcinoma. 2. Bone metastases. CHIEF COMPLAINT Patient is here today for resuming treatment with Opdivo after stopping medication for liver enzyme elevation. ONCOLOGY HISTORY Patient is a 77-year-old male who saw Nola Nunez for low back pain and left groin pain. He started the process of followup of his pain since October as per patient. He had some physical therapy and cortisone injection into the left hip without improvement. He had an MRI which showed renal mass with mets to the spine, so the patient had after that CT chest, abdomen, and pelvis done on December 11, 2017, which showed a big heterogeneous mass of the left kidney, 12.5 cm. There was also venous thrombosis with multiple veins in the pelvis and upper thighs likely extending into the inferior vena cava. There were numerous pulmonary nodules likely representing pulmonary metastasis with mediastinal adenopathy likely metastatic. There were numerous lytic, destructive lesions in the bones including the anterior aspect of the right 10th and 11th ribs, T7, L1, and L4. There was also a large destructive lesion involving the left iliac bone with a large heterogeneous soft tissue mass component extending into the anterior aspect of the left acetabulum where there is pathologic fracture. The uncinate process of the liver is heterogeneous. PET/CT scan done on the December showed a large mass involving the left kidney measuring nearly 13 cm with maximum SUV of 21.3. There were bilateral adrenal gland metastases, mediastinal and lung metastases, intra-abdominal adenopathy, left axillary lymphadenopathy, and extensive osseous metastatic disease. CT-guided biopsy of the left iliac crest showed metastases consistent with clear-cell renal cell carcinoma, and the biopsy was done on the December. Patient started treatment with Opdivo and Yervoy at the beginning of January 2018. Patient received three doses of Yervoy and Opdivo every month, and the treatment was stopped after that because of the elevation of the liver enzymes thought to be due to immune reaction. Patient started Opdivo single agent on the April. HISTORY OF PRESENT ILLNESS Patient is here today to start his treatment with Opdivo after normalization of his liver enzymes after steroid therapy. He is really doing very well currently in a fpc. He has some hiccups after eating, but other than that, he is really doing very well. PAST MEDICAL HISTORY Benign prostatic hypertrophy with urinary retention in 2016, currently on tamsulosin. PAST SURGICAL HISTORY 1. Right knee replacement in 2010. 2. Prostate biopsy in 2008. 3. Left rotator cuff injury repair. 4. Bilateral cataract surgery. FAMILY HISTORY Brother had squamous cell carcinoma of the lip. Father had lung cancer. Sister had lung cancer. He had brother with kidney cancer. He had multiple cousins with brain, kidney, and lung cancer. SOCIAL HISTORY Patient is with two children. 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 He is a never smoker. He occasionally drinks beer. Denies any abuse of illicit drugs. CURRENT MEDICATIONS 1. Tamsulosin 0.4 mg daily. 2. Baclofen 10 mg t.i.d. p.r.n. ALLERGIES OXYCONTIN which caused rash. REVIEW OF SYSTEMS CONSTITUTIONAL: No appetite or weight change. No fever, chills, or sweating. No recent infection. HEENT: Ears: No tinnitus or hearing problem. Nose: No nasal discharge or epistaxis. Throat: No sore throat or mouth ulcers. Eyes: No diplopia or visual changes. RESPIRATORY: No shortness of breath. No cough, expectoration or hemoptysis. CARDIOVASCULAR: No chest pain, orthopnea, or paroxysmal nocturnal dyspnea (PND). No edema. No palpitations. GASTROINTESTINAL: He has hiccups after eating. No nausea or vomiting. No diarrhea or constipation. No change in bowel movements. No heartburn or swallowing difficulties. No abdominal pain. No jaundice. No hematemesis, melena, or rectal bleeding. GENITOURINARY: No hematuria or dysuria. MUSCULOSKELETAL: No pain in the muscles, joints, or bones. NEUROLOGICAL: No tingling or numbness in the hands or feet. No headaches or convulsions. HEMATOLOGIC/LYMPHATIC: No bleeding or easy bruising. No weakness or fatigue. No enlarged lymph nodes. SKIN: No skin rash or lumps. PSYCHIATRIC: No anxiety or depression. PHYSICAL EXAMINATION GENERAL: Looks stable. Well developed, well nourished, and in no acute distress. VITAL SIGNS: Blood pressure 112/70, pulse 90 per minute, respirations 16 per minute, temperature 98.5, pulse ox 95% on room air. HEENT: Head: Atraumatic. No sinus tenderness to palpation. Eyes: No icterus or conjunctivitis. Mouth and Throat: No oral thrush or mucositis. NECK: Supple. No cervical or supraclavicular lymphadenopathy. LUNGS: Clear to auscultation and percussion bilaterally. HEART: Regular rate and rhythm. No gallops, murmurs, clicks, or rubs. ABDOMEN: Soft and lax. No tenderness. No hepatosplenomegaly. No masses. EXTREMITIES: No cyanosis, clubbing, or edema. LYMPHATICS: No peripheral lymphadenopathy. NEUROLOGICAL: Conscious, alert, and oriented times three. No focal motor or sensory deficits. PSYCHIATRIC: Mood and affect appear normal. SKIN: No skin rash, bruise, or purpuric eruption. DIAGNOSTIC DATA Chem panel totally normal except sodium 133, carbon dioxide 21, BUN 26, total protein 6, albumin 3.1. Liver enzymes are totally normal. CBC showed white count 6000, hemoglobin 13.6, hematocrit 40%, platelets 189,000. ASSESSMENT 1. Metastatic renal cell carcinoma of the left kidney with metastasis to the left iliac bone and multiple pulmonary metastases, mediastinal adenopathy, bilateral adrenal and intra-abdominal adenopathy, and left axillary adenopathy. MRI of the brain done December was negative for brain metastasis, but there may be some osseous metastasis in the posterior right parietal skull bone. PET/CT scan done on the December showed a large mass involving the left kidney measuring about 13 cm with SUV 21.3 with bilateral adrenal gland metastases, mediastinal and lung metastases, intra-abdominal adenopathy, left axillary lymphadenopathy, and extensive osseous metastatic disease. CT-guided biopsy the left iliac bone done on the December came back positive for metastases from clear-cell renal cell carcinoma. Patient started treatment with Yervoy and Opdivo at the beginning of January 2018. He received three courses, and treatment was stopped after that because of the development of elevation of the liver enzymes which normalized after stopping the treatment and steroid therapy. Patient developed also hematuria with anticoagulation, so he was referred to the hospital in [place] with placement of inferior vena cava filter and tying of the blood vessels of the bleeding kidney. He is doing fine currently. I am planning to resume his treatment with Opdivo, which he will start on the April, and I will monitor his liver enzymes every week. If he develops elevation of liver enzymes again, I am planning to stop Opdivo and will look for other alternatives, but if the patient does not have elevation of his liver enzymes, will continue Opdivo until disease progression. I explained that to the patient and his . They are agreeable with the plan of management. I am planning to see him in two weeks from now with CBC, chemistry panel, TSH, free T3, free T4, and magnesium level. 2. Bony metastases. Continue Xgeva 120 mg subcutaneously every four weeks. 3. Elevated liver enzymes, thought to be due to new reaction from his current treatment with Yervoy and Opdivo. Yervoy is discontinued already, and we will monitor his liver enzymes with Opdivo therapy. PLAN 1. Opdivo cycle #1. 2. Xgeva 120 mg subcutaneously every four weeks. 3. Patient to return in two weeks with CBC, chem panel, TSH, free T3, free T4, and magnesium level. 4. CMP to be checked weekly. 5. Patient to contact us for any new concern or complaint. 6. Continue on anticoagulation. MTDD
[2018-04-27 08:56] VITALS: BP 116/81
[2018-04-27] MEDS: HEPARIN FLSH (PORT) 500 UN/5ML IVP PRN (09:06)
[2018-04-27] MEDS: LIDOCAINE/SOD BICARB 8.4% SYR ID PRN (09:06)
[2018-04-27] MEDS: NS(*) 0.9% 500 ML BAG 500 ML IV PRN (10:05)
[2018-04-27 11:00] VITALS: BP 109/71
--- NOTE | 2018-04-28 09:37 | ONCOLOGY FOLLOW UP NOTE ---
EVENT DATE: April 27, 2018 CHIEF COMPLAINT Followup for metastatic renal cell carcinoma. HISTORY OF PRESENT ILLNESS Patient is a 78-year-old male who is seen today for consideration of cycle #2 of Opdivo. He is now home and doing very well. His weight is stable and most recent labs have been within normal limits. He has intermittent hiccups and esophageal spasms but this is controlled on p.r.n. chlorpromazine. He will continue prednisone 10 mg through May 01, 2018 and then discontinue this. They have an appointment to see Dr. Koroma, urologist, today as he still has his Reid catheter. He is not using his tube feeding. He and his are considering going to [place], [place] from May through July and understand that treatment would have to be arranged there. ONCOLOGY HISTORY Patient is a 78-year-old male who presented with low back pain and left groin pain in October 2017. He had some physical therapy and cortisone injection into the left hip without improvement. He had an MRI which showed renal mass with mets to the spine, followed by CT chest, abdomen, and pelvis done on December 11, 2017, which showed a big heterogeneous mass of the left kidney, 12.5 cm. There was also venous thrombosis with multiple veins in the pelvis and upper thighs likely extending into the inferior vena cava. There were numerous pulmonary nodules likely representing pulmonary metastasis with mediastinal adenopathy, likely metastatic. There were numerous lytic, destructive lesions in the bones including the anterior aspect of the right 10th and 11th ribs, T7, L1, and L4. There was also a large destructive lesion involving the left iliac bone with a large heterogeneous soft tissue mass component extending into the anterior aspect of the left acetabulum where there is pathologic fracture. The uncinate process of the liver is heterogeneous. PET CT scan done on the December showed a large mass involving the left kidney measuring nearly 13 cm with maximum SUV of 21.3. There were bilateral adrenal gland metastases, mediastinal and lung metastases, intra-abdominal adenopathy, left axillary lymphadenopathy, and extensive osseous metastatic disease. CT-guided biopsy on the December of the left iliac crest showed metastases consistent with clear-cell renal cell carcinoma. Began Yervoy and Opdivo on January 05, 2018 with plans to proceed with maintenance Opdivo after four cycles. 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 Began single agent Opdivo on April 13, 2018. PAST MEDICAL HISTORY 1. Metastatic renal cell carcinoma. 2. Bone metastases. 3. BPH with urinary retention. PAST SURGICAL HISTORY 1. Right knee replacement in 2010. 2. Prostate biopsy in 2008. 3. Left rotator cuff injury repair. 4. Bilateral cataract surgery. 5. Left renal embolization, 01/16/18. FAMILY HISTORY Brother had squamous cell carcinoma of the lip. Father had lung cancer. Sister had lung cancer. He had brother with kidney cancer. He had multiple cousins with brain, kidney, and lung cancer. SOCIAL HISTORY Patient is with two children. 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 He is a never smoker. He occasionally drinks beer. Denies any abuse of illicit drugs. CURRENT MEDICATIONS 1. Tamsulosin 0.4 mg daily. 2. Chlorpromazine 25 mg t.i.d. p.r.n. 3. Prednisone 10 mg daily through May 01, 2018. ALLERGIES OXYCONTIN causes rash. LABS CBC today reveals WBC of 9.4, hemoglobin 14.2, hematocrit 42.8, platelets 200,000. CMP is within normal limits except for random glucose of 187. Thyroid function test on April 13, 2018 were within normal limits. REVIEW OF SYSTEMS A 12-point review of systems is performed and is negative except as stated above. PHYSICAL EXAMINATION VITAL SIGNS: Weight 71.2 kg, BP 116/81, pulse 112, R 17, temp 97.6, O2 saturation 96%. GENERAL: Patient is a well-developed, well-nourished male in no acute distress. HEAD: Normocephalic, atraumatic. EYES: Sclerae anicteric. MOUTH: Moist mucous membranes. No lesions. NECK: Supple. No palpable adenopathy. CARDIOVASCULAR: Heart rate was mildly tachycardic with regular rhythm. LUNGS: Clear bilaterally. ABDOMEN: Soft, nontender active bowel sounds. EXTREMITIES: No edema. NEUROLOGIC: Nonfocal. IMPRESSION AND PLAN The patient is a 78-year-old male diagnosed with metastatic renal cell carcinoma. 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 Re-started single-agent Opdivo on April 13, 2018. 1. Metastatic renal cell carcinoma. Cycles #2 of Opdivo. He has tolerated this without issue. 2. Bone metastases. Patient will continue Xgeva 120 mg subcutaneous every four weeks. 3. Hiccups/esophageal spasms. Chlorpromazine 25 mg t.i.d. is refilled. He uses this on a p.r.n. basis. 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 He has been on a long prednisone taper and will continue 10 mg daily through May 01, 2018. Prednisone will then be discontinued. 5. . Still with Reid catheter. They have tried to remove it twice but he had significant residual urine. He has an appointment to see Dr. Koroma today. 6. Weight. Weight is very stable. He is eating a full diet and having no issues. He still has his G-tube in and will consider discontinuing this in the future. 7. Followup in two weeks for cycle #3 of treatment. MTDD
[2018-05-11 08:50] VITALS: BP 115/76
[2018-05-11] MEDS: NS(*) 0.9% 500 ML BAG 500 ML IV PRN (09:56)
[2018-05-11] MEDS: LIDOCAINE/SOD BICARB 8.4% SYR ID PRN (09:57)
--- NOTE | 2018-05-11 10:52 | [facility] ONCOLOGY NOTE ---
EVENT DATE: May 11, 2018 DIAGNOSES 1. Metastatic renal cell carcinoma. 2. Bone metastases. CHIEF COMPLAINT Patient is here today for treatment with Opdivo for his metastatic renal cell carcinoma. ONCOLOGY HISTORY Patient is a 78-year-old male who saw Nola Nunez for low back pain and left groin pain. He started the process of followup of his pain since October as per patient. He had some physical therapy and cortisone injection into the left hip without improvement. He had an MRI which showed renal mass with mets to the spine, so the patient had after that CT chest, abdomen, and pelvis done on December 11, 2017, which showed a big heterogeneous mass of the left kidney, 12.5 cm. There was also venous thrombosis with multiple veins in the pelvis and upper thighs likely extending into the inferior vena cava. There were numerous pulmonary nodules likely representing pulmonary metastasis with mediastinal adenopathy likely metastatic. There were numerous lytic, destructive lesions in the bones including the anterior aspect of the right 10th and 11th ribs, T7, L1, and L4. There was also a large destructive lesion involving the left iliac bone with a large heterogeneous soft tissue mass component extending into the anterior aspect of the left acetabulum where there is pathologic fracture. The uncinate process of the liver is heterogeneous. PET/CT scan done on December 20, 2017 showed a large mass involving the left kidney measuring nearly 13 cm with maximum SUV of 21.3. There were bilateral adrenal gland metastases, mediastinal and lung metastases, intra-abdominal adenopathy, left axillary lymphadenopathy, and extensive osseous metastatic disease. CT-guided biopsy of the left iliac crest showed metastases consistent with clear-cell renal cell carcinoma, and the biopsy was done on December 22, 2017. Patient started treatment with Opdivo and Yervoy at the beginning of January 2018. Patient received three doses of Yervoy and Opdivo every month, and the treatment was stopped after that because of the elevation of the liver enzymes thought to be due to immune reaction. Patient started Opdivo single agent on April 13, 2018. Treatment with Opdivo is stopped on May 11, 2018, because of the rise of the liver enzymes again. HISTORY OF PRESENT ILLNESS Patient is here today for followup of his renal cell carcinoma metastatic disease, on treatment with Opdivo single agent. He is complaining of some shortness of breath and some weakness and fatigue and hiccups but other than that he is really stable and his general condition is stable. PAST MEDICAL HISTORY Benign prostatic hypertrophy with urinary retention in 2016, currently on tamsulosin. PAST SURGICAL HISTORY 1. Right knee replacement in 2010. 2. Prostate biopsy in 2008. 3. Left rotator cuff injury repair. 4. Bilateral cataract surgery. FAMILY HISTORY Brother had squamous cell carcinoma of the lip. Father had lung cancer. Sister had lung cancer. He had brother with kidney cancer. He had multiple cousins with brain, kidney, and lung cancer. SOCIAL HISTORY Patient is with two children. 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 He is a never smoker. He occasionally drinks beer. Denies any abuse of illicit drugs. CURRENT MEDICATIONS 1. Tamsulosin 0.4 mg daily. 2. Baclofen 10 mg t.i.d. p.r.n. ALLERGIES OXYCONTIN which caused rash. REVIEW OF SYSTEMS CONSTITUTIONAL: No appetite or weight change. No fever, chills, or sweating. No recent infection. HEENT: Ears: No tinnitus or hearing problem. Nose: No nasal discharge or epistaxis. Throat: No sore throat or mouth ulcers. Eyes: No diplopia or visual changes. RESPIRATORY: Patient has shortness of breath. CARDIOVASCULAR: No chest pain, orthopnea, or paroxysmal nocturnal dyspnea (PND). No edema. No palpitations. GASTROINTESTINAL: He has hiccups. GENITOURINARY: No hematuria or dysuria. MUSCULOSKELETAL: No pain in the muscles, joints, or bones. NEUROLOGICAL: No tingling or numbness in the hands or feet. No headaches or convulsions. HEMATOLOGIC/LYMPHATIC: He is weak, tired and fatigued. SKIN: No skin rash or lumps. PSYCHIATRIC: No anxiety or depression. PHYSICAL EXAMINATION GENERAL: Looks stable. Well developed, well nourished, and in no acute distress. VITAL SIGNS: Blood pressure 115/76, pulse 107 per minute, respirations 16 per minute, temperature 98.3, pulse ox 95% on room air. HEENT: Head: Atraumatic. No sinus tenderness to palpation. Eyes: No icterus or conjunctivitis. Mouth and Throat: No oral thrush or mucositis. NECK: Supple. No cervical or supraclavicular lymphadenopathy. LUNGS: Clear to auscultation and percussion bilaterally. HEART: Regular rate and rhythm. No gallops, murmurs, clicks, or rubs. ABDOMEN: Soft and lax. No tenderness. No hepatosplenomegaly. No masses. EXTREMITIES: No cyanosis, clubbing, or edema. LYMPHATICS: No peripheral lymphadenopathy. NEUROLOGICAL: Conscious, alert, and oriented times three. No focal motor or sensory deficits. PSYCHIATRIC: Mood and affect appear normal. SKIN: No skin rash, bruise, or purpuric eruption. DIAGNOSTIC DATA CBC showed white count 4.9, hemoglobin 13.3, hematocrit 39.5, platelets 146,000. Chem panel totally normal except carbon dioxide 20, creatinine 1.6, blood sugar 182. AST 60, ALT 90, alkaline phosphatase 281, TSH normal at 2.23. ASSESSMENT 1. Metastatic renal cell carcinoma of the left kidney with metastasis to the left iliac bone and multiple pulmonary metastases, mediastinal adenopathy, bilateral adrenal and intra-abdominal adenopathy, and left axillary adenopathy. MRI of the brain done December 19, 2017 was negative for brain metastasis but there may be some osseous metastasis of the posterior right parietal skull bone. PET/CT scan done on December 20, 2017 showed a large mass involving the left kidney measuring 13 cm with SUV 21.3 with bilateral adrenal gland metastases, mediastinal and lung metastases, intra-abdominal adenopathy, left axillary lymphadenopathy and extensive osseous metastatic disease. CT-guided biopsy of the left iliac bone done on December 22, 2017 came back positive for metastases from clear-cell renal cell carcinoma. Patient started treatment with Yervoy and Opdivo at the beginning of January 2018. He received three courses and treatment was stopped because of the development of elevation of the liver enzymes, which normalized after stopping the treatment and steroid therapy. Patient developed also hematuria with anticoagulation so patient was referred to the hospital in [facility] with placement of inferior vena cava filter and tying of the blood vessels of the bleeding kidney. Patient is doing fine currently regarding the bleeding. Patient resumed treatment with single agent Opdivo on April 13, 2018, but his liver enzymes today have started to rise up again and for this reason I am planning to stop his treatment with Opdivo for fear of autoimmune hepatitis due to the immune reaction from Opdivo. I am planning to bring him in a week with CBC, chem panel, TSH, free T3, free T4 and I will treat him in the future with temsirolimus after normalization of his liver enzymes. I explained that to the patient and his and they are agreeable with the plan of management. 2. Bony metastases. Continue Xgeva 120 mg subcutaneously every four weeks. 3. Elevated liver enzymes, most probably due to Opdivo. I am planning to discontinue Opdivo permanently for fear of immune reaction from Opdivo in the liver and I will try to treat him in the future with temsirolimus. PLAN 1. Stop Opdivo. 2. Patient to return in one week with CBC, chem panel, TSH, free T3, free T4 and magnesium level. 3. Consider treatment with temsirolimus after normalization of liver enzymes. 4. Patient to contact us for any new concerns or complaints. MTDD
[2018-05-16 11:45] VITALS: BP 117/79
[2018-05-16 12:12] LABS: PLATELET COUNT, AUTOMATED 196 K/uL (150-450)
[2018-05-16] MEDS: HEPARIN FLSH (PORT) 500 UN/5ML IVP PRN (13:31)
[2018-05-16] MEDS: NS(*) 0.9% 500 ML BAG 500 ML IV PRN (13:31)
[2018-05-16] MEDS: LIDOCAINE/SOD BICARB 8.4% SYR ID PRN (13:32)
--- NOTE | 2018-05-19 09:19 | ONCOLOGY FOLLOW UP NOTE ---
EVENT DATE: May 16, 2018 CHIEF COMPLAINT Followup for metastatic renal cell carcinoma. HISTORY OF PRESENT ILLNESS Patient is a 78-year-old male who is seen today as a work-in. He was noted to have increased liver function test when seen by Dr. Ross on May 11, 2018. Opdivo was discontinued. His states that he is very fatigued. She feels like he is getting "weaker with less balance every day". He fell last night. He is eating fairly well. Reid has now been removed. The patient himself denies any specific complaints but his is concerned about his overall status. ONCOLOGY HISTORY Patient is a 78-year-old male who presented with low back pain and left groin pain in October 2017. He had some physical therapy and cortisone injection into the left hip without improvement. He had an MRI which showed renal mass with mets to the spine, followed by CT chest, abdomen, and pelvis done on December 11, 2017, which showed a big heterogeneous mass of the left kidney, 12.5 cm. There was also venous thrombosis with multiple veins in the pelvis and upper thighs likely extending into the inferior vena cava. There were numerous pulmonary nodules likely representing pulmonary metastasis with mediastinal adenopathy, likely metastatic. There were numerous lytic, destructive lesions in the bones including the anterior aspect of the right 10th and 11th ribs, T7, L1, and L4. There was also a large destructive lesion involving the left iliac bone with a large heterogeneous soft tissue mass component extending into the anterior aspect of the left acetabulum where there is pathologic fracture. The uncinate process of the liver is heterogeneous. PET CT scan done on the December showed a large mass involving the left kidney measuring nearly 13 cm with maximum SUV of 21.3. There were bilateral adrenal gland metastases, mediastinal and lung metastases, intra-abdominal adenopathy, left axillary lymphadenopathy, and extensive osseous metastatic disease. CT-guided biopsy on the December of the left iliac crest showed metastases consistent with clear-cell renal cell carcinoma. Began Yervoy and Opdivo on January 05, 2018 with plans to proceed with maintenance Opdivo after four cycles. 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 Began single agent Opdivo on April 13, 2018. Opdivo was discontinued on May 11, 2018 because of increased liver function tests. PAST MEDICAL HISTORY 1. Metastatic renal cell carcinoma. 2. Bone metastases. 3. BPH with urinary retention. 4. Bilateral lower extremity DVT. PAST SURGICAL HISTORY 1. Right knee replacement in 2010. 2. Prostate biopsy in 2008. 3. Left rotator cuff injury repair. 4. Bilateral cataract surgery. 5. Left renal embolization, 01/16/18. FAMILY HISTORY Brother had squamous cell carcinoma of the lip. Father had lung cancer. Sister had lung cancer. He had brother with kidney cancer. He had multiple cousins with brain, kidney, and lung cancer. SOCIAL HISTORY Patient is with two children. 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 He is a never smoker. He occasionally drinks beer. Denies any abuse of illicit drugs. CURRENT MEDICATIONS 1. Tamsulosin 0.4 mg daily. 2. Chlorpromazine 25 mg t.i.d. p.r.n. 3. Eliquis. ALLERGIES OXYCONTIN causes rash. REVIEW OF SYSTEMS A 12-point review of systems is performed and is negative except as stated above. PHYSICAL EXAMINATION VITAL SIGNS: Weight 75.1kg, BP 117/79, P 106, R 16, temp 98.4, O2 saturation 98%. GENERAL: Patient is a well-developed, well-nourished male in no acute distress. HEAD: Normocephalic, atraumatic. EYES: Sclerae anicteric. MOUTH: Slightly dry mucous membranes. No lesions. NECK: Supple. No palpable adenopathy. CARDIOVASCULAR: Heart rate regular, 104 per minute without murmur, S3 or S4. LUNGS: Clear bilaterally. ABDOMEN: Soft, nontender with active bowel sounds. G-tube in place. EXTREMITIES: No edema. NEUROLOGIC: Nonfocal. LABS CBC today reveals WBC of 5.5, hemoglobin 13.3, hematocrit 39.4, platelets 196,000. CMP reveals a sodium 135, BUN 22, creatinine 1.6, AST 66, ALT 93, alkaline phosphatase 393. Bilirubin is normal. IMPRESSION AND PLAN The patient is a 78-year-old male diagnosed with metastatic renal cell carcinoma. 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 Re-started single-agent Opdivo on April 13, 2018, discontinued on May 11, 2018 due to increased LFTs. 1. Metastatic renal cell carcinoma. Opdivo has been discontinued due to elevated liver function tests. Dr. Ross is planning treatment with temsirolimus once his liver function tests have stabilized. 2. Elevated liver function tests. AST and ALT are similar to those drawn on May 11, 2018. However, alkaline phosphatase has increased from 295 to 393. Based on NCCN guidelines, prednisone 0.5 mg/kg/day (40 mg) is prescribed. Labs will be redrawn on May 21, 2018, and decisions regarding prednisone taper will be made at that time. 3. Bone metastases. Continue Xgeva 120 mg subcutaneous every four weeks. 3. Hiccups. Continue chlorpromazine 25 mg t.i.d. 4. . Reid catheter has now been removed. He is voiding without issue. 5. Bilateral lower extremity deep venous thrombosis. Continue Eliquis. 6. Follow up on May 21, 2018. CBC and CMP will be drawn at that time. MTDD
[2018-05-21 11:10] VITALS: BP 122/74
[2018-05-21 11:28] LABS: PLATELET COUNT, AUTOMATED 284 K/uL (150-450)
--- NOTE | 2018-05-22 02:58 | ONCOLOGY FOLLOW UP NOTE ---
EVENT DATE: May 21, 2018 CHIEF COMPLAINT Followup for metastatic renal cell carcinoma. HISTORY OF PRESENT ILLNESS Patient is a 78-year-old male who was seen today in followup. When seen on 05/11/18, he was noted to have increased LFTs, and Dr. Ross discontinued the Opdivo. He was again seen on 05/16/18 after his noted increasing symptoms of "sleeping all the time and being off balance." LFTs increased more, and he was started on prednisone. Today he presents and is feeling much better. His noted an almost immediate improvement in symptoms after starting the prednisone. His only complaint is that of intermittent hiccups, although these last for approximately three to four hours. It is not associated with any foods. He and his also wonder if the G-tube could be removed. ONCOLOGY HISTORY Patient is a 78-year-old male who presented with low back pain and left groin pain in October 2017. He had some physical therapy and cortisone injection into the left hip without improvement. He had an MRI which showed renal mass with mets to the spine, followed by CT chest, abdomen, and pelvis done on December 11, 2017, which showed a big heterogeneous mass of the left kidney, 12.5 cm. There was also venous thrombosis with multiple veins in the pelvis and upper thighs likely extending into the inferior vena cava. There were numerous pulmonary nodules likely representing pulmonary metastasis with mediastinal adenopathy, likely metastatic. There were numerous lytic, destructive lesions in the bones including the anterior aspect of the right 10th and 11th ribs, T7, L1, and L4. There was also a large destructive lesion involving the left iliac bone with a large heterogeneous soft tissue mass component extending into the anterior aspect of the left acetabulum where there is pathologic fracture. The uncinate process of the liver is heterogeneous. PET/CT scan done on the December showed a large mass involving the left kidney measuring nearly 13 cm with maximum SUV of 21.3. There were bilateral adrenal gland metastases, mediastinal and lung metastases, intra- abdominal adenopathy, left axillary lymphadenopathy, and extensive osseous metastatic disease. CT-guided biopsy on the December of the left iliac crest showed metastases consistent with clear-cell renal cell carcinoma. Began Yervoy and Opdivo on January 05, 2018, with plans to proceed with maintenance Opdivo after four cycles. 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 Began single agent Opdivo on April 13, 2018. Opdivo was discontinued on May 11, 2018, because of increased liver function tests. PAST MEDICAL HISTORY 1. Metastatic renal cell carcinoma. 2. Bone metastases. 3. BPH with urinary retention. 4. Bilateral lower extremity DVT. PAST SURGICAL HISTORY 1. Right knee replacement in 2010. 2. Prostate biopsy in 2008. 3. Left rotator cuff injury repair. 4. Bilateral cataract surgery. 5. Left renal embolization, 01/16/18. FAMILY HISTORY Brother had squamous cell carcinoma of the lip. Father had lung cancer. Sister had lung cancer. He had brother with kidney cancer. He had multiple cousins with brain, kidney, and lung cancer. SOCIAL HISTORY Patient is with two children. 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 He is a never smoker. He occasionally drinks beer. Denies any abuse of illicit drugs. CURRENT MEDICATIONS 1. Tamsulosin 0.4 mg b.i.d. 2. Chlorpromazine 25 mg t.i.d. p.r.n. 3. Eliquis. 4. Omeprazole 20 mg daily. 5. Levothyroxine. 6. Probiotic. ALLERGIES OXYCONTIN causes rash. REVIEW OF SYSTEMS A 12-point review of systems is performed and is negative except as stated above. PHYSICAL EXAMINATION VITAL SIGNS: Blood pressure 117/79, pulse 92, respirations 16, temp 97.2, O2 saturation 96%. GENERAL: Patient is a well-developed, well-nourished male in no acute distress. He appears much more alert and stable with ambulation today. HEAD: Normocephalic, atraumatic. EYES: Sclerae anicteric. MOUTH: Moist mucous membranes. No lesions. NECK: Supple. No palpable adenopathy. CARDIOVASCULAR: Heart rate regular, 92 per minute, without murmur, S3 or S4. EXTREMITIES: No edema. NEUROLOGIC: Nonfocal. LABS CBC today reveals a WBC of 9.9, hemoglobin 14.3, hematocrit 42.5, platelets 284,000. CMP shows a BUN of 35, creatinine 1.5, random glucose 187, alkaline phosphatase 221, normal AST and ALT. IMPRESSION AND PLAN The patient is a 78-year-old male diagnosed with metastatic renal cell carcinoma. 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 Re-started single-agent Opdivo on April 13, 2018, discontinued on May 11, 2018, due to increased LFTs. 1. Metastatic renal cell carcinoma. Opdivo remains permanently discontinued due to elevated liver function tests. Dr. Ross is planning treatment with temsirolimus once liver function tests have stabilized. 2. Elevated liver function tests. Began prednisone 40 mg daily on 05/16/18. AST and ALT are now within normal limits. Alkaline phosphatase has decreased from 393 to 221 today. For this reason, prednisone will be decreased to 30 mg daily. Labs will be repeated again on 05/28/18 and decisions regarding further prednisone taper will be made at the time. 3. Hiccups. Currently using chlorpromazine, which is not terribly effective. He does describe some mild gastroesophageal reflux disease symptoms. He will increase omeprazole to 20 mg twice per day. 4. Feeding tube. Patient and his wonder if this can be discontinued. I will review this with Dr. Ross and notify them of his decision. 5. Genitourinary. Reid catheter has now been removed. He is voiding without issue. 6. Bilateral lower-extremity deep venous thrombosis. Continue Eliquis. 7. Follow up in one week for CMP. 8. Follow up with Dr. Ross on 06/01/18 for continued care. Labs including CBC and CMP will be repeated at that time. MTDD
[2018-05-28 09:36] VITALS: BP 122/79
[2018-05-28 09:40] LABS: PLATELET COUNT, AUTOMATED 200 K/uL (150-450)
--- NOTE | 2018-06-01 11:06 | [facility] ONCOLOGY NOTE ---
EVENT DATE: June 01, 2018 DIAGNOSES 1. Metastatic renal cell carcinoma. 2. Bone metastases. CHIEF COMPLAINT Patient is here today for followup of his metastatic renal cell carcinoma. ONCOLOGY HISTORY Patient is a 78-year-old male who saw Nola Nunez for low back pain and left groin pain. He started the process of followup of his pain since October as per patient. He had some physical therapy and cortisone injection into the left hip without improvement. He had an MRI which showed renal mass with mets to the spine, so the patient had after that CT chest, abdomen, and pelvis done on December 11, 2017, which showed a big heterogeneous mass of the left kidney, 12.5 cm. There was also venous thrombosis with multiple veins in the pelvis and upper thighs likely extending into the inferior vena cava. There were numerous pulmonary nodules likely representing pulmonary metastasis with mediastinal adenopathy likely metastatic. There were numerous lytic, destructive lesions in the bones including the anterior aspect of the right 10th and 11th ribs, T7, L1, and L4. There was also a large destructive lesion involving the left iliac bone with a large heterogeneous soft tissue mass component extending into the anterior aspect of the left acetabulum where there is pathologic fracture. The uncinate process of the liver is heterogeneous. PET/CT scan done on December 20, 2017 showed a large mass involving the left kidney measuring nearly 13 cm with maximum SUV of 21.3. There were bilateral adrenal gland metastases, mediastinal and lung metastases, intra-abdominal adenopathy, left axillary lymphadenopathy, and extensive osseous metastatic disease. CT-guided biopsy of the left iliac crest showed metastases consistent with clear-cell renal cell carcinoma, and the biopsy was done on December 22, 2017. Patient started treatment with Opdivo and Yervoy at the beginning of January 2018. Patient received three doses of Yervoy and Opdivo every month, and the treatment was stopped after that because of the elevation of the liver enzymes thought to be due to immune reaction. Patient started Opdivo single agent on April 13, 2018. Treatment with Opdivo is stopped on May 11, 2018, because of the rise of the liver enzymes again. HISTORY OF PRESENT ILLNESS Patient is here today for followup of his renal cell carcinoma. He is doing very well currently. Apart from having diarrhea, seems to be related to omeprazole and they are stopping omeprazole, he is doing really very well. PAST MEDICAL HISTORY Benign prostatic hypertrophy with urinary retention in 2016, currently on tamsulosin. PAST SURGICAL HISTORY 1. Right knee replacement in 2010. 2. Prostate biopsy in 2008. 3. Left rotator cuff injury repair. 4. Bilateral cataract surgery. FAMILY HISTORY Brother had squamous cell carcinoma of the lip. Father had lung cancer. Sister had lung cancer. He had brother with kidney cancer. He had multiple cousins with brain, kidney, and lung cancer. SOCIAL HISTORY Patient is with two children. 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 He is a never smoker. He occasionally drinks beer. Denies any abuse of illicit drugs. CURRENT MEDICATIONS 1. Tamsulosin 0.4 mg daily. 2. Baclofen 10 mg t.i.d. p.r.n. ALLERGIES OXYCONTIN which caused rash. REVIEW OF SYSTEMS CONSTITUTIONAL: No appetite or weight change. No fever, chills, or sweating. No recent infection. HEENT: Ears: No tinnitus or hearing problem. Nose: No nasal discharge or epistaxis. Throat: No sore throat or mouth ulcers. Eyes: No diplopia or visual changes. RESPIRATORY: Patient has shortness of breath. CARDIOVASCULAR: No chest pain, orthopnea, or paroxysmal nocturnal dyspnea (PND). No edema. No palpitations. GASTROINTESTINAL: He has diarrhea related to omeprazole, resolved with discontinuation of omeprazole. GENITOURINARY: No hematuria or dysuria. MUSCULOSKELETAL: No pain in the muscles, joints, or bones. NEUROLOGICAL: No tingling or numbness in the hands or feet. No headaches or convulsions. HEMATOLOGIC/LYMPHATIC: He is weak, tired and fatigued. SKIN: No skin rash or lumps. PSYCHIATRIC: No anxiety or depression. PHYSICAL EXAMINATION GENERAL: Looks stable. Well developed, well nourished, and in no acute distress. VITAL SIGNS: Blood pressure 125/78, pulse 78 per minute, respirations 16 per minute, temperature 97, pulse ox 97% on room air. HEENT: Head: Atraumatic. No sinus tenderness to palpation. Eyes: No icterus or conjunctivitis. Mouth and Throat: No oral thrush or mucositis. NECK: Supple. No cervical or supraclavicular lymphadenopathy. LUNGS: Clear to auscultation and percussion bilaterally. HEART: Regular rate and rhythm. No gallops, murmurs, clicks, or rubs. ABDOMEN: Soft and lax. No tenderness. No hepatosplenomegaly. No masses. EXTREMITIES: No cyanosis, clubbing, or edema. LYMPHATICS: No peripheral lymphadenopathy. NEUROLOGICAL: Conscious, alert, and oriented times three. No focal motor or sensory deficits. PSYCHIATRIC: Mood and affect appear normal. SKIN: No skin rash, bruise, or purpuric eruption. DIAGNOSTIC DATA CBC showed white count 13,000, hemoglobin 14.8, hematocrit 46.4, platelets 200,000. Chem panel totally normal except BUN 25, creatinine 1.4, blood sugar 141 and alkaline phosphatase 130. ASSESSMENT 1. Metastatic renal cell carcinoma of the left kidney with metastasis to the left iliac bone and multiple pulmonary metastases, mediastinal adenopathy, bilateral adrenal and intra-abdominal adenopathy, and left axillary adenopathy. MRI of the brain done December 19, 2017, was negative for brain metastasis but there may be some osseous metastasis of the posterior right parietal skull bone. PET/CT scan done on December 20, 2017, showed a large mass involving the left kidney measuring 13 cm with SUV 21.3 with bilateral adrenal gland metastases, mediastinal and lung metastases, intra-abdominal adenopathy, left axillary lymphadenopathy and extensive osseous metastatic disease. CT-guided biopsy of the left iliac bone done on December 22, 2017, came back positive for metastases from clear-cell renal cell carcinoma. Patient started treatment with Yervoy and Opdivo at the beginning of January 2018. He received three courses and treatment was stopped because of the development of elevation of the liver enzymes, which normalized after stopping the treatment and steroid therapy. Patient developed also hematuria with anticoagulation so patient was referred to the hospital in [facility] with placement of inferior vena cava filter and tying of the blood vessels of the bleeding kidney. Patient is doing fine currently regarding the bleeding. He resumed treatment with single agent Opdivo on April 13, 2018, but again he developed elevation of the liver enzymes so the treatment was stopped. He received a course of prednisone with normalization of his transaminases. I talked to the patient and his today regarding further management. I am planning to treat him with temsirolimus 25 mg weekly intravenously. Patient and his are agreeable with the plan of management. We are planning to start his treatment next week. Patient will come on a weekly basis with CBC, chem panel prior to each dose of temsirolimus and I will see him in a month from now with CBC and chem panel. 2. Bony metastases. Continue Xgeva 120 mg subcutaneously every four weeks. 3. Elevated liver enzymes, normalized with steroid therapy. It is thought to be due to Opdivo, which was stopped. PLAN 1. Temsirolimus to start next week. 2. CBC and chem panel to be checked weekly. 3. Patient to return in one month with CBC and chem panel. 4. Continue Xgeva 120 mg subcutaneously every four weeks. 5. Patient to contact us for any new concerns or complaints. MTDD
--- NOTE | 2018-06-07 09:54 | NUR ---
WING rec'd a request from pt's spouse to get an updated handicap placard. WING verified with department of transportation that the updated placard could be provided by completing the same form as they had previously. WING located the form and had it completed by YEIMI Cole. It was returned to the pt's .
[2018-06-07 09:56] VITALS: BP 120/80
[2018-06-07] MEDS: LIDOCAINE/SOD BICARB 8.4% SYR ID PRN (09:59)
[2018-06-07] MEDS: NS(*) 0.9% 500 ML BAG 500 ML IV PRN (09:59)
[2018-06-07] MEDS: diphenhydrAMINE 50 MG/ML VIAL IVP PRN (10:58)
[2018-06-07] MEDS: HEPARIN FLSH (PORT) 500 UN/5ML IVP PRN (12:29)
--- NOTE | 2018-06-07 14:02 | ONCOLOGY CHEMO TEACHING ---
EVENT DATE: June 07, 2018 DIAGNOSIS Metastatic renal cell carcinoma. The patient and his are seen today for chemotherapy teaching. A total of 60 minutes was spent with them, 100% of which was [id number] counseling. HISTORY OF PRESENT ILLNESS Patient is a 78-year old male who was seen today to initiate treatment with temsirolimus. Overall, he is doing well. 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 LFTs have now returned to normal. He does complain of intermittent hiccups which occur almost daily. Chlorpromazine has not been helpful. A trial of increasing omeprazole was given but he then developed diarrhea. He also relates significant explosive diarrhea, which occurs every three days. Otherwise, he denies any new complaints. ONCOLOGY HISTORY Patient is a 78-year-old male who presented with low back pain and left groin pain in October 2017. He had some physical therapy and cortisone injection into the left hip without improvement. He had an MRI which showed renal mass with mets to the spine, followed by CT chest, abdomen, and pelvis done on December 11, 2017, which showed a big heterogeneous mass of the left kidney, 12.5 cm. There was also venous thrombosis with multiple veins in the pelvis and upper thighs likely extending into the inferior vena cava. There were numerous pulmonary nodules likely representing pulmonary metastasis with mediastinal adenopathy, likely metastatic. There were numerous lytic, destructive lesions in the bones including the anterior aspect of the right 10th and 11th ribs, T7, L1, and L4. There was also a large destructive lesion involving the left iliac bone with a large heterogeneous soft tissue mass component extending into the anterior aspect of the left acetabulum where there is pathologic fracture. PET/CT scan done on the December showed a large mass involving the left kidney measuring nearly 13 cm with maximum SUV of 21.3. There were bilateral adrenal gland metastases, mediastinal and lung metastases, intra-abdominal adenopathy, left axillary lymphadenopathy, and extensive osseous metastatic disease. CT- guided biopsy on the December of the left iliac crest showed metastases consistent with clear-cell renal cell carcinoma. Began Yervoy and Opdivo on January 05, 2018, with plans to proceed with maintenance Opdivo after four cycles. 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 Began single agent Opdivo on April 13, 2018. Opdivo was discontinued on May 11, 2018, because of increased liver function tests. Began temsirolimus on June 07, 2018. PAST MEDICAL HISTORY 1. Metastatic renal cell carcinoma. 2. Bone metastases. 3. BPH with urinary retention. 4. Bilateral lower extremity DVT. PAST SURGICAL HISTORY 1. Right knee replacement in 2010. 2. Prostate biopsy in 2008. 3. Left rotator cuff injury repair. 4. Bilateral cataract surgery. 5. Left renal embolization, 01/16/18. FAMILY HISTORY Brother had squamous cell carcinoma of the lip. Father had lung cancer. Sister had lung cancer. He had brother with kidney cancer. He had multiple cousins with brain, kidney, and lung cancer. SOCIAL HISTORY Patient is with two children. 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 He is a never smoker. He occasionally drinks beer. Denies any abuse of illicit drugs. CURRENT MEDICATIONS 1. Tamsulosin 0.4 mg b.i.d. 2. Chlorpromazine 25 mg t.i.d. p.r.n. 3. Eliquis. 4. Omeprazole 20 mg daily. 5. Levothyroxine. 6. Probiotic. ALLERGIES OXYCONTIN causes rash. DISCUSSION 1. A total of 60 minutes was spent in counseling today, 100% of which was face to face. At today's chemotherapy teaching session we discussed his diagnosis as well as the planned chemotherapy regimen and toxicities associated with temsirolimus. Handouts of each drug were provided and reviewed in detail. 2. Side effects and toxicities of chemotherapy agents included, but were not limited to: A. Bone marrow suppression, specifically neutropenia. He is instructed to contact our offices with any signs of infection. CBC will be monitored routinely. We discussed common sense approaches including routine hand washing and avoidance of crowds/sick people if neutropenic. We also reviewed that anemia and thrombocytopenia could occur on this medication. B. GI side effects. Discussed the possibility of nausea, vomiting, diarrhea and constipation. He will receive IV antiemetics and will be prescribed antiemetics for home use. If he were to have diarrhea, recommended Imodium. If he were to have constipation, recommended Senna-S or Miralax routinely. Further interventions will be made based on side effects. C. side effects. Discussed the importance of adequate hydration (minimum 8 cups of fluid per day) and emptying the bladder on a regular basis. IV hydration can be scheduled as needed. D. Mouth sores. Recommended salt water or baking soda gargles as needed. E. Skin toxicity. Discussed that chemotherapy was very drying to the skin and mucous membranes. Recommended routine moisturizing as well as sun protection. F. Fatigue. Discussed that this is one of the most common complaints of patients undergoing chemotherapy. I have encouraged him to remain as active as possible, taking frequent rests as needed. G. Infusion reaction. Reviewed IV premedications. He will be monitored closely during infusions. 3. I have instructed the patient to call our office if he is prescribed any new medications. It is recommended that multiple supplements or herbal medications not be taken as these may interfere with the action of the chemotherapy. 4. Discussed dietary issues associated with chemotherapy including anorexia and change in taste. A handout of nutrition information is given. 5. Office contact information ([phone]) is given. I have encouraged the patient to call with any issues regarding treatment. 6. Patient will begin cycle #1 of temsirolimus today. He feels ready for today's treatments. MTDD
[2018-06-14 09:49] VITALS: BP 132/81
[2018-06-14] MEDS: HEPARIN FLSH (PORT) 500 UN/5ML IVP PRN ×2 (09:56→10:47)
[2018-06-14] MEDS: LIDOCAINE/SOD BICARB 8.4% SYR ID PRN ×2 (09:56→10:48)
[2018-06-14] MEDS: NS(*) 0.9% 500 ML BAG 500 ML IV PRN (09:56)
[2018-06-14] MEDS: diphenhydrAMINE 50 MG/ML VIAL IVP PRN (10:46)
[2018-06-14 12:37] VITALS: BP 146/85
--- NOTE | 2018-06-14 14:16 | ONCOLOGY FOLLOW UP NOTE ---
EVENT DATE: June 14, 2018 CHIEF COMPLAINT Followup for metastatic renal cell carcinoma. HISTORY OF PRESENT ILLNESS Patient is a 78-year-old male who is seen today for consideration of cycle #2 of temsirolimus. He tolerated his first treatment well. He has ongoing intermittent hiccups and does not find chlorpromazine to be very helpful. He was not able to tolerate omeprazole. He also has a history of intermittent diarrhea, which tends to occur on an every three day basis but it has not been persistent. Otherwise, he feels well and denies any other new complaints. He has an appointment to see Dr. Chowdhury on July 01, 2018 to have his G-tube removed. ONCOLOGY HISTORY Patient is a 78-year-old male who presented with low back pain and left groin pain in October 2017. He had some physical therapy and cortisone injection into the left hip without improvement. He had an MRI which showed renal mass with mets to the spine, followed by CT chest, abdomen, and pelvis done on December 11, 2017, which showed a big heterogeneous mass of the left kidney, 12.5 cm. There was also venous thrombosis with multiple veins in the pelvis and upper thighs likely extending into the inferior vena cava. There were numerous pulmonary nodules likely representing pulmonary metastasis with mediastinal adenopathy, likely metastatic. There were numerous lytic, destructive lesions in the bones including the anterior aspect of the right 10th and 11th ribs, T7, L1, and L4. There was also a large destructive lesion involving the left iliac bone with a large heterogeneous soft tissue mass component extending into the anterior aspect of the left acetabulum where there is pathologic fracture. PET/CT scan done on the December showed a large mass involving the left kidney measuring nearly 13 cm with maximum SUV of 21.3. There were bilateral adrenal gland metastases, mediastinal and lung metastases, intra-abdominal adenopathy, left axillary lymphadenopathy, and extensive osseous metastatic disease. CT- guided biopsy on the December of the left iliac crest showed metastases consistent with clear-cell renal cell carcinoma. Began Yervoy and Opdivo on January 05, 2018, with plans to proceed with maintenance Opdivo after four cycles. 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 Began single agent Opdivo on April 13, 2018. Opdivo was discontinued on May 11, 2018, because of increased liver function tests. Began temsirolimus on June 07, 2018. PAST MEDICAL HISTORY 1. Metastatic renal cell carcinoma. 2. Bone metastases. 3. BPH with urinary retention. 4. Bilateral lower extremity DVT. PAST SURGICAL HISTORY 1. Right knee replacement in 2010. 2. Prostate biopsy in 2008. 3. Left rotator cuff injury repair. 4. Bilateral cataract surgery. 5. Left renal embolization, 01/16/18. FAMILY HISTORY Brother had squamous cell carcinoma of the lip. Father had lung cancer. Sister had lung cancer. He had brother with kidney cancer. He had multiple cousins with brain, kidney, and lung cancer. SOCIAL HISTORY Patient is with two children. 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 He is a never smoker. He occasionally drinks beer. Denies any abuse of illicit drugs. CURRENT MEDICATIONS 1. Tamsulosin 0.4 mg b.i.d. 2. Chlorpromazine 25 mg t.i.d. p.r.n. 3. Eliquis. 4. Omeprazole 20 mg daily. 5. Levothyroxine. 6. Probiotic. ALLERGIES OXYCONTIN causes rash. REVIEW OF SYSTEMS A 12-point review of systems is performed and is negative except as stated above. PHYSICAL EXAMINATION VITAL SIGNS: Weight 75.3 kg. BP 132/81, P 79, R 16, temperature 97.8, O2 sat 97%. GENERAL: Patient is a well-developed, well-nourished male in no acute distress. HEAD: Normocephalic, atraumatic. EYES: Sclerae anicteric. MOUTH: Moist mucous membranes. NECK: Supple. No adenopathy. LUNGS: Clear bilaterally. CARDIOVASCULAR: Heart rate regular, 80 per minute, without murmur, S3 or S4. EXTREMITIES: No edema. NEUROLOGIC: Nonfocal. LABS CBC today reveals a WBC of 6.2, ANC of 4.0, hemoglobin 14.1, hematocrit 42.2, platelets 87,000. CMP is within normal limits except for a slightly elevated creatinine of 1.3 and random glucose of 184. IMPRESSION AND PLAN The patient is a 78-year-old male diagnosed with metastatic renal cell carcinoma. 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 Re-started single-agent Opdivo on April 13, 2018, discontinued on May 11, 2018, due to increased LFTs. Began temsirolimus on June 07, 2018. 1. Metastatic renal cell carcinoma. Cycle #2 of temsirolimus. As platelet count is greater than 75,000, he will continue at the 25 mg dose. Pending next week's platelet count, we may need to hold the dose for a week and then decrease to 20 mg. 2. Thrombocytopenia. Platelet count is 87,000 today. This is a known side effect with the temsirolimus. We reviewed bleeding precautions and he will notify us if he develops bleeding or excessive bruising. Dose may be reduced next week pending results. 3. G-tube. He has an appointment with Dr. Chowdhury on July 01, 2018 to have his G-tube removed. 4. Elevated liver function tests. CMP today is within normal limits. He will continue the prednisone taper as scheduled. 5. Bilateral DVT. Continue Eliquis. 6. Follow up on June 21, 2018 for cycle #3 of treatment, earlier if there is a problem. MTDD
[2018-06-18 08:55] VITALS: BP 131/85
--- NOTE | 2018-06-19 00:19 | ONCOLOGY FOLLOW UP NOTE ---
EVENT DATE: June 18, 2018 Patient is seen as a work-in today. He is a 78-year-old male with metastatic renal cell carcinoma, currently receiving temsirolimus. He presents today with a 12-hour history of a small pustule over his Port-A-Cath. There is some mild surrounding erythema, but no evidence of acute infection. I recommended warm compresses and monitoring this. He will follow up with us as needed. He also has an appointment today with Dr. Chowdhury for G-tube removal. I recommended they show this to Dr. Chowdhury while he is being seen. PATI
[~2018-06-21] VITALS: Ht 176.5 cm; Wt 74.8 kg
[~2018-06-21] MED LIST changes: +ALTEPLASE RECOMB 2 MG VIAL IVP PRN; +DENOSUMAB 120 MG/1.7 ML VIAL SUBQ PRN; +DEXTROSE 5%(*) 100 ML BAG 100 ML IVPB PRN; +NIVOLUMAB IVPB ONE; +NS 0.9% IV ONE; +NS 0.9% IVPB ONE; +NS(*) 0.9% 100 ML BAG 100 ML IVPB PRN; +WATER FOR INJ,STERILE 20 ML IVP PRN; +[UNRECOGNIZED DRUG - OTHER] IV ONE; +diphenhydrAMINE 25 MG CAP PO PRN
[2018-06-21 09:44] VITALS: BP 125/84
[2018-06-21] MEDS: LIDOCAINE/SOD BICARB 8.4% SYR ID PRN (10:00)
[2018-06-21] MEDS: NS(*) 0.9% 500 ML BAG 500 ML IV PRN (10:01)
[2018-06-21] MEDS: diphenhydrAMINE 50 MG/ML VIAL IVP PRN (10:37)
[2018-06-21 12:38] VITALS: BP 134/84
--- NOTE | 2018-06-21 16:10 | ONCOLOGY FOLLOW UP NOTE ---
EVENT DATE: June 21, 2018 CHIEF COMPLAINT Followup for metastatic renal cell carcinoma. HISTORY OF PRESENT ILLNESS The patient is a 78-year-old male who is seen today for consideration of cycle #3 of temsirolimus. He is tolerating this without issue. Last week, his platelet count had decreased to 87,000, but he did not develop any excessive bruising or bleeding. He had his G-tube removed per Dr. Chowdhury on 06/18/18. He presented with a small pustule over his Port-A-Cath, but this resolved with hot compresses. He has been having intermittent diarrhea occurring every three to four days, but recently started on Citrucel. Current prednisone dose is 5 mg daily. ONCOLOGY HISTORY Patient is a 78-year-old male who presented with low back pain and left groin pain in October 2017. He had some physical therapy and cortisone injection into the left hip without improvement. He had an MRI which showed renal mass with mets to the spine, followed by CT chest, abdomen, and pelvis done on December 11, 2017, which showed a big heterogeneous mass of the left kidney, 12.5 cm. There was also venous thrombosis with multiple veins in the pelvis and upper thighs, likely extending into the inferior vena cava. There were numerous pulmonary nodules likely representing pulmonary metastasis with mediastinal adenopathy, likely metastatic. There were numerous lytic, destructive lesions in the bones including the anterior aspect of the right 10th and 11th ribs, T7, L1, and L4. There was also a large destructive lesion involving the left iliac bone with a large heterogeneous soft tissue mass component extending into the anterior aspect of the left acetabulum where there is pathologic fracture. PET/CT scan done on the December showed a large mass involving the left kidney measuring nearly 13 cm with maximum SUV of 21.3. There were bilateral adrenal gland metastases, mediastinal and lung metastases, intra-abdominal adenopathy, left axillary lymphadenopathy, and extensive osseous metastatic disease. CT- guided biopsy on the December of the left iliac crest showed metastases consistent with clear-cell renal cell carcinoma. Began Yervoy and Opdivo on January 05, 2018, with plans to proceed with maintenance Opdivo after four cycles. 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 Began single agent Opdivo on April 13, 2018. Opdivo was discontinued on May 11, 2018, because of increased liver function tests. Began temsirolimus on June 07, 2018. PAST MEDICAL HISTORY 1. Metastatic renal cell carcinoma. 2. Bone metastases. 3. BPH with urinary retention. 4. Bilateral lower extremity DVT. PAST SURGICAL HISTORY 1. Right knee replacement in 2010. 2. Prostate biopsy in 2008. 3. Left rotator cuff injury repair. 4. Bilateral cataract surgery. 5. Left renal embolization, 01/16/18. FAMILY HISTORY Brother had squamous cell carcinoma of the lip. Father had lung cancer. Sister had lung cancer. He had a brother with kidney cancer. He had multiple cousins with brain, kidney, and lung cancer. SOCIAL HISTORY Patient is with two children. 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 He is a never smoker. He occasionally drinks beer. Denies any abuse of illicit drugs. CURRENT MEDICATIONS 1. Tamsulosin 0.4 mg b.i.d. 2. Chlorpromazine 25 mg t.i.d. p.r.n. 3. Eliquis. 4. Omeprazole 20 mg daily. 5. Levothyroxine. 6. Probiotic. 7. Prednisone taper. ALLERGIES OXYCONTIN causes rash. REVIEW OF SYSTEMS A 12-point review of systems is performed and is negative except as stated above. PHYSICAL EXAMINATION VITAL SIGNS: Weight 74.8 kg. BP 125/84, P 76, R 16, temp 98.3, O2 sat 97%. GENERAL: Patient is a well-developed, well-nourished male in no acute distress. HEAD: Normocephalic, atraumatic. EYES: Sclerae anicteric. MOUTH: Moist mucous membranes. LUNGS: Clear bilaterally. CARDIOVASCULAR: Heart rate regular, 76 per minute, without murmur, S3, or S4. ABDOMEN: Soft, nontender, with active bowel sounds. No organomegaly. Healing G-tube site. EXTREMITIES: No edema. NEUROLOGIC: Nonfocal. LABORATORY CBC today reveals WBC of 5.9, ANC of 4.0, hemoglobin 14.1, hematocrit 42.5, platelets 109,000. CMP is within normal limits except for a slightly elevated creatinine of 1.4 and AST of 38. IMPRESSION The patient is a 78-year-old male diagnosed with metastatic renal cell carcinoma. 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 Re-started single-agent Opdivo on April 13, 2018, discontinued on May 11, 2018, due to increased LFTs. Began temsirolimus on June 07, 2018. PLAN 1. Metastatic renal cell carcinoma. Cycle #3 of temsirolimus today. Platelet count has improved from 87,000 to 109,000, so we will continue at the 25 mg dose. Labs will be checked weekly. 2. Thrombocytopenia. Platelet count has increased to 109,000. He has had no evidence of excessive bruising or bleeding. Will continue to monitor. 3. G-tube. Patient is eating well. Weight has been very stable. Dr. Chowdhury removed his G-tube on 06/18/18. 4. Increased elevated liver tests. LFTs continue to be within normal limits. He is currently on prednisone 5 mg daily. I instructed him to decrease to 2.5 mg daily for one week and then discontinue. 5. Follow up in one week for continued care, earlier if there is a problem. MTDD
== END ==
LOC: ONC 03-16 07:14 → SPU 05-16 11:34 → ONC 06-01 09:13
PROVIDERS: ATTEND Internal Medicine Hematology
DX: Z51.11 Encounter for antineoplastic chemotherapy (principal); C64.2 Malignant neoplasm of left kidney, except renal pelvis; C78.00 Secondary malignant neoplasm of unspecified lung; C79.51 Secondary malignant neoplasm of bone; C79.72 Secondary malignant neoplasm of left adrenal gland; C79.71 Secondary malignant neoplasm of right adrenal gland; R59.0 Localized enlarged lymph nodes; M54.9 Dorsalgia, unspecified; R06.02 Shortness of breath; M89.8X5 Other specified disorders of bone, thigh; N40.0 Benign prostatic hyperplasia without lower urinary tract symptoms; Z79.899 Other long term (current) drug therapy; K59.00 Constipation, unspecified; R19.7 Diarrhea, unspecified; Z79.83 Long term (current) use of bisphosphonates; R06.6 Hiccough; Z79.01 Long term (current) use of anticoagulants; D69.59 Other secondary thrombocytopenia; Z93.1 Gastrostomy status; I82.503 Chronic embolism and thrombosis of unspecified deep veins of lower extremity, bilateral
CPT/HCPCS: 36415; 74022; 81001; 83735; 84439; 84443; 84480; 84481; 85025; 85027; 96372; 96375; 96413; G0463; J0897; J1200; J1642; J7040; J7050; J9299; J9330; 82040; 82247; 82310; 82374; 82435; 82565; 82947; 84075; 84132; 84155; 84295; 84450; 84460; 84520; 99212

== ENCOUNTER → 2018-08-29 | Outpatient (CLI) | payer MEDICARE, OTHER ==
[2018-01-22 10:40] VITALS: BMI 22.7
[~2018-08-29] MED LIST changes: -ALTEPLASE RECOMB 2 MG VIAL IVP PRN; +CETI10CA8 PO; -DENOSUMAB 120 MG/1.7 ML VIAL SUBQ PRN; -DEXTROSE 5%(*) 100 ML BAG 100 ML IVPB PRN; +IOPAMIDOL 76% 150 ML INFUS BTL 150 ML ONE; +METO-224 PO; +NITR-105 PO; -NIVOLUMAB IVPB ONE; -NS 0.9% IV ONE; -NS 0.9% IVPB ONE; -NS(*) 0.9% 100 ML BAG 100 ML IVPB PRN; +PRED-420 PO; -WATER FOR INJ,STERILE 20 ML IVP PRN; -[UNRECOGNIZED DRUG - OTHER] IV ONE; -diphenhydrAMINE 25 MG CAP PO PRN
--- NOTE | 2018-08-29 12:46 | RADIOLOGY IMAGING REPORT ---
FACILITY: [facility] PATIENT NAME: Jose D Wilson : 1940 MR: [id number] V: [id number] EXAM DATE: ORDERING PHYSICIAN: DOMINIQUE CLIFTON TECHNOLOGIST: Location: [facility] Patient: Jose D Wilson : 1940 Visit/Account:[id number] Date of Sevice: 08/29/2018 CT CHEST ABDOMEN PELVIS W & W/O HISTORY: Renal cell carcinoma ADDITIONAL HISTORY: None. TECHNIQUE: Pre and post administration of IV contrast axial images acquired through the chest abdome n and pelvis during the portal venous phase. Coronal and sagittal reformatting was also performed.Do se Lowering Technique One of the following dose optimization techniques was utilized in the performance of this exam: Autom ated exposure control; adjustment of the mA and/or kV according to the patient's size; or use of an i terative reconstruction technique. Specific details can be referenced in the facility's radiology C T exam operational policy. CONTRAST: 75 mL Isovue-370 COMPARISON: March 14, 2018 FINDINGS: CHEST: Lungs/Pleura: Previously noted 1 to 2 mm nodular focus in the lateral aspect of the left upper lobe appears stable and is best seen on image 52 of series 4 The linear stranding in the medial aspect of the left upper lobe appears relatively unchanged best se en on image 69. Previous 3 mm nodule in the anterior right lower lobe also appears stable best seen on image 229 Calcified granuloma in the anterior right lower lobe also appears unchanged best seen on image 253. There is a 2 mm noncalcified nodule posterior aspect right lower lobe that also appears unchanged and is best seen on image 202 Mediastinum/lymph nodes: Subcarinal mass has further decrease in size now measuring 2.3 x 1 cm previ ously measuring 2 x 3.5 cm. The anterior mediastinal lymph node has increased in size now measuring 2.3 x 2 cm previously measuri ng 1.4 x 0.7 cm and now contains a necrotic central region. This is best appreciated on image 37 of series 7. An AP window lymph node now measures 10 x 9 mm previously 7 x 9 mm and is best appreciated on image 3 9 Right hilar lymph node now measures 2.1 x 1.7 cm previously measuring 2.1 x 1.6 cm and is best apprec iated on image 49 Heart/vessels: There is an implanted right-sided port the distal tip is in the superior vena cava. There are coronary artery calcifications present and a trace pericardial effusion. There is extrinsi c compression on the inferior vena cava as it passes through the diaphragmatic hiatus secondary to ex trinsic compression by herniated fat appears similar to the prior study Bones/soft tissues: Severe pathologic fracture of the T8 vertebral body with underlying lytic lesion appears relatively unchanged. There is a healing fracture through the posterior lateral aspect of the left seventh rib ABDOMEN AND PELVIS: Hepatobiliary: Gallbladder severely contracted which could be related to a recent meal. Clinical co rrelation needed. Several small calcifications in the inferior right lobe Spleen: Negative. Pancreas: The pancreatic head appears heterogeneous to the greater extent than on the prior studies Adrenals: The right adrenal gland is mildly thickened. The previously noted left adrenal mass has f urther decreased in size and is barely perceptible at this time Kidneys ureters and bladder : Embolization coils along the left renal hilum again seen which are part ially obscuring view of the left kidney. The large heterogeneous left renal mass appears to have fur ther partially decreased in size now measuring 4.7 x 6 x 8.1 cm (AP times transverse times cc) previo usly measuring 6.1 x 8.3 x 9 cm is producing noted the posterior margin of the mass likely invades th e left quadratus lumborum muscle. Tiny hypodensities in the right kidney appear relatively unchanged . There is a new ovoid calcification in the vicinity of the left UVJ just lateral to the dome of the pr ostate measuring 7 x 6.5 mm. This was not present previously and ay represent a calculus lodged at the left UVJ Genitalia: Prostate gland is moderately enlarged and impinges upon the floor the bladderGI: There is extensive diverticulosis throughout the left-sided colon although no CT evidence of acute diverticul itis . Small hiatal hernia Vessels/spaces/nodes: Vena cava umbrella again noted unchanged in position. There are mild atherosc lerotic calcifications throughout the abdomen and pelvis . No pathologically enlarged lymph nodes are identified in the abdomen or pelvis Bones/soft tissues: Destructive lytic lesion involving the anterior left iliac bone appears relative ly unchanged. The lytic lesions involving L1 and L4 appear relatively unchanged. Mild wedging of L1 vertebral body appears relatively stable. There is a 1.7 x 1.3 cm lytic lesion with a soft tissue mass along the anterior aspect of the proxima l left femoral diaphysis that appears relatively unchanged in size. The moth-eaten appearance to the posterior cortex in the same location appears relatively unchanged. There is a small sclerotic lesi on in the left femoral head that remains unchanged may actually represent a bone island. There is a 6 mm lytic lesion left-sided the L2 vertebral body that appears unchanged Additional findings: None pertinent. IMPRESSION: There is a mixed response to therapy. All of the previously noted pulmonary nodules have remained st able. Although the subcarinal etta mass has decreased in size the anterior mediastinal adenopathy, AP wind ow adenopathy and right hilar adenopathy have increased in size Bone metastases appear stable as described above The head the pancreas appears heterogeneous to greater extent than on the prior study. If of clinica l concern further imaging could be performed with MR with and without contrast. Previous noted left adrenal mass has further decreased in size and is barely perceptible Heterogeneous left renal mass slightly decreased in size There is a new ovoid calcification in the vicinity of the left UVJ which may represent a distal left ureteral calculus as described above. Report Dictated By: Tiffanie Gautam MD at 08/29/2018 10:32 AM Report E-Signed By: Tiffanie Gautam MD at 08/29/2018 12:41 PM WSN:[id number]
== END ==
LOC: CT 00:25
PROVIDERS: ATTEND Internal Medicine Hematology
DX: C79.51 Secondary malignant neoplasm of bone (principal); R91.8 Other nonspecific abnormal finding of lung field; N20.0 Calculus of kidney; K44.9 Diaphragmatic hernia without obstruction or gangrene; R59.0 Localized enlarged lymph nodes
CPT/HCPCS: 71270; 74178; Q9967

== ENCOUNTER 2018-09-20 09:38 | Outpatient (RCR) | payer MEDICARE, OTHER ==
[2018-01-22 10:40] VITALS: Ht 176.5 cm; Wt 77.7 kg
[2018-06-28 09:46] VITALS: BP 133/90
[2018-06-28] MEDS: diphenhydrAMINE 50 MG/ML VIAL IVP PRN (10:54)
[2018-06-28] MEDS: NS(*) 0.9% 500 ML BAG 500 ML IV PRN (10:54)
[2018-06-28] MEDS: LIDOCAINE/SOD BICARB 8.4% SYR ID PRN (10:54)
[2018-06-28 12:30] VITALS: BP 139/92
[2018-06-28] MEDS: HEPARIN FLSH (PORT) 500 UN/5ML IVP PRN (13:57)
--- NOTE | 2018-06-28 17:10 | ONCOLOGY FOLLOW UP NOTE ---
EVENT DATE: June 28, 2018 CHIEF COMPLAINT Followup for metastatic renal cell carcinoma. HISTORY OF PRESENT ILLNESS Patient is a 78-year-old male who was seen today for cycle #4 of weekly temsirolimus. He feels he is doing fairly well, although notes the onset of a slightly pruritic rash. This is over his face, chest, and arms. His also relates increased nausea, although antiemetics have not been very helpful. His omeprazole was stopped due to concerns of causing diarrhea. Diarrhea has resolved with the addition of Citrucel, but he now feels somewhat constipated. His has also noted a slight tremor in his hands, more with action, which she believes is worse right after his treatment. Prednisone has now been tapered completely, last receiving 2.5 mg daily. ONCOLOGY HISTORY Patient is a 78-year-old male who presented with low back pain and left groin pain in October 2017. He had some physical therapy and cortisone injection into the left hip without improvement. He had an MRI which showed renal mass with mets to the spine, followed by CT chest, abdomen, and pelvis done on December 11, 2017, which showed a big heterogeneous mass of the left kidney, 12.5 cm. There was also venous thrombosis with multiple veins in the pelvis and upper thighs, likely extending into the inferior vena cava. There were numerous pulmonary nodules likely representing pulmonary metastasis with mediastinal adenopathy, likely metastatic. There were numerous lytic, destructive lesions in the bones including the anterior aspect of the right 10th and 11th ribs, T7, L1, and L4. There was also a large destructive lesion involving the left iliac bone with a large heterogeneous soft tissue mass component extending into the anterior aspect of the left acetabulum where there is pathologic fracture. PET/CT scan done on the December showed a large mass involving the left kidney measuring nearly 13 cm with maximum SUV of 21.3. There were bilateral adrenal gland metastases, mediastinal and lung metastases, intra-abdominal adenopathy, left axillary lymphadenopathy, and extensive osseous metastatic disease. CT- guided biopsy on the December of the left iliac crest showed metastases consistent with clear-cell renal cell carcinoma. Began Yervoy and Opdivo on January 05, 2018, with plans to proceed with maintenance Opdivo after four cycles. 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 Began single agent Opdivo on April 13, 2018. Opdivo was discontinued on May 11, 2018, because of increased liver function tests. Began temsirolimus on June 07, 2018. PAST MEDICAL HISTORY 1. Metastatic renal cell carcinoma. 2. Bone metastases. 3. BPH with urinary retention. 4. Bilateral lower extremity DVT. PAST SURGICAL HISTORY 1. Right knee replacement in 2010. 2. Prostate biopsy in 2008. 3. Left rotator cuff injury repair. 4. Bilateral cataract surgery. 5. Left renal embolization, 01/16/18. FAMILY HISTORY Brother had squamous cell carcinoma of the lip. Father had lung cancer. Sister had lung cancer. He had a brother with kidney cancer. He had multiple cousins with brain, kidney, and lung cancer. SOCIAL HISTORY Patient is with two children. 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 He is a never smoker. He occasionally drinks beer. Denies any abuse of illicit drugs. CURRENT MEDICATIONS 1. Tamsulosin 0.4 mg b.i.d. 2. Chlorpromazine 25 mg t.i.d. p.r.n. 3. Eliquis. 4. Protonix 40 mg daily. 5. Levothyroxine. 6. Probiotic. ALLERGIES OXYCONTIN causes rash. REVIEW OF SYSTEMS A 12-point review of systems is performed and is negative except as stated above. PHYSICAL EXAMINATION VITAL SIGNS: Weight 75.9 kg. BP 130/80, P 88, R 20, temp 97.9, O2 sat 97%. GENERAL: Patient is a well-developed, well-nourished male in no acute distress. HEAD: Normocephalic, atraumatic. Maculopapular rash noted, especially over forehead. EYES: Sclerae anicteric. MOUTH: Moist mucous membranes. LUNGS: Clear bilaterally. CARDIOVASCULAR: Heart rate regular, 88 per minute, without murmur, S3, or S4. EXTREMITIES: No edema. NEUROLOGIC: Nonfocal. SKIN: Maculopapular rash noted over face, chest/trunk, and arms. LABORATORY CBC today reveals a WBC of 6.1, hemoglobin 13.8, hematocrit 41.8, platelets 170,000. CMP is within normal limits except for a slightly elevated creatinine of 1.5 and random glucose of 186. IMPRESSION The patient is a 78-year-old male diagnosed with metastatic renal cell carcinoma. 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 Re-started single-agent Opdivo on April 13, 2018, discontinued on May 11, 2018, due to increased LFTs. Began temsirolimus on June 07, 2018. PLAN 1. Metastatic renal cell carcinoma. Cycle #4 of temsirolimus today. 2. Thrombocytopenia. Platelet count initially had decreased to 87,000, but has now normalized. Will continue the 25 mg dose. 3. Rash. Reviewed that Torisel can cause rash in approximately 47% of patients. This is a slightly pruritic maculopapular rash. I discussed with Dr. Ross. At this time, he will receive Benadryl IV today, and I have recommended he begin Zyrtec daily. 4. GI. Recent intermittent diarrhea, improved on daily Citrucel. However, he now relates that he is constipated. I recommended he decrease this to every other day. 5. Nausea. Describes some nausea without vomiting. Antiemetics have not been terribly helpful. Omeprazole was stopped due to thoughts that it may be causing diarrhea. However, as this has now resolved, Protonix 40 mg daily is prescribed. I am hopeful this will also help with hiccups. 6. Follow up in one week for continued care, earlier if there is a problem. MTDD
[2018-07-05 09:20] VITALS: BP 131/83
[2018-07-05] MEDS: NS(*) 0.9% 500 ML BAG 500 ML IV PRN (09:52)
[2018-07-05] MEDS: LIDOCAINE/SOD BICARB 8.4% SYR ID PRN (09:52)
[2018-07-05] MEDS: diphenhydrAMINE 25 MG CAP PO PRN (10:49)
[2018-07-05] MEDS: HEPARIN FLSH (PORT) 500 UN/5ML IVP PRN (14:17)
--- NOTE | 2018-07-05 21:48 | [facility] ONCOLOGY NOTE ---
EVENT DATE: July 05, 2018 DIAGNOSES 1. Metastatic renal cell carcinoma. 2. Bone metastases. CHIEF COMPLAINT Patient is here today for a followup of his metastatic renal cell carcinoma, on treatment with temsirolimus. ONCOLOGY HISTORY Patient is a 78-year-old male who saw Nola Nunez for low back pain and left groin pain. He started the process of followup of his pain since October as per patient. He had some physical therapy and cortisone injection into the left hip without improvement. He had an MRI which showed renal mass with mets to the spine, so the patient had after that CT chest, abdomen, and pelvis done on December 11, 2017, which showed a big heterogeneous mass of the left kidney, 12.5 cm. There was also venous thrombosis with multiple veins in the pelvis and upper thighs likely extending into the inferior vena cava. There were numerous pulmonary nodules likely representing pulmonary metastasis with mediastinal adenopathy likely metastatic. There were numerous lytic, destructive lesions in the bones including the anterior aspect of the right 10th and 11th ribs, T7, L1, and L4. There was also a large destructive lesion involving the left iliac bone with a large heterogeneous soft tissue mass component extending into the anterior aspect of the left acetabulum where there is pathologic fracture. The uncinate process of the liver is heterogeneous. PET/CT scan done on December 20, 2017 showed a large mass involving the left kidney measuring nearly 13 cm with maximum SUV of 21.3. There were bilateral adrenal gland metastases, mediastinal and lung metastases, intra-abdominal adenopathy, left axillary lymphadenopathy, and extensive osseous metastatic disease. CT-guided biopsy of the left iliac crest showed metastases consistent with clear-cell renal cell carcinoma, and the biopsy was done on December 22, 2017. Patient started treatment with Opdivo and Yervoy at the beginning of January 2018. Patient received three doses of Yervoy and Opdivo every month, and the treatment was stopped after that because of the elevation of the liver enzymes thought to be due to immune reaction. Patient started Opdivo single agent on April 13, 2018. Treatment with Opdivo is stopped on May 11, 2018, because of the rise of the liver enzymes again. Patient started treatment temsirolimus weekly on the June. HISTORY OF PRESENT ILLNESS Patient is here today for a followup of his metastatic renal cell carcinoma on temsirolimus. He is complaining of easy bruising and fatigue. He has also allergic skin rash nearly all over his torso. PAST MEDICAL HISTORY Benign prostatic hypertrophy with urinary retention in 2016, currently on tamsulosin. PAST SURGICAL HISTORY 1. Right knee replacement in 2010. 2. Prostate biopsy in 2008. 3. Left rotator cuff injury repair. 4. Bilateral cataract surgery. FAMILY HISTORY Brother had squamous cell carcinoma of the lip. Father had lung cancer. Sister had lung cancer. He had brother with kidney cancer. He had multiple cousins with brain, kidney, and lung cancer. SOCIAL HISTORY Patient is with two children. 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 He is a never smoker. He occasionally drinks beer. Denies any abuse of illicit drugs. CURRENT MEDICATIONS 1. Tamsulosin 0.4 mg daily. 2. Baclofen 10 mg t.i.d. p.r.n. ALLERGIES OXYCONTIN which caused rash. REVIEW OF SYSTEMS CONSTITUTIONAL: No appetite or weight change. No fever, chills, or sweating. No recent infection. HEENT: Ears: No tinnitus or hearing problem. Nose: No nasal discharge or epistaxis. Throat: No sore throat or mouth ulcers. Eyes: No diplopia or visual changes. RESPIRATORY: No shortness of breath. No cough, expectoration, or hemoptysis. CARDIOVASCULAR: No chest pain, orthopnea, or paroxysmal nocturnal dyspnea (PND). No edema. No palpitations. GASTROINTESTINAL: No nausea or vomiting. No diarrhea or constipation. No change in bowel movements. No heartburn or swallowing difficulties. No abdominal pain. No jaundice. No hematemesis, melena, or rectal bleeding. GENITOURINARY: No hematuria or dysuria. MUSCULOSKELETAL: No pain in the muscles, joints, or bones. NEUROLOGICAL: No tingling or numbness in the hands or feet. No headaches or convulsions. HEMATOLOGIC/LYMPHATIC: He bruises easily. He is weak, tired, and fatigued. No enlarged lymph nodes. SKIN: He has an itchy skin rash over the torso. PSYCHIATRIC: No anxiety or depression. PHYSICAL EXAMINATION GENERAL: Looks stable. Well developed, well nourished, and in no acute distress. VITAL SIGNS: Blood pressure 131/83, pulse 101 per minute, respirations 16 per minute, temperature 97.1, pulse ox 95% on room air. HEENT: Head: Atraumatic. No sinus tenderness to palpation. Eyes: No icterus or conjunctivitis. Mouth and throat: No oral thrush or mucositis. NECK: Supple. No cervical or supraclavicular lymphadenopathy. LUNGS: Clear to auscultation and percussion bilaterally. HEART: Regular rate and rhythm. No gallops, murmurs, clicks, or rubs. ABDOMEN: Soft and lax. No tenderness. No hepatosplenomegaly. No masses. EXTREMITIES: No cyanosis, clubbing, or edema. LYMPHATICS: No peripheral lymphadenopathy. NEUROLOGICAL: Conscious, alert, and oriented times three. No focal motor or sensory deficits. PSYCHIATRIC: Mood and affect appear normal. SKIN: No skin rash, bruise, or purpuric eruption. DIAGNOSTIC DATA CBC showed white count 6.1, hemoglobin 13.8, hematocrit 41.8, platelets 170,000. Chem panel totally normal except creatinine 1.5, blood sugar 186. ASSESSMENT 1. Metastatic renal cell carcinoma of the left kidney with metastases to the left iliac bone and multiple pulmonary metastases, mediastinal adenopathy, bilateral adrenal and intra-abdominal adenopathy, and left axillary adenopathy. MRI of the brain done December 19, 2017, was negative for brain metastasis, but there may be some osseous metastasis at the posterior right parietal skull bone. PET/CT scan done December 20, 2017, showed a large mass involving the left kidney measuring 13 cm with SUV 21.3 with bilateral adrenal gland metastases, mediastinal and lung metastases, intra-abdominal adenopathy, left axillary lymphadenopathy, and extensive osseous metastatic disease. CT-guided biopsy of the left iliac bone done December 22, 2017, came back positive for metastasis from clear-cell renal cell carcinoma. Patient started treatment with Yervoy and Opdivo at the beginning of January 2018. He received three courses, and the treatment was stopped because of the development of elevation of liver enzymes, which normalized after stopping the treatment and steroid therapy. Patient developed also hematuria with anticoagulation, so patient was referred to hospital in [place] with placement of inferior vena cava filter and tying of the blood vessels of the bleeding kidney. Patient did better after that with stopping of his bleeding. He resumed treatment with single-agent Opdivo April 13, 2018, but again, he developed elevation of the liver enzymes, so the treatment was stopped. He received a course of prednisone with normalization of transaminases. After stopping Opdivo, we put the patient on temsirolimus 25 mg weekly intravenously, stopped it on the June. Patient tolerating treatment well except for skin rash, and I am planning to proceed with his treatment today, which will be the first dose of the second cycle. Patient will come on a weekly basis to receive his treatment with CBC, chemistry panel to be checked prior to each dose of temsirolimus. 2. Bony metastases. Will continue Xgeva 120 mg subcutaneously every four weeks. 3. Allergic skin rash. Patient is using currently anti-allergy medications, so will continue the same. Consider dermatology consult if the rash will not resolve. PLAN 1. Temsirolimus. This will be cycle 2A. 2. CBC, chem panel to be checked weekly. 3. Patient to return in one month with CBC and chem panel. 4. Continue Xgeva 120 mg subcutaneously every four weeks. 5. Patient to contact us for any concerns or complaints. MTDD
[2018-07-09 15:00] VITALS: BP 141/87
[2018-07-09] MEDS: LIDOCAINE/SOD BICARB 8.4% SYR ID PRN (16:02)
[2018-07-09] MEDS: HEPARIN FLSH (PORT) 500 UN/5ML IVP PRN (16:14)
[2018-07-12 09:42] VITALS: BP 131/83
[2018-07-12] MEDS: NS(*) 0.9% 500 ML BAG 500 ML IV PRN (09:56)
[2018-07-12] MEDS: LIDOCAINE/SOD BICARB 8.4% SYR ID PRN (09:56)
[2018-07-12] MEDS: HEPARIN FLSH (PORT) 500 UN/5ML IVP PRN (09:57)
[2018-07-12 10:01] LABS: PLATELET COUNT, AUTOMATED 224 K/uL (150-450)
[2018-07-12] MEDS: diphenhydrAMINE 25 MG CAP PO PRN (10:26)
--- NOTE | 2018-07-12 16:46 | ONCOLOGY FOLLOW UP NOTE ---
EVENT DATE: July 12, 2018 CHIEF COMPLAINT Followup for metastatic renal cell carcinoma, here for Cycle #2, Day 8 with weekly Torisel. HISTORY OF PRESENT ILLNESS Patient is a 78-year-old gentleman who was seen today for followup. He is due for his sixth total dose of weekly Torisel, what is essentially Cycle #2, Day 8 of weekly temsirolimus. He has had a pruritic rash in the recent past, which was over his bilateral arms, posterior trunk, and even his face. He has also had increased nausea in the past and reported that antiemetics were not very useful. He is now on PPI daily with Protonix, which is controlling his GERD- type symptoms as well as some of his nausea. He did add some Citrucel to help with his diarrhea, which he has noted in the past as well. He has also had a slight tremor in his hands bilaterally, noticeable more with increased activity, which the patient and his believe worsens in the immediate post- chemotherapy setting. He was on a previous prednisone taper. Last week, he did call our office and reported increased diarrhea, and the patient and his believed it to be related to oral potassium supplement which we had placed him on due to his hypokalemia. Patient self-discontinued his potassium last week, though today his tells me that he may have taken one or two doses over the weekend. He was also reporting significant diarrhea last week, and we recommended followup visit and possible IV fluid hydration, though patient declined. He was given instructions on hydration. He has used Imodium. Patient saw his medical oncologist last week, and we did place him on a short course of prednisone 20 mg daily for his rash. He was also given IV electrolytes with potassium last week. The patient tells me today that he believes his rash has improved. It is much less pruritic and less erythematous. Lastly, he tells me that his diarrhea resolved and, in fact, he has not had a bowel movement in at least three to four days. The patient and his are insistent that this is his normal pattern of not having a bowel movement for three or four days and then having a few days of increased stools/diarrhea. He has not taken any oral potassium since this weekend. He denies any pain. He reports eating well. He does incidentally mention that he has had some dysuria, which he states "began with all of this chemotherapy," but again is only reporting this just now. He does have a history of BPH with urinary retention and has been hospitalized in the past secondary to renal insufficiency with a serum creatinine as high as 3 several months ago. ONCOLOGY HISTORY Patient is a 78-year-old male who presented with low back pain and left groin pain in October 2017. He had some physical therapy and cortisone injection into the left hip without improvement. He had an MRI which showed renal mass with mets to the spine, followed by CT chest, abdomen, and pelvis done on December 11, 2017, which showed a big heterogeneous mass of the left kidney, 12.5 cm. There were also venous thromboses with multiple veins in the pelvis and upper thighs, likely extending into the inferior vena cava. There were numerous pulmonary nodules, likely representing pulmonary metastases, with mediastinal adenopathy, likely metastatic. There were numerous lytic, destructive lesions in the bones including the anterior aspect of the right 10th and 11th ribs, T7, L1, and L4. There was also a large destructive lesion involving the left iliac bone with a large heterogeneous soft tissue mass component extending into the anterior aspect of the left acetabulum where there is a pathologic fracture. PET/CT scan done on the December showed a large mass involving the left kidney measuring nearly 13 cm with maximum SUV of 21.3. There were bilateral adrenal gland metastases, mediastinal and lung metastases, intra-abdominal adenopathy, left axillary lymphadenopathy, and extensive osseous metastatic disease. CT- guided biopsy on the December of the left iliac crest showed metastases consistent with clear-cell renal cell carcinoma. Began Yervoy and Opdivo on January 05, 2018, with plans to proceed with maintenance Opdivo after four cycles. 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 Began single agent Opdivo on April 13, 2018. Opdivo was discontinued on May 11, 2018, because of increased liver function tests. Began temsirolimus on June 07, 2018. PAST MEDICAL HISTORY 1. Metastatic renal cell carcinoma. 2. Bone metastases. 3. BPH with urinary retention. 4. Bilateral lower extremity DVT. PAST SURGICAL HISTORY 1. Right knee replacement in 2010. 2. Prostate biopsy in 2008. 3. Left rotator cuff injury repair. 4. Bilateral cataract surgery. 5. Left renal embolization, 09/11/18. FAMILY HISTORY Brother had squamous cell carcinoma of the lip. Father had lung cancer. Sister had lung cancer. He had a brother with kidney cancer. He had multiple cousins with brain, kidney, and lung cancer. SOCIAL HISTORY Patient is with two children. 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 He is a never smoker. He occasionally drinks beer. Denies any abuse of illicit drugs. CURRENT MEDICATIONS 1. Tamsulosin 0.4 mg b.i.d. 2. Chlorpromazine 25 mg t.i.d. p.r.n. 3. Eliquis. 4. Protonix 40 mg daily. 5. Levothyroxine. 6. Probiotic. ALLERGIES OXYCONTIN causes rash. REVIEW OF SYSTEMS A 12-point review of systems is performed and is negative except as stated above and directly below. CONSTITUTIONAL: Patient denies any recent fevers, chills, or infections. GASTROINTESTINAL: Patient denies any nausea and remains on Protonix daily. He has had some diarrhea as noted above. Currently, no bowel movement in four days. He does not report any pain or discomfort during this time. He has used Imodium in the past. He self-discontinued oral potassium due to belief that this was causing his diarrhea. GENITOURINARY: Patient is reporting some dysuria today, though notes that this has been ongoing since initiating chemotherapy. Again, no fevers. DERM: Patient continues to note a rash mostly on his upper arms bilaterally as well as posterior trunk. He tells me that this is still pruritic, though significantly less compared to previous. He is itching a lot less and is scratching a lot less. He believes this has improved. PHYSICAL EXAMINATION VITAL SIGNS: Weight 76.9 kg, stable compared to last week. T 98.1 degrees F, P 97, R 16, BP 131/83, oxygen saturation 98% room air. GENERAL: Patient is a well-developed, well-nourished male in no acute distress. HEAD: Normocephalic, atraumatic. Maculopapular rash noted, especially over forehead. EYES: Sclerae anicteric. MOUTH: Moist mucous membranes. No ulcerations or lesions. No stomatitis or mucositis. NECK: Supple. No palpable lymphadenopathy. No JVD. LUNGS: Clear breath sounds to auscultation bilaterally. CARDIOVASCULAR: Heart rate regular, at times mildly tachycardic in the mid 90s with regular rhythm. No ectopy. EXTREMITIES: No edema. No clubbing or cyanosis. NEUROLOGIC: Nonfocal. Patient is awake, alert, and oriented times three. PSYCHIATRIC: Mood and affect are appropriate. DERM: Maculopapular rash again noted over bilateral arms and posterior trunk. This is much less erythematous. Anterior chest has less visible papules noted. The rash over the face has significantly decreased as well. This is much improved. LABORATORY CBC today: WBC 9.5, ANC 6.3, hemoglobin 13.3, hematocrit 39.2%, platelets 224,000. CMP today: Sodium normal at 143; potassium improved, though still minimally low at 3.2; serum creatinine elevated, though improved compared to last week at 1.6; glucose slightly elevated at 139, though patient is on daily corticosteroids; LFTs to include alkaline phosphatase and bilirubin normal. Magnesium today normal at 1.9. IMPRESSION AND PLAN The patient is a 78-year-old male diagnosed with metastatic renal cell carcinoma. 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 Re-started single-agent Opdivo on April 13, 2018, discontinued on May 11, 2018, due to increased LFTs. Began temsirolimus on June 07, 2018. Today, he is due for his sixth total dose . 1. Metastatic renal cell carcinoma: Patient will proceed with his sixth dose today, which is Cycle #2, Day 8 with weekly temsirolimus. 2. Labs: CBC today is in good range. ANC is completely normal. 3. Will check UA today due to reports of dysuria. If positive, we will send this out for C and S, and if needed, will treat appropriately. UA still pending at time of dictation. 4. Hypokalemia: Encouraged patient to re-initiate daily potassium supplementation, though potassium is somewhat improved today. Patient and his both agree that seeing his pattern, they do not believe that his diarrhea is related to potassium supplementation. We will call in a new prescription today for 20 mEq potassium supplementation once daily. I encouraged patient to increase fluid hydration and recommended at least 1 to 1.5 liters of water a day. 5. Chronic renal insufficiency: Serum creatinine is elevated at 1.6 today, though improved from last week. He does have a history of chronic renal insufficiency, and this is related to his overall disease process. He also has a history of benign prostatic hypertrophy with urinary retention. Again reiterated need for adequate hydration, and I instructed patient on signs and symptoms and when to notify our office. This will be checked weekly. 6. Gastrointestinal/diarrhea: Recent intermittent diarrhea, improved after Imodium last week and with the addition of Citrucel. Today, he now reports constipation for the last four days. He seems to have a pattern which waxes and wanes between constipation and diarrhea. Again, I recommended Imodium for days he does have diarrhea, and we discussed how to properly use this. 7. Nausea: Resolved. No complaints of nausea, and he will continue proton pump inhibitor with daily Protonix. 8. Rash: Improved today compared to last week. I again reiterated that Torisel can cause a rash in approximately 47% of patients. It was initially intensely pruritic, and now is only mildly pruritic. Areas have also decreased in erythema, and I no longer see very significant rash on his face. Due to the fact that he does still have a rash, however, as well as some diarrhea, I think starting him on a daily low dose of chronic prednisone may be of benefit for now. I have instructed the patient to start prednisone daily 10 mg tablets, and patient has a prescription for this at home. Although his diarrhea is related to Torisel and is not necessarily an immune-mediated response like we see with PDL1 therapy, I am hopeful that the prednisone may help both his rash and diarrhea. 9. If his diarrhea worsens, we can certainly check stool studies, though this has been checked in the past. 10. Patient will continue on Xgeva every four weeks for bony metastases. 11. Patient will return to clinic in one for followup and will be due for day 8, Cycle #2 with temsirolimus. He will see me at that time for a toxicity check. 12. Patient will continue to follow up with Medical Oncology, Dr. Ross, every four weeks. MTDD
--- NOTE | 2018-07-13 11:59 | ONCOLOGY FOLLOW UP NOTE ---
BRIEF NOTE EVENT DATE: July 13, 2018 Patient's urine culture returned back today showing greater than 100,000 colony gram negative rods. Sensitivity is still pending but patient was reporting significant dysuria at his most recent visit. Since it is Monday, I have e- prescribed Bactrim DS 1 p.o. b.i.d. x5 days, #10, no refills, given his symptomatology. I do feel this might be easier for the patient to tolerate versus potentially Cipro. 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 If sensitivity shows that his infection is resistant to Bactrim, we'll change antibiotic therapy. For now, he was instructed to start this and finish it until completion. MATTEOD
--- NOTE | 2018-07-14 14:47 | Oncology Note ---
Patient's called today while I was application project leader. Patient is currently being treated for UTI with Bactrim DS. He took his 1st dose last night and his second dose this morning. Patient and believe patient is having adverse reaction to Bactrim. He is weak, shaky, and dizzy. Discussion with that it could indeed be the Bactrim causing these symptoms or it could be the UTI itself causing these symptoms. Patient is not experiencing any fever, chills, abdominal pain, flank pain, nausea, vomiting or diarrhea. They'd like to try a different antibiotic. C&S reviewed. Macrobid appropriate antibiotic. Stop Bactrim. Start Macrobid. Push hydration. Go to ED if persistent or worsening of symptoms. Copies To 1: PEBBLES BURRELL APRN, FNP ; BUTCH JOHNSON DNP, YEIMI-ANDRAE Jul 14, 2018 14:47
[2018-07-20] MEDS: LIDOCAINE/SOD BICARB 8.4% SYR ID PRN (10:01)
[2018-07-20] MEDS: NS(*) 0.9% 500 ML BAG 500 ML IV PRN (10:02)
[2018-07-20 10:04] VITALS: BP 142/89
[2018-07-20] MEDS: diphenhydrAMINE 50 MG/ML VIAL IVP PRN (10:35)
[2018-07-20 12:36] VITALS: BP 149/83
[2018-07-20] MEDS: HEPARIN FLSH (PORT) 500 UN/5ML IVP PRN (12:42)
--- NOTE | 2018-07-20 23:25 | ONCOLOGY FOLLOW UP NOTE ---
EVENT DATE: July 20, 2018 CHIEF COMPLAINT Followup for metastatic renal cell carcinoma, here for consideration of Cycle #2, Day 15 with weekly Torisel. HISTORY OF PRESENT ILLNESS Patient is a 78-year-old gentleman who was seen today for followup. Patient here today for his seventh total dose of weekly Torisel, which is essentially Day 15 of Cycle #2 with weekly temsirolimus. He has had a pruritic rash in the past noted over his bilateral arms, posterior trunk, and even his face. He has required a steroid taper in the past. At his last visit, his rash did appear improved. He is now on daily low-dose prednisone for this rash at 10 mg daily. He believes his rash has continued to improve. He remains on PPI prophylaxis, now with Protonix. This is controlling his GERD symptoms as well as some of his nausea, and is also prophylaxis secondary to daily corticosteroid use. He has not had any nausea in a couple of weeks. He has also had diarrhea in the past, likely related to his temsirolimus, and he has required IV fluid hydration in the past as well. He has not had any diarrhea in the last week. Typically, patient and his tell me that diarrhea is most noticeable a couple days after each temsirolimus infusion. He remains on oral potassium supplementation secondary to his hypokalemia. Most recently, his potassium was at 3.2. He was down to 2.9 back on 07/05/18. Also, he recently had complaints of dysuria, which he just reported to us approximately one week ago, though reports that this all began when he started chemotherapy. He is on antibiotic therapy after UA returned positive. He is currently on Macrobid and is due to complete this in the next couple of days. He believes that his urinary symptoms are pretty much the same, and he reports no significant difference after antibiotics. He has been afebrile. He does have a history of BPH with urinary retention and has been hospitalized in the past secondary to renal insufficiency with a serum creatinine as high as 3 several months ago. ONCOLOGY HISTORY Patient is a 78-year-old male who presented with low back pain and left groin pain in October 2017. He had some physical therapy and cortisone injection into the left hip without improvement. He had an MRI which showed renal mass with mets to the spine, followed by CT chest, abdomen, and pelvis done on December 11, 2017, which showed a big heterogeneous mass of the left kidney, 12.5 cm. There were also venous thromboses with multiple veins in the pelvis and upper thighs, likely extending into the inferior vena cava. There were numerous pulmonary nodules, likely representing pulmonary metastases, with mediastinal adenopathy, likely metastatic. There were numerous lytic, destructive lesions in the bones including the anterior aspect of the right 10th and 11th ribs, T7, L1, and L4. There was also a large destructive lesion involving the left iliac bone with a large heterogeneous soft tissue mass component extending into the anterior aspect of the left acetabulum where there is a pathologic fracture. PET/CT scan done on the December showed a large mass involving the left kidney measuring nearly 13 cm with maximum SUV of 21.3. There were bilateral adrenal gland metastases, mediastinal and lung metastases, intra-abdominal adenopathy, left axillary lymphadenopathy, and extensive osseous metastatic disease. CT- guided biopsy on the December of the left iliac crest showed metastases consistent with clear-cell renal cell carcinoma. Began Yervoy and Opdivo on January 05, 2018, with plans to proceed with maintenance Opdivo after four cycles. 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 Began single agent Opdivo on April 13, 2018. Opdivo was discontinued on May 11, 2018, because of increased liver function tests. Began temsirolimus on June 07, 2018. PAST MEDICAL HISTORY 1. Metastatic renal cell carcinoma. 2. Bone metastases. 3. BPH with urinary retention. 4. Bilateral lower extremity DVT. PAST SURGICAL HISTORY 1. Right knee replacement in 2010. 2. Prostate biopsy in 2008. 3. Left rotator cuff injury repair. 4. Bilateral cataract surgery. 5. Left renal embolization, 01/16/18. FAMILY HISTORY Brother had squamous cell carcinoma of the lip. Father had lung cancer. Sister had lung cancer. He had a brother with kidney cancer. He had multiple cousins with brain, kidney, and lung cancer. SOCIAL HISTORY Patient is with two children. 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 He is a never smoker. He occasionally drinks beer. Denies any abuse of illicit drugs. CURRENT MEDICATIONS 1. Tamsulosin 0.4 mg b.i.d. 2. Chlorpromazine 25 mg t.i.d. p.r.n. 3. Eliquis. 4. Protonix 40 mg daily. 5. Levothyroxine. 6. Probiotic. ALLERGIES OXYCONTIN causes rash. REVIEW OF SYSTEMS CONSTITUTIONAL: Patient denies any recent fevers, chills, or infections. HEENT: Patient reports that he has dentures, upper and lower, and recently has had some mild soreness in the left upper gumline. He is using mouth wash. He denies any fevers and no swelling. He has not seen his oral surgeon recently. GASTROINTESTINAL: No abdominal pain, nausea, vomiting, or further diarrhea. He typically notices looser stools in the couple of days after each infusion, none in the last week. He has used medications for constipation in the past as well. He reports stable appetite. No bright red blood per rectum or melena. GENITOURINARY: Patient reports he continues to have some dysuria and did not really notice any improvement with antibiotic therapy. No fevers associated, no flank pain. DERM: Patient reports that his rash is still noticeable on his arms and posterior trunk and is only mildly pruritic. He believes this may have improved. He remains on daily prednisone for this. The rest of a 12-point review of systems was performed today and was otherwise negative. PHYSICAL EXAMINATION VITAL SIGNS: Weight today 74.9 kg, which is down approximately 2 kg, roughly 4 pounds, compared to last visit. T 98.2 degrees F, P 75, R 16, BP 142/89, oxygen saturation 99% room air. GENERAL: Patient is a well-developed, well-nourished male in no acute distress. HEAD: Normocephalic, atraumatic. Maculopapular rash noted, especially over forehead. EYES: Sclerae anicteric. MOUTH: Moist mucous membranes. No ulcerations or lesions. No stomatitis or mucositis. NECK: Supple. No palpable lymphadenopathy. No JVD. LUNGS: Clear breath sounds to auscultation bilaterally. CARDIOVASCULAR: Heart rate regular, at times mildly tachycardic in the mid 90s with regular rhythm. No ectopy. EXTREMITIES: No edema. No clubbing or cyanosis. NEUROLOGIC: Nonfocal. Patient is awake, alert, and oriented x3. PSYCHIATRIC: Mood and affect are appropriate. DERM: Maculopapular rash still noted over his bilaterally arms and posterior trunk. On his right upper extremity, there are much fewer erythematous papules noted, and these are more scattered. This is also significantly less erythema noted on those papules that remain, and they are now only a faint pink. This is an improvement. LABORATORY CBC today: WBC 8.4, ANC 5.9, hemoglobin 12.7, hematocrit 37.7%, platelets 143,000. CMP today: Sodium normal, 139, potassium normal, 3.7, improved from 3.2 last week, serum creatinine somewhat improved, down to 1.5 today, previously 1.6 last week, magnesium normal at 1.9, total bilirubin normal at 0.5, AST mildly elevated at 36 today, up from 24, ALT 32, alkaline phosphatase 68, total protein 7.0, albumin 3.9. IMPRESSION AND PLAN The patient is a 78-year-old male diagnosed with metastatic renal cell carcinoma. 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 Re-started single-agent Opdivo on April 13, 2018, discontinued on May 11, 2018, due to increased LFTs. Began temsirolimus on June 07, 2018. He will be due for his seventh total dose today, or Day 15, Cycle #2. 1. Metastatic renal cell carcinoma: Labs look great today. He will proceed with Day 15 of Cycle #2 today. 2. Labs: CBC is in great range. ANC is completely normal. The only abnormality on his chemistry panel today was a mildly elevated AST at 36, which we will continue to monitor. The rest of his LFTs were normal, and there are no other elevated transaminases. Alkaline phosphatase is normal. 3. Chronic renal insufficiency: Serum creatinine is a little bit improved today, down to 1.5, previously 1.6. He does have a history of chronic renal insufficiency, and this is likely related to his overall disease process. He also has a history of benign prostatic hypertrophy with urinary retention. Again discussed the need for proper hydration, and we reviewed signs and symptoms of when to call our office. We will continue to check this weekly. 4. Hypokalemia: Now resolved, potassium today 3.7. He has been low at baseline, and he will continue on his daily potassium supplement with 20 mEq daily. 5. Diarrhea: Improved, no diarrhea in at least one week. He is aware that he may use Imodium over the counter if needed. Typically, he notices looser stools in the days following infusion, and we will continue to monitor this. 6. Rash: Significantly improved. He will continue on daily prednisone 10 mg for this. The rash remains on his bilateral upper extremities and his posterior trunk, though his right upper extremity has obvious fewer papules, and they are less erythematous. This is an improvement. Our plan is that daily low-dose corticosteroids will help his rash and diarrhea, and even though this isn't PDL1 therapy, it may help both his rash and diarrhea. 7. Patient will continue on Xgeva every four weeks for bony metastases. 8. Patient will return to clinic next week for weekly labs and Day 15, Cycle #2 with weekly temsirolimus. 9. He will continue to follow up with his medical oncologist, Dr. Ross, every four weeks. MTDD
[2018-07-26 09:38] VITALS: BP 142/81
[2018-07-26] MEDS: LIDOCAINE/SOD BICARB 8.4% SYR ID PRN (09:59)
[2018-07-26] MEDS: HEPARIN FLSH (PORT) 500 UN/5ML IVP PRN (09:59)
[2018-07-26] MEDS: diphenhydrAMINE 25 MG CAP PO PRN (10:20)
[2018-07-26 12:34] VITALS: BP 148/87
--- NOTE | 2018-07-26 17:33 | ONCOLOGY FOLLOW UP NOTE ---
EVENT DATE: July 26, 2018 CHIEF COMPLAINT Followup for metastatic renal cell carcinoma, here for Cycle #2, Day 22 with weekly Torisel. HISTORY OF PRESENT ILLNESS Patient is a 78-year-old gentleman who was seen today for followup. He is due today for his eighth total dose or Day 22, Cycle #2 of weekly temsirolimus. He has had a pruritic rash in the recent past, which was over his bilateral arms, posterior trunk, and even his face. He did have some nausea as well though none in the last couple of weeks. He is now on daily PPI with Protonix, which is controlling his GERD-type symptoms as well as some of his nausea. He is no longer having any constipation. He's no longer having any significant diarrhea other than occasional softer stools, which he says are "paste-like". He uses Imodium approximately one to two tablets one to two times a week at most. He has also had a slight tremor in his hands bilaterally, noticeable more with increased activity, which the patient and his believe worsens in the immediate post-chemotherapy setting. He has taken a prednisone taper in the past secondary to his rash and is now on daily low-dose prednisone 10 mg. This seems to have helped his dermatologic toxicity quite a bit. He is tolerating this well. He believes that he is eating and drinking well. He remains on oral potassium. His potassium level has recently improved. He has required IV fluid hydration and electrolyte repletion in the past. His rash is much less pruritic and has nearly resolved on his right upper extremity. He denies any significant pain. He does mention that he continues to have some dysuria, which he states "began with all of this chemotherapy." He recently was treated for UTI and has now completed all antibiotic therapy. He does have a history of BPH with urinary retention and has been hospitalized in the past secondary to renal insufficiency with a serum creatinine as high as 3 several months ago. ONCOLOGY HISTORY Patient is a 78-year-old male who presented with low back pain and left groin pain in October 2017. He had some physical therapy and cortisone injection into the left hip without improvement. He had an MRI which showed renal mass with mets to the spine, followed by CT chest, abdomen, and pelvis done on December 11, 2017, which showed a big heterogeneous mass of the left kidney, 12.5 cm. There were also venous thromboses with multiple veins in the pelvis and upper thighs, likely extending into the inferior vena cava. There were numerous pulmonary nodules, likely representing pulmonary metastases, with mediastinal adenopathy, likely metastatic. There were numerous lytic, destructive lesions in the bones including the anterior aspect of the right 10th and 11th ribs, T7, L1, and L4. There was also a large destructive lesion involving the left iliac bone with a large heterogeneous soft tissue mass component extending into the anterior aspect of the left acetabulum where there is a pathologic fracture. PET/CT scan done on the December showed a large mass involving the left kidney measuring nearly 13 cm with maximum SUV of 21.3. There were bilateral adrenal gland metastases, mediastinal and lung metastases, intra-abdominal adenopathy, left axillary lymphadenopathy, and extensive osseous metastatic disease. CT- guided biopsy on the December of the left iliac crest showed metastases consistent with clear-cell renal cell carcinoma. Began Yervoy and Opdivo on January 05, 2018, with plans to proceed with maintenance Opdivo after four cycles. 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 Began single agent Opdivo on April 13, 2018. Opdivo was discontinued on May 11, 2018, because of increased liver function tests. Began temsirolimus on June 07, 2018. PAST MEDICAL HISTORY 1. Metastatic renal cell carcinoma. 2. Bone metastases. 3. BPH with urinary retention. 4. Bilateral lower extremity DVT. PAST SURGICAL HISTORY 1. Right knee replacement in 2010. 2. Prostate biopsy in 2008. 3. Left rotator cuff injury repair. 4. Bilateral cataract surgery. 5. Left renal embolization, 01/16/18. FAMILY HISTORY Brother had squamous cell carcinoma of the lip. Father had lung cancer. Sister had lung cancer. He had a brother with kidney cancer. He had multiple cousins with brain, kidney, and lung cancer. SOCIAL HISTORY Patient is with two children. 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 He is a never smoker. He occasionally drinks beer. Denies any abuse of illicit drugs. CURRENT MEDICATIONS 1. Tamsulosin 0.4 mg b.i.d. 2. Chlorpromazine 25 mg t.i.d. p.r.n. 3. Eliquis. 4. Protonix 40 mg daily. 5. Levothyroxine. 6. Probiotic. ALLERGIES OXYCONTIN causes rash. REVIEW OF SYSTEMS CONSTITUTIONAL: Patient denies any recent fevers, chills, or infections. HEENT: The patient has one oral ulceration on his upper mid lip, which he says began approximately five days ago. He believes his canker sore is healing. This is mostly only noticeable and isn't particularly painful. GASTROINTESTINAL: Patient denies any abdominal pain, nausea, vomiting or constipation. He remains on daily Protonix. He has had some diarrhea, though now tells me he is only having a couplie of softer stools per week. He still occasionally uses one or two Imodium per week. No constipation. No abdominal discomfort. He remains on oral potassium. GENITOURINARY: He continues to have some dysuria, but has now completed antibiotic therapy. No fevers or associated flank pain. DERM: Patient reports that his rash is still noticeable on his arms and posterior trunk, but is now only mildly pruritic. He continues to use some topical ointments. The area to the right upper extremity has nearly resolved. He remains on daily prednisone for this. The remainder of a 12-point review of systems was performed today and was otherwise negative. PHYSICAL EXAMINATION VITAL SIGNS: Weight 75.2 kg, down 1.2 kg. T 97.7, P 80, R 16, BP 142/81, oxygen saturation 92% room air. GENERAL: Patient is a well-developed, well-nourished, pleasant 78-year-old male who appears to be in no acute distress. HEAD: Normocephalic, atraumatic. Maculopapular rash noted, especially over forehead. EYES: Sclerae anicteric. ENT/MOUTH: Moist mucous membranes. There is one oral ulceration noted to the mid upper-outer lip, consistent with a herpetic lesion, which is dry. There is no drainage. No other ulcerations or lesions. No mucositis. NECK: Supple. No palpable lymphadenopathy. No JVD. CARDIOVASCULAR: Heart rate regular, at times mildly tachycardic in the mid 90s with regular rhythm. No ectopy. EXTREMITIES: No edema. No clubbing or cyanosis. NEUROLOGIC: Nonfocal. Patient is awake, alert, and oriented times three. PSYCHIATRIC: Mood and affect are appropriate. DERM: Maculopapular rash still noted over his bilateral arms and posterior trunk, though this has significantly improved on the right upper extremity. Right upper extremity only has a few erythematous papules noted which are scattered and remain with significant improvement. LABORATORY CBC today: WBC 8.3, ANC 6.2, hemoglobin 12.4, hematocrit 37.1%, platelets 139,000. CMP today: Sodium minimally low at 136, potassium normal, 2.8, serum creatinine somewhat elevated at 1.5 today, which is stable compared to last week at 1.5 on 07/20/18. Total bilirubin normal at 0.5, AST normal, 27, ALT normal at 30, total protein normal at 6.9, alkaline phosphatase normal at 66, calcium normal at 9.2, magnesium normal at 1.9. Random glucose slightly elevated at 139. IMAGING CT chest, abdomen, and pelvis with contrast at [facility] [place] on 03/14/18: 1. Overall positive treatment response. Left renal mass has partially decreased in size. In addition, there has been improvement in multiple pulmonary nodules, mediastinal lymph nodes, left adrenal mass, and soft tissue component of the left iliac bone metastasis. 2. A right hilar lymph node has mildly increased in size. Otherwise, no evidence of progressive metastatic disease. 3. Progressive compression fracture at T8 with underlying metastasis. There is additional new mild wedging of L1 at the level of a metastatic lesion. IMPRESSION AND PLAN The patient is a 78-year-old male diagnosed with metastatic renal cell carcinoma. 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 Re-started single-agent Opdivo on April 13, 2018, discontinued on 05/11/2018 secondary to increased LFTs. He began weekly temsirolimus on 06/07/18. He will be due for his eighth dose today, or Cycle #2, Day 22. 1. Metastatic renal cell carcinoma: Labs today look good. CBC looks good. He will proceed with treatment as scheduled today. 2. Labs: He will continue with weekly labs. Liver enzymes today are all within normal limits, and AST has decreased down to 27. 3. Chronic renal insufficiency: Serum creatinine remains somewhat elevated today at 1.5, stable compared to last week. He is drinking fluids well. He does have a history of benign prostatic hypertrophy with urinary retention. We again discussed the need for proper hydration and reviewed signs and symptoms of when to call our office. We will continue to check this weekly. 4. Hypokalemia: Resolved. Potassium currently 3.8. He will continue on his daily potassium supplement with 20 mEq daily until we notify him to stop. 5. Diarrhea: Improved, no diarrhea in the last week other than a couple episodes of softer stools. He continues to use Imodium one to two times per week. He will notify us if this worsens. 6. Rash: Also significantly improved. He remains on daily prednisone 10 mg for this, which he will continue. He is on PPI prophylaxis with Protonix. Rash remains confined to his bilateral upper extremities and posterior trunk, though right upper extremity has fewer papules. He may continue to use topical ointments to help with this. 7. Patient will continue on monthly Xgeva every four weeks for his bony metastases. 8. Patient will return to clinic in one week for followup, labs, and to initiate his third cycle. He is due to follow up with his medical oncologist next week on 08/02/18. 9. At that visit, his physician can determine whether or not we need to repeat imaging at this time. MATTEOD
[2018-08-02 09:47] VITALS: BP 126/83
[2018-08-02] MEDS: LIDOCAINE/SOD BICARB 8.4% SYR ID PRN (10:57)
[2018-08-02] MEDS: diphenhydrAMINE 25 MG CAP PO PRN (10:58)
[2018-08-02] MEDS: NS(*) 0.9% 500 ML BAG 500 ML IV PRN (12:07)
[2018-08-02] MEDS: HEPARIN FLSH (PORT) 500 UN/5ML IVP PRN (12:08)
--- NOTE | 2018-08-02 23:32 | ONCOLOGY FOLLOW UP NOTE ---
EVENT DATE: August 02, 2018 CHIEF COMPLAINT Followup for metastatic renal cell carcinoma, here for Cycle #3, Day 1 with weekly Torisel. HISTORY OF PRESENT ILLNESS Patient is a 78-year-old gentleman who was seen today for followup. He is due today for his ninth total dose of weekly Torisel, or essentially Cycle #3, Day 1 with weekly temsirolimus. He has had a pruritic rash in the recent past, which was over his bilateral arms, posterior trunk, and even his face. He did have some nausea as well though none in the last couple of weeks. He is now on daily PPI with Protonix, which is controlling his GERD-type symptoms as well as some of his nausea. He is no longer having any constipation. He's no longer having any significant diarrhea other than occasional softer stools, which he says are "paste-like." He uses Imodium approximately one to two tablets one to two times a week at most. He has also had a slight tremor in his hands bilaterally, noticeable more with increased activity, which the patient and his believe worsens in the immediate post-chemotherapy setting. He has taken a prednisone taper in the past secondary to his rash and is now on daily low-dose prednisone 10 mg. This has helped his dermatologic toxicity quite a bit and may even be helping improve his bowels. He continues to tolerate prednisone well. He believes that he is eating and drinking well. He remains on oral potassium. He has required IV fluid hydration and electrolyte repletion in the past, though this has been stable for the last couple of weeks. He has also had some dysuria for the last couple of weeks and was even treated for UTI, but reports that this actually "began with all this chemotherapy." He has completed antibiotic therapy and tells me that his symptoms tend to wax and wane. Of note, he does have a history of BPH with urinary retention and has been hospitalized in the past secondary to renal insufficiency with a serum creatinine as high as 3 several months ago. He is accompanied in the office by his . Patient tells me that he has had some hiccups intermittently and would like a refill on his metoclopramide. We did not fill this for him. He received this back in December 2017 per the ER when hospitalized. ONCOLOGY HISTORY Patient is a 78-year-old male who presented with low back pain and left groin pain in October 2017. He had some physical therapy and cortisone injection into the left hip without improvement. He had an MRI which showed renal mass with mets to the spine, followed by CT chest, abdomen, and pelvis done on December 11, 2017, which showed a big heterogeneous mass of the left kidney, 12.5 cm. There were also venous thromboses with multiple veins in the pelvis and upper thighs, likely extending into the inferior vena cava. There were numerous pulmonary nodules, likely representing pulmonary metastases, with mediastinal adenopathy, likely metastatic. There were numerous lytic, destructive lesions in the bones including the anterior aspect of the right 10th and 11th ribs, T7, L1, and L4. There was also a large destructive lesion involving the left iliac bone with a large heterogeneous soft tissue mass component extending into the anterior aspect of the left acetabulum where there is a pathologic fracture. PET/CT scan done on the December showed a large mass involving the left kidney measuring nearly 13 cm with maximum SUV of 21.3. There were bilateral adrenal gland metastases, mediastinal and lung metastases, intra-abdominal adenopathy, left axillary lymphadenopathy, and extensive osseous metastatic disease. CT- guided biopsy on the December of the left iliac crest showed metastases consistent with clear-cell renal cell carcinoma. Began Yervoy and Opdivo on January 05, 2018, with plans to proceed with maintenance Opdivo after four cycles. 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 Began single agent Opdivo on April 13, 2018. Opdivo was discontinued on May 11, 2018, because of increased liver function tests. Began temsirolimus on June 07, 2018. PAST MEDICAL HISTORY 1. Metastatic renal cell carcinoma. 2. Bone metastases. 3. BPH with urinary retention. 4. Bilateral lower extremity DVT. PAST SURGICAL HISTORY 1. Right knee replacement in 2010. 2. Prostate biopsy in 2008. 3. Left rotator cuff injury repair. 4. Bilateral cataract surgery. 5. Left renal embolization, 01/16/18. FAMILY HISTORY Brother had squamous cell carcinoma of the lip. Father had lung cancer. Sister had lung cancer. He had a brother with kidney cancer. He had multiple cousins with brain, kidney, and lung cancer. SOCIAL HISTORY Patient is with two children. 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 He is a never smoker. He occasionally drinks beer. Denies any abuse of illicit drugs. CURRENT MEDICATIONS 1. Tamsulosin 0.4 mg b.i.d. 2. Chlorpromazine 25 mg t.i.d. p.r.n. 3. Eliquis. 4. Protonix 40 mg daily. 5. Levothyroxine. 6. Probiotic. ALLERGIES OXYCONTIN causes rash. REVIEW OF SYSTEMS CONSTITUTIONAL: Patient denies any recent fevers, chills, night sweats, or infections. HEENT: He denies any blurry vision. No vision changes. No epistaxis. No mucositis. His canker sore from last week has completely resolved. LUNGS: He denies any shortness of breath. No cough or sputum production. No hemoptysis. No pleuritic chest pain. GASTROINTESTINAL: Patient denies any abdominal pain, nausea, vomiting, or constipation. He remains on daily Protonix for his GERD symptoms. He has had some diarrhea, though reports that his loose stools typically occur 10 to 14 days following treatment and only last about a day to a day and a half. That day, he usually takes approximately two Imodium. He reports his stools as "paste-like." He has recently noticed some hiccups and tells me that this is quite infrequent, though when it does occur, it is quite severe. Metoclopramide tends to help with this. He remains on oral potassium. He reports his appetite is good. He is eating at least three good meals a day and snacking in between. GENITOURINARY: He continues to have some dysuria, but has now completed antibiotic therapy. No fevers or associated flank pain. DERM: Patient still notices a rash on his upper arms and posterior trunk, but reports that this is only now very mildly pruritic, mostly to the back. Previous rash on his face has now completely resolved. He continues to use topical ointments, though tells me that this has decreased in necessity. He believes that his left upper extremity has also improved as far as his rash. The remainder of a 12-point review of systems was performed today and was otherwise negative. PHYSICAL EXAMINATION VITAL SIGNS: Weight 75.2 kg, stable compared to last week. T 97.8, P 85, R 16, BP 126/83, oxygen saturation 96% room air. GENERAL: In general, this is a pleasant, well-developed, well-nourished 78-year-old male who appears to be in no acute distress. HEAD: Normocephalic, atraumatic. No rash over the head or face. EYES: Sclerae anicteric. ENT, MOUTH: Moist mucous membranes. Previous herpetic lesion to the mid upper- outer lip has completely resolved. NECK: Supple. No palpable lymphadenopathy. No JVD. CARDIOVASCULAR: Heart rate regular, at times mildly tachycardic in the mid 90s with regular rhythm. No ectopy. EXTREMITIES: No edema. No clubbing or cyanosis. NEUROLOGIC: Nonfocal. Patient is awake, alert, and oriented times three. PSYCHIATRIC: Mood and affect are appropriate. DERM: Maculopapular rash again still noted, grade 1, mostly noticeable on his posterior trunk. He has a similar rash noted, grade 1, to bilateral upper extremities, though on exam today, the left upper extremity has also greatly improved with only a few scattered erythematous papules noted to the left upper arm. Right upper arm also remains quite improved with only a few scattered papules to the right upper arm. These are less erythematous. LABORATORY CBC today: WBC 7.8, ANC 5.8, hemoglobin 12.1, hematocrit 35.5%, platelets 114,000. CMP today: Sodium normal, 137, potassium normal, 2.6, serum creatinine 1.60, up from 1.5 last week, calcium normal, 8.5, magnesium normal, 1.7, phosphorus normal at 3.4, total bilirubin normal, 0.5. LFTs all within normal limits to include normal AST at 31, normal ALT at 23, alkaline phosphatase normal at 69, total protein normal at 6.9, and albumin normal at 3.9. IMAGING CT chest, abdomen, and pelvis with contrast at [facility] [place] on 03/14/18: 1. Overall positive treatment response. Left renal mass has partially decreased in size. In addition, there has been improvement in multiple pulmonary nodules, mediastinal lymph nodes, left adrenal mass, and soft tissue component of the left iliac bone metastasis. 2. A right hilar lymph node has mildly increased in size. Otherwise, no evidence of progressive metastatic disease. 3. Progressive compression fracture at T8 with underlying metastasis. There is additional new mild wedging of L1 at the level of a metastatic lesion. IMPRESSION AND PLAN The patient is a 78-year-old male diagnosed with metastatic renal cell carcinoma. 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 Re-started single-agent Opdivo on April 13, 2018, discontinued on 05/11/2018 secondary to increased LFTs. He began weekly temsirolimus on 06/07/18. He will be due for his ninth total dose today, or Cycle #3, Day 1. 1. Metastatic renal cell carcinoma: Labs today look good. CBC looks great. He will proceed with treatment as scheduled today. 2. Labs: He will continue with weekly labs. Liver enzymes are completely normal today, and he has no signs or symptoms consistent with immune-mediated hepatitis. 3. Chronic renal insufficiency: Serum creatinine today is a bit higher at 1.6. This is overall stable for patient as he does have a history of chronic renal insufficiency, benign prostatic hypertrophy with urinary retention, and serum creatinine has been as high as 3 in the past. We again discussed the need for proper hydration and reviewed signs and symptoms of when to call our office. He is urinating normally. 4. Hypokalemia: Resolved. Potassium today is 3.6. He will continue on his current oral potassium chloride supplement with 20 mEq daily. 5. Diarrhea: Improved, with diarrhea only occurring with only a couple of episodes every 1-1/2 to 2 weeks. He continues to use Imodium about one to two times per week. This appears quite stable compared to previous, and he will continue on this regimen. He is aware of when to call our office. 6. Rash: Continues to improve. This is mostly confined to the posterior thorax, and upper extremity bilaterally has improved with only a few scattered papules. He no longer has a rash on his face. He will remain on daily prednisone 10 mg for this. 7. He will continue with daily proton pump inhibitor prophylaxis with daily Protonix. 8. Patient will continue with monthly Xgeva every 28 days for his bony metastases. He is due for that today and will receive this today. 9. Imaging: Discussed this case with Dr. Ross last week. We will plan to re-image after completion of Cycle #3 in approximately four weeks or so. 10. Hiccups: I have e-prescribed metoclopramide 10 mg one p.o. q.8 hours p.r.n. hiccups, #30, times zero refills. I did caution the patient and his to the fact that metoclopramide can cause increased bowel motility, and he should use this sparingly given his history of diarrhea, which is likely treatment induced. 11. Patient will return to clinic next week for scheduled followup, labs, and Day 8 of Cycle #3 with weekly temsirolimus. MTDD
[2018-08-09 09:53] VITALS: BP 141/83
[2018-08-09] MEDS: NS(*) 0.9% 500 ML BAG 500 ML IV PRN (10:37)
[2018-08-09] MEDS: HEPARIN FLSH (PORT) 500 UN/5ML IVP PRN (10:37)
[2018-08-09] MEDS: LIDOCAINE/SOD BICARB 8.4% SYR ID PRN (10:37)
[2018-08-09] MEDS: diphenhydrAMINE 25 MG CAP PO PRN (10:37)
[2018-08-09 12:30] VITALS: BP 134/73
--- NOTE | 2018-08-09 21:15 | ONCOLOGY FOLLOW UP NOTE ---
EVENT DATE: August 09, 2018 CHIEF COMPLAINT Followup for metastatic renal cell carcinoma, here for Cycle #3, Day 15 with weekly Torisel. HISTORY OF PRESENT ILLNESS Patient is a 78-year-old gentleman who was seen today for followup. He is due today for his 11th total dose of weekly Torisel, or essentially Cycle #3, Day 15. He has had a pruritic rash in the recent past, which was over his bilateral arms, posterior trunk, and even his face. His rash has been significantly improving week by week. He now only has some noticeable macules noted to his lower back. He no longer has a rash on his face, and his upper extremities are nearly clear of rash. This is only mildly pruritic at his lower back. He had some nausea as well as GERD-type symptoms, but this has all been controlled for at least the last month or so. He is on daily PPI with Protonix. He is no longer having any constipation. He has reported significant diarrhea and softer stools, which he says are "paste-like." He uses Imodium approximately one or two tablets one to two times a week at most. This has been largely under good control. He has also had a slight tremor in his hands bilaterally, noticeable more with increased activity, which patient and report has been stable. Currently, he is on a low dose of daily prednisone at 10 mg secondary to his rash. His dermatologic toxicity has quite improved, as have his bowels. He has had difficulty with electrolyte imbalance in the past and did require IV fluid hydration and electrolyte repletion, though has not required any in the last couple of weeks. He remains on oral potassium. Potassium has been in good normal range. He also reported dysuria a couple of weeks ago and was diagnosed with a UTI and has completed antibiotics. 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 He was hospitalized in the past secondary to renal insufficiency with a serum creatinine as high as 3 several months ago. He is accompanied in the office by his today. At his last visit, he reported recurrence of some hiccups which tend to happen only intermittently. I refilled his metoclopramide, which he was initially prescribed back in December when inpatient. He only uses this very seldom. ONCOLOGY HISTORY Patient is a 78-year-old male who presented with low back pain and left groin pain in October 2017. He had some physical therapy and cortisone injection into the left hip without improvement. He had an MRI which showed renal mass with mets to the spine, followed by CT chest, abdomen, and pelvis done on December 11, 2017, which showed a big heterogeneous mass of the left kidney, 12.5 cm. There were also venous thromboses with multiple veins in the pelvis and upper thighs, likely extending into the inferior vena cava. There were numerous pulmonary nodules, likely representing pulmonary metastases, with mediastinal adenopathy, likely metastatic. There were numerous lytic, destructive lesions in the bones including the anterior aspect of the right 10th and 11th ribs, T7, L1, and L4. There was also a large destructive lesion involving the left iliac bone with a large heterogeneous soft tissue mass component extending into the anterior aspect of the left acetabulum where there is a pathologic fracture. PET/CT scan done on the December showed a large mass involving the left kidney measuring nearly 13 cm with maximum SUV of 21.3. There were bilateral adrenal gland metastases, mediastinal and lung metastases, intra-abdominal adenopathy, left axillary lymphadenopathy, and extensive osseous metastatic disease. CT- guided biopsy on the December of the left iliac crest showed metastases consistent with clear-cell renal cell carcinoma. Began Yervoy and Opdivo on January 05, 2018, with plans to proceed with maintenance Opdivo after four cycles. 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 Began single agent Opdivo on April 13, 2018. Opdivo was discontinued on May 11, 2018, because of increased liver function tests. Began temsirolimus on June 07, 2018. PAST MEDICAL HISTORY 1. Metastatic renal cell carcinoma. 2. Bone metastases. 3. BPH with urinary retention. 4. Bilateral lower extremity DVT. PAST SURGICAL HISTORY 1. Right knee replacement in 2010. 2. Prostate biopsy in 2008. 3. Left rotator cuff injury repair. 4. Bilateral cataract surgery. 5. Left renal embolization, 01/16/18. FAMILY HISTORY Brother had squamous cell carcinoma of the lip. Father had lung cancer. Sister had lung cancer. He had a brother with kidney cancer. He had multiple cousins with brain, kidney, and lung cancer. SOCIAL HISTORY Patient is with two children. 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 He is a never smoker. He occasionally drinks beer. Denies any abuse of illicit drugs. CURRENT MEDICATIONS 1. Tamsulosin 0.4 mg b.i.d. 2. Chlorpromazine 25 mg t.i.d. p.r.n. 3. Eliquis. 4. Protonix 40 mg daily. 5. Levothyroxine. 6. Probiotic. ALLERGIES OXYCONTIN causes rash. REVIEW OF SYSTEMS CONSTITUTIONAL: Patient denies any recent fevers, chills, night sweats, or infections. HEENT: He denies any blurry vision. No vision changes. No epistaxis. No mucositis. LUNGS: He denies any shortness of breath. No cough or sputum production. No hemoptysis. No pleuritic chest pain. GASTROINTESTINAL: No abdominal pain, nausea, vomiting, or constipation. He remains on daily Protonix for his GERD. He has had some diarrhea, though usually reports this as loose stools which begin about 10 to 14 days following each treatment. This lasts about a day to a day and a half. He uses Imodium when that occurs, approximately two tablets. He reports his stools as "paste- like." This is all largely stable and unchanged. This is quite manageable, per patient and his . He has also had some hiccups intermittently, and we refilled his metoclopramide prescription for this. He remains on oral potassium. He is eating quite well and tells me he eats at least three good meals a day and snacks in between. GENITOURINARY: He continues to have some dysuria, but has now completed antibiotic therapy. No fevers or associated flank pain. DERM: Patient reports that he now only notices a mildly pruritic rash noted to his posterior trunk. He no longer has a rash on his face, and his upper extremities are nearly clear of rash. ENDOCRINE: Patient denies any vasomotor symptoms. He reports good energy. The remainder of a 12-point review of systems is performed today and is otherwise negative. PHYSICAL EXAMINATION VITAL SIGNS: Weight today 76 kg, up from 75.2. T 98.4, P 85, R 16, BP 141/83, oxygen saturation 94% on room air. GENERAL: In general, this is a pleasant, well-developed, well-nourished 78-year-old male who appears to be in no acute distress. HEAD: Normocephalic, atraumatic. No rash over the head or face. EYES: Sclerae anicteric. ENT, MOUTH: Moist mucous membranes. NECK: Supple. No palpable lymphadenopathy. No JVD. CARDIOVASCULAR: Heart rate regular, at times mildly tachycardic in the mid 90s with regular rhythm. No ectopy. EXTREMITIES: No edema. No clubbing or cyanosis. NEUROLOGIC: Nonfocal. Patient is awake, alert, and oriented times three. PSYCHIATRIC: Mood and affect are appropriate. DERM: Maculopapular rash noted, grade 1 in the lower posterior trunk. This has been only mildly pruritic for patient. Rash to the bilateral upper extremities has nearly completely resolved. Rash to his face has completely resolved. LABORATORY CBC today: WBC 6.8, ANC 4.9, hemoglobin 11.6, hematocrit 35.6%, platelets 120,000. CMP today: Sodium normal, 139, potassium normal, 2.7, serum creatinine up to 1.8, previously 1.6 last week, glucose up at 160, calcium normal, 8.7. Liver enzymes all normal to include normal AST at 24, normal ALT, 20, alkaline phosphatase normal, 57, total bilirubin 0.3, and protein and albumin all normal with an albumin of 3.8. IMPRESSION AND PLAN The patient is a 78-year-old male diagnosed with metastatic renal cell carcinoma. 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 Re-started single-agent Opdivo on April 13, 2018, discontinued on 05/11/2018 secondary to increased LFTs. He began weekly temsirolimus on 06/07/18. He will be due for his 11th total dose today, or Day 15 of Cycle #3. 1. Metastatic renal cell carcinoma: Labs today look good. CBC looks good. He has a mild normocytic anemia with hemoglobin 11.6. We will continue to monitor that. He will proceed with treatment as scheduled today. 2. Labs: Will continue with weekly labs. Liver enzymes are still completely normal. He has no signs or symptoms consistent with immune-mediated hepatitis. 3. Chronic renal insufficiency: Serum creatinine today is a bit higher at 1.8. Patient does have a history of chronic renal insufficiency, benign prostatic hypertrophy with urinary retention, and has had serum creatinine as high as 3 in the past. Discussed the need for proper hydration. We will continue to monitor. He is urinating normally. He will receive 500 mL of normal saline intravenous fluid today as hydration for his chronic renal insufficiency. 4. Hypokalemia: Resolved. He will continue on his current oral potassium chloride supplement with 20 mEq daily. 5. Diarrhea: Largely manageable and stable and improved. He has only a couple of episodes every 1 to 1-1/2 weeks. He will continue to use Imodium p.r.n., which he uses about one to two times per week. 6. Rash: Continues to improve. This is now mostly confined to the lower back. Upper extremities are nearly resolved. Rash to the face has completely resolved. There is no rash on the chest. He will remain on daily prednisone 10 mg, and my plan is for him to begin a taper in the next one to two weeks, and we will begin with lowering this down by half or 5 mg daily. 7. He will continue with daily proton pump inhibitor prophylaxis with Protonix. 8. He will continue with monthly Xgeva every 28 days for his bony metastases. He is not due for that today as he last received that on 08/02/18. 9. Imaging: Discussed with Dr. Ross. Our plan is to re-image after completion of Cycle #3. We will likely order restaging CT chest, abdomen, and pelvis. 10. Patient will return to clinic next week for followup, labs, and Day 22 of Cycle #3. 11. He is scheduled to follow up with his medical oncologist on 09/06/18. [facility]
[2018-08-16 09:38] VITALS: BP 158/93
[2018-08-16] MEDS: LIDOCAINE/SOD BICARB 8.4% SYR ID PRN (09:53)
[2018-08-16 09:54] VITALS: BP 158/93
[2018-08-16] MEDS: NS(*) 0.9% 500 ML BAG 500 ML IV PRN (10:00)
[2018-08-16] MEDS: diphenhydrAMINE 25 MG CAP PO PRN (10:17)
[2018-08-16 12:25] VITALS: BP 136/82
[2018-08-16] MEDS: HEPARIN FLSH (PORT) 500 UN/5ML IVP PRN (12:25)
--- NOTE | 2018-08-16 12:26 | ONCOLOGY FOLLOW UP NOTE ---
EVENT DATE: August 16, 2018 DIAGNOSES 1. Metastatic renal cell carcinoma. 2. Bone metastases. CHIEF COMPLAINT Patient is here today for treatment with temsirolimus for his metastatic renal cell carcinoma. ONCOLOGY HISTORY Patient is a 78-year-old male who saw Nola Nunez for low back pain and left groin pain. He started the process of followup of his pain since October as per patient. He had some physical therapy and cortisone injection into the left hip without improvement. He had an MRI which showed renal mass with mets to the spine, so the patient had after that CT chest, abdomen, and pelvis done on December 11, 2017, which showed a big heterogeneous mass of the left kidney, 12.5 cm. There was also venous thrombosis with multiple veins in the pelvis and upper thighs likely extending into the inferior vena cava. There were numerous pulmonary nodules likely representing pulmonary metastasis with mediastinal adenopathy likely metastatic. There were numerous lytic, destructive lesions in the bones including the anterior aspect of the right 10th and 11th ribs, T7, L1, and L4. There was also a large destructive lesion involving the left iliac bone with a large heterogeneous soft tissue mass component extending into the anterior aspect of the left acetabulum where there is pathologic fracture. The uncinate process of the liver is heterogeneous. PET/CT scan done on December 20, 2017 showed a large mass involving the left kidney measuring nearly 13 cm with maximum SUV of 21.3. There were bilateral adrenal gland metastases, mediastinal and lung metastases, intra-abdominal adenopathy, left axillary lymphadenopathy, and extensive osseous metastatic disease. CT-guided biopsy of the left iliac crest showed metastases consistent with clear-cell renal cell carcinoma, and the biopsy was done on December 22, 2017. Patient started treatment with Opdivo and Yervoy at the beginning of January 2018. Patient received three doses of Yervoy and Opdivo every month, and the treatment was stopped after that because of the elevation of the liver enzymes thought to be due to immune reaction. Patient started Opdivo single agent on April 13, 2018. Treatment with Opdivo is stopped on May 11, 2018, because of the rise of the liver enzymes again. HISTORY OF PRESENT ILLNESS Patient is here today for followup of his renal cell carcinoma metastatic disease, on treatment with temsirolimus after hepatic toxicity from Opdivo. He is doing fine currently. He is complaining of some diarrhea and easy bruising but he is using Eliquis for his DVT. Other than that, he is really doing very well currently. He is engaging in the discussion and he is really doing very well compared to his initial presentation with metastatic renal cell carcinoma. PAST MEDICAL HISTORY Benign prostatic hypertrophy with urinary retention in 2016, currently on tamsulosin. PAST SURGICAL HISTORY 1. Right knee replacement in 2010. 2. Prostate biopsy in 2008. 3. Left rotator cuff injury repair. 4. Bilateral cataract surgery. FAMILY HISTORY Brother had squamous cell carcinoma of the lip. Father had lung cancer. Sister had lung cancer. He had brother with kidney cancer. He had multiple cousins with brain, kidney, and lung cancer. SOCIAL HISTORY Patient is with two children. 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 He is a never smoker. He occasionally drinks beer. Denies any abuse of illicit drugs. CURRENT MEDICATIONS 1. Tamsulosin 0.4 mg daily. 2. Baclofen 10 mg t.i.d. p.r.n. ALLERGIES OXYCONTIN, which caused rash. REVIEW OF SYSTEMS CONSTITUTIONAL: No appetite or weight change. No fever, chills, or sweating. No recent infection. HEENT: Ears: No tinnitus or hearing problem. Nose: No nasal discharge or epistaxis. Throat: No sore throat or mouth ulcers. Eyes: No diplopia or visual changes. RESPIRATORY: Patient has shortness of breath. CARDIOVASCULAR: No chest pain, orthopnea, or paroxysmal nocturnal dyspnea (PND). No edema. No palpitations. GASTROINTESTINAL: Patient has some diarrhea. GENITOURINARY: No hematuria or dysuria. MUSCULOSKELETAL: No pain in the muscles, joints, or bones. NEUROLOGICAL: No tingling or numbness in the hands or feet. No headaches or convulsions. HEMATOLOGIC/LYMPHATIC: He bruises easily. SKIN: No skin rash or lumps. PSYCHIATRIC: No anxiety or depression. PHYSICAL EXAMINATION GENERAL: Looks stable. Well developed, well nourished, and in no acute distress. VITAL SIGNS: Blood pressure 158/93, pulse 97 per minute, respirations 16 per minute, temperature 97.3, pulse ox 96% on room air. HEENT: Head: Atraumatic. No sinus tenderness to palpation. Eyes: No icterus or conjunctivitis. Mouth and Throat: No oral thrush or mucositis. NECK: Supple. No cervical or supraclavicular lymphadenopathy. LUNGS: Clear to auscultation and percussion bilaterally. HEART: Regular rate and rhythm. No gallops, murmurs, clicks, or rubs. ABDOMEN: Soft and lax. No tenderness. No hepatosplenomegaly. No masses. EXTREMITIES: No cyanosis, clubbing, or edema. LYMPHATICS: No peripheral lymphadenopathy. NEUROLOGICAL: Conscious, alert, and oriented times three. No focal motor or sensory deficits. PSYCHIATRIC: Mood and affect appear normal. SKIN: No skin rash, bruise, or purpuric eruption. DIAGNOSTIC DATA CBC showed white count 9.3, hemoglobin 12, hematocrit 36.6, platelets 137,000. Chem panel totally normal except potassium 3.2, chloride 109, creatinine 1.6, blood sugar 156. ASSESSMENT 1. Metastatic renal cell carcinoma of the left kidney with metastasis to the left iliac bone and multiple pulmonary metastases, mediastinal adenopathy, bilateral adrenal and intra-abdominal adenopathy and left axillary adenopathy. MRI of the brain done December 19, 2017 was negative for brain metastasis but there may be some osseous metastasis of the posterior right parietal skull bone. PET/CT scan done on December 20, 2017, showed a large mass involving the left kidney measuring 13 cm with SUV 21.3 with bilateral adrenal gland metastases, mediastinal and lung metastases, intra-abdominal adenopathy, left axillary lymphadenopathy and extensive osseous metastatic disease. CT-guided biopsy of the left iliac bone done on December 22, 2017, came back positive for metastases from clear renal cell carcinoma. Patient started treatment with Yervoy and Opdivo the beginning of January 2018. He received three courses and treatment was stopped because of the development of elevation of the liver enzymes, which normalized after stopping the treatment and steroid therapy. Patient developed also hematuria with anticoagulation so patient was referred to the hospital in [facility] with placement of inferior vena cava filter and tying of the blood vessels of the bleeding kidney. Patient did fine regarding the bleeding after that. He resumed treatment with single-agent Opdivo April 13, 2018, but his liver enzymes nina again so Opdivo treatment was stopped because of the fear of autoimmune hepatitis and patient started treatment with temsirolimus after normalization of his liver enzymes in June 2018. He is tolerating treatment very well so far. He is due today for the day 15 of the third cycle of temsirolimus, which he is given weekly. I am planning to continue treatment as scheduled with check of his CBC and chem panel every week and will see him in four weeks from now with CBC, chem panel, CT chest, abdomen and pelvis with IV and oral contrast. I explained that to the patient and his . They are agreeable with the plan of management. 2. Bony metastases. We will continue Xgeva 120 mg subcutaneously every four weeks. 3. Easy bruising, most probably due to Eliquis. We will continue to monitor. PLAN 1. Temsirolimus cycle 3C. 2. Patient to return in four weeks with CBC, chem panel and CT chest, abdomen and pelvis with IV and oral contrast. 3. CBC, chem panel to be checked weekly prior to each dose of temsirolimus. 4. Patient to contact us for any new concerns or complaints. 5. Continue Xgeva every four weeks for his bone metastasis. MTDD
[2018-08-23 10:07] VITALS: BP 140/84
[2018-08-23] MEDS: diphenhydrAMINE 25 MG CAP PO PRN (10:33)
[2018-08-23] MEDS: LIDOCAINE/SOD BICARB 8.4% SYR ID PRN (11:16)
[2018-08-23] MEDS: NS(*) 0.9% 500 ML BAG 500 ML IV PRN (11:16)
[2018-08-23] MEDS: HEPARIN FLSH (PORT) 500 UN/5ML IVP PRN (11:16)
--- NOTE | 2018-08-23 12:41 | ONCOLOGY FOLLOW UP NOTE ---
EVENT DATE: August 23, 2018 CHIEF COMPLAINT Followup for metastatic renal cell carcinoma, here for Cycle #3, Day 22 with weekly Torisel. DIAGNOSES 1. Metastatic renal cell carcinoma. 2. Bone metastases. HISTORY OF PRESENT ILLNESS Patient is a 78-year-old gentleman who was seen today for followup. He is due today for Cycle #4, Day 1. He has had a pruritic rash in the recent past, which was over his bilateral arms, posterior trunk, and even his face. His rash has been significantly improving week by week. He now only has some noticeable macules noted to his lower back. He no longer has a rash on his face, and his upper extremities are nearly clear of rash. This is only mildly pruritic at his lower back. He had some nausea as well as GERD-type symptoms, but this has all been controlled for at least the last month or so. He is on daily PPI with Protonix. He is no longer having any constipation. He has reported significant diarrhea and softer stools, which he says are "paste-like." He uses Imodium approximately one or two tablets one to two times a week at most. This has been largely under good control. He has also had a slight tremor in his hands bilaterally, noticeable more with increased activity, which patient and report has been stable. Currently, he is on a low dose of daily prednisone at 10 mg secondary to his rash. His dermatologic toxicity has quite improved, as have his bowels. He has had difficulty with electrolyte imbalance in the past and did require IV fluid hydration and electrolyte repletion, though has not required any in the last couple of weeks. He remains on oral potassium. Potassium has been in good normal range. He also reported dysuria a couple of weeks ago and was diagnosed with a UTI and has completed antibiotics. 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 He was hospitalized in the past secondary to renal insufficiency with a serum creatinine as high as 3 several months ago. His is with him today. He occasionally has some hiccups, although these only happen very intermittently and infrequently. He uses metoclopramide for this and only seldomly. He does bruise easily, although is on Eliquis for DVT. ONCOLOGY HISTORY Patient is a 78-year-old male who presented with low back pain and left groin pain in October 2017. He had some physical therapy and cortisone injection into the left hip without improvement. He had an MRI which showed renal mass with mets to the spine, followed by CT chest, abdomen, and pelvis done on December 11, 2017, which showed a big heterogeneous mass of the left kidney, 12.5 cm. There were also venous thromboses with multiple veins in the pelvis and upper thighs, likely extending into the inferior vena cava. There were numerous pulmonary nodules, likely representing pulmonary metastases, with mediastinal adenopathy, likely metastatic. There were numerous lytic, destructive lesions in the bones including the anterior aspect of the right 10th and 11th ribs, T7, L1, and L4. There was also a large destructive lesion involving the left iliac bone with a large heterogeneous soft tissue mass component extending into the anterior aspect of the left acetabulum where there is a pathologic fracture. PET/CT scan done on the December showed a large mass involving the left kidney measuring nearly 13 cm with maximum SUV of 21.3. There were bilateral adrenal gland metastases, mediastinal and lung metastases, intra-abdominal adenopathy, left axillary lymphadenopathy, and extensive osseous metastatic disease. CT- guided biopsy on the December of the left iliac crest showed metastases consistent with clear-cell renal cell carcinoma. Began Yervoy and Opdivo on January 05, 2018, with plans to proceed with maintenance Opdivo after four cycles. 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 Began single agent Opdivo on April 13, 2018. Opdivo was discontinued on May 11, 2018, because of increased liver function tests. Began temsirolimus on June 07, 2018. PAST MEDICAL HISTORY 1. Metastatic renal cell carcinoma. 2. Bone metastases. 3. BPH with urinary retention. 4. Bilateral lower extremity DVT. PAST SURGICAL HISTORY 1. Right knee replacement in 2010. 2. Prostate biopsy in 2008. 3. Left rotator cuff injury repair. 4. Bilateral cataract surgery. 5. Left renal embolization, 01/16/18. FAMILY HISTORY Brother had squamous cell carcinoma of the lip. Father had lung cancer. Sister had lung cancer. He had a brother with kidney cancer. He had multiple cousins with brain, kidney, and lung cancer. SOCIAL HISTORY Patient is with two children. 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 He is a never smoker. He occasionally drinks beer. Denies any abuse of illicit drugs. CURRENT MEDICATIONS 1. Tamsulosin 0.4 mg b.i.d. 2. Chlorpromazine 25 mg t.i.d. p.r.n. 3. Eliquis. 4. Protonix 40 mg daily. 5. Levothyroxine. 6. Probiotic. ALLERGIES OXYCONTIN causes rash. REVIEW OF SYSTEMS CONSTITUTIONAL: Patient denies any recent fevers, chills, night sweats, or infections. HEENT: He denies any blurry vision. No vision changes. No epistaxis. No mucositis. LUNGS: He denies any shortness of breath. No cough or sputum production. No hemoptysis. No pleuritic chest pain. CARDIOVASCULAR: No chest pain. No reports of syncope or presyncope. GASTROINTESTINAL: No abdominal pain, nausea, vomiting, or constipation. He remains on daily Protonix for his GERD. He has some diarrhea, usually only two days or so after each treatment and reports only about two loose stools in those days. This has been quite manageable. He intermittently and infrequently has hiccups and will use metoclopramide as needed for that. He remains on oral potassium. His appetite is good and he is eating at least three meals a day with snacks in between. He is drinking water well. GENITOURINARY: He continues to have some dysuria, but has now completed antibiotic therapy. No fevers or associated flank pain. DERM: Patient continues to have a mild rash, mostly noted to the posterior trunk and bilateral upper extremities. This may bit a bit more erythematous in the right upper arm and lower back but is still quite manageable for patient. He tends to bruise easily but remains on anticoagulation with daily Eliquis for is DVT. PSYCH: He denies any severe anxiety, severe depression, suicidal or homicidal ideation. The remainder of a 12-point review of systems is performed today and is otherwise negative. PHYSICAL EXAMINATION VITAL SIGNS: T 98.0, P 94, R 16, BP 140/84, oxygen saturation 98% room air. GENERAL: In general, this is a pleasant, well-developed, well-nourished 78-year-old male who appears to be in no acute distress. HEAD: Normocephalic, atraumatic. No rash over the head or face. EYES: Sclerae anicteric. ENT/MOUTH: Moist mucous membranes. NECK: Supple. No palpable lymphadenopathy. No JVD. CARDIOVASCULAR: Mildly tachycardic in the low 90s, regular rhythm. No ectopy. ABDOMEN: Soft, nontender, nondistended. Bowel sounds positive x4. No organomegaly. EXTREMITIES: No edema. No clubbing or cyanosis. NEUROLOGIC: Nonfocal. Patient is awake, alert, and oriented times three. PSYCHIATRIC: Mood and affect are appropriate. DERM: Maculopapular rash noted, grade 1 in the lower posterior trunk. This is a bit more erythematous in the lower trunk and right upper extremity. Rash has nearly resolved to the left upper extremity. He no longer has a rash to his face. This tends to wax and wane. LABORATORY CBC today: WBC 8.3, ANC 5.7, hemoglobin 11.5, hematocrit 34.8%, platelets 168,000. ANC 5.7. CMP today: Sodium normal at 139, potassium improved although still minimally low at 3.4, serum creatinine improved to 1.5, glucose elevated at 165. He is on oral corticosteroids. Calcium normal at 8.4. Magnesium normal at 1.8. LFTs all normal to include normal AST at 26, ALT at 24, alkaline phosphatase at 63, total bilirubin 0.3, total protein 6.8 with normal albumin of 3.8. IMPRESSION AND PLAN The patient is a 78-year-old male diagnosed with metastatic renal cell carcinoma. 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 Re-started single-agent Opdivo on April 13, 2018, discontinued on May 11, 2018 secondary to increased LFTs. He began weekly temsirolimus on May 20, 2018. He will be due for Cycle #4, Day 1 today. He is due for re-staging scans and has these scheduled. 1. Metastatic renal cell carcinoma: Labs look good today. He has mild anemia at 11.5, which is stable. He will proceed with Cycle #3, Day 22, with temsirolimus. 2. Labs: Liver enzymes are completely normal. His potassium is improved to 3.4. He will remain on oral potassium supplementation. Serum creatinine improved today at 1.5. He is drinking fluids well. 3. History of chronic renal insufficiency: Serum creatinine improved today to 1.5. We will continue to monitor. He is drinking fluids well. 4. Diarrhea: Largely manageable. He has only one to two episodes every 1-1/2 weeks with no more than two loose stools a day. He may continue to use Imodium p.r.n.. 5. Rash: Continues to improve, currently stable, although this does wax and wane. He no longer has a rash of the face. He no longer has a rash on the chest. Left upper extremity is almost completely resolved from rash. This is mostly confined to the right upper extremity and lower torso. He will remain on daily prednisone 10 mg. Plan is for him to begin to taper this in the next couple of weeks. They have instructions on how to taper this down. 6. He will remain on daily PPI prophylaxis with Protonix. 7. He will continue with monthly Xgeva every 28 days for his bony metastases. He is not due for that today. 8. Imaging: Patient is scheduled for a re-staging CT chest, abdomen and pelvis with IV and oral contrast, which is scheduled for next Monday, August 29, 2018. 9. He will return to the clinic in one week for followup, repeat labs and Cycle # 4 Day 1. He and I can review results of his CT scan at that time if results are available. 10. He is scheduled to follow up with Dr. Ross on September 06, 2018. [facility]
[2018-08-23 12:45] VITALS: BP 146/87
[2018-08-30 09:49] VITALS: BP 154/94
[2018-08-30] MEDS: diphenhydrAMINE 25 MG CAP PO PRN (10:44)
[2018-08-30] MEDS: HEPARIN FLSH (PORT) 500 UN/5ML IVP PRN (10:45)
[2018-08-30] MEDS: LIDOCAINE/SOD BICARB 8.4% SYR ID PRN (10:45)
[2018-08-30] MEDS: NS(*) 0.9% 500 ML BAG 500 ML IV PRN ×2 (10:45→11:34)
[2018-08-30 12:39] VITALS: BP 142/90
[2018-08-30 13:20] VITALS: BP 149/89
--- NOTE | 2018-08-30 13:50 | ONCOLOGY FOLLOW UP NOTE ---
EVENT DATE: August 30, 2018 CHIEF COMPLAINT Followup for metastatic renal cell carcinoma, here for Cycle #4, Day 1 with weekly Torisel. DIAGNOSES 1. Metastatic renal cell carcinoma. 2. Bone metastases. HISTORY OF PRESENT ILLNESS Patient is a 78-year-old gentleman who was seen today for followup. He is due today for Cycle #4, Day 1. He has had a pruritic rash in the recent past, which was over his bilateral arms, posterior trunk, and even his face. His rash has been significantly improving week by week. He now only has some noticeable macules noted to his lower back. He no longer has a rash on his face, and his upper extremities are nearly clear of rash. This is only mildly pruritic at his lower back. We have initiated a prednisone taper. He is set to decrease this down to 5 mg daily tomorrow. New prescription was sent in for him a couple of days ago. He has not had any nausea, although in the past did have some nausea as well as GERD symptoms. This has all been controlled for at least the last six weeks or so. He remains on daily PPI with Protonix. He is no longer having any constipation. He has had some significant diarrhea, initially with treatment, although this had also tapered off and significantly improved. He only has a couple of episodes of loose stools about once every 7 to 10 days and uses approximately 1 or 2 Imodium per week at most. This is all very stable per patient and his . He has had a slight tremor in his hands bilaterally, most noticeable with increased activity, although this has also been stable. Overall, his dermatologic toxicity and bowels have improved. He has had some difficulty with electrolyte imbalance and in the past we have corrected his electrolytes and given IV fluids. His electrolytes have recently been in good range. He remains on oral potassium. He has a history of BPH with urinary retention. No recent fevers or infections. He does have a history of chronic renal insufficiency and has had a serum creatinine as high as 3. He typically ranges between 1.6 and 1.8. He remains on Eliquis b.i.d. for history of bilateral DVTs. Lastly, he has occasional hiccups but this is only seldom and he does have a prescription for metoclopramide if needed. His is with him at chairside. He just had a re-staging CT scan done yesterday. ONCOLOGY HISTORY Patient is a 78-year-old male who presented with low back pain and left groin pain in October 2017. He had some physical therapy and cortisone injection into the left hip without improvement. He had an MRI which showed renal mass with mets to the spine, followed by CT chest, abdomen, and pelvis done on December 11, 2017, which showed a big heterogeneous mass of the left kidney, 12.5 cm. There were also venous thromboses with multiple veins in the pelvis and upper thighs, likely extending into the inferior vena cava. There were numerous pulmonary nodules, likely representing pulmonary metastases, with mediastinal adenopathy, likely metastatic. There were numerous lytic, destructive lesions in the bones including the anterior aspect of the right 10th and 11th ribs, T7, L1, and L4. There was also a large destructive lesion involving the left iliac bone with a large heterogeneous soft tissue mass component extending into the anterior aspect of the left acetabulum where there is a pathologic fracture. PET/CT scan done on the December showed a large mass involving the left kidney measuring nearly 13 cm with maximum SUV of 21.3. There were bilateral adrenal gland metastases, mediastinal and lung metastases, intra-abdominal adenopathy, left axillary lymphadenopathy, and extensive osseous metastatic disease. CT- guided biopsy on the December of the left iliac crest showed metastases consistent with clear-cell renal cell carcinoma. Began Yervoy and Opdivo on January 05, 2018, with plans to proceed with maintenance Opdivo after four cycles. 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 Began single agent Opdivo on April 13, 2018. Opdivo was discontinued on May 11, 2018, because of increased liver function tests. Began temsirolimus on June 07, 2018. PAST MEDICAL HISTORY 1. Metastatic renal cell carcinoma. 2. Bone metastases. 3. BPH with urinary retention. 4. Bilateral lower extremity DVT. PAST SURGICAL HISTORY 1. Right knee replacement in 2010. 2. Prostate biopsy in 2008. 3. Left rotator cuff injury repair. 4. Bilateral cataract surgery. 5. Left renal embolization, 01/16/18. FAMILY HISTORY Brother had squamous cell carcinoma of the lip. Father had lung cancer. Sister had lung cancer. He had a brother with kidney cancer. He had multiple cousins with brain, kidney, and lung cancer. SOCIAL HISTORY Patient is with two children. 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 He is a never smoker. He occasionally drinks beer. Denies any abuse of illicit drugs. CURRENT MEDICATIONS 1. Tamsulosin 0.4 mg b.i.d. 2. Chlorpromazine 25 mg t.i.d. p.r.n. 3. Eliquis. 4. Protonix 40 mg daily. 5. Levothyroxine. 6. Probiotic. ALLERGIES OXYCONTIN causes rash. REVIEW OF SYSTEMS CONSTITUTIONAL: Patient denies any recent fevers, chills, night sweats, or infections. HEENT: He denies any blurry vision. No vision changes. No epistaxis. No mucositis. LUNGS: He denies any shortness of breath. No cough or sputum production. No hemoptysis. No pleuritic chest pain. CARDIOVASCULAR: No chest pain. No reports of syncope or presyncope. GASTROINTESTINAL: No abdominal pain, nausea, vomiting, or constipation. He is on Protonix daily for GERD. His diarrhea has significantly improved. He only has a couple of episodes after each treatment and these are mostly reported as loose. He uses 1 or 2 Imodium per week. He infrequently has hiccups and has a prescription for metoclopramide as needed, which has helped for that in the past. He remains on oral potassium. He reports good appetite and is eating three meals a day and snacking in between. He reports drinking water well with the exception of yesterday as he was quite busy. GENITOURINARY: He continues to have some dysuria, but has now completed antibiotic therapy. No fevers or associated flank pain. DERM: Patient continues to have a mild rash, mostly noted to the posterior trunk and bilateral upper extremities. This is less erythematous and is in fewer areas compared to last week. He tends to bruise easily, although he is on anticoagulation with Eliquis. PSYCH: He denies any severe anxiety, severe depression, suicidal or homicidal ideation. The remainder of a 12-point review of systems is performed today and is otherwise negative. PHYSICAL EXAMINATION VITAL SIGNS: Weigh today 76.9 kg, stable compared to last visit. T 98.2, P 95, R 16, BP 154/94, oxygen saturation 96% room air. Pain scale rated at "0/10". Fatigue listed as level "2". GENERAL: In general, this is a pleasant, well-developed, well-nourished 78-year-old male who appears to be in no acute distress. HEAD: Normocephalic, atraumatic. No rash over the head or face. EYES: Sclerae anicteric. ENT/MOUTH: Moist mucous membranes. NECK: Supple. No palpable lymphadenopathy. No JVD. CARDIOVASCULAR: Mildly tachycardic in the low 90s, regular rhythm. No ectopy. ABDOMEN: Soft, nontender, nondistended. Bowel sounds positive x4. No organomegaly. EXTREMITIES: No edema. No clubbing or cyanosis. NEUROLOGIC: Nonfocal. Patient is awake, alert, and oriented times three. PSYCHIATRIC: Mood and affect are appropriate. DERM: Maculopapular rash noted, grade 1 in the lower posterior trunk. This is less erythematous compared to last week and there are fewer macules noted to the upper extremities. This does tend to wax and wane. LABORATORY CBC today: WBC 7.9, ANC 6.4, hemoglobin 11.4, hematocrit 34.1%, platelets 174,000. CMP today: Sodium normal at 139, potassium normal at 3.7, serum creatinine up to 1.9, previously 1.5 and 1.6, glucose elevated at 169. Calcium normal at 9.3. Magnesium normal at 1.9. LFTs all normal to include AST normal at 30, ALT normal at 21, alkaline phosphatase normal at 71, total bilirubin normal at 0.3. TSH normal at 1.66 with Free T4 normal at 1.39. Free T3 is currently pending. IMAGING CT scan chest, abdomen and pelvis with and without contrast at [facility] [place] August 29, 2018: 1. There is a mixed response to therapy. All of the previously noted pulmonary nodules have remained stable. 2. Although the subcarinal nodule mass has decreased in size, the anterior mediastinal adenopathy, AP window adenopathy and right hilar adenopathy have increased in size. Anterior mediastinal lymph node has increased in size, now measuring 2.3 x 2 cm, previously measuring 1.4 x 0.7 cm, and now contains a necrotic central region. An AP window lymph node now measures 10.9 mm, previously 7.9 mm. Right hilar lymph node measures 2.1 x 1.7 cm, previously measuring 2.1 x 1.6 cm. 3. Bone metastases appear stable as described above. 4. The head of the pancreas appears heterogenous to greater extent than on the prior study. If of clinical concern, further imaging could be performed with MR with and without contrast. 5. Previously noted left adrenal mass has further decreased in size and is barely perceptible. 6. Heterogenous left renal mass slightly decreased in size. 7. There is a new ovoid calcification in the vicinity of the left UVJ which may represent a distal left ureteral calculus as described above. 8. Bone/soft tissue: Severe pathologic fracture of the T8 vertebral body underlying lytic lesion appears relatively unchanged. There is a healing fracture through the posterior lateral aspect of the 7th rib. IMPRESSION AND PLAN The patient is a 78-year-old male diagnosed with metastatic renal cell carcinoma. 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 Re-started single-agent Opdivo on April 13, 2018, discontinued on May 11, 2018 secondary to increased LFTs. He began weekly temsirolimus on May 20, 2018. He is actually due for Day 1 of Cycle #4 today. He is also due for monthly Xgeva today. He recently had re-staging CT scan. 1. Metastatic renal cell carcinoma: CBC today looks good. He has a mild stable anemia, which we will continue to monitor. Otherwise, no intervention. He will proceed with temsirolimus today. 2. CMP: He has history of chronic renal insufficiency. Serum creatinine up to 1.9 today. This is largely on par with his baseline. We will provide extra hydration today with 500 mL normal saline IV. He does report that he did not drink as much water yesterday simply because he was busy outside. Safe to proceed with temsirolimus today. 3. Hyperglycemia: On daily prednisone for his dermatological side effects related to temsirolimus. He is going to start tapering down his prednisone and tomorrow will start taking 5 mg daily instead of 10. We will continue to re- evaluate weekly and will give him further instructions depending on how his rash reacts. 4. Liver enzymes, normal. No transaminitis. 5. Diarrhea: Largely manageable. He will continue to use Imodium 1 to 2 tablets p.r.n. weekly. 6. Rash: Continues to improve. Again, prednisone is being decreased down to 5 mg daily. 7. Remains on daily PPI with Protonix. 8. Patient will continue with Xgeva every 28 days for his bony metastases and will receive this today. 9. Imaging: We reviewed his re-staging CT chest, abdomen and pelvis today, which was done yesterday, August 29, 2018. Discussed with patient and today that he has had a mixed response. Explained that I reviewed scan results in office today with Dr. Ross. He is tolerating temsirolimus quite well and initial side effects have largely subsided and are under good control. We would like for him to continue with weekly temsirolimus, and have evaluation by Radiation Oncology for potential radiotherapy to the increased lymphadenopathy. I have written orders today to refer him to Dr. Arizmendi for consultation. 10. All of this was discussed with patient and his today. Ample time was given for questions. 11. Patient will return to the clinic next week for followup with his medical oncologist, labs and should be due for Day 8, Cycle #4 with weekly temsirolimus. 12. He is aware that our office will get him scheduled for radiation consultation. MTDD
[2018-09-06 09:46] VITALS: BP 142/93
[2018-09-06] MEDS: LIDOCAINE/SOD BICARB 8.4% SYR ID PRN (09:57)
[2018-09-06] MEDS: diphenhydrAMINE 25 MG CAP PO PRN (10:40)
[2018-09-06 12:02] VITALS: BP 155/92
[2018-09-06] MEDS: HEPARIN FLSH (PORT) 500 UN/5ML IVP PRN (12:07)
[2018-09-06] MEDS: NS(*) 0.9% 250 ML BAG 250 ML IVPB PRN (12:07)
--- NOTE | 2018-09-06 12:26 | [facility] ONCOLOGY NOTE ---
EVENT DATE: September 06, 2018 DIAGNOSES 1. Metastatic renal cell carcinoma. 2. Bone metastases. CHIEF COMPLAINT Patient is here today for treatment with temsirolimus for his metastatic renal cell carcinoma. ONCOLOGY HISTORY Patient is a 78-year-old male who saw Nola Nunez for low back pain and left groin pain. He started the process of followup of his pain since October as per patient. He had some physical therapy and cortisone injection into the left hip without improvement. He had an MRI which showed renal mass with mets to the spine, so the patient had after that CT chest, abdomen, and pelvis done on December 11, 2017, which showed a big heterogeneous mass of the left kidney, 12.5 cm. There was also venous thrombosis with multiple veins in the pelvis and upper thighs likely extending into the inferior vena cava. There were numerous pulmonary nodules likely representing pulmonary metastasis with mediastinal adenopathy likely metastatic. There were numerous lytic, destructive lesions in the bones including the anterior aspect of the right 10th and 11th ribs, T7, L1, and L4. There was also a large destructive lesion involving the left iliac bone with a large heterogeneous soft tissue mass component extending into the anterior aspect of the left acetabulum where there is pathologic fracture. The uncinate process of the liver is heterogeneous. PET/CT scan done on December 20, 2017 showed a large mass involving the left kidney measuring nearly 13 cm with maximum SUV of 21.3. There were bilateral adrenal gland metastases, mediastinal and lung metastases, intra-abdominal adenopathy, left axillary lymphadenopathy, and extensive osseous metastatic disease. CT-guided biopsy of the left iliac crest showed metastases consistent with clear-cell renal cell carcinoma, and the biopsy was done on December 22, 2017. Patient started treatment with Opdivo and Yervoy at the beginning of January 2018. Patient received three doses of Yervoy and Opdivo every month, and the treatment was stopped after that because of the elevation of the liver enzymes thought to be due to immune reaction. Patient started Opdivo single agent on April 13, 2018. Treatment with Opdivo is stopped on May 11, 2018, because of the rise of the liver enzymes again. HISTORY OF PRESENT ILLNESS Patient is here today for followup of his renal cell carcinoma metastatic disease, on treatment with temsirolimus after hepatic toxicity from Opdivo. He is doing fine currently. He has occasional nasal bleeds. He has also hiccups and some easy bruising but other than he is really doing very well. PAST MEDICAL HISTORY Benign prostatic hypertrophy with urinary retention in 2016, currently on tamsulosin. PAST SURGICAL HISTORY 1. Right knee replacement in 2010. 2. Prostate biopsy in 2008. 3. Left rotator cuff injury repair. 4. Bilateral cataract surgery. FAMILY HISTORY Brother had squamous cell carcinoma of the lip. Father had lung cancer. Sister had lung cancer. He had brother with kidney cancer. He had multiple cousins with brain, kidney, and lung cancer. SOCIAL HISTORY Patient is with two children. 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 He is a never smoker. He occasionally drinks beer. Denies any abuse of illicit drugs. CURRENT MEDICATIONS 1. Tamsulosin 0.4 mg daily. 2. Baclofen 10 mg t.i.d. p.r.n. ALLERGIES OXYCONTIN, which caused rash. REVIEW OF SYSTEMS CONSTITUTIONAL: No appetite or weight change. No fever, chills, or sweating. No recent infection. HEENT: Ears: No tinnitus or hearing problem. Nose: He has some epistaxis, which is mild. Throat: No sore throat or mouth ulcers. Eyes: No diplopia or visual changes. RESPIRATORY: Patient has shortness of breath. CARDIOVASCULAR: No chest pain, orthopnea, or paroxysmal nocturnal dyspnea (PND). No edema. No palpitations. GASTROINTESTINAL: He has hiccups; he has treatment for that. GENITOURINARY: No hematuria or dysuria. MUSCULOSKELETAL: No pain in the muscles, joints, or bones. NEUROLOGICAL: No tingling or numbness in the hands or feet. No headaches or convulsions. HEMATOLOGIC/LYMPHATIC: He bruises easily. SKIN: No skin rash or lumps. PSYCHIATRIC: No anxiety or depression. PHYSICAL EXAMINATION GENERAL: Looks stable. Well developed, well nourished, and in no acute distress. VITAL SIGNS: Blood pressure 142/93, pulse 97 per minute, respirations 16 per minute, temperature 98.8, pulse ox 99% on room air. HEENT: Head: Atraumatic. No sinus tenderness to palpation. Eyes: No icterus or conjunctivitis. Mouth and Throat: No oral thrush or mucositis. NECK: Supple. No cervical or supraclavicular lymphadenopathy. LUNGS: Clear to auscultation and percussion bilaterally. HEART: Regular rate and rhythm. No gallops, murmurs, clicks, or rubs. ABDOMEN: Soft and lax. No tenderness. No hepatosplenomegaly. No masses. EXTREMITIES: No cyanosis, clubbing, or edema. LYMPHATICS: No peripheral lymphadenopathy. NEUROLOGICAL: Conscious, alert, and oriented times three. No focal motor or sensory deficits. PSYCHIATRIC: Mood and affect appear normal. SKIN: No skin rash, bruise, or purpuric eruption. DIAGNOSTIC DATA CBC showed white count 8.1, hemoglobin 11.3, hematocrit 34.6, platelets 152,000. Chem panel normal except blood sugar 120 and creatinine 1.7. TSH is normal at 1.54. CT chest, abdomen and pelvis done on August 29, 2018 was stable. The subcarinal mass decreased in size from 2 x 3.5 cm to 1 x 2.3 cm. The left renal mass decreased from 6.1 x 8.3 x 9 to 4.7 x 6 x 8.1 cm. All the bone lesions actually look unchanged and stable. There is mild increase in the anterior mediastinal mass from 1.4 x 0.7 to 2.3 x 2. ASSESSMENT 1. Metastatic renal cell carcinoma of the left kidney with metastasis to the left iliac bone and multiple pulmonary metastases, mediastinal adenopathy, bilateral adrenal and intra-abdominal adenopathy and left axillary adenopathy. MRI of the brain done December 19, 2017 was negative for brain metastasis but there may be some osseous metastasis of the posterior right parietal skull bone. PET/CT scan done on December 20, 2017, showed a large mass involving the left kidney measuring 13 cm with SUV 21.3 with bilateral adrenal gland metastases, mediastinal and lung metastases, intra-abdominal adenopathy, left axillary lymphadenopathy and extensive osseous metastatic disease. CT-guided biopsy of the left iliac bone done on December 22, 2017, came back positive for metastases from clear renal cell carcinoma. Patient started treatment with Yervoy and Opdivo the beginning of January 2018. He received three courses and treatment was stopped because of the development of elevation of the liver enzymes, which normalized after stopping the treatment and steroid therapy. Patient developed also hematuria on anticoagulation so patient was referred to the hospital in [facility] with placement of inferior vena cava filter and tying of the blood vessels with resolution of the kidney bleeding. He resumed treatment with single-agent Opdivo April 13, 2018, but his liver enzymes nina again so Opdivo was stopped because of the fear of autoimmune hepatitis and patient started treatment with temsirolimus after normalization of his liver enzymes in June 2018. He is tolerating treatment very well. CT chest, abdomen and pelvis done on August 29, 2018, showed actually stable disease. The left renal mass decreased in size. The subcarinal mass also decreased in size. There was only one spot in the anterior mediastinal which showed increase in size. I am planning to continue temsirolimus as the patient is tolerating it very well and his general condition is really very good on that treatment, but I will refer the patient to the radiation oncologist to evaluate this area, which it gets bigger on the current CT scan. I explained that to the patient and his and they are agreeable with such plan. In the meantime, we will continue temsirolimus on a weekly basis. 2. Bony metastases. We will continue Xgeva 120 mg subcutaneously every four weeks. 3. 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 I will consider treatment with Aranesp if his hemoglobin drops below 10 g/dL. PLAN 1. Temsirolimus as per schedule. 2. Radiation therapy consultation for irradiation of the spot, which increased in size by the current CT scan. 3. CBC, chem panel to be checked weekly prior to each dose of temsirolimus. 4. Patient to return in four weeks with CBC and chem panel. 5. Continue Xgeva every four weeks for bone metastasis. 6. Patient to contact us for any new concerns or complaints. MTDD
[2018-09-13 09:34] VITALS: BP 157/90
[2018-09-13] MEDS: NS(*) 0.9% 250 ML BAG 250 ML IVPB PRN (09:51)
[2018-09-13] MEDS: LIDOCAINE/SOD BICARB 8.4% SYR ID PRN (09:51)
[2018-09-13] MEDS: diphenhydrAMINE 25 MG CAP PO PRN (10:51)
[2018-09-13 12:23] VITALS: BP 141/92
[2018-09-13] MEDS: NS(*) 0.9% 500 ML BAG 500 ML IV PRN (12:24)
--- NOTE | 2018-09-13 21:17 | ONCOLOGY FOLLOW UP NOTE ---
EVENT DATE: September 13, 2018 DIAGNOSES 1. Metastatic renal cell carcinoma. 2. Bone metastases. CHIEF COMPLAINT Patient is here for treatment with temsirolimus for his metastatic renal cell carcinoma, due for Day 15, Cycle #4 today. ONCOLOGY HISTORY Patient is a 78-year-old male who saw Nola Nunez for low back pain and left groin pain. He started the process of followup of his pain since October, as per patient. He had some physical therapy and cortisone injection into the left hip without improvement. He had an MRI, which showed renal mass with metastases to the spine, so the patient had after that CT chest, abdomen, and pelvis done on December 11, 2017, which showed a big heterogeneous mass of the left kidney, 12.5 cm. There was also venous thrombosis with multiple veins in the pelvis and upper thighs, likely extending into the inferior vena cava. There were numerous pulmonary nodules, likely representing pulmonary metastases with mediastinal adenopathy, likely metastatic. There were numerous lytic destructive lesions in the bones including the anterior aspect of the right 10th and 11th ribs, T7, L1, and L4. There was also a large destructive lesion involving the left iliac bone with a large heterogeneous soft tissue mass component extending into the anterior aspect of the left acetabulum where there is pathologic fracture. The uncinate process of the liver is heterogeneous. PET/CT scan done on December 20, 2017, showed a large mass involving the left kidney measuring nearly 13 cm with maximum SUV of 21.3. There were bilateral adrenal gland metastases, mediastinal and lung metastases, intra-abdominal adenopathy, left axillary lymphadenopathy, and extensive osseous metastatic disease. CT-guided biopsy of the left iliac crest showed metastases consistent with clear-cell renal cell carcinoma, and the biopsy was done on December 22, 2017. Patient started treatment with Opdivo and Yervoy at the beginning of January 2018. Patient received three doses of Yervoy and Opdivo every month, and the treatment was stopped after that because of the elevation of the liver enzymes, thought to be due to immune reaction. Patient started Opdivo single agent on April 13, 2018. Treatment with Opdivo was stopped on May 11, 2018, due to rise in liver enzymes again. HISTORY OF PRESENT ILLNESS Mr. Wilson is here today for followup for his renal cell carcinoma, metastatic disease, currently on treatment with weekly temsirolimus after hepatitic toxicity from Opdivo. Overall, he is doing quite well. He has a rash that tends to wax and wane, which is currently under good control with low-dose prednisone 5 mg daily, decreased down from 10 mg daily. We are trying to slowly taper him off this. He has occasional hiccups, which are only intermittent and rare. He has occasional easy bruising. He has some looser stools, but reports that this is under very good control. He only uses Imodium a couple of times a week. He remains on Eliquis b.i.d. for his history of bilateral DVTs. He is overdue for annual dermatology followup. His would like an area evaluated on his mid posterior back, which she reports has been noticeable for some time and may be slightly darker in appearance. She says he's always had that mole. PAST MEDICAL HISTORY Benign prostatic hypertrophy with urinary retention in 2015, currently on tamsulosin. PAST SURGICAL HISTORY 1. Right knee replacement in 2010. 2. Prostate biopsy in 2008. 3. Left rotator cuff injury repair. 4. Bilateral cataract surgery. FAMILY HISTORY Brother had squamous cell carcinoma of the lip. Father had lung cancer. Sister had lung cancer. He had a brother with kidney cancer. He has multiple cousins with brain, kidney, and lung cancer. SOCIAL HISTORY Patient is with two children. 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 He is a never smoker. He occasionally drinks beer. Denies any abuse of illicit drugs. CURRENT MEDICATIONS 1. Tamsulosin 0.4 mg daily. 2. Baclofen 10 mg t.i.d. p.r.n. ALLERGIES OXYCONTIN, which caused rash. REVIEW OF SYSTEMS CONSTITUTIONAL: Patient denies any recent fevers, chills, or night sweats. No recent infections. HEENT: No vision changes. No tinnitus. No epistaxis. No dysphagia or odynophagia. No mouth sores. RESPIRATORY: Patient has some dyspnea on exertion and occasional shortness of breath. No cough, sputum production, or hemoptysis. No pleuritic chest pain. CARDIOVASCULAR: No chest pain, syncope, or presyncope. GASTROINTESTINAL: No abdominal pain. No nausea or vomiting or constipation. He has occasional diarrhea with a couple of episodes per week, controlled with Imodium. He has only occasional hiccups and p.r.n. medication for that. Appetite is good. GENITOURINARY: No dysuria or hematuria. No flank pain. SKIN: He does have a mild rash, most noticeable on his bilateral upper extremities and posterior trunk. This is much improved. He continues to bruise easily and remains on Eliquis. PSYCHIATRIC: He denies any severe anxiety, severe depression, suicidal or homicidal ideation. MUSCULOSKELETAL: No focal areas of pain. The remainder of a 12-point review of systems is performed today and is otherwise negative. PHYSICAL EXAMINATION VITAL SIGNS: Weight today 77.1 kg, up from 76.9 on 08/30/18. T 97.2, P 97, R 16, BP 141/92, oxygen saturation 99% room air. GENERAL: In general, this is a pleasant 78-year-old gentleman who appears well hydrated, well developed, and is in no acute distress. HEAD: Atraumatic, normocephalic. EYES: Sclerae anicteric. ENT, MOUTH: Moist mucous membranes. No oral lesions. NECK: Supple. No lymphadenopathy. LUNGS: Clear to auscultation bilaterally. No focal findings. HEART: Regular rate and rhythm. No ectopy. ABDOMEN: Soft, nontender, nondistended. Bowel sounds positive x4. No organomegaly. EXTREMITIES: No edema, clubbing, or cyanosis. NEUROLOGIC: Patient is awake, alert, oriented x3. PSYCHIATRIC: Mood and affect are appropriate. DERM: He has a very mild grade 1 maculopapular rash noted to the lower posterior trunk and bilateral upper extremities. It continues to improve, though waxes and wanes. No petechiae or purpura. There are quite a few benign appearing karatoses on his back. There is one that is a bit darker centrally. MUSCULOSKELETAL: Gait and ambulation are steady. LABORATORY CBC today: WBC 6.7, ANC 4.7, hemoglobin 10.9, hematocrit 33.5%, platelets 190,000. CMP today: Serum creatinine 1.7, stable compared to last week. Glucose elevated at 188, calcium mildly low at 8.3. Magnesium normal at 2.0. Total bilirubin normal at 0.3. LFTs normal with AST at 29, ALT at 23, alkaline phosphatase at 82. Total protein 6.7 with albumin of 3.7. Thyroid labs on 09/06/[address] scan chest, abdomen, and pelvis with and without contrast [place] [facility] [place]: 1. There is a mixed response to therapy. All of the previously noted pulmonary nodules have remained stable. 2. Although the subcarinal nodule mass has decreased in size, the anterior mediastinal adenopathy, AP window adenopathy and right hilar adenopathy have increased in size. Anterior mediastinal lymph node has increased in size, now measuring 2.3 x 2 cm, previously measuring 1.4 x 0.7 cm, and now contains a necrotic central region. An AP window lymph node now measures 10.9 mm, previously 7.9 mm. Right hilar lymph node measures 2.1 x 1.7 cm, previously measuring 2.1 x 1.6 cm. 3. Bone metastases appear stable as described above. 4. The head of the pancreas appears heterogenous to greater extent than on the prior study. If of clinical concern, further imaging could be performed with MR with and without contrast. 5. Previously noted left adrenal mass has further decreased in size and is barely perceptible. 6. Heterogenous left renal mass slightly decreased in size. 7. There is a new ovoid calcification in the vicinity of the left UVJ, which may represent a distal left ureteral calculus as described above. 8. Bone/soft tissue: Severe pathologic fracture of the T8 vertebral body. Underlying lytic lesion appears relatively unchanged. There is a healing fracture through the posterolateral aspect of the 7th rib. IMPRESSION AND PLAN Patient is a 78-year-old with metastatic renal cell carcinoma of the left kidney with metastasis to the left iliac bone and multiple pulmonary metastases, mediastinal adenopathy, bilateral adrenal and intra-abdominal adenopathy, and left axillary adenopathy. MRI of the brain done December 19, 2017, was negative for brain metastasis, but there may be some osseous metastasis to the posterior right parietal skull bone. PET/CT scan done on December 20, 2017, showed a large mass involving the left kidney measuring 13 cm with SUV 21.3 with bilateral adrenal gland metastases, mediastinal and lung metastases, intra-abdominal adenopathy, left axillary lymphadenopathy, and extensive osseous metastatic disease. CT-guided biopsy of the left iliac bone done on December 22, 2017, came back positive for metastases from clear renal cell carcinoma. Patient started treatment with Yervoy and Opdivo the beginning of January 2018. He received three courses, and treatment was stopped because of the development of elevation of the liver enzymes, which normalized after stopping the treatment and steroid therapy. Patient developed also hematuria on anticoagulation, so patient was referred to the hospital in [facility] with placement of inferior vena cava filter and tying of the blood vessels with resolution of the kidney bleeding. He resumed treatment with single-agent Opdivo April 13, 2018, but his liver enzymes nina again, so Opdivo was stopped because of the fear of autoimmune hepatitis. The patient started treatment with temsirolimus after normalization of his liver enzymes in June 2018. He is tolerating treatment very well. CT chest, abdomen, and pelvis done on August 29, 2018, showed actually stable disease. The left renal mass decreased in size. The subcarinal mass has also decreased in size. There was only one spot in the anterior mediastinum which showed increase in size. Our plan is to continue with weekly temsirolimus as he is tolerating it quite well, and his general condition is really good, but we have referred patient to Radiation Oncology to evaluate the area, which is larger on this current CT scan. He will be meeting with Dr. Arizmendi next week for consultation. Again, we will continue with temsirolimus on a weekly basis, and patient and are both in agreement with that. 1. Metastatic renal cell carcinoma, left kidney, metastases to the left iliac bone and multiple pulmonary metastases, mediastinal adenopathy, bilateral adrenal and intra-abdominal adenopathy, and left axillary adenopathy, with bone metastases: Patient will continue with weekly temsirolimus as per orders. Patient will receive Day 15 of Cycle #4 today. 2. Bony metastases: Patient will continue with Xgeva 120 mg every four weeks. He received this last on 08/30/18. 3. Radiation Therapy consultation: Scheduled for next week with Dr. Arizmendi. 4. Patient will continue with weekly labs and temsirolimus. 5. Patient will return to clinic in one week for followup with me and should be on Day 22 of Cycle #4 with weekly temsirolimus. 6. Today, he will receive 500 mL normal saline with his temsirolimus for his chronic renal insufficiency. This is largely at baseline. 7. I've referred patient to local price clerk, Dr. Nieto, for routine screening, and the areas on his back can be evaluated at that time. 8. Patient will return to clinic in four weeks for CBC, CMP, and followup with medical oncologist. PATI
[~2018-09-20] VITALS: Ht 176.5 cm; Wt 77.7 kg
[~2018-09-20 09:38] MED LIST changes: +ALTEPLASE RECOMB 2 MG VIAL IVP PRN; +DENOSUMAB 120 MG/1.7 ML VIAL SUBQ ONE; +DEXTROSE 5%(*) 100 ML BAG 100 ML IVPB PRN; -IOPAMIDOL 76% 150 ML INFUS BTL 150 ML ONE; +KCL 20 MEQ/50 ML PREMIX 50 ML IVPB ONE; +NS 0.9% IV ONE; +NS(*) 0.9% 100 ML BAG 100 ML IVPB PRN; +NS(*) 0.9% 1000 ML BAG 1,000 ML IV ONE; +WATER FOR INJ,STERILE 20 ML IVP PRN; +[UNRECOGNIZED DRUG - OTHER] IV ONE
[2018-09-20 09:44] VITALS: BP 140/80
[2018-09-20] MEDS: NS(*) 0.9% 250 ML BAG 250 ML IVPB PRN (09:59)
[2018-09-20] MEDS: LIDOCAINE/SOD BICARB 8.4% SYR ID PRN (09:59)
[2018-09-20] MEDS: diphenhydrAMINE 25 MG CAP PO PRN (10:35)
[2018-09-20] MEDS ORDERED: [UNRECOGNIZED DRUG - OTHER] IV ONE (11:00)
[2018-09-20] MEDS ORDERED: NS 0.9% IV ONE (11:00)
[2018-09-20] MEDS: HEPARIN FLSH (PORT) 500 UN/5ML IVP PRN (11:40)
[2018-09-20 11:49] VITALS: BP 144/100
--- NOTE | 2018-09-20 12:09 | ONCOLOGY FOLLOW UP NOTE ---
EVENT DATE: September 20, 2018 DIAGNOSES 1. Metastatic renal cell carcinoma. 2. Bone metastases. CHIEF COMPLAINT Patient is here for treatment with temsirolimus for his metastatic renal cell carcinoma, due for Day 22, Cycle #4 today. ONCOLOGY HISTORY Patient is a 78-year-old male who saw Nola Nunez for low back pain and left groin pain. He started the process of followup of his pain since October, as per patient. He had some physical therapy and cortisone injection into the left hip without improvement. He had an MRI, which showed renal mass with metastases to the spine, so the patient had after that CT chest, abdomen, and pelvis done on December 11, 2017, which showed a big heterogeneous mass of the left kidney, 12.5 cm. There was also venous thrombosis with multiple veins in the pelvis and upper thighs, likely extending into the inferior vena cava. There were numerous pulmonary nodules, likely representing pulmonary metastases with mediastinal adenopathy, likely metastatic. There were numerous lytic destructive lesions in the bones including the anterior aspect of the right 10th and 11th ribs, T7, L1, and L4. There was also a large destructive lesion involving the left iliac bone with a large heterogeneous soft tissue mass component extending into the anterior aspect of the left acetabulum where there is pathologic fracture. The uncinate process of the liver is heterogeneous. PET/CT scan done on December 20, 2017, showed a large mass involving the left kidney measuring nearly 13 cm with maximum SUV of 21.3. There were bilateral adrenal gland metastases, mediastinal and lung metastases, intra-abdominal adenopathy, left axillary lymphadenopathy, and extensive osseous metastatic disease. CT-guided biopsy of the left iliac crest showed metastases consistent with clear-cell renal cell carcinoma, and the biopsy was done on December 22, 2017. Patient started treatment with Opdivo and Yervoy at the beginning of January 2018. Patient received three doses of Yervoy and Opdivo every month, and the treatment was stopped after that because of the elevation of the liver enzymes, thought to be due to immune reaction. Patient started Opdivo single agent on April 13, 2018. Treatment with Opdivo was stopped on May 11, 2018, due to rise in liver enzymes again. Patient is going to be initiating radiotherapy in the near future. He consulted with Dr. Arizmendi earlier this week. PET scan and sim planning are currently planning. HISTORY OF PRESENT ILLNESS Mr. Wilson is here today for followup for his renal cell carcinoma, metastatic disease, currently on treatment with weekly temsirolimus after hepatitic toxicity from Opdivo. Overall, he is doing quite well. He has had a rash on his upper extremities and lower back which tends to wax and wane. Currently, he is on a prednisone taper, currently at low dose 5 mg daily. This was decreased down from 10 mg. He will taper this more starting tomorrow. We plan to have this discontinued in the next week or so. He has occasional hiccups only rarely and has p.r.n. medications for this at home. He is no longer having any significant diarrhea or other issues. He has felt well since our visit last week. PAST MEDICAL HISTORY Benign prostatic hypertrophy with urinary retention in 2016, currently on tamsulosin. PAST SURGICAL HISTORY 1. Right knee replacement in 2010. 2. Prostate biopsy in 2008. 3. Left rotator cuff injury repair. 4. Bilateral cataract surgery. FAMILY HISTORY Brother had squamous cell carcinoma of the lip. Father had lung cancer. Sister had lung cancer. He had a brother with kidney cancer. He has multiple cousins with brain, kidney, and lung cancer. SOCIAL HISTORY Patient is with two children. 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 He is a never smoker. He occasionally drinks beer. Denies any abuse of illicit drugs. CURRENT MEDICATIONS 1. Tamsulosin 0.4 mg daily. 2. Baclofen 10 mg t.i.d. p.r.n. ALLERGIES OXYCONTIN, which caused rash. REVIEW OF SYSTEMS CONSTITUTIONAL: Patient denies any recent fevers, chills, or night sweats. No recent infections. HEENT: No vision changes. No tinnitus. No epistaxis. No dysphagia or odynophagia. No mouth sores. RESPIRATORY: Patient has some dyspnea on exertion and occasional shortness of breath. No cough, sputum production, or hemoptysis. No pleuritic chest pain. CARDIOVASCULAR: No chest pain, syncope, or presyncope. GASTROINTESTINAL: No abdominal pain. No nausea or vomiting or constipation. He has occasional diarrhea with a couple of episodes per week, controlled with Imodium. He has only occasional hiccups and p.r.n. medication for that. Appetite is good. GENITOURINARY: No dysuria or hematuria. No flank pain. SKIN: He does have a mild rash, most noticeable on his bilateral upper extremities and posterior trunk. This is much improved. He continues to bruise easily and remains on Eliquis. PSYCHIATRIC: He denies any severe anxiety, severe depression, suicidal or homicidal ideation. MUSCULOSKELETAL: No focal areas of pain. The remainder of a 12-point review of systems is performed today and is otherwise negative. PHYSICAL EXAMINATION VITAL SIGNS: Weight today 77.7 kg, up from 77.1 previously. T 98.7, P 82, R 16, BP 140/80, oxygen saturation 98% room air. Currently rates pain level at "0/10". Rates fatigue level at "0/10". GENERAL: In general, this is a pleasant 78-year-old gentleman who appears well hydrated, well developed, and is in no acute distress. HEAD: Atraumatic, normocephalic. EYES: Sclerae anicteric. ENT/MOUTH: Moist mucous membranes. No oral lesions. NECK: Supple. No lymphadenopathy. LUNGS: Clear to auscultation bilaterally. No focal findings. HEART: Regular rate and rhythm. No ectopy. ABDOMEN: Soft, nontender, nondistended. Bowel sounds positive x4. No organomegaly. EXTREMITIES: No edema, clubbing, or cyanosis. NEUROLOGIC: Patient is awake, alert, oriented x3. PSYCHIATRIC: Mood and affect are appropriate. DERM: Patient has a very mild grade 1 maculopapular rash noted to the posterior trunk and bilateral upper extremities. This waxes and wanes, although is currently stable. No petechiae or purpura. Patient has numerous keratoses on his back. MUSCULOSKELETAL: Gait and ambulation are steady. LABORATORY CBC today: WBC 7.1, ANC 5.6, hemoglobin 10.6, hematocrit 32.9%, platelets 187,000. CMP today: Sodium normal 138, potassium normal 3.5, serum creatinine elevated up to 1.8, previously 1.7 for several weeks, glucose elevated at 184, calcium normal at 8.7, magnesium normal at 1.9, total bilirubin normal at 0.3. AST, ALT and alkaline phosphatase normal at 29, 26 and 76, respectively. Total protein normal at 6.7 with normal albumin of 3.7. IMAGING CT scan chest, abdomen, and pelvis with and without contrast at [facility] on August 29, 2018: 1. There is a mixed response to therapy. All of the previously noted pulmonary nodules have remained stable. 2. Although the subcarinal nodule mass has decreased in size, the anterior mediastinal adenopathy, AP window adenopathy and right hilar adenopathy have increased in size. Anterior mediastinal lymph node has increased in size, now measuring 2.3 x 2 cm, previously measuring 1.4 x 0.7 cm, and now contains a necrotic central region. An AP window lymph node now measures 10.9 mm, previously 7.9 mm. Right hilar lymph node measures 2.1 x 1.7 cm, previously measuring 2.1 x 1.6 cm. 3. Bone metastases appear stable as described above. 4. The head of the pancreas appears heterogenous to greater extent than on the prior study. If of clinical concern, further imaging could be performed with MR with and without contrast. 5. Previously noted left adrenal mass has further decreased in size and is barely perceptible. 6. Heterogenous left renal mass slightly decreased in size. 7. There is a new ovoid calcification in the vicinity of the left UVJ, which may represent a distal left ureteral calculus as described above. 8. Bone/soft tissue: Severe pathologic fracture of the T8 vertebral body. Underlying lytic lesion appears relatively unchanged. There is a healing fracture through the posterolateral aspect of the 7th rib. IMPRESSION AND PLAN Patient is a 78-year-old with metastatic renal cell carcinoma of the left kidney with metastasis to the left iliac bone and multiple pulmonary metastases, mediastinal adenopathy, bilateral adrenal and intra-abdominal adenopathy, and left axillary adenopathy. MRI of the brain done December 19, 2017, was negative for brain metastasis, but there may be some osseous metastasis to the posterior right parietal skull bone. PET/CT scan done on December 20, 2017, showed a large mass involving the left kidney measuring 13 cm with SUV 21.3 with bilateral adrenal gland metastases, mediastinal and lung metastases, intra-abdominal adenopathy, left axillary lymphadenopathy, and extensive osseous metastatic disease. CT-guided biopsy of the left iliac bone done on December 22, 2017, came back positive for metastases from clear renal cell carcinoma. Patient started treatment with Yervoy and Opdivo the beginning of January 2018. He received three courses, and treatment was stopped because of the development of elevation of the liver enzymes, which normalized after stopping the treatment and steroid therapy. Patient developed also hematuria on anticoagulation, so patient was [facility] with placement of inferior vena cava filter and tying of the blood vessels with resolution of the kidney bleeding. He resumed treatment with single-agent Opdivo April 13, 2018, but his liver enzymes nina again, so Opdivo was stopped because of the fear of autoimmune hepatitis. The patient started treatment with temsirolimus after normalization of his liver enzymes in June 2018. He is tolerating treatment very well. CT chest, abdomen, and pelvis done on August 29, 2018, showed actually stable disease. The left renal mass decreased in size. The subcarinal mass has also decreased in size. There was only one spot in the anterior mediastinum which showed increase in size. Our plan is to continue with weekly temsirolimus as he is tolerating it quite well, and his general condition is really good, but we have referred patient to Radiation Oncology to evaluate the area, which is larger on this current CT scan. He has met with Dr. Arizmendi and a PET and SIm scan are currently pending scheduling. Again, we will continue with temsirolimus on a weekly basis, and patient and are both in agreement with that. 1. Metastatic renal cell carcinoma, left kidney, metastases to the left iliac bone and multiple pulmonary metastases, mediastinal adenopathy, bilateral adrenal and intra-abdominal adenopathy, and left axillary adenopathy, with bone metastases: Patient will continue with weekly temsirolimus as per orders. Patient will receive Day 22 of Cycle #4 today. 2. Bony metastases: Patient will continue with Xgeva 120 mg every four weeks. He received this last on August 30, 2018. 3. Radiation Therapy: Patient consulted with Dr. Arizmendi earlier this week. PET scan and sim plan are currently ordered and pending per Dr. Arizmendi. 4. Patient will continue with weekly labs and temsirolimus. 5. Patient will return to clinic in one week for followup with in, repeat labs and Cycle #5, Day 1 with weekly temsirolimus. 6. At last visit, patient was referred to Dr. Nieto for routine dermatologic screening and evaluation. 7. Prednisone taper: Provided patient and with instructions today on further tapering this down. Plan is for him to be completely off prednisone by next week. 8. Hypertension: Patient's blood pressure has been elevated over the last few weeks and we will continue to monitor. He does have a history of chronic renal insufficiency as well. [facility]
--- NOTE | 2018-09-20 20:58 | ONCOLOGY FOLLOW UP NOTE ---
EVENT DATE: September 20, 2018 DIAGNOSES 1. Metastatic renal cell carcinoma. 2. Bone metastases. CHIEF COMPLAINT Patient is here for treatment with temsirolimus for his metastatic renal cell carcinoma, due for Day 22, Cycle #4 today. ONCOLOGY HISTORY Patient is a 78-year-old male who saw Nola Nunez for low back pain and left groin pain. He started the process of followup of his pain since October, as per patient. He had some physical therapy and cortisone injection into the left hip without improvement. He had an MRI, which showed renal mass with metastases to the spine, so the patient had after that CT chest, abdomen, and pelvis done on December 11, 2017, which showed a big heterogeneous mass of the left kidney, 12.5 cm. There was also venous thrombosis with multiple veins in the pelvis and upper thighs, likely extending into the inferior vena cava. There were numerous pulmonary nodules, likely representing pulmonary metastases with mediastinal adenopathy, likely metastatic. There were numerous lytic destructive lesions in the bones including the anterior aspect of the right 10th and 11th ribs, T7, L1, and L4. There was also a large destructive lesion involving the left iliac bone with a large heterogeneous soft tissue mass component extending into the anterior aspect of the left acetabulum where there is pathologic fracture. The uncinate process of the liver is heterogeneous. PET/CT scan done on December 20, 2017, showed a large mass involving the left kidney measuring nearly 13 cm with maximum SUV of 21.3. There were bilateral adrenal gland metastases, mediastinal and lung metastases, intra-abdominal adenopathy, left axillary lymphadenopathy, and extensive osseous metastatic disease. CT-guided biopsy of the left iliac crest showed metastases consistent with clear-cell renal cell carcinoma, and the biopsy was done on December 22, 2017. Patient started treatment with Opdivo and Yervoy at the beginning of January 2018. Patient received three doses of Yervoy and Opdivo every month, and the treatment was stopped after that because of the elevation of the liver enzymes, thought to be due to immune reaction. Patient started Opdivo single agent on April 13, 2018. Treatment with Opdivo was stopped on May 11, 2018, due to rise in liver enzymes again. DICTATION ENDS HERE. [facility]TDD
[2018-09-27] MEDS ORDERED: DENOSUMAB 120 MG/1.7 ML VIAL SUBQ ONE (11:10)
== END 2018-09-25 ==
LOC: ONC 09:38
PROVIDERS: ATTEND Internal Medicine Hematology
DX: Z51.11 Encounter for antineoplastic chemotherapy (principal); C64.2 Malignant neoplasm of left kidney, except renal pelvis; C78.00 Secondary malignant neoplasm of unspecified lung; C79.72 Secondary malignant neoplasm of left adrenal gland; C79.71 Secondary malignant neoplasm of right adrenal gland; C79.51 Secondary malignant neoplasm of bone; Z79.899 Other long term (current) drug therapy; D69.6 Thrombocytopenia, unspecified; R21 Rash and other nonspecific skin eruption; R11.0 Nausea; R19.7 Diarrhea, unspecified
CPT/HCPCS: 36415; 81001; 83735; 84100; 84439; 84443; 84480; 85025; 85027; 87077; 87088; 87186; 96360; 96366; 96367; 96372; 96375; 96413; G0463; J0897; J1200; J1642; J3480; J7030; J7040; J7050; J9330; Q0163; 82040; 82247; 82310; 82374; 82435; 82565; 82947; 84075; 84132; 84155; 84295; 84450; 84460; 84520; 99212

== ENCOUNTER 2018-10-30 16:25 | Emergency (ER) | payer MEDICARE, OTHER ==
[2018-01-22 10:40] VITALS: BMI 22.7
[~2018-10-30 16:25] MED LIST changes: -ALTEPLASE RECOMB 2 MG VIAL IVP PRN; +AMLO-125 PO; -DENOSUMAB 120 MG/1.7 ML VIAL SUBQ ONE; -DEXTROSE 5%(*) 100 ML BAG 100 ML IVPB PRN; +HYDR-4225 PO; -KCL 20 MEQ/50 ML PREMIX 50 ML IVPB ONE; -NS 0.9% IV ONE; -NS(*) 0.9% 100 ML BAG 100 ML IVPB PRN; -NS(*) 0.9% 1000 ML BAG 1,000 ML IV ONE; -OMEP-125 PO; +OMEP-126 PO; +TAMS0.4C25 PO; -WATER FOR INJ,STERILE 20 ML IVP PRN; -[UNRECOGNIZED DRUG - OTHER] IV ONE
--- NOTE | 2018-10-30 16:36 | ER Report ---
History and Physical Time Seen By MD: 16:34 HPI/ROS CHIEF COMPLAINT: Shortness of breath HISTORY OF PRESENT ILLNESS: 78-year-old male patient presents to emergency room with complaint of shortness of breath. Patient states that seemed to start today while he is working in his yard. states that she noticed that he seemed breathing faster over the last 5 days. She states that they went to a lower altitude and he seemed to be improved. She states that today they did go to the cancer Center where he had radiation therapy. While there the provider, Dr. Arizmendi, became concerned and ordered a EKG. He is concerned about the results of EKG and referred him here to the emergency room for further evaluation. Patient states he is not having any chest pain. He denies any nausea, vomiting. His states he has been having diarrhea since he started the radiation therapy. Patient states he has had a cough this been going on for the past several days. He is not taking any medication for that. REVIEW OF SYSTEMS: Respiratory: As noted above. Cardiovascular: No chest pain, no palpitations. Gastrointestinal: No vomiting, no abdominal pain. Musculoskeletal: No back pain. Allergies: Coded Allergies: oxycodone HCl (Verified Allergy, Unknown, RASH, 10/30/18) Home Meds Active Scripts Amoxicillin/Pot Clav 875-125 Mg Tab (AUGMENTIN 875-125 TABLET) 1 Each Tablet, 1 TAB PO Q12H, #20 TAB Prov:ELENA CALI 10/30/18 Levothyroxine Sodium (LEVOTHYROXINE SODIUM) 25 Mcg Tablet, 25 MCG PO QDAY, #90 TAB 4 Refills Prov:EFRAÍN HESS MD 10/30/18 Apixaban (Eliquis) 5 Mg (74 Tabs) Tab.ds.pk, 1 TAB PO BID, #180 TAB 1 Refill Prov:EFRAÍN HESS MD 10/22/18 Amlodipine Besylate (AMLODIPINE BESYLATE) 5 Mg Tablet, 1 TAB PO QDAY, #30 TAB 5 Refills Prov:EFRAÍN HESS MD 09/28/18 Tamsulosin Hcl (FLOMAX) 0.4 Mg Cap.er.24h, 0.4 MG PO BID, #180 CAP 3 Refills Prov:EFRAÍN HESS MD 09/28/18 Metoclopramide Hcl (METOCLOPRAMIDE HCL) 10 Mg Tablet, 10 MG PO Q 8 hours PRN for HICCUPS for 10 Days, #30 MG 0 Refills 1 tab po Q 8 hours PRN hiccups Prov:BURRELLPEBBLESSeverino YEH APRN,EMERGENCY DEPARTMENT COORDINATOR 08/02/18 Chlorpromazine Hcl (CHLORPROMAZINE HCL) 25 Mg Tablet, 25 MG PO TID PRN for HICCU PS, #30 TAB 5 Refills Prov:EFRAÍN HESS MD 04/17/18 Triamcinolone Acetonide 0.1% Oint 15 Gm Tube (TRIAMCINOLONE ACETONIDE 0.1% 15 GM TUBE) 15 Gm Oint...g., 15 GM TP BID PRN for RASH, #30 TUBE 1 Refill Prov:EFRAÍN HESS MD 02/08/18 Reported Medications Hydroxyzine Hcl (HYDROXYZINE HCL) 25 Mg Tablet, 25 MG PO TID PRN for ITCHING, #60 10/11/18 Prednisone 10 Mg Tab (PREDNISONE 10 MG TAB) 10 Mg Tablet, 30 MG PO QDAY for 5 Days, #5 TAB 10/11/18 Cetirizine Hcl (ZYRTEC) 10 Mg Capsule, 10 MG PO QDAY, CAPSULE 07/05/18 Temsirolimus (TORISEL) 30 Mg/3 Ml Iv.soln, 30 MG IV QWEEK 06/07/18 L.acidoph & Paracasei,B.lactis (Probiotic) 1 Each Capsule, PO DAILY 01/29/18 Past Medical/Surgical History Patient has a past medical history of DVT, hyperlipidemia, reflux, enlarged prostate, wrist fracture, back pain, dentures, hard of hearing, renal cell cancer with metastases to lungs and vertebrae. Patient has surgical history of PEG tube placement, IVC filter placement, right rotator cuff surgery, bilateral cataract surgery, Lasik surgery. Patient has a family medical history of cancer, diabetes. Reviewed Nurses Notes: Yes Hx Smoking: No Smoking Status: Never Smoker Hx Substance Use Disorder: No Hx Alcohol Use: No Constitutional Vital Sign - Last 24 Hours 10/30/18 10/30/18 10/30/18 10/30/18 16:32 16:40 17:00 17:30 Temp 99.0 Pulse 107 114 Resp 20 26 24 B/P (MAP) 126/91 (103) 126/91 Pulse Ox 99 100 100 O2 Delivery Room Air Physical Exam General Appearance: The patient is alert, has no immediate need for airway protection and no current signs of toxicity. Respiratory: Chest is non tender, lungs are clear to auscultation. Cardiac: regular rhythm, patient is tachycardic with a ventricular rate of 109 bpm Gastrointestinal: Abdomen is soft and non tender, no masses, bowel sounds normal. Musculoskeletal: Neck: Neck is supple and non tender. Extremities have full range of motion and are non tender. Skin: No rashes or lesions. DIFFERENTIAL DIAGNOSIS: After history and physical exam differential diagnosis was considered for shortness of breath including but not limited to pulmonary infectious process, COPD, asthma, pulmonary embolus and congestive heart failure. Medical Decision Making Data Points Result Diagram: 10/30/186 10/30/186 Laboratory Hematology Test 10/30/18 16:56 Red Blood Count 4.07 M/uL (4.00-5.60) Mean Corpuscular Volume 73.2 fL (80.0-96.0) Mean Corpuscular Hemoglobin 24.5 pg (26.0-33.0) Mean Corpuscular Hemoglobin Concent 33.4 g/dL (32.0-36.0) Red Cell Distribution Width 17.0 % (11.5-14.5) Mean Platelet Volume 8.0 fL (7.2-11.1) Neutrophils (%) (Auto) 82.1 % (39.4-72.5) Lymphocytes (%) (Auto) 11.0 % (17.6-49.6) Monocytes (%) (Auto) 5.9 % (4.1-12.4) Eosinophils (%) (Auto) 0.4 % (0.4-6.7) Basophils (%) (Auto) 0.6 % (0.3-1.4) Nucleated RBC Relative Count (auto) 0.0 /100WBC Neutrophils # (Auto) 5.2 K/uL (2.0-7.4) Lymphocytes # (Auto) 0.7 K/uL (1.3-3.6) Monocytes # (Auto) 0.4 K/uL (0.3-1.0) Eosinophils # (Auto) 0.0 K/uL (0.0-0.5) Basophils # (Auto) 0.0 K/uL (0.0-0.1) Nucleated RBC Absolute Count (auto) 0.00 K/uL Sodium Level 141 mmol/L (137-145) Potassium Level 4.0 mmol/L (3.5-5.0) Chloride Level 107 mmol/L (98-107) Carbon Dioxide Level 19 mmol/L (22-30) Blood Urea Nitrogen 29 mg/dl (9-21) Creatinine 2.20 mg/dl (0.66-1.25) Glomerular Filtration Rate Calc 29.2 Random Glucose 123 mg/dl (75-110) Calcium Level 9.2 mg/dl (8.4-10.2) Total Bilirubin 0.4 mg/dl (0.2-1.3) Aspartate Amino Transf (AST/SGOT) 28 U/L (0-35) Alanine Aminotransferase (ALT/SGPT) 40 U/L (0-56) Alkaline Phosphatase 81 U/L (0-126) Troponin I < 0.012 ng/ml Total Protein 7.1 g/dl (6.3-8.2) Albumin 3.8 g/dl (3.5-5.0) Chemistry Test 10/30/18 16:56 White Blood Count 6.4 k/uL (4.5-11.0) Red Blood Count 4.07 M/uL (4.00-5.60) Hemoglobin 10.0 g/dL (14.0-18.0) Hematocrit 29.8 % (42.0-52.0) Mean Corpuscular Volume 73.2 fL (80.0-96.0) Mean Corpuscular Hemoglobin 24.5 pg (26.0-33.0) Mean Corpuscular Hemoglobin Concent 33.4 g/dL (32.0-36.0) Red Cell Distribution Width 17.0 % (11.5-14.5) Platelet Count 175 K/uL (150-450) Mean Platelet Volume 8.0 fL (7.2-11.1) Neutrophils (%) (Auto) 82.1 % (39.4-72.5) Lymphocytes (%) (Auto) 11.0 % (17.6-49.6) Monocytes (%) (Auto) 5.9 % (4.1-12.4) Eosinophils (%) (Auto) 0.4 % (0.4-6.7) Basophils (%) (Auto) 0.6 % (0.3-1.4) Nucleated RBC Relative Count (auto) 0.0 /100WBC Neutrophils # (Auto) 5.2 K/uL (2.0-7.4) Lymphocytes # (Auto) 0.7 K/uL (1.3-3.6) Monocytes # (Auto) 0.4 K/uL (0.3-1.0) Eosinophils # (Auto) 0.0 K/uL (0.0-0.5) Basophils # (Auto) 0.0 K/uL (0.0-0.1) Nucleated RBC Absolute Count (auto) 0.00 K/uL Glomerular Filtration Rate Calc 29.2 Calcium Level 9.2 mg/dl (8.4-10.2) Total Bilirubin 0.4 mg/dl (0.2-1.3) Aspartate Amino Transf (AST/SGOT) 28 U/L (0-35) Alanine Aminotransferase (ALT/SGPT) 40 U/L (0-56) Alkaline Phosphatase 81 U/L (0-126) Troponin I < 0.012 ng/ml Total Protein 7.1 g/dl (6.3-8.2) Albumin 3.8 g/dl (3.5-5.0) EKG/Imaging EKG Interpretation 12 lead EKG: Rhythm: Sinus car to with first-degree AV block, occasional PVCs, ventricular rate of 103 bpm [place]: normal QRS: normal ST segments: normal Imaging CHEST PA LAT INDICATION: Arrhythmia COMPARISON: 01/21/2018 FINDINGS: Heart size within normal limits. Right-sided Mediport is unchanged There is no focal infiltrate or lobar consolidation. There is no pneumothorax or pleural effusion. Reidentified is a T8 vertebral compression fracture. No new fractures are identified. Compared to prior study, embolization coils from left kidney embolization are present. IVC filter is seen IMPRESSION: 1. No acute cardiopulmonary process. Report Dictated By: Lamont Burgos at 10/30/2018 5:09 PM Report E-Signed By: Lamont Burgos at 10/30/2018 5:12 PM ED Course/Re-evaluation ED Course Patient was admitted to an exam room, history and physical were obtained. Differential diagnoses were considered. On examination lungs are clear, heart was regular although tachycardia, abdomen was soft nontender. A CBC, CMP, chest x-ray, troponin, EKG were done. Patient had an elevated heart rate of 106, did have a first AV block but otherwise is unremarkable. The lab work showed a normal white count, but patient did have a left shift with 81% neutrophils. CMP showed a creatinine of 2.2, which is right around normal for the patient. He had a creatinine 1.9 with most recent labs. Troponin was negative. On evaluation of the chest x-ray the radiologist read it as negative, I did appear to have a little bit of a increased lung markings when looked on the lateral view, I would say that he may be having a very early pneumonia. We will go ahead and treat him with Augmentin, as he does have a tooth that is infected as seeing the dentist on Monday. We will go ahead and use the Augmentin so he can treat both the pneumonia as well as dental infection. It is my thought at this time that the risk for pulmonary embolism is incredibly low as patient does have a inferior vena cava filter, and is on all of his. I discussed this with patient and his and they verbalized understanding and agreement. Decision to Disposition Date: Oct 30, 2018 Decision to Disposition Time: 17:42 Depart Departure Latest Vital Signs Vital Signs Date Time Temp Pulse Resp B/P (MAP) Pulse Ox O2 Delivery O2 Flow Rate FiO2 10/30/18 17:30 24 100 10/30/18 17:00 114 10/30/18 16:40 99.0 126/91 Room Air Impression: Primary Impression: Pneumonia Condition: Improved Disposition: HOME OR SELF-CARE Referrals: EFRAÍN HESS MD (PCP) New Scripts Amoxicillin/Pot Clav 875-125 Mg Tab (AUGMENTIN 875-125 TABLET) 1 Each Tablet 1 TAB PO Q12H, #20 TAB Prov: ELENA CALI 10/30/18 Patient Instructions: Community Acquired Pneumonia (ED) Additional Instructions: Increase fluid intake. Get plenty of rest. Follow up with your primary care provider next week. Return to the ER if condition worsens. Take the medications as prescribed. Problem Qualifiers Primary Impression: Pneumonia Pneumonia type: due to unspecified organism Laterality: left Lung location: lower lobe of lung Qualified Codes: J18.1 - Lobar pneumonia, unspecified organism ELENA CALI Oct 30, 2018 16:36
--- NOTE | 2018-10-30 16:38 | EKG ---
FACILITY: [facility] PATIENT NAME: ARMAAN VORA : [id number] MR: [id number] V: [id number] EXAM DATE: ORDERING PHYSICIAN: ZULEMA MCGHEE TECHNOLOGIST: Test Reason : Chest pain Blood Pressure : / mmHG Vent. Rate : 106 BPM Atrial Rate : 106 BPM P-R Int : 220 ms QRS Dur : 100 ms QT Int : 348 ms P-R-T Axes : 071 053 067 degrees QTc Int : 462 ms Sinus tachycardia with 1st degree AV block No ST-T abnormalities When compared with ECG of 31-DEC-2017 10:38, Non-specific, diffuse ST-T abnormalities has resolved Confirmed by BAYRON TONEY ([id number]) on 10/30/2018 6:11:08 PM Referred By: Confirmed By:BAYRON TONEY
[2018-10-30 16:40] VITALS: BP 126/91
[2018-10-30] MEDS ORDERED: ASPIRIN 81 MG CHEW PO ONE (16:40)
[2018-10-30 17:08] LABS: PLATELET COUNT, AUTOMATED 175 K/uL (150-450)
--- NOTE | 2018-10-30 17:17 | RADIOLOGY IMAGING REPORT ---
FACILITY: [facility] PATIENT NAME: Jose D Wilson : 1940 MR: [id number] V: [id number] EXAM DATE: ORDERING PHYSICIAN: ELENA CALI TECHNOLOGIST: Location: [facility] Patient: Jose D Wilson : 1940 Visit/Account:[id number] Date of Sevice: 10/30/2018 CHEST PA LAT INDICATION: Arrhythmia COMPARISON: 01/21/2018 FINDINGS: Heart size within normal limits. Right-sided Mediport is unchanged There is no focal infiltrate or lobar consolidation. There is no pneumothorax or pleural effusion. Reidentified is a T8 vertebral compression fracture. No new fractures are identified. Compared to p rior study, embolization coils from left kidney embolization are present. IVC filter is seen IMPRESSION: 1. No acute cardiopulmonary process. Report Dictated By: Lamont Burgos at 10/30/2018 5:09 PM Report E-Signed By: Lamont Burgos at 10/30/2018 5:12 PM WSN:[id number]
[2018-10-30] MEDS ORDERED: AMOX-559 PO (17:44)
[2018-10-30] MEDS ORDERED: HEPARIN FLSH (PORT) 500 UN/5ML IVP ONE (17:50)
--- NOTE | 2018-10-30 18:04 | EKG ---
FACILITY: [facility] - [place] PATIENT NAME: ARMAAN VORA : [id number] MR: [id number] V: [id number] EXAM DATE: ORDERING PHYSICIAN: ELENA CALI TECHNOLOGIST: Test Reason : Repeat Blood Pressure : / mmHG Vent. Rate : 103 BPM Atrial Rate : 103 BPM P-R Int : 218 ms QRS Dur : 098 ms QT Int : 352 ms P-R-T Axes : 041 034 071 degrees QTc Int : 461 ms Sinus tachycardia with 1st degree AV block with occasional premature ventricular complexes Otherwise normal ECG When compared with ECG of 30-OCT-2018 16:06, premature ventricular complexes are now present Confirmed by BAYRON TONEY ([id number]) on 10/30/2018 6:12:45 PM Referred By: Confirmed By:BAYRON TONEY
== END 2018-10-30 17:57 | disposition home or self-care (01) ==
LOC: ER 16:30
DX: J18.1 Lobar pneumonia, unspecified organism (principal)
CPT/HCPCS: 71046; 84484; 85025; 93005; 96374; 99284; A9270; J1642; 82040; 82247; 82310; 82374; 82435; 82565; 82947; 84075; 84132; 84155; 84295; 84450; 84460; 84520

== ENCOUNTER 2018-11-03 15:40 | Emergency (ER) | payer MEDICARE, OTHER ==
[2018-01-22 10:40] VITALS: BMI 22.7
[~2018-11-03 15:40] MED LIST changes: +AMOX-559 PO
[2018-11-03] MEDS ORDERED: FAMO20TA28 PO (15:49)
[2018-11-03] MEDS ORDERED: LIPA1CAP63 PO (15:49)
[2018-11-03] MEDS ORDERED: PANT40TA65 PO (15:49)
--- NOTE | 2018-11-03 15:50 | ER Report ---
History and Physical Time Seen By MD: 15:48 HPI/ROS CHIEF COMPLAINT: Bilateral lower extremity edema, shortness of breath HISTORY OF PRESENT ILLNESS: 78-year-old male patient presents to emergency room with complaint of bilateral lower extremity edema, shortness of breath. Patient states that he has not been feeling well today. His states that he has been up and down throughout the day. She states that he did not sleep well last night. She states she is not had any fevers, but shortly after getting up and having breakfast he did go down and sit in his chair and rested. She states that he has been trying to nap, but stop able to sleep. She states that he's not had any nausea, vomiting or diarrhea. She states that he did have some edema to the bilateral lower extremities. She states that has seemed to persist. She did try putting on some compression stockings, but stated they were too loose for his legs. Patient is currently being treated for pneumonia with Augmentin. REVIEW OF SYSTEMS: Respiratory: As noted above Cardiovascular: As noted above Gastrointestinal: No vomiting, no abdominal pain. Musculoskeletal: No back pain. Allergies: Coded Allergies: oxycodone HCl (Verified Allergy, Unknown, RASH, 10/30/18) Home Meds Active Scripts Amoxicillin/Pot Clav 875-125 Mg Tab (AUGMENTIN 875-125 TABLET) 1 Each Tablet, 1 TAB PO Q12H, #20 TAB Prov:ELENA CALI 10/30/18 Levothyroxine Sodium (LEVOTHYROXINE SODIUM) 25 Mcg Tablet, 25 MCG PO QDAY, #90 TAB 4 Refills Prov:EFRAÍN HESS MD 10/30/18 Apixaban (Eliquis) 5 Mg (74 Tabs) Tab.ds.pk, 1 TAB PO BID, #180 TAB 1 Refill Prov:EFRAÍN HESS MD 10/22/18 Amlodipine Besylate (AMLODIPINE BESYLATE) 5 Mg Tablet, 1 TAB PO QDAY, #30 TAB 5 Refills Prov:EFRAÍN HESS MD 09/28/18 Tamsulosin Hcl (FLOMAX) 0.4 Mg Cap.er.24h, 0.4 MG PO BID, #180 CAP 3 Refills Prov:EFRAÍN HESS MD 09/28/18 Metoclopramide Hcl (METOCLOPRAMIDE HCL) 10 Mg Tablet, 10 MG PO Q 8 hours PRN for HICCUPS for 10 Days, #30 MG 0 Refills 1 tab po Q 8 hours PRN hiccups Prov:ASHANTIPEBBLESSeverino YEH APRN,LUMBER PULLER 08/02/18 Chlorpromazine Hcl (CHLORPROMAZINE HCL) 25 Mg Tablet, 25 MG PO TID PRN for HICCUPS, #30 TAB 5 Refills Prov:EFRAÍN HESS MD 04/17/18 Triamcinolone Acetonide 0.1% Oint 15 Gm Tube (TRIAMCINOLONE ACETONIDE 0.1% 15 GM TUBE) 15 Gm Oint...g., 15 GM TP BID PRN for RASH, #30 TUBE 1 Refill Prov:EFRAÍN HESS MD 02/08/18 Reported Medications Lipase/Protease/Amylase (CREON DR 24,000 UNITS CAPSULE) 1 Each Capsule.dr, 1 EACH PO TID 11/03/18 Pantoprazole Sodium (PANTOPRAZOLE SODIUM) 40 Mg Tablet.dr, 40 MG PO QDAY, TAB.SR 11/03/18 Famotidine (PEPCID) 20 Mg Tablet, 20 MG PO BID, #10 TAB 11/03/18 Hydroxyzine Hcl (HYDROXYZINE HCL) 25 Mg Tablet, 25 MG PO TID PRN for ITCHING, #60 10/11/18 Prednisone 10 Mg Tab (PREDNISONE 10 MG TAB) 10 Mg Tablet, 30 MG PO QDAY for 5 Days, #5 TAB 10/11/18 Cetirizine Hcl (ZYRTEC) 10 Mg Capsule, 10 MG PO QDAY, CAPSULE 07/05/18 Temsirolimus (TORISEL) 30 Mg/3 Ml Iv.soln, 30 MG IV QWEEK 06/07/18 L.acidoph & Paracasei,B.lactis (Probiotic) 1 Each Capsule, PO DAILY 01/29/18 Past Medical/Surgical History Patient has a past medical history of DVT, hyperlipidemia, reflux, enlarged prostate, wrist fracture, back pain, dentures, hard of hearing, renal cell cancer with metastases to lungs and vertebrae. Patient has surgical history of PEG tube placement, IVC filter placement, right rotator cuff surgery, bilateral cataract surgery, Lasik surgery. Patient has a family medical history of cancer, diabetes. Reviewed Nurses Notes: Yes Hx Smoking: No Smoking Status: Never Smoker Hx Substance Use Disorder: No Hx Alcohol Use: No Constitutional Vital Sign - Last 24 Hours 11/03/18 11/03/18 11/03/18 11/03/18 15:45 15:50 16:10 16:15 Temp 99.7 Pulse 122 116 118 Resp 24 B/P (MAP) 123/78 (93) 123/78 Pulse Ox 96 92 90 O2 Delivery Room Air 11/03/18 11/03/18 11/03/18 11/03/18 16:45 16:59 17:15 17:20 Pulse 120 120 125 B/P (MAP) 125/82 (96) Pulse Ox 94 90 93 11/03/18 17:30 B/P (MAP) 160/126 (137) Physical Exam General Appearance: The patient is alert, has no immediate need for airway protection and no current signs of toxicity. Respiratory: Chest is non tender, lungs are clear to auscultation. Cardiac: regular rate and rhythm Gastrointestinal: Abdomen is soft and non tender, no masses, bowel sounds normal. Musculoskeletal: Neck: Neck is supple and non tender. Extremities have full range of motion and are non tender. Patient does have b ilateral lower extremity edema, sock lines are noted bilaterally. Skin: No rashes or lesions. DIFFERENTIAL DIAGNOSIS: After history and physical exam differential diagnosis was considered for pneumonia, upper respiratory infection, bronchitis, CHF, edema. Medical Decision Making Data Points Result Diagram: 11/03/18 1552 11/03/18 1552 Laboratory Hematology Test 11/03/18 15:52 Red Blood Count 4.16 M/uL (4.00-5.60) Mean Corpuscular Volume 73.7 fL (80.0-96.0) Mean Corpuscular Hemoglobin 24.6 pg (26.0-33.0) Mean Corpuscular Hemoglobin Concent 33.4 g/dL (32.0-36.0) Red Cell Distribution Width 17.1 % (11.5-14.5) Mean Platelet Volume 8.0 fL (7.2-11.1) Neutrophils (%) (Auto) 85.0 % (39.4-72.5) Lymphocytes (%) (Auto) 6.1 % (17.6-49.6) Monocytes (%) (Auto) 7.1 % (4.1-12.4) Eosinophils (%) (Auto) 1.4 % (0.4-6.7) Basophils (%) (Auto) 0.4 % (0.3-1.4) Nucleated RBC Relative Count (auto) 0.2 /100WBC Neutrophils # (Auto) 6.7 K/uL (2.0-7.4) Lymphocytes # (Auto) 0.5 K/uL (1.3-3.6) Monocytes # (Auto) 0.6 K/uL (0.3-1.0) Eosinophils # (Auto) 0.1 K/uL (0.0-0.5) Basophils # (Auto) 0.0 K/uL (0.0-0.1) Nucleated RBC Absolute Count (auto) 0.01 K/uL Sodium Level 138 mmol/L (137-145) Potassium Level 3.7 mmol/L (3.5-5.0) Chloride Level 105 mmol/L (98-107) Carbon Dioxide Level 21 mmol/L (22-30) Blood Urea Nitrogen 21 mg/dl (9-21) Creatinine 1.80 mg/dl (0.66-1.25) Glomerular Filtration Rate Calc 36.9 Random Glucose 199 mg/dl (75-110) Calcium Level 8.5 mg/dl (8.4-10.2) Total Bilirubin 0.3 mg/dl (0.2-1.3) Aspartate Amino Transf (AST/SGOT) 24 U/L (0-35) Alanine Aminotransferase (ALT/SGPT) 31 U/L (0-56) Alkaline Phosphatase 66 U/L (0-126) Troponin I < 0.012 ng/ml B-Type Natriuretic Peptide 63 pg/ml (0-100) Total Protein 6.8 g/dl (6.3-8.2) Albumin 3.5 g/dl (3.5-5.0) Chemistry Test 11/03/18 15:52 White Blood Count 7.9 k/uL (4.5-11.0) Red Blood Count 4.16 M/uL (4.00-5.60) Hemoglobin 10.3 g/dL (14.0-18.0) Hematocrit 30.7 % (42.0-52.0) Mean Corpuscular Volume 73.7 fL (80.0-96.0) Mean Corpuscular Hemoglobin 24.6 pg (26.0-33.0) Mean Corpuscular Hemoglobin Concent 33.4 g/dL (32.0-36.0) Red Cell Distribution Width 17.1 % (11.5-14.5) Platelet Count 152 K/uL (150-450) Mean Platelet Volume 8.0 fL (7.2-11.1) Neutrophils (%) (Auto) 85.0 % (39.4-72.5) Lymphocytes (%) (Auto) 6.1 % (17.6-49.6) Monocytes (%) (Auto) 7.1 % (4.1-12.4) Eosinophils (%) (Auto) 1.4 % (0.4-6.7) Basophils (%) (Auto) 0.4 % (0.3-1.4) Nucleated RBC Relative Count (auto) 0.2 /100WBC Neutrophils # (Auto) 6.7 K/uL (2.0-7.4) Lymphocytes # (Auto) 0.5 K/uL (1.3-3.6) Monocytes # (Auto) 0.6 K/uL (0.3-1.0) Eosinophils # (Auto) 0.1 K/uL (0.0-0.5) Basophils # (Auto) 0.0 K/uL (0.0-0.1) Nucleated RBC Absolute Count (auto) 0.01 K/uL Glomerular Filtration Rate Calc 36.9 Calcium Level 8.5 mg/dl (8.4-10.2) Total Bilirubin 0.3 mg/dl (0.2-1.3) Aspartate Amino Transf (AST/SGOT) 24 U/L (0-35) Alanine Aminotransferase (ALT/SGPT) 31 U/L (0-56) Alkaline Phosphatase 66 U/L (0-126) Troponin I < 0.012 ng/ml B-Type Natriuretic Peptide 63 pg/ml (0-100) Total Protein 6.8 g/dl (6.3-8.2) Albumin 3.5 g/dl (3.5-5.0) EKG/Imaging EKG Interpretation 12 lead EKG: Rhythm: Sinus tachycardia with a ventricular rate of 117 bpm [place]: normal QRS: normal ST segments: normal Imaging EXAMINATION: Chest 2 Views HISTORY: Respiratory distress. COMPARISON: 10/30/2018. FINDINGS: Normal lung volumes. There is increased prominence of the perihilar interstitial markings bilaterally, with peribronchial thickening. Consolidation or pleural effusion. No pneumothorax. Normal cardiomediastinal silhouette. Right IJ central venous port with tip overlying the mid SVC. No acute osseous findings. Stable chronic wedging of a midthoracic vertebral body. IMPRESSION: Increased perihilar markings may be compatible with bronchial inflammation or viral infection. No evidence of a focal pneumonia. Report Dictated By: Milton Abdullahi MD at 11/03/2018 4:58 PM Report E-Signed By: Milton Abdullahi MD at 11/03/2018 5:01 PM US VENOGRAM EXTREMITY, BILATERAL HISTORY: lower extremity edema Bilateral lower extremity duplex venous ultrasound Comparison: None Available Findings: Duplex Doppler and color flow imaging was performed. The bilateral common femoral, femoral, and popliteal veins are all patent and compressible with normal Doppler wave forms. There are normal responses to augmentation. The visualized calf veins are patent. Impression: 1. No evidence of deep venous thrombosis of the bilateral lower extremities. Report Dictated By: Jake Huff MD at 11/03/2018 4:57 PM Report E-Signed By: Jake Huff MD at 11/03/2018 4:58 PM ED Course/Re-evaluation ED Course Patient was admitted and examined, history and physical were obtained. Differential diagnoses were considered. On examination lungs are clear, heart is regular, abdomen is soft and nontender. Patient does have bilateral lower extremity edema. A chest x-ray was done, a CBC, CMP, EKG, troponin, BNP, bilateral venous Doppler. Patient had no evidence of DVT in his lower extremities, chest x-ray showed some bronchial thickening consistent with bronch itis or viral bronchitis. Lab work remained unremarkable. I discussed the findings with the patient and his . We will go ahead and discharge him home at this time. It is my suspicion that at this time he is having a down day prior to getting significant better. I believe this is related to his pneumonia. We will go ahead and have him continue with antibiotics. He is return to the emergency room if condition worsens. He may follow-up with his dentist as scheduled on Monday as long as he is feeling well. He is to follow-up with the cancer center as directed on Monday. Patient and his verbalized understanding and agreement with plan. Decision to Disposition Date: Nov 03, 2018 Decision to Disposition Time: 17:35 Depart Departure Latest Vital Signs Vital Signs Date Time Temp Pulse Resp B/P (MAP) Pulse Ox O2 Delivery O2 Flow Rate FiO2 11/03/18 17:30 160/126 (137) 11/03/18 17:20 125 93 11/03/18 15:50 99.7 24 Room Air Impression: Primary Impression: Pneumonia Additional Impression: Lower extremity edema Condition: Improved Disposition: HOME OR SELF-CARE Referrals: EFRAÍN HESS MD (PCP) Patient Instructions: Edema (ED) Additional Instructions: Continue with the antibiotics. Wear the compression stockings when you are up moving around. Get plenty of rest. Increase fluid intake. If you are feeling better, you may go to the Dentist for your bad tooth. Follow up with the Cancer Center on Monday as directed. Return to the ER if condition worsens. Problem Qualifiers Primary Impression: Pneumonia Pneumonia type: due to unspecified organism Laterality: unspecified laterality Lung location: unspecified part of lung Qualified Codes: J18.9 - Pneumonia, unspecified organism ELENA CALIP Nov 03, 2018 15:50
--- NOTE | 2018-11-03 16:14 | EKG ---
FACILITY: [facility] - [place] PATIENT NAME: ARMAAN VORA : [id number] MR: [id number] V: [id number] EXAM DATE: ORDERING PHYSICIAN: ELENA CALI TECHNOLOGIST: MAXIMINO Test Reason : SOB Blood Pressure : / mmHG Vent. Rate : 117 BPM Atrial Rate : 117 BPM P-R Int : 174 ms QRS Dur : 114 ms QT Int : 324 ms P-R-T Axes : 036 052 076 degrees QTc Int : 451 ms Sinus tachycardia with first degreee AV block Otherwise normal ECG When compared with ECG of 30-OCT-2018 16:38, premature ventricular complexes are no longer present AR interval has decreased Confirmed by GUERA MOHR ([id number]) on 11/04/2018 6:47:03 AM Referred By: ELENA Confirmed By:GUERA MOHR
[2018-11-03 16:19] LABS: PLATELET COUNT, AUTOMATED 152 K/uL (150-450)
--- NOTE | 2018-11-03 17:04 | RADIOLOGY IMAGING REPORT ---
FACILITY: [facility] - [place] PATIENT NAME: Jose D Wilson : 1940 MR: [id number] V: [id number] EXAM DATE: ORDERING PHYSICIAN: ELENA CALI TECHNOLOGIST: Location: [facility] Patient: Jose D Wilson : 1940 Visit/Account:[id number] Date of Sevice: 11/03/2018 US VENOGRAM EXTREMITY, BILATERAL HISTORY: lower extremity edema Bilateral lower extremity duplex venous ultrasound Comparison: None Available Findings: Duplex Doppler and color flow imaging was performed. The bilateral common femoral, femoral , and popliteal veins are all patent and compressible with normal Doppler wave forms. There are norm al responses to augmentation. The visualized calf veins are patent. Impression: 1. No evidence of deep venous thrombosis of the bilateral lower extremities. Report Dictated By: Jake Huff MD at 11/03/2018 4:57 PM Report E-Signed By: Jake Huff MD at 11/03/2018 4:58 PM [id number]
--- NOTE | 2018-11-03 17:07 | RADIOLOGY IMAGING REPORT ---
FACILITY: [facility] [place] PATIENT NAME: Jose D Wilson : 1940 MR: [id number] V: [id number] EXAM DATE: ORDERING PHYSICIAN: ELENA CALI TECHNOLOGIST: Location: [facility] Patient: Jose D Wilson : 1940 Visit/Account:[id number] Date of Sevice: 11/03/2018 EXAMINATION: Chest 2 Views HISTORY: Respiratory distress. COMPARISON: 10/30/2018. FINDINGS: Normal lung volumes. There is increased prominence of the perihilar interstitial markings bilaterally , with peribronchial thickening. Consolidation or pleural effusion. No pneumothorax. Normal cardiomediastinal silhouette. Right IJ central venous port with tip overlying the mid SVC. No acute osseous findings. Stable chronic wedging of a midthoracic vertebral body. IMPRESSION: Increased perihilar markings may be compatible with bronchial inflammation or viral infection. No ev idence of a focal pneumonia. Report Dictated By: Milton Abdullahi MD at 11/03/2018 4:58 PM Report E-Signed By: Milton Abdullahi MD at 11/03/2018 5:01 PM [id number]
[2018-11-03 17:30] VITALS: BP 160/126
[2018-11-03] MEDS ORDERED: HEPARIN FLSH (PORT) 500 UN/5ML IVP ONE (17:40)
== END 2018-11-03 17:48 | disposition home or self-care (01) ==
LOC: ER 15:48
DX: J18.9 Pneumonia, unspecified organism (principal); R60.0 Localized edema
CPT/HCPCS: 71046; 82040; 82247; 82310; 82374; 82435; 82565; 82947; 83880; 84075; 84132; 84155; 84295; 84450; 84460; 84484; 84520; 85025; 93005; 93970; 99284

== ENCOUNTER 2018-11-05 08:00 | Outpatient (RCR) | payer MEDICARE, OTHER ==
[2018-01-22 10:40] VITALS: Wt 77.1 kg
[2018-09-18 10:45] VITALS: BP 150/87
--- NOTE | 2018-09-19 02:08 | TOBIN CONSULT ---
EVENT DATE: September 18, 2018 CHIEF COMPLAINT/REASON FOR CONSULTATION Metastatic renal cell carcinoma. Patient recently demonstrating tumor response to systemic therapy with the exception of anterior-superior mediastinal lymph nodes. Patient is intermittently symptomatic and is referred for radiotherapy considerations. STAGE IV. ONCOLOGY HISTORY 1. Diagnosis of metastatic renal cell carcinoma confirmed by left iliac bone biopsy on 12/22/17. 2. Initial radiographic studies demonstrated a left renal mass with bone metastasis to the left iliac wing , significant destruction, osteolytic bone metastasis at T7, L1, and L4, and right 10th and 11th ribs. Pulmonary nodules. Significant mediastinal and intra-abdominal lymphadenopathy, left axillary lymphadenopathy. 3. Patient also presented with venous thrombosis. 4. Patient initially treated with Yervoy and Opdivo. Treatment had to be stopped 05/11/18 due to inflammation of the liver. 5. Patient started on weekly temsirolimus with reasonably good tolerance to date, as well as therapeutic response. Patient has also undergone embolization of the left kidney and placement of inferior vena cava filter. 6. Most recent radiographic study was CT scan of the abdomen and pelvis on 08/29/18. The majority of the bone lesions are stable. Decrease in size of the left adrenal mass, decrease in size of the left renal mass, stable pulmonary nodules. Increase in size in his anterior mediastinal lymph node, AP window lymphadenopathy and right hilar lymphadenopathy. INTERVAL HISTORY This is a 78-year-old gentleman who was referred to me by Dr. Ross and Hillary Myers, LASER ENGRAVER, working with Dr. Ross. Patient has metastatic renal cell carcinoma with oncology history summarized above. Patient was originally diagnosed in December 2017. He was treated with Yervoy and Opdivo, but unfortunately had a hepatitis-type reaction with an elevation of liver enzymes from the immune therapy, which had to be discontinued. Opdivo was stopped 05/11/18, and the patient was started on temsirolimus with good response to date and relative stability of his disease overall. The only exception is anterior mediastinal lymphadenopathy and the right hilar lymphadenopathy. According to the patient's , he has been experiencing over the last six months plus episodes of hiccups/esophageal spasms, which can be moderately severe. He does have p.r.n. Compazine to utilize when these episodes are present. The patient had a recent CT scan of the thorax which revealed increase in size of a preaortic lymph node, which measures 2.3 x 2.0 cm. There is a decrease in size of subcarinal lymph node, which is 2.3 x 1 cm; right hilar lymph node slightly larger at 2.1 x 1.7 cm. His overlying bone lesions are fairly stable. He does have a pathologic fracture of T8 from lytic disease, healing fracture of the left seventh rib, left iliac wing mottled appearance, stable lytic lesions at L1 and L4, and a 1.7 x 1.3 cm lytic lesion in the proximal left femoral diaphysis which is fairly stable. There was a significant response in the adrenal gland and stable disease in his bones, and response noted actually in the left kidney, which had previously been embolized. Adrenal lesions have responded to therapy. Patient's initial radiographic studies have also included a PET/CT scan in [place]. I do not have access to that imaging set today for the consultation, and will request an updated PET/CT scan for treatment planning purposes. Patient's thromboembolism has been controlled with Eliquis b.i.d. and the IVC filter. The only toxicity the patient is experiencing is a rash on his skin. He is on a tapering schedule of prednisone, presently at 5 mg. Rash is slightly worse, according to the , on the lower dose of prednisone. Patient is presently referred to Radiation Therapy for consideration of treatment to the mediastinal lymph nodes, which are progressing in size. Patients feels that the lymph nodes are related to his esophageal spasms, as they have been present since diagnosis. He initially had significant dysphagia as well at presentation, with hypermetabolic lymphadenopathy near the esophagus. Patient is seen for initial assessment. MEDICATIONS 1. Tapering course of prednisone, 5 mg daily. 2. Levothyroxine 25 mcg a day. 3. Compazine 25 mg every six to eight hours p.r.n. hiccups. 4. Zyrtec 10 mg p.o. daily. 5. Temsirolimus (Torisel) 30 mg IV each week. 6. Eliquis 5 mg b.i.d. 7. Citrucel, one tablespoon with 8 ounces of water daily. 8. Probiotic, one tablet daily. 9. Tamsulosin 0.4 mg p.o. b.i.d. ALLERGIES Intolerance to OXYCODONE. PAST MEDICAL HISTORY 1. Metastatic renal cell carcinoma. 2. BPH. 3. Prior lower-extremity DVT, now resolved. PAST SURGICAL HISTORY 1. Left renal embolization, 01/16/18. 2. IVC filter placement, January 2018. 3. Right knee replacement, 2010. 4. Prostate biopsy, 2008. 5. Left rotator cuff injury/repair. 6. Bilateral cataract surgery. FAMILY HISTORY Father had lung carcinoma. Sister with lung carcinoma. Brother had renal cell carcinoma. Brother had squamous cell carcinoma of the lip. SOCIAL HISTORY Patient is with two children. 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 Nonsmoker. Occasionally drinks beer. REVIEW OF SYSTEMS Comprehensive review of systems notable for mild hearing loss, easy bruisability, rash over the back, chest, and arms, intermittent esophageal spasms and hiccups. PHYSICAL EXAMINATION GENERAL: A pleasant 78-year-old male of medium build who is alert and cooperative to the examination today. VITALS: Weight 170, BP 150/87, pulse 102, respirations 16, O2 saturation 96% on room air. HEENT: Unremarkable. No peripheral lymphadenopathy detected. LUNGS: Clear bilaterally. HEART: Heart sounds regular. ABDOMEN: Soft, with no gross organomegaly. EXTREMITIES: No significant edema or cyanosis. SKIN: Exam reveals macular rash over the left upper arm and back. IMPRESSION This is an interesting 78-year-old gentleman who was diagnosed in December 2017 with metastatic renal cell carcinoma. This was confirmed by left iliac crest biopsy. He underwent initial PET/CT scan and was started on immunotherapy initially, along with embolization of the left kidney. He appeared to develop an immune-related reaction with an elevation of the liver enzymes and subsequently stopped immunotherapy by May 2018. He was placed on Torisel IV weekly with very good response to date; however, the only sign of disease which is progressing appears to be the anterior mediastinal lymph nodes as well as right hilar lymph nodes. There are several small lymph nodes adjacent to the esophagus noted on the imaging studies as well. Films were reviewed with the patient and spouse today in the office. PLAN I think it would be reasonable to proceed with a trial of radiation therapy to the upper mediastinal lymph nodes and the right hilar lymph node. I would first perform a PET/CT scan for diagnosis and treatment planning within the next week. I would utilize the information for radiation therapy targeting, planing to deliver 3600 cGy in 20 fractions at 180 cGy per fraction to the mediastinal lymph nodes, with a two-field approach or alternatively a three-field approach, seeing if we could avoid the esophagus on the third field. A boost would be delivered to 4500 cGy in five fractions at that juncture. The rationale for this dose is the need for renal cell carcinomas to receive a slightly higher radiation dose to be effective. Course would tentatively be completed in five weeks. If successful, we may see a decrease in his episodes of esophageal spasms/hiccups. I will review the PET images carefully to determine as well whether focal radiotherapy is or is not necessary in the left femur, with the diaphysis lesion, since it is a weightbearing bone. If so, we can add radiation field to that area concurrently. Patient indicated a desire to proceed. Signed consent was obtained for treatment today. Will try to coordinate the treatment plan to allow treatment to start within the next 14 days. Thank you for the referral and opportunity to discuss options with the patient and his spouse today. MATTEOD
--- NOTE | 2018-09-28 12:07 | ONCOLOGY FOLLOW UP NOTE ---
EVENT DATE: September 27, 2018 CHIEF COMPLAINT/REASON FOR CONSULTATION Metastatic renal cell carcinoma to lymph nodes and bone. Recent identification of lymph node enlargement despite significant therapeutic response to the locations. Patient is here to go over the results of the PET CT scan utilized for re-staging and treatment simulation. ONCOLOGY HISTORY 1. Diagnosis of metastatic renal cell carcinoma confirmed by left iliac bone biopsy on 12/22/17. 2. Initial radiographic studies demonstrated a left renal mass with bone metastasis to the left iliac wing , significant destruction, osteolytic bone metastasis at T7, L1, and L4, and right 10th and 11th ribs. Pulmonary nodules. Significant mediastinal and intra-abdominal lymphadenopathy, left axillary lymphadenopathy. 3. Patient also presented with venous thrombosis. 4. Patient initially treated with Yervoy and Opdivo. Treatment had to be stopped 05/11/18 due to inflammation of the liver. 5. Patient started on weekly temsirolimus with reasonably good tolerance to date, as well as therapeutic response. Patient has also undergone embolization of the left kidney and placement of inferior vena cava filter. 6. Most recent radiographic study was CT scan of the abdomen and pelvis on 08/29/18. The majority of the bone lesions are stable. Decrease in size of the left adrenal mass, decrease in size of the left renal mass, stable pulmonary nodules. Increase in size in his anterior mediastinal lymph node, AP window lymphadenopathy and right hilar lymphadenopathy. INTERVAL HISTORY Patient was seen with his spouse for followup appointment today. He completed the PET CT scan at [facility] in [place] on September 25, 2018. That study is being entered into the treatment planning computer. The study is significant for hypermetabolic mediastinal, subcarinal and right hilar lymph nodes. There is a prevascular/right anterior mediastinal lymph node measuring 1.8 cm in short axis with a peak SUV of 2.6. There is a more active subcarinal lymph node at 1.8 cm with a SUV of 4.2. Finally, there is an active right hilar lymph node with an SUV of 5.2 and a measurement of 1.8 cm. The left kidney has demonstrated significant response to the previous embolization and systemic therapy (initial immune therapy and more recently Torisel). SUV in the left kidney has reduced from 21 to 2.7 and the maximum size of the kidney is reduced from 13 cm to 6 cm. Previous adrenal metastases have resolved as far as activity. Lymph nodes below the diaphragm have resolved at this time. No hepatic metastasis. The left iliac wing reveals minor activity with an SUV of 1.7 with diffuse lytic and sclerotic changes. Patient is not having pain at that location so I am holding treatment at this juncture at that specific site. Patient is on active bone agents monthly directed by [facility] (Xgeva every four weeks). I believe he is on cycle #4 of temsirolimus. MEDICATIONS 1. Tapering course of prednisone, 5 mg daily. 2. Levothyroxine 25 mcg a day. 3. Compazine 25 mg every six to eight hours p.r.n. hiccups. 4. Zyrtec 10 mg p.o. daily. 5. Temsirolimus (Torisel) 30 mg IV each week. 6. Eliquis 5 mg b.i.d. 7. Citrucel, one tablespoon with 8 ounces of water daily. 8. Probiotic, one tablet daily. 9. Tamsulosin 0.4 mg p.o. b.i.d. ALLERGIES Intolerance to OXYCODONE. PAST MEDICAL HISTORY 1. Metastatic renal cell carcinoma. 2. BPH. 3. Prior lower-extremity DVT, now resolved. PAST SURGICAL HISTORY 1. Left renal embolization, 01/16/18. 2. IVC filter placement, January 2018. 3. Right knee replacement, 2010. 4. Prostate biopsy, 2008. 5. Left rotator cuff injury/repair. 6. Bilateral cataract surgery. FAMILY HISTORY Father had lung carcinoma. Sister with lung carcinoma. Brother had renal cell carcinoma. Brother had squamous cell carcinoma of the lip. SOCIAL HISTORY Patient is with two children. 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 Nonsmoker. Occasionally drinks beer. REVIEW OF SYSTEMS Comprehensive review of systems notable for mild hearing loss, easy bruisability, rash over the back, chest, and arms, intermittent esophageal spasms and hiccups. PHYSICAL EXAMINATION GENERAL: A pleasant 78-year-old male of medium build who is alert and cooperative to the examination today. VITALS: Weight 170, BP 150/87, pulse 102, respirations 16, O2 saturation 96% on room air. HEENT: Unremarkable. No peripheral lymphadenopathy detected. LUNGS: Clear bilaterally. HEART: Heart sounds regular. ABDOMEN: Soft, with no gross organomegaly. EXTREMITIES: No significant edema or cyanosis. SKIN: Exam reveals macular rash over the left upper arm and back. MUSCULOSKELETAL: He has a pathologic fracture of T8, which is being monitored, and a healing fracture in the 7th rib, which is being monitored. IMPRESSION Metastatic renal cell carcinoma with remarkable clinical course to date as listed above and discussed with Vandana today. PLAN My plan is to proceed with focal radiotherapy to the hypermetabolic lymph nodes on PET CT scan, delivering 3,600 cGy in four weeks with subsequent boost of 4,500 cGy. Tentatively considering a 3D plan for first phase of radiation therapy and potentially IMRT plan for boost. Patient signed consent form at his last appointment. We will tentatively start the treatment program on Monday or Monday or next week. MTDD
[~2018-11-05 08:00] MED LIST changes: +LIPA1CAP63 PO
== END 2018-12-16 ==
LOC: RAON 08:00
PROVIDERS: ATTEND Radiology Radiation Oncology
DX: Z51.0 Encounter for antineoplastic radiation therapy (principal); C64.2 Malignant neoplasm of left kidney, except renal pelvis; C79.51 Secondary malignant neoplasm of bone; C77.8 Secondary and unspecified malignant neoplasm of lymph nodes of multiple regions
CPT/HCPCS: 77295; 77300; 77334; 77336; 77412; 83735; 85027; 96413; G0463; J1642; J7050; J9330; Q0163; 82040; 82247; 82310; 82374; 82435; 82565; 82947; 83540; 83550; 84075; 84100; 84132; 84155; 84295; 84439; 84443; 84450; 84460; 84481; 84520; 96361; 96372; 99202; 99212; J0897; J7040

== ENCOUNTER → 2018-12-18 | Outpatient (CLI) | payer MEDICARE, OTHER ==
[2018-01-22 10:40] VITALS: BMI 22.7
[~2018-12-18] MED LIST changes: +IOPAMIDOL 76% 100 ML INFUS BTL 100 ML ONE
--- NOTE | 2018-12-18 10:48 | RADIOLOGY IMAGING REPORT ---
[place] [facility] [place] NAME: Jose D Wilson : 1940 MR: [id number] V: [id number] EXAM DATE: ORDERING PHYSICIAN: DOMINIQUE CLIFTON TECHNOLOGIST: Location: [facility] Patient: Jose D Wilson : 1940 Visit/Account:[id number] Date of Sevice: 12/18/2018 CT CHEST ABDOMEN PELVIS W & W/O HISTORY: Restaging, secondary malignant neoplasm of bone ADDITIONAL HISTORY: None. TECHNIQUE: Pre and post administration of IV contrast axial images acquired through the chest abdome n and pelvis during the portal venous phase. Coronal and sagittal reformatting was also performed.Do se Lowering Technique One of the following dose optimization techniques was utilized in the performance of this exam: Autom ated exposure control; adjustment of the mA and/or kV according to the patient's size; or use of an i terative reconstruction technique. Specific details can be referenced in the facility's radiology C T exam operational policy. CONTRAST: 75 mL Isovue-370 COMPARISON: August 29, 2018 FINDINGS: CHEST: Lungs/Pleura: 2 mm nodule lateral aspect of the left upper lobe appears unchanged best seen on image 64 of series 5 Area of pleural thickening with linear stranding medial left upper lobe appears unchanged and is best seen on image 75 Small calcified granuloma in the lingula appears unchanged best appreciated on image 201 Previous 3 mm nodule anterior aspect right lower lobe appears unchanged best seen on image 225 Calcified granuloma anteromedial right lower lobe appears unchanged best seen on image 255 2 mm nodule posterior lateral right lower lobe appears unchanged best seen on image 188 Mediastinum/lymph nodes: The anterior mediastinal lymph node is slightly decreased in size now measu ring 1.9 x 1.8 cm a previously measuring 2.3 x 2 cm Subcarinal mass measures 2.3 x 1.8 cm previously measuring 2.3 x 1 cm. The AP window lymph node now measures 10 x 9 millimeters and appears unchanged The right hilar lymph node now measures 2.1 x 1.7 cm and appears unchanged. Pretracheal lymph node measures 10 x 8 mm previously measuring 7 x 6 mm Heart/vessels: There is a trace pericardial effusion. There is an implanted right-sided port with t he distal tip in superior vena cava. Again there is extrinsic compression on the inferior vena cava as it passes through the diaphragmatic hiatus with extrinsic mass effect due to herniated fat appears similar to the prior study. There are at least moderate coronary artery calcifications Bones/soft tissues: Old fracture to the posterior aspect of the left seventh rib again seen. Severe compression fracture of the T8 vertebral body with underlying lytic lesion appears relatively unchanged There are postoperative changes of the right shoulder and moderate degenerative changes at both shoul marguerite joints. There is a moth-eaten appearance to the diaphyses of both humeri. This area was not devora ged on the previous examination ABDOMEN AND PELVIS: Hepatobiliary: Small calcified granulomas within the right lobe the liver. A 1.4 cm ovoid hyperatte nuating lesion in the dependent portion of the gallbladder fundus which may represent a gallstone sylvester toshia mass Spleen: Negative. Pancreas: Negative. Adrenals: There is mild thickening the adrenal glands Kidneys ureters and bladder : " Embolization Coils are again seen in the vicinity of the left renal h ilum producing numerous artifacts. The large heterogeneous left renal mass now measures 4.6 x 6.5 x 7.7 cm (AP times transverse times cc) previously measuring 4.7 x 6 x 8.1 cm. The posterior aspect of the mass is in contact with and may be invading the left quadratus lumborum muscle similar to the pr ior study. Tiny hypodensities in the right kidney appears stable. Previously noted 7 mm ovoid calcification in the vicinity of the left UVJ appears unchanged and could be within the distal left ureter. The bladder wall is moderately thickened. Genitalia: Prostate gla d is enlarged heterogeneous and impinges upon the floor the bladder GI: There is diverticulosis of the left-sided the colon although no CT evidence of acute diverticul itisThere is a small hiatal hernia with the thickening of the distal esophagus. Also noted is mild t hickening of the gastric fundus Vessels/spaces/nodes: And a caval umbrella again noted. There has been development of a cluster of new enlarged lymph nodes in the retroperitoneum just below the level of the left renal hilum with the largest lymph node measuring 1.9 x 1.4 cm Bones/soft tissues: Lytic lesions involving the L1 and L4 vertebral bodies appear relatively unchang ed along with mild anterior wedging of these vertebral bodies. Lytic destructive process involving t he left iliac bone also appears relatively unchanged. There is a sclerotic lesion in the left femora l head also unchanged. 1.7 x 1.3 cm expansile lytic lesion with soft tissue component along the anterior aspect of the proxi mal left femoral diaphysis appears well totally unchanged. The moth-eaten appearance to the posterio r cortex in the same location also appears relatively unchanged. Mild cystic changes seen along the superior aspect of the right acetabulum appears unchanged. 6 mm lytic lesion left-sided the L2 vertebral body appears unchanged Additional findings: None pertinent. IMPRESSION: Previously noted pulmonary nodules have remained stable Subcarinal mass is slightly increased in size as detailed above. Pretracheal lymph node is also slig htly increased. The other mediastinal lymph nodes appear stable or decreased in size . Bone metastases throughout the chest abdomen and pelvis appear relatively stable 1.4 cm ovoid hypoattenuating lesion in the dependent portion the gallbladder fundus may represent a s tone versus mass. This could be further evaluated with ultrasound The large heterogeneous left renal mass now measures 4.6 x 6.5 x 7.7 cm previously measuring 4.7 x 6 x 8.1 cm. Invasion into the left quadratus lumborum muscle is suspected similar to the prior study Previously noted 7 mm ovoid calcination vicinity of the left UVJ appears unchanged and could be withi n the distal left ureter Prostate gland is enlarged and heterogeneous impinging upon the floor the bladder Diverticulosis left-sided the colon
== END ==
LOC: CT 07:50
PROVIDERS: ATTEND Internal Medicine Hematology
DX: C79.51 Secondary malignant neoplasm of bone (principal); R91.8 Other nonspecific abnormal finding of lung field
CPT/HCPCS: 71270; 74178; Q9967

== ENCOUNTER 2018-12-20 08:30 | Outpatient (RCR) | payer MEDICARE, OTHER ==
[2018-01-22 10:40] VITALS: Ht 176.5 cm; Wt 71.7 kg
[2018-09-27 10:03] VITALS: BP 160/85
[2018-09-27] MEDS: NS(*) 0.9% 250 ML BAG 250 ML IVPB PRN (10:30)
[2018-09-27] MEDS: LIDOCAINE/SOD BICARB 8.4% SYR ID PRN (10:30)
[2018-09-27] MEDS: HEPARIN FLSH (PORT) 500 UN/5ML IVP PRN (10:30)
[2018-09-27] MEDS: diphenhydrAMINE 25 MG CAP PO PRN (10:50)
[2018-09-27 12:12] VITALS: BP 167/99
--- NOTE | 2018-09-27 22:20 | ONCOLOGY FOLLOW UP NOTE ---
EVENT DATE: September 27, 2018 DIAGNOSES 1. Metastatic renal cell carcinoma. 2. Bone metastases. CHIEF COMPLAINT Patient is here for treatment with temsirolimus for his metastatic renal cell carcinoma, due for Cycle #5, day 1 today. ONCOLOGY HISTORY Patient is a 78-year-old male who saw Nola Nunez for low back pain and left groin pain. He started the process of followup of his pain since October, as per patient. He had some physical therapy and cortisone injection into the left hip without improvement. He had an MRI, which showed renal mass with metastases to the spine, so the patient had after that CT chest, abdomen, and pelvis done on December 11, 2017, which showed a big heterogeneous mass of the left kidney, 12.5 cm. There was also venous thrombosis with multiple veins in the pelvis and upper thighs, likely extending into the inferior vena cava. There were numerous pulmonary nodules, likely representing pulmonary metastases with mediastinal adenopathy, likely metastatic. There were numerous lytic destructive lesions in the bones including the anterior aspect of the right 10th and 11th ribs, T7, L1, and L4. There was also a large destructive lesion involving the left iliac bone with a large heterogeneous soft tissue mass component extending into the anterior aspect of the left acetabulum where there is a pathologic fracture. The uncinate process of the liver is heterogeneous. PET/CT scan done on December 20, 2017, showed a large mass involving the left kidney measuring nearly 13 cm with maximum SUV of 21.3. There were bilateral adrenal gland metastases, mediastinal and lung metastases, intra-abdominal adenopathy, left axillary lymphadenopathy, and extensive osseous metastatic disease. CT-guided biopsy of the left iliac crest showed metastases consistent with clear-cell renal cell carcinoma, and the biopsy was done on December 22, 2017. Patient started treatment with Opdivo and Yervoy at the beginning of January 2018. Patient received three doses of Yervoy and Opdivo every month, and the treatment was stopped after that because of the elevation of the liver enzymes, thought to be due to immune reaction. Patient started Opdivo single agent on April 13, 2018. Treatment with Opdivo was stopped on May 11, 2018, due to rise in liver enzymes again. Patient is going to be initiating radiotherapy in the near future. He has now met with Dr. Arizmendi with [facility]. He ordered a PET scan for patient, which Mr. Wilson had done earlier this week on 09/25/18. He will be following up with Dr. Arizmendi later this afternoon. HISTORY OF PRESENT ILLNESS Mr. Wilson is here today for followup for his renal cell carcinoma, metastatic disease, currently on treatment with weekly temsirolimus after hepatitic toxicity from Opdivo. Overall, he is doing quite well. He has had a rash on his upper extremities and lower back which tends to wax and wane. He is currently on a prednisone taper, now down to 2.5 mg daily. His reports that he got off his taper for a couple of days as they had a busy weekend in [place], but should be done with the taper by next week. He has occasional hiccups, usually only rarely, though these did occur yesterday evening. He uses p.r.n. Reglan for that, though it did not completely resolve his hiccups. He is no longer having any significant diarrhea or other issues. Pao tells me that he is feeling quite well, continues to eat three meals a day, has good energy levels, and even went hiking over the weekend. PAST MEDICAL HISTORY Benign prostatic hypertrophy with urinary retention in 2015, currently on tamsulosin. PAST SURGICAL HISTORY 1. Right knee replacement in 2010. 2. Prostate biopsy in 2008. 3. Left rotator cuff injury repair. 4. Bilateral cataract surgery. FAMILY HISTORY Brother had squamous cell carcinoma of the lip. Father had lung cancer. Sister had lung cancer. He had a brother with kidney cancer. He has multiple cousins with brain, kidney, and lung cancer. SOCIAL HISTORY Patient is with two children. 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 He is a never smoker. He occasionally drinks beer. Denies any abuse of illicit drugs. CURRENT MEDICATIONS 1. Tamsulosin 0.4 mg daily. 2. Baclofen 10 mg t.i.d. p.r.n. ALLERGIES OXYCONTIN, which caused rash. REVIEW OF SYSTEMS CONSTITUTIONAL: Patient denies any recent fevers, chills, or night sweats. No recent infections. HEENT: No vision changes. No tinnitus. No epistaxis. No dysphagia or odynophagia. No mouth sores. RESPIRATORY: Patient has some dyspnea on exertion and occasional shortness of breath. No cough, sputum production, or hemoptysis. No pleuritic chest pain. CARDIOVASCULAR: No chest pain, syncope, or presyncope. GASTROINTESTINAL: No abdominal pain. No nausea or vomiting or constipation. He has occasional diarrhea with a couple of episodes per week, controlled with Imodium. He has only occasional hiccups and p.r.n. medication for that. Appetite is good. GENITOURINARY: No dysuria or hematuria. No flank pain. SKIN: He does have a mild rash, most noticeable on his bilateral upper extremities and posterior trunk. This has significantly improved. He continues to bruise easily as he remains on Eliquis. PSYCHIATRIC: He denies any severe anxiety, severe depression, suicidal or homicidal ideation. MUSCULOSKELETAL: No focal areas of pain. The remainder of a 12-point review of systems is performed today and is otherwise negative. PHYSICAL EXAMINATION VITAL SIGNS: Weight today 78.5 kg, up from last week at 77.7 kg. T 98.1, P 90, R 16, BP 160/85, oxygen saturation 98% room air. Currently rates pain level at "0/10." Currently rates fatigue level at "4/10." GENERAL: In general, this is a pleasant 78-year-old gentleman who appears well hydrated, well developed, and is in no acute distress. HEAD: Atraumatic, normocephalic. EYES: Sclerae anicteric. ENT, MOUTH: Moist mucous membranes. No oral lesions. NECK: Supple. No lymphadenopathy. LUNGS: Clear to auscultation bilaterally. No focal findings. HEART: Regular rate and rhythm. No ectopy. ABDOMEN: Soft, nontender, nondistended. Bowel sounds positive x4. No organomegaly. EXTREMITIES: No clubbing, cyanosis, or edema. NEUROLOGIC: Patient is awake, alert, and oriented x3. PSYCHIATRIC: Mood and affect are appropriate. DERM: Patient has a very mild grade 1 maculopapular rash noted to the posterior trunk and bilateral upper extremities. This waxes and wanes, although is currently stable. No petechiae or purpura. Patient has numerous keratoses on his back. MUSCULOSKELETAL: Gait and ambulation are steady. LABORATORY CBC today: WBC 5.6, ANC 5.0, hemoglobin 10.2, hematocrit 31.4%, platelets 183,000. CMP today: Serum creatinine of 1.70, comparable to previous with 1.80 last week on 09/20/18, and elevated glucose at 125, improved from last week at 184. Calcium normal at 9.2, magnesium normal at 2.0, total bilirubin normal at 0.3, AST normal at 28, ALT normal at 21, alkaline phosphatase normal at 73. Total protein normal at 6.6 with normal albumin of 3.6. IMAGING CT scan chest, abdomen, and pelvis with and without contrast at [facility] on August 29, 2018: 1. There is a mixed response to therapy. All of the previously noted pulmonary nodules have remained stable. 2. Although the subcarinal nodule mass has decreased in size, the anterior mediastinal adenopathy, AP window adenopathy and right hilar adenopathy have increased in size. Anterior mediastinal lymph node has increased in size, now measuring 2.3 x 2 cm, previously measuring 1.4 x 0.7 cm, and now contains a necrotic central region. An AP window lymph node now measures 10.9 mm, previously 7.9 mm. Right hilar lymph node measures 2.1 x 1.7 cm, previously measuring 2.1 x 1.6 cm. 3. Bone metastases appear stable as described above. 4. The head of the pancreas appears heterogenous to greater extent than on the prior study. If of clinical concern, further imaging could be performed with MR with and without contrast. 5. Previously noted left adrenal mass has further decreased in size and is barely perceptible. 6. Heterogenous left renal mass slightly decreased in size. 7. There is a new ovoid calcification in the vicinity of the left UVJ, which may represent a distal left ureteral calculus as described above. 8. Bone/soft tissue: Severe pathologic fracture of the T8 vertebral body. Underlying lytic lesion appears relatively unchanged. There is a healing fracture through the posterolateral aspect of the 7th rib. IMPRESSION AND PLAN Patient is a 78-year-old with metastatic renal cell carcinoma of the left kidney with metastasis to the left iliac bone and multiple pulmonary metastases, mediastinal adenopathy, bilateral adrenal and intra-abdominal adenopathy, and left axillary adenopathy. MRI of the brain done December 19, 2017, was negative for brain metastasis, but there may be some osseous metastasis to the posterior right parietal skull bone. PET CT scan done on December 20, 2017, showed a large mass involving the left kidney measuring 13 cm with SUV 21.3 with bilateral adrenal gland metastases, mediastinal and lung metastases, intra-abdominal adenopathy, left axillary lymphadenopathy, and extensive osseous metastatic disease. CT-guided biopsy of the left iliac bone done on December 22, 2017, came back positive for metastases from clear renal cell carcinoma. Patient started treatment with Yervoy and Opdivo the beginning of January 2018. He received three courses, and treatment was stopped because of the development of elevation of the liver enzymes, which normalized after stopping the treatment and steroid therapy. Patient developed also hematuria on anticoagulation, so patient was referred to the hospital in [facility] with placement of inferior vena cava filter and tying of the blood vessels with resolution of the kidney bleeding. He resumed treatment with single-agent Opdivo April 13, 2018, but his liver enzymes nina again, so Opdivo was stopped because of the fear of autoimmune hepatitis. The patient started treatment with temsirolimus after normalization of his liver enzymes in June 2018. He is tolerating treatment very well. CT chest, abdomen, and pelvis done on August 29, 2018, showed actually stable disease. The left renal mass decreased in size. The subcarinal mass has also decreased in size. There was only one spot in the anterior mediastinum which showed increase in size. Our plan is to continue with weekly temsirolimus as he is tolerating it quite well, and his general condition is really good, but we have referred patient to Radiation Oncology to evaluate the area, which is larger on this current CT scan. He has met with Dr. Arizmendi, and a PET simulation scan is currently pending scheduling. Again, we will continue with temsirolimus on a weekly basis, and patient and are both in agreement with that. 1. Metastatic renal cell carcinoma, left kidney, metastases to the left iliac bone and multiple pulmonary metastases, mediastinal adenopathy, bilateral adrenal and intra-abdominal adenopathy, and left axillary adenopathy, with bone metastases: Patient will continue with weekly temsirolimus as per orders. Patient will proceed with Cycle #5, day 1 today. 2. Bony metastases: Patient will continue with Xgeva 120 mg every four weeks. He will receive that today. 3. Radiation therapy: Patient consulted with Dr. Arizmendi last week. PET scan was done earlier this week per his orders. Patient will be following up with Dr. Arizmendi this afternoon. 4. Patient will continue with weekly labs. 5. Prednisone taper: Patient and have instructions. He continues tapering off prednisone and should be off this next week. They did get off track with the taper as they had a busy weekend out of town. 6. Hypertension: Patient's blood pressure is elevated today with systolic blood pressure 160. He has a history of chronic renal insufficiency, and we will continue monitoring this. 7. Anemia, likely related to chronic kidney disease: Hemoglobin today is stable at 10.2. He has no signs or symptoms of bleeding. I will order iron studies to be done next week, possibly today if we can add this on. If iron levels are normal, we may need to consider treatment with erythropoietic agents p.r.n. 8. Patient will return to clinic next week for followup with me and should be receiving day 8 of Cycle #5 with temsirolimus at that time. MTDD
[2018-10-04 08:46] VITALS: BP 140/83
[2018-10-04] MEDS: LIDOCAINE/SOD BICARB 8.4% SYR ID PRN (08:47)
[2018-10-04] MEDS: HEPARIN FLSH (PORT) 500 UN/5ML IVP PRN (08:47)
[2018-10-04] MEDS: NS(*) 0.9% 250 ML BAG 250 ML IVPB PRN (08:47)
[2018-10-04] MEDS: diphenhydrAMINE 25 MG CAP PO PRN (09:46)
[2018-10-04 11:46] VITALS: BP 136/78
--- NOTE | 2018-10-04 19:37 | ONCOLOGY FOLLOW UP NOTE ---
EVENT DATE: October 04, 2018 DIAGNOSES 1. Metastatic renal cell carcinoma. 2. Bone metastases. CHIEF COMPLAINT Patient is here for treatment with temsirolimus for his metastatic renal cell carcinoma, due for Cycle #5, day 8 today. ONCOLOGY HISTORY Patient is a 78-year-old male who saw Nola Nunez for low back pain and left groin pain. He started the process of followup of his pain since October, as per patient. He had some physical therapy and cortisone injection into the left hip without improvement. He had an MRI, which showed renal mass with metastases to the spine, so the patient had after that CT chest, abdomen, and pelvis done on December 11, 2017, which showed a big heterogeneous mass of the left kidney, 12.5 cm. There was also venous thrombosis with multiple veins in the pelvis and upper thighs, likely extending into the inferior vena cava. There were numerous pulmonary nodules, likely representing pulmonary metastases with mediastinal adenopathy, likely metastatic. There were numerous lytic destructive lesions in the bones including the anterior aspect of the right 10th and 11th ribs, T7, L1, and L4. There was also a large destructive lesion involving the left iliac bone with a large heterogeneous soft tissue mass component extending into the anterior aspect of the left acetabulum where there is a pathologic fracture. The uncinate process of the liver is heterogeneous. PET/CT scan done on December 20, 2017, showed a large mass involving the left kidney measuring nearly 13 cm with maximum SUV of 21.3. There were bilateral adrenal gland metastases, mediastinal and lung metastases, intra-abdominal adenopathy, left axillary lymphadenopathy, and extensive osseous metastatic disease. CT-guided biopsy of the left iliac crest showed metastases consistent with clear-cell renal cell carcinoma, and the biopsy was done on December 22, 2017. Patient started treatment with Opdivo and Yervoy at the beginning of January 2018. Patient received three doses of Yervoy and Opdivo every month, and the treatment was stopped after that because of the elevation of the liver enzymes, thought to be due to immune reaction. Patient started Opdivo single agent on April 13, 2018. Treatment with Opdivo was stopped on May 11, 2018, due to rise in liver enzymes again. Patient has met with Dr. Arizmendi and initiated radiation therapy yesterday on 10/03/18. Repeat PET scan was done on 09/25/18 at [facility] in [place]. Whole body PET/CT on 09/25/2018: 1. Large mass arising from the mid left kidney with mild uptake. This has apparently decreased in size, and metabolic activity when compared to the prior PET/CT report suggesting a positive response to therapy there. 2. Apparent resolution since the last PET/CT of hypermetabolic bilateral adrenal masses, indicating an excellent response to therapy there. 3. Mixed lytic and sclerotic changes in the bony pelvis and spine, unassociated with prominent uptake representing treated metastasis. 4. Hypermetabolic mediastinal and hilar lymph nodes, consistent with metastases. These have also apparently decreased in metabolic activity, indicating a positive response to therapy there. HISTORY OF PRESENT ILLNESS Mr. Wilson is here today for followup for his renal cell carcinoma, metastatic disease, currently on treatment with weekly temsirolimus after hepatitic toxicity from Opdivo. Overall, he is doing quite well. He has had a rash on his upper extremities and lower back which tends to wax and wane. He was on low-dose prednisone daily, but has now completed a taper and reports he has been off of prednisone completely now for the last couple of days. His rash has not worsened. He has occasional hiccups only rarely and has p.r.n. Reglan for that. He has not had any issues with further diarrhea. He tells me he continues to be quite active, has good stable energy, and eats quite well. He believes he is drinking fluids well. At our last visit, I recommended that patient follow up with his PCP in regards to his rising blood pressure, and he just recently saw Dr. Cantu in the last week. He was started on amlodipine 5 mg daily. He was also started on Flomax 0.4 mg daily. Lastly, he did initiate daily radiotherapy just yesterday on 10/03/18. Thus far, he is tolerating treatment well. PAST MEDICAL HISTORY Benign prostatic hypertrophy with urinary retention in 2016, currently on tamsulosin. PAST SURGICAL HISTORY 1. Right knee replacement in 2010. 2. Prostate biopsy in 2008. 3. Left rotator cuff injury repair. 4. Bilateral cataract surgery. FAMILY HISTORY Brother had squamous cell carcinoma of the lip. Father had lung cancer. Sister had lung cancer. He had a brother with kidney cancer. He has multiple cousins with brain, kidney, and lung cancer. SOCIAL HISTORY Patient is with two children. 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 He is a never smoker. He occasionally drinks beer. Denies any abuse of illicit drugs. CURRENT MEDICATIONS 1. Flomax (tamsulosin HCl) 0.4 mg ER 24 hours, one p.o. b.i.d. 2. Amlodipine 5 mg one p.o. q. day. 3. Reglan 10 mg one p.o. t.i.d. p.r.n. hiccups. ALLERGIES OXYCONTIN, which caused rash. REVIEW OF SYSTEMS CONSTITUTIONAL: Patient denies any recent fevers, chills, or night sweats. No recent infections. HEENT: No vision changes. No tinnitus. No epistaxis. No dysphagia or odynophagia. No mouth sores. RESPIRATORY: Patient has some dyspnea on exertion and occasional shortness of breath. No cough, sputum production, or hemoptysis. No pleuritic chest pain. CARDIOVASCULAR: No chest pain, syncope, or presyncope. GASTROINTESTINAL: No abdominal pain. No nausea or vomiting or constipation. He has occasional diarrhea with a couple of episodes per week, controlled with Imodium. He has only occasional hiccups and on p.r.n. medication for that. Appetite is good. GENITOURINARY: No dysuria or hematuria. No flank pain. SKIN: He does have a mild rash, most noticeable on his bilateral upper extremities and posterior trunk. This has significantly improved. He continues to bruise easily as he remains on Eliquis. PSYCHIATRIC: He denies any severe anxiety, severe depression, suicidal or homicidal ideation. MUSCULOSKELETAL: No focal areas of pain. The remainder of a 12-point review of systems is performed today and is otherwise negative. PHYSICAL EXAMINATION VITAL SIGNS: T 98.0, P 96, R 16, BP 140/83, oxygen saturation 97% room air. Currently rates pain level at "0/10." Currently rates fatigue level at "1/10." GENERAL: In general, this is a pleasant 78-year-old gentleman who appears well hydrated, well developed, and is in no acute distress. HEAD: Atraumatic, normocephalic. EYES: Sclerae anicteric. ENT, MOUTH: Moist mucous membranes. No oral lesions. NECK: Supple. No lymphadenopathy. LUNGS: Clear to auscultation bilaterally. No focal findings. HEART: Regular rate and rhythm. No ectopy. ABDOMEN: Soft, nontender, nondistended. Bowel sounds positive x4. No organomegaly. EXTREMITIES: No clubbing, cyanosis, or edema. NEUROLOGIC: Patient is awake, alert, and oriented x3. PSYCHIATRIC: Mood and affect are appropriate. DERM: Patient has a very mild grade 1 maculopapular rash noted to the posterior trunk and bilateral upper extremities. This waxes and wanes, although is currently stable. No petechiae or purpura. Patient has numerous keratoses on his back. MUSCULOSKELETAL: Gait and ambulation are steady. LABORATORY CBC today: WBC 4.6, ANC 2.7, hemoglobin 10.0, hematocrit 31.7%, platelets 179,000. CMP today: Sodium 147, potassium 3.7, chloride 109, serum creatinine 1.8, up compared to 1.7 last week, glucose 148, calcium normal, 8.5, magnesium normal, 2.2, total bilirubin normal, 0.3, AST normal, 29, ALT normal, 25, alkaline phosphatase normal, 86, total protein normal, 7.1, with normal albumin of 3.9. Iron studies today reveal total iron at 44, TIBC normal at 300, with iron saturation at 14.7%. IMPRESSION AND PLAN Patient is a 78-year-old with metastatic renal cell carcinoma of the left kidney with metastasis to the left iliac bone and multiple pulmonary metastases, mediastinal adenopathy, bilateral adrenal and intra-abdominal adenopathy, and left axillary adenopathy. MRI of the brain done December 19, 2017, was negative for brain metastasis, but there may be some osseous metastasis to the posterior right parietal skull bone. PET/CT scan done on December 20, 2017, showed a large mass involving the left kidney measuring 13 cm with SUV 21.3, with bilateral adrenal gland metastases, mediastinal and lung metastases, intra-abdominal adenopathy, left axillary lymphadenopathy, and extensive osseous metastatic disease. CT-guided biopsy of the left iliac bone done on December 22, 2017, came back positive for metastases from clear renal cell carcinoma. Patient started treatment with Yervoy and Opdivo the beginning of January 2018. He received three courses, and treatment was stopped because of the development of elevation of the liver enzymes, which normalized after stopping the treatment and steroid therapy. Patient developed also hematuria on anticoagulation, so patient was referred to the hospital in [facility] with placement of inferior vena cava filter and tying of the blood vessels with resolution of the kidney bleeding. He resumed treatment with single-agent Opdivo April 13, 2018, but his liver enzymes nina again, so Opdivo was stopped because of the fear of autoimmune hepatitis. The patient started treatment with temsirolimus after normalization of his liver enzymes in June 2018. He is tolerating treatment very well. CT chest, abdomen, and pelvis done on August 29, 2018, showed actually stable disease. The left renal mass decreased in size. The subcarinal mass has also decreased in size. There was only one spot in the anterior mediastinum which showed increase in size. Our plan is for patient to continue weekly temsirolimus as he is tolerating that quite well, and his general condition is overall really good. We have since referred him to Radiation Oncology for evaluation, and he has met with Dr. Arizmendi. He had a PET/CT done on 09/25/18, which did show the hypermetabolic mediastinal and hilar lymph nodes which were consistent with metastases, though they did also apparently decrease in metabolic activity. See Oncology History. He initiated radiotherapy yesterday on 10/03/18. Thus far, he is tolerating it well. He is now off prednisone, which he was on chronically over the last few months due to his persistent rash likely related to Torisel. He has been off prednisone now for a couple of days, and we will need to monitor this to see if this recurs or worsens. I am quite pleased that patient did follow recommendations and followed up with his primary care physician in regards to his hypertension, and he is now on amlodipine. His blood pressure today is much improved compared to last week and is 140 systolic. He does have chronic renal insufficiency as well, and serum creatinine has been rising, but he is usually between 1.6 and 1.8. Lastly, at our visit last week, he did report some noticeable dyspnea on exertion, which is likely related to his chronic anemia, multifactorial, chemotherapy-induced and anemia related to chronic kidney disease. 1. Metastatic renal cell carcinoma, left kidney, metastases to the left iliac bone and multiple pulmonary metastases, mediastinal adenopathy, bilateral adrenal and intra-abdominal adenopathy, and left axillary adenopathy, with bone metastases: Patient will continue with weekly temsirolimus as per orders. Patient will proceed with Cycle #5, day 8 today. 2. Bony metastases: Patient will continue with Xgeva 120 mg every four weeks. He just received this on 09/27/18 and is not due for that yet. 3. Radiation therapy: Patient initiated radiotherapy on 10/03/18 to the hilar and mediastinal lymphadenopathy. He will continue followup with Dr. Arizmendi. He is aware of PET scan results, which was just done on 09/25/18, ordered by Dr. Arizmendi. 4. Patient will continue with weekly labs. 5. Prednisone: Patient is now completely off prednisone. We will need to continue to monitor for signs and symptoms of worsening rash, which was Torisel induced. 6. Hypertension: Much improved. Today, his systolic blood pressure is down to 140, and he has now been initiated on amlodipine, which he just recently started earlier this week when he saw Dr. Cantu on 09/28/18. 7. Anemia, likely related to chronic kidney disease: Hemoglobin has been steadily decreasing, and today is 10.0 compared to 10.2 previously. He is not having any signs or symptoms consistent with bleeding, and this is likely multifactorial, related to chemotherapy and his chronic kidney disease. Iron studies were checked today, though ferritin is currently pending from labs. Iron saturation is somewhat low at 14.7%. If this decreases any further, and depending on ferritin level, we could certainly treat him with a course of intravenous iron. After intravenous iron if his hemoglobin continues to decrease, he could benefit from erythropoietic agents. 8. Patient will return to clinic in one week for followup with Dr. Ross, and patient should be on day 15 of Cycle #5 with weekly temsirolimus at that time. MTDD
[2018-10-11] MEDS: HEPARIN FLSH (PORT) 500 UN/5ML IVP PRN ×2 (08:23→09:04)
[2018-10-11] MEDS: LIDOCAINE/SOD BICARB 8.4% SYR ID PRN (08:23)
[2018-10-11] MEDS: NS(*) 0.9% 250 ML BAG 250 ML IVPB PRN ×2 (08:23→09:04)
[2018-10-11 08:25] VITALS: BP 107/72
--- NOTE | 2018-10-11 08:52 | NUR ---
SW rec'd request to write a letter to the district court to excuse the patient from jury duty. [facility] provided requested letter directly to the pt.
[2018-10-11] MEDS: diphenhydrAMINE 25 MG CAP PO PRN (09:03)
[2018-10-11 10:21] VITALS: BP 131/76
--- NOTE | 2018-10-11 11:18 | [facility] ONCOLOGY NOTE ---
EVENT DATE: October 11, 2018 DIAGNOSES 1. Metastatic renal cell carcinoma. 2. Bone metastases. CHIEF COMPLAINT Patient is here today for followup and treatment with temsirolimus for his metastatic renal cell carcinoma. ONCOLOGY HISTORY Patient is a 78-year-old male who saw Nola Nunez for low back pain and left groin pain. He started the process of followup of his pain since October as per patient. He had some physical therapy and cortisone injection into the left hip without improvement. He had an MRI which showed renal mass with mets to the spine, so the patient had after that CT chest, abdomen, and pelvis done on December 11, 2017, which showed a big heterogeneous mass of the left kidney, 12.5 cm. There was also venous thrombosis with multiple veins in the pelvis and upper thighs likely extending into the inferior vena cava. There were numerous pulmonary nodules likely representing pulmonary metastasis with mediastinal adenopathy likely metastatic. There were numerous lytic, destructive lesions in the bones including the anterior aspect of the right 10th and 11th ribs, T7, L1, and L4. There was also a large destructive lesion involving the left iliac bone with a large heterogeneous soft tissue mass component extending into the anterior aspect of the left acetabulum where there is pathologic fracture. The uncinate process of the liver is heterogeneous. PET/CT scan done on December 20, 2017 showed a large mass involving the left kidney measuring nearly 13 cm with maximum SUV of 21.3. There were bilateral adrenal gland metastases, mediastinal and lung metastases, intra-abdominal adenopathy, left axillary lymphadenopathy, and extensive osseous metastatic disease. CT-guided biopsy of the left iliac crest showed metastases consistent with clear-cell renal cell carcinoma, and the biopsy was done on December 22, 2017. Patient started treatment with Opdivo and Yervoy at the beginning of January 2018. Patient received three doses of Yervoy and Opdivo every month, and the treatment was stopped after that because of the elevation of the liver enzymes thought to be due to immune reaction. Patient started Opdivo single agent on April 13, 2018. Treatment with Opdivo is stopped on May 11, 2018, because of the rise of the liver enzymes again. Patient started treatment with temsirolimus September 2018. HISTORY OF PRESENT ILLNESS Patient is here today for followup of his renal cell carcinoma, on treatment with temsirolimus. He is complaining of recurrence of significant rash across his back, which is very itchy. Patient received prolonged course of Prednisone, which was tapered off a week ago and he has improvement with his rash, which recurs back after that. He has some nasal discharge. Patient received some radiation to the new spots in his lungs. Generally speaking, he is tolerating Torisel well so far except for the skin rash. PAST MEDICAL HISTORY Benign prostatic hypertrophy with urinary retention in 2016, currently on tamsulosin. PAST SURGICAL HISTORY 1. Right knee replacement in 2010. 2. Prostate biopsy in 2008. 3. Left rotator cuff injury repair. 4. Bilateral cataract surgery. FAMILY HISTORY Brother had squamous cell carcinoma of the lip. Father had lung cancer. Sister had lung cancer. He had brother with kidney cancer. He had multiple cousins with brain, kidney, and lung cancer. SOCIAL HISTORY Patient is with two children. 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 He is a never smoker. He occasionally drinks beer. Denies any abuse of illicit drugs. CURRENT MEDICATIONS 1. Tamsulosin 0.4 mg daily. 2. Baclofen 10 mg t.i.d. p.r.n. ALLERGIES OXYCONTIN, which caused rash. REVIEW OF SYSTEMS CONSTITUTIONAL: No appetite or weight change. No fever, chills, or sweating. No recent infection. HEENT: Ears: No tinnitus or hearing problem. Nose: He has nasal discharge. Throat: No sore throat or mouth ulcers. Eyes: No diplopia or visual changes. RESPIRATORY: Patient has shortness of breath. CARDIOVASCULAR: No chest pain, orthopnea, or paroxysmal nocturnal dyspnea (PND). No edema. No palpitations. GASTROINTESTINAL: He has hiccups; he has treatment for that. GENITOURINARY: No hematuria or dysuria. MUSCULOSKELETAL: No pain in the muscles, joints, or bones. NEUROLOGICAL: No tingling or numbness in the hands or feet. No headaches or convulsions. HEMATOLOGIC/LYMPHATIC: He bruises easily. SKIN: He has skin rash significant across the back, which is very itchy. PSYCHIATRIC: No anxiety or depression. PHYSICAL EXAMINATION GENERAL: Looks stable. Well developed, well nourished, and in no acute distress. VITAL SIGNS: Blood pressure 107/72, pulse 99 per minute, respirations 16 per minute, temperature 98.8, pulse ox 100% on room air. HEENT: Head: Atraumatic. No sinus tenderness to palpation. Eyes: No icterus or conjunctivitis. Mouth and Throat: No oral thrush or mucositis. NECK: Supple. No cervical or supraclavicular lymphadenopathy. LUNGS: Clear to auscultation and percussion bilaterally. HEART: Regular rate and rhythm. No gallops, murmurs, clicks, or rubs. ABDOMEN: Soft and lax. No tenderness. No hepatosplenomegaly. No masses. EXTREMITIES: No cyanosis, clubbing, or edema. LYMPHATICS: No peripheral lymphadenopathy. NEUROLOGICAL: Conscious, alert, and oriented times three. No focal motor or sensory deficits. PSYCHIATRIC: Mood and affect appear normal. SKIN: There is macular skin rash over the back, reddish in color. Some are raised above the skin, little. DIAGNOSTIC DATA CBC showed white count 4,000, hemoglobin 10, hematocrit 30.7, platelets 164,000. Chem panel totally normal except carbon dioxide 20, blood sugar 149 and creatinine 1.9. ASSESSMENT 1. Metastatic renal cell carcinoma of the left kidney with metastasis to the left iliac bone and multiple pulmonary metastases, mediastinal adenopathy, bilateral adrenal and intra-abdominal adenopathy and left axillary adenopathy. MRI of the brain done December 19, 2017 was negative for brain metastasis but there may be some osseous metastasis of the posterior right parietal skull bone. PET/CT scan December 20, 2017, showed a large mass involving the left kidney measuring 13 cm with SUV 21.3 with bilateral adrenal gland metastases, mediastinal and lung metastases, intra-abdominal adenopathy, left axillary lymphadenopathy and extensive osseous metastatic disease. CT-guided biopsy of the left iliac bone done December 22, 2017, came back positive for metastases from clear cell carcinoma. Patient started treatment with Yervoy and Opdivo the beginning of January 2018. He received three courses and treatment was stopped because of the development of elevation of the liver enzymes, which normalized after stopping the treatment and steroid therapy. Patient developed also hematuria on anticoagulation so the patient was referred to the hospital in [facility] with placement of inferior vena cava filter and tying of the blood vessels with resolution of the kidney bleeding. He resumed treatment with single-agent Opdivo April 13, 2018, but his liver enzymes nina again so Opdivo was stopped for the fear of autoimmune hepatitis and patient started treatment with temsirolimus after normalization of liver enzymes in June 2018. Patient is tolerating treatment well so far. His CT chest, abdomen and pelvis done August 29, 2018, showed actually stable disease. The left renal mass decreased in size. The subcarinal mass also decreased in size. There was only one spot in the anterior mediastinal which showed increase in size. The patient received radiation therapy for those spots in the lung and continued on temsirolimus. He is tolerating treatment well except for itchy skin rash across his back. I am planning to proceed with his treatment today and I will see him in a month from now and the patient will come weekly for his temsirolimus. I will check CBC and chem panel prior to each dose of temsirolimus. 2. Allergic skin rash, most probably due to his current treatment with temsirolimus. I am planning to put him on a short course of prednisone 30 mg daily for five days and I will use Hydroxyzine if the itching is getting worse 25 mg three times daily p.r.n. 3. Bony metastasis. We will continue Xgeva 120 mg subcutaneously every four weeks. 4. Anemia, most probably due to anemia of chronic renal disease and anemia inflammatory from his cancer. I will consider Aranesp if the hemoglobin drops below 10 g/dL. PLAN 1. Temsirolimus as per schedule. 2. CBC, chem panel to be checked weekly prior to each dose of temsirolimus. 4. Patient to return in four weeks with CBC and chem panel. 5. Continue Xgeva every four weeks for bone metastasis. 6. Prednisone 15 mg orally daily for five days. 7. Hydroxyzine 25 mg three times daily p.r.n. for itching. 8. Patient to contact us for any new concerns or complaints. MTDD
[2018-10-18 08:08] VITALS: BP 128/78
[2018-10-18] MEDS: HEPARIN FLSH (PORT) 500 UN/5ML IVP PRN (08:24)
[2018-10-18] MEDS: LIDOCAINE/SOD BICARB 8.4% SYR ID PRN (08:24)
[2018-10-18] MEDS: NS(*) 0.9% 250 ML BAG 250 ML IVPB PRN (08:25)
[2018-10-18] MEDS: diphenhydrAMINE 25 MG CAP PO PRN (08:56)
[2018-10-18 10:47] VITALS: BP 133/81
--- NOTE | 2018-10-18 12:42 | ONCOLOGY FOLLOW UP NOTE ---
EVENT DATE: October 18, 2018 CHIEF COMPLAINT Followup for metastatic renal carcinoma. HISTORY OF PRESENT ILLNESS Patient is a 78-year old male who is seen today in weekly followup. He will receive temsirolimus today. When seen last week, he presented with a diffusely pruritic maculopapular rash covering his entire back. He was prescribed 15 mg daily for 5 days and this has now resolved. He generally feels well. He continues with issues related to hiccups. Dr. Arizmendi prescribed Maalox but he discontinued this due to diarrhea. He began radiation to his mediastinal lymph nodes on October 03, 2018. ONCOLOGY HISTORY Patient is a 78-year-old male who presented with low back pain and left groin pain in October 2017. He had some physical therapy and cortisone injection into the left hip without improvement. He had an MRI which showed renal mass with mets to the spine, followed by CT chest, abdomen, and pelvis done on December 11, 2017, which showed a big heterogeneous mass of the left kidney, 12.5 cm. There was also venous thrombosis with multiple veins in the pelvis and upper thighs, likely extending into the inferior vena cava. There were numerous pulmonary nodules likely representing pulmonary metastasis with mediastinal adenopathy, likely metastatic. There were numerous lytic, destructive lesions in the bones including the anterior aspect of the right 10th and 11th ribs, T7, L1, and L4. There was also a large destructive lesion involving the left iliac bone with a large heterogeneous soft tissue mass component extending into the anterior aspect of the left acetabulum where there is pathologic fracture. PET/CT scan done on the December showed a large mass involving the left kidney measuring nearly 13 cm with maximum SUV of 21.3. There were bilateral adrenal gland metastases, mediastinal and lung metastases, intra-abdominal adenopathy, left axillary lymphadenopathy, and extensive osseous metastatic disease. CT- guided biopsy on the December of the left iliac crest showed metastases consistent with clear-cell renal cell carcinoma. Began Yervoy and Opdivo on January 05, 2018, with plans to proceed with maintenance Opdivo after four cycles. 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 Began single agent Opdivo on April 13, 2018. Opdivo was discontinued on May 11, 2018, because of increased liver function tests. Began temsirolimus on June 07, 2018. Began radiation to the mediastinal lymph nodes on October 03, 2018. PAST MEDICAL HISTORY 1. Metastatic renal cell carcinoma. 2. Bone metastases. 3. BPH with urinary retention. 4. Bilateral lower extremity DVT. PAST SURGICAL HISTORY 1. Right knee replacement in 2010. 2. Prostate biopsy in 2008. 3. Left rotator cuff injury repair. 4. Bilateral cataract surgery. 5. Left renal embolization, 01/16/18. FAMILY HISTORY Brother had squamous cell carcinoma of the lip. Father had lung cancer. Sister had lung cancer. He had a brother with kidney cancer. He had multiple cousins with brain, kidney, and lung cancer. SOCIAL HISTORY Patient is with two children. 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 He is a never smoker. He occasionally drinks beer. Denies any abuse of illicit drugs. CURRENT MEDICATIONS 1. Tamsulosin 0.4 mg b.i.d. 2. Chlorpromazine 25 mg t.i.d. p.r.n. 3. Eliquis. 4. Protonix 40 mg daily. 5. Levothyroxine. 6. Probiotic. ALLERGIES OXYCONTIN causes rash. REVIEW OF SYSTEMS A 12-point review of systems is performed and is negative except as stated above. PHYSICAL EXAMINATION VITAL SIGNS: Weight 75.2 kg. BP 133/81, P 95, R 16, temp 98.5, O2 sat 98%. GENERAL: Patient is a well-developed, well-nourished male in no acute distress. HEAD: Normocephalic, atraumatic. EYES: Sclerae anicteric. MOUTH: Moist mucous membranes. No lesions. NECK: Supple. No palpable adenopathy. LUNGS: Clear bilaterally. CARDIOVASCULAR: Heart rate regular, 80 per minute without murmur. EXTREMITIES: No edema. NEUROLOGIC: Nonfocal. SKIN: Previous rash over his entire back has now resolved. LABORATORY CBC today reveals a WBC of 7.4, ANC 5.5, hemoglobin 10.4, hematocrit 31.9, platelets 201,000. CMP is within normal limits except for BUN of 26 and creatinine 1.9. IMPRESSION The patient is a 78-year-old male diagnosed with metastatic renal cell carcinoma. 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 Re-started single-agent Opdivo on April 13, 2018, discontinued on May 11, 2018, due to increased LFTs. Began temsirolimus on June 07, 2018. Began radiation to the mediastinal lymph nodes on October 03, 2018. PLAN 1. Metastatic renal cell carcinoma. Cycle #5, day 22 of temsirolimus. He had a significant rash last week but none today. We will continue to monitor. 2. Bone metastasis. Continue Xgeva, Next due in one week. 3. Renal insufficiency. BUN and creatinine are slightly elevated at 26 and 1.9 today. Encouraged more oral fluids. We will add normal saline 500 cc today. 4. Hiccups, ongoing. He finds chlorpromazine to work the best, although this has been intermittent. Dr. Arizmendi prescribed Maalox but he discontinued this as it gave him diarrhea. 5. Radiation. Continue radiation to the mediastinal lymph node. He is tolerating this well. 6. Followup in one week for cycle 6, day 1 of temsirolimus and Xgeva. MTDD
[2018-10-25] MEDS: diphenhydrAMINE 25 MG CAP PO PRN (09:00)
[2018-10-25] MEDS: HEPARIN FLSH (PORT) 500 UN/5ML IVP PRN ×2 (09:01→09:34)
[2018-10-25] MEDS: LIDOCAINE/SOD BICARB 8.4% SYR ID PRN ×2 (09:01→09:33)
[2018-10-25 09:32] VITALS: BP 139/83
[2018-10-25] MEDS: NS(*) 0.9% 250 ML BAG 250 ML IVPB PRN (09:34)
[2018-10-25 10:48] VITALS: BP 126/78
--- NOTE | 2018-10-25 20:54 | ONCOLOGY FOLLOW UP NOTE ---
EVENT DATE: October 25, 2018 CHIEF COMPLAINT Followup for metastatic renal cell carcinoma. HISTORY OF PRESENT ILLNESS The patient is a 78-year-old male who was seen today for consideration of cycle 6, day 1 of temsirolimus. He is doing fairly well. However, rash on his back has increased somewhat. He had a significant rash two weeks ago and was prescribed prednisone 20 mg daily for five days. The rash resolved, but is "back now." Energy is fair. He has noted a rash on his right ankle, but states that this has happened in the past, the last a year ago. It is mildly pruritic. He has a nonproductive cough, but no other issues. He will also receive Xgeva today. ONCOLOGY HISTORY Patient is a 78-year-old male who presented with low back pain and left groin pain in October 2017. He had some physical therapy and cortisone injection into the left hip without improvement. He had an MRI which showed renal mass with mets to the spine, followed by CT chest, abdomen, and pelvis done on December 11, 2017, which showed a big heterogeneous mass of the left kidney, 12.5 cm. There was also venous thrombosis with multiple veins in the pelvis and upper thighs, likely extending into the inferior vena cava. There were numerous pulmonary nodules likely representing pulmonary metastases with mediastinal adenopathy, likely metastatic. There were numerous lytic, destructive lesions in the bones including the anterior aspect of the right 10th and 11th ribs, T7, L1, and L4. There was also a large destructive lesion involving the left iliac bone with a large heterogeneous soft tissue mass component extending into the anterior aspect of the left acetabulum where there is pathologic fracture. PET/CT scan done on the December showed a large mass involving the left kidney measuring nearly 13 cm with maximum SUV of 21.3. There were bilateral adrenal gland metastases, mediastinal and lung metastases, intra-abdominal adenopathy, left axillary lymphadenopathy, and extensive osseous metastatic disease. CT- guided biopsy on the December of the left iliac crest showed metastases consistent with clear-cell renal cell carcinoma. Began Yervoy and Opdivo on January 05, 2018, with plans to proceed with maintenance Opdivo after four cycles. 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 Began single-agent Opdivo on April 13, 2018. Opdivo was discontinued on May 11, 2018, because of increased liver function tests. Began temsirolimus on June 07, 2018. Began radiation to the mediastinal lymph nodes on October 03, 2018. PAST MEDICAL HISTORY 1. Metastatic renal cell carcinoma. 2. Bone metastases. 3. BPH with urinary retention. 4. Bilateral lower extremity DVT. PAST SURGICAL HISTORY 1. Right knee replacement in 2010. 2. Prostate biopsy in 2008. 3. Left rotator cuff injury repair. 4. Bilateral cataract surgery. 5. Left renal embolization, 01/16/18. FAMILY HISTORY Brother had squamous cell carcinoma of the lip. Father had lung cancer. Sister had lung cancer. He had a brother with kidney cancer. He had multiple cousins with brain, kidney, and lung cancer. SOCIAL HISTORY Patient is with two children. 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 He is a never smoker. He occasionally drinks beer. Denies any abuse of illicit drugs. CURRENT MEDICATIONS 1. Tamsulosin 0.4 mg b.i.d. 2. Chlorpromazine 25 mg t.i.d. p.r.n. 3. Eliquis. 4. Protonix 40 mg daily. 5. Levothyroxine. 6. Probiotic. ALLERGIES OXYCONTIN causes rash. REVIEW OF SYSTEMS A 12-point review of systems is performed. It is negative except as stated above. PHYSICAL EXAMINATION VITAL SIGNS: Weight 74.3 kg. BP 139/83, P 110, R 16, temp 98.6, O2 sat 97%. GENERAL: Patient is a well-developed, well-nourished male in no acute distress. HEAD: Normocephalic, atraumatic. EYES: Sclerae anicteric. MOUTH: Moist mucous membranes. No lesions. NECK: Supple. No palpable adenopathy. LUNGS: Slightly coarse cough, but lungs are clear bilaterally. CARDIOVASCULAR: Heart rate regular, 110 per minute. EXTREMITIES: Trace pretibial edema bilaterally. There is a slightly dry, raised rash above his right ankle. No evidence of acute infection. LABORATORY CBC today reveals a WBC of 5.9, ANC of 4.5, hemoglobin 10.3, hematocrit 31.2, platelets 108,000. CMP showed a BUN and creatinine of 17 and 1.9 respectively. IMPRESSION The patient is a 78-year-old male diagnosed with metastatic renal cell carcinoma. 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 Re-started single-agent Opdivo on April 13, 2018, discontinued on May 11, 2018, due to increased LFTs. Began temsirolimus on June 07, 2018. Began radiation to the mediastinal lymph nodes on October 03, 2018. PLAN 1. Metastatic renal cell carcinoma. Cycle 6, day 1 of temsirolimus. He continues to tolerate this fairly well. 2. Thrombocytopenia. Platelet count has decreased today from 201,000 to 108,000. He may require a dose reduction on the Torisel from 25 mg to 20 mg, but will reevaluate the trend. 3. Bone metastases. Continue Xgeva today and monthly. 4. Rash. Patient has a maculopapular pruritic rash on his back. This is not as bad as previous. I reviewed this with Dr. Ross, and he will begin prednisone 5 mg daily. He may be able to decrease this to 2.5 mg daily once controlled. He also has a rash above his right ankle. I have recommended hydrocortisone cream. 5. Renal insufficiency. BUN and creatinine are improved today at 17 and 1.9. He has been trying to drink more fluids. 6. Radiation. Continue radiation to the mediastinal lymph node. He has approximately eight more treatments. 7. Follow up in one week for cycle 6, day 8 of treatment. MTDD
[2018-11-01 08:24] VITALS: BP 97/77
[2018-11-01] MEDS: LIDOCAINE/SOD BICARB 8.4% SYR ID PRN (08:27)
[2018-11-01] MEDS: diphenhydrAMINE 25 MG CAP PO PRN (08:50)
[2018-11-01] MEDS: NS(*) 0.9% 250 ML BAG 250 ML IVPB PRN (09:00)
[2018-11-01] MEDS: HEPARIN FLSH (PORT) 500 UN/5ML IVP PRN (09:41)
[2018-11-01 10:46] VITALS: BP 117/77
--- NOTE | 2018-11-02 03:54 | ONCOLOGY FOLLOW UP NOTE ---
EVENT DATE: November 01, 2018 CHIEF COMPLAINT Followup for metastatic renal cell carcinoma. HISTORY OF PRESENT ILLNESS Patient is a 78-year-old male who was seen today in followup. He will receive cycle 6 day 8 of temsirolimus. He has been tolerating this fairly well, although did develop increased maculopapular pruritic rash on his back. He was prescribed prednisone 5 mg per day, which has helped control it somewhat. Today he notes more pruritus. When seen by Dr. Arizmendi on 10/30/18, he was noted to be tachycardic. EKG showed a first-degree AV block. He was sent to the emergency room and diagnosed with possible pneumonia. He is on Augmentin now, which he is tolerating fairly well. His last radiation treatment will be on 11/07/18. He has had intermittent but chronic diarrhea, but this is slightly improved on Citrucel. ONCOLOGY HISTORY Patient is a 78-year-old male who presented with low back pain and left groin pain in October 2017. He had some physical therapy and cortisone injection into the left hip without improvement. He had an MRI which showed renal mass with mets to the spine, followed by CT chest, abdomen, and pelvis done on December 11, 2017, which showed a big heterogeneous mass of the left kidney, 12.5 cm. There was also venous thrombosis with multiple veins in the pelvis and upper thighs, likely extending into the inferior vena cava. There were numerous pulmonary nodules likely representing pulmonary metastases with mediastinal adenopathy, likely metastatic. There were numerous lytic destructive lesions in the bones including the anterior aspect of the right 10th and 11th ribs, T7, L1, and L4. There was also a large destructive lesion involving the left iliac bone with a large heterogeneous soft tissue mass component extending into the anterior aspect of the left acetabulum where there is pathologic fracture. PET/CT scan done on the December showed a large mass involving the left kidney measuring nearly 13 cm with maximum SUV of 21.3. There were bilateral adrenal gland metastases, mediastinal and lung metastases, intra- abdominal adenopathy, left axillary lymphadenopathy, and extensive osseous metastatic disease. CT-guided biopsy on the December of the left iliac crest showed metastases consistent with clear-cell renal cell carcinoma. 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 Began single-agent Opdivo on April 13, 2018. Opdivo was discontinued on May 11, 2018, because of increased liver function tests. Began temsirolimus on June 07, 2018. Began radiation to the mediastinal lymph nodes on October 03, 2018. PAST MEDICAL HISTORY 1. Metastatic renal cell carcinoma. 2. Bone metastases. 3. BPH with urinary retention. 4. Bilateral lower extremity DVT. PAST SURGICAL HISTORY 1. Right knee replacement in 2010. 2. Prostate biopsy in 2008. 3. Left rotator cuff injury repair. 4. Bilateral cataract surgery. 5. Left renal embolization, 01/16/18. FAMILY HISTORY Brother had squamous cell carcinoma of the lip. Father had lung cancer. Sister had lung cancer. He had a brother with kidney cancer. He had multiple cousins with brain, kidney, and lung cancer. SOCIAL HISTORY Patient is with two children. 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 He is a never smoker. He occasionally drinks beer. Denies any abuse of illicit drugs. CURRENT MEDICATIONS 1. Tamsulosin 0.4 mg b.i.d. 2. Chlorpromazine 25 mg t.i.d. p.r.n. 3. Eliquis. 4. Protonix 40 mg daily. 5. Levothyroxine. 6. Probiotic. 7. Prednisone 5 mg daily. ALLERGIES OXYCONTIN causes rash. REVIEW OF SYSTEMS A 12-point review of systems is performed. It is negative except as stated above. PHYSICAL EXAMINATION VITAL SIGNS: Weight 74.1 kg. BP 97/77, P 106, R 18, temp 98.4, O2 sat 97%. GENERAL: Patient is a well-developed, well-nourished male in no acute distress. HEAD: Normocephalic, atraumatic. EYES: Sclerae anicteric. MOUTH: Moist mucous membranes. No lesions. NECK: Supple. No palpable adenopathy. LUNGS: Minimally diminished but clear. CARDIOVASCULAR: Heart rate regular, 106 per minute. EXTREMITIES: Trace to 1+ pretibial edema bilaterally . NEURO: Nonfocal. SKIN: Slightly increased maculopapular rash over back. He also has a dry rash on his right lower extremity and states this has been there intermittently for some years. LABORATORY CBC today reveals a WBC of 5.3, hemoglobin 10.4, hematocrit 30.9, platelets 151,000. CMP shows a BUN and creatinine of 2.4 and 1.9 respectively. The remainder of the CMP is within normal limits except for an elevated glucose of 178. IMPRESSION The patient is a 78-year-old male diagnosed with metastatic renal cell carcinoma. 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 Restarted single-agent Opdivo on April 13, 2018, discontinued on May 11, 2018, due to increased LFTs. Began temsirolimus on June 07, 2018. Began radiation to the mediastinal lymph nodes on October 03, 2018. PLAN 1. Metastatic renal cell carcinoma. Cycle 6 day 8 of temsirolimus. This will continue at the current dose. He was noted to have mild thrombocytopenia one week ago, but this has normalized today. Consideration will be given to lowering the Torisel from 25 mg to 20 mg. Will continue to monitor trend. 2. Bone metastases. Continue Xgeva monthly, next due 11/15/18. 3. Rash. Slightly increased maculopapular pruritic rash over his back. He will continue prednisone 5 mg daily. I have recommended moisturizing and consideration of adding hydrocortisone. 4. Gastrointestinal. Chronic and intermittent diarrhea. He notes improvement with Citrucel. 5. ? Pneumonia. When seen in the emergency room on 10/30/18, cardiac issues were ruled out. They suspected a mild anemia, and he is on Augmentin. He will complete that course. 6. Radiation. Last radiation treatment will be on 11/07/18. He has tolerated this fairly well. 7. Follow up weekly for temsirolimus. 8. Follow up with Dr. Ross on 11/15/18 for cycle 7 day 1 of treatment. He will receive Xgeva that day. MTDD
[2018-11-07 08:28] VITALS: BP 120/76
[2018-11-07] MEDS: LIDOCAINE/SOD BICARB 8.4% SYR ID PRN (08:31)
[2018-11-07] MEDS: NS(*) 0.9% 250 ML BAG 250 ML IVPB PRN (08:31)
[2018-11-07] MEDS: diphenhydrAMINE 25 MG CAP PO PRN (09:19)
[2018-11-07 10:18] VITALS: BP 120/73
[2018-11-07] MEDS: HEPARIN FLSH (PORT) 500 UN/5ML IVP PRN (10:49)
[2018-11-15 13:59] VITALS: BP 118/76
[2018-11-15] MEDS: diphenhydrAMINE 25 MG CAP PO PRN (14:32)
[2018-11-15] MEDS: LIDOCAINE/SOD BICARB 8.4% SYR ID PRN (14:32)
[2018-11-15] MEDS: HEPARIN FLSH (PORT) 500 UN/5ML IVP PRN (14:33)
[2018-11-15 16:12] VITALS: BP 119/72
[2018-11-22 08:31] VITALS: BP 125/79
[2018-11-22] MEDS: LIDOCAINE/SOD BICARB 8.4% SYR ID PRN (08:35)
[2018-11-22] MEDS: diphenhydrAMINE 25 MG CAP PO PRN (09:25)
[2018-11-22] MEDS: NS(*) 0.9% 1000 ML BAG 1,000 ML IV PRN (09:26)
[2018-11-22] MEDS: HEPARIN FLSH (PORT) 500 UN/5ML IVP PRN (09:26)
--- NOTE | 2018-11-22 09:42 | [facility] ONCOLOGY NOTE ---
EVENT DATE: November 22, 2018 DIAGNOSES 1. Metastatic renal cell carcinoma. 2. Bone metastases. CHIEF COMPLAINT Patient is here today for followup of his treatment with temsirolimus for his metastatic renal cell carcinoma. ONCOLOGY HISTORY Patient is a 78-year-old male who saw Nola Nunez for low back pain and left groin pain. He started the process of followup of his pain since October as per patient. He had some physical therapy and cortisone injection into the left hip without improvement. He had an MRI which showed renal mass with mets to the spine, so the patient had after that CT chest, abdomen, and pelvis done on December 11, 2017, which showed a big heterogeneous mass of the left kidney, 12.5 cm. There was also venous thrombosis with multiple veins in the pelvis and upper thighs likely extending into the inferior vena cava. There were numerous pulmonary nodules likely representing pulmonary metastasis with mediastinal adenopathy likely metastatic. There were numerous lytic, destructive lesions in the bones including the anterior aspect of the right 10th and 11th ribs, T7, L1, and L4. There was also a large destructive lesion involving the left iliac bone with a large heterogeneous soft tissue mass component extending into the anterior aspect of the left acetabulum where there is pathologic fracture. The uncinate process of the liver is heterogeneous. PET/CT scan done on December 20, 2017 showed a large mass involving the left kidney measuring nearly 13 cm with maximum SUV of 21.3. There were bilateral adrenal gland metastases, mediastinal and lung metastases, intra-abdominal adenopathy, left axillary lymphadenopathy, and extensive osseous metastatic disease. CT-guided biopsy of the left iliac crest showed metastases consistent with clear-cell renal cell carcinoma, and the biopsy was done on December 22, 2017. Patient started treatment with Opdivo and Yervoy at the beginning of January 2018. Patient received three doses of Yervoy and Opdivo every month, and the treatment was stopped after that because of the elevation of the liver enzymes thought to be due to immune reaction. Patient started Opdivo single agent on April 13, 2018. Treatment with Opdivo is stopped on May 11, 2018, because of the rise of the liver enzymes again. Patient started treatment with temsirolimus September 2018. HISTORY OF PRESENT ILLNESS Patient is here today for followup of his renal cell carcinoma, on treatment with temsirolimus. Patient is complaining of cough, shortness of breath and wheezing. He has recent chest x-ray, which did not show any pneumonia but evidence of bronchitis viral infection. He is also feeling weak, tired and fatigued lately. PAST MEDICAL HISTORY Benign prostatic hypertrophy with urinary retention in 2016, currently on tamsulosin. PAST SURGICAL HISTORY 1. Right knee replacement in 2010. 2. Prostate biopsy in 2008. 3. Left rotator cuff injury repair. 4. Bilateral cataract surgery. FAMILY HISTORY Brother had squamous cell carcinoma of the lip. Father had lung cancer. Sister had lung cancer. He had brother with kidney cancer. He had multiple cousins with brain, kidney, and lung cancer. SOCIAL HISTORY Patient is with two children. 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 He is a never smoker. He occasionally drinks beer. Denies any abuse of illicit drugs. CURRENT MEDICATIONS 1. Tamsulosin 0.4 mg daily. 2. Baclofen 10 mg t.i.d. p.r.n. ALLERGIES OXYCONTIN, which caused rash. REVIEW OF SYSTEMS CONSTITUTIONAL: No appetite or weight change. No fever, chills, or sweating. No recent infection. HEENT: Ears: No tinnitus or hearing problem. Nose: He has nasal discharge. Throat: No sore throat or mouth ulcers. Eyes: No diplopia or visual changes. RESPIRATORY: He has couth with shortness of breath and wheezing. CARDIOVASCULAR: No chest pain, orthopnea, or paroxysmal nocturnal dyspnea (PND). No edema. No palpitations. GASTROINTESTINAL: He has hiccups; he has treatment for that. GENITOURINARY: No hematuria or dysuria. MUSCULOSKELETAL: No pain in the muscles, joints, or bones. NEUROLOGICAL: No tingling or numbness in the hands or feet. No headaches or convulsions. HEMATOLOGIC/LYMPHATIC: He is weak, tired and fatigued. SKIN: He has skin rash significant across the back, which is very itchy. PSYCHIATRIC: No anxiety or depression. PHYSICAL EXAMINATION GENERAL: Looks stable. Well developed, well nourished, and in no acute distress. VITAL SIGNS: Blood pressure 125/79, pulse 102 per minute, respirations 18 per minute, temperature 97.5, pulse ox 100% on room air. HEENT: Head: Atraumatic. No sinus tenderness to palpation. Eyes: No icterus or conjunctivitis. Mouth and Throat: No oral thrush or mucositis. NECK: Supple. No cervical or supraclavicular lymphadenopathy. LUNGS: Clear to auscultation and percussion bilaterally. HEART: Regular rate and rhythm. No gallops, murmurs, clicks, or rubs. ABDOMEN: Soft and lax. No tenderness. No hepatosplenomegaly. No masses. EXTREMITIES: No cyanosis, clubbing, or edema. LYMPHATICS: No peripheral lymphadenopathy. NEUROLOGICAL: Conscious, alert, and oriented times three. No focal motor or sensory deficits. PSYCHIATRIC: Mood and affect appear normal. SKIN: There is macular skin rash over the back, reddish in color. Some are raised above the skin, little. DIAGNOSTIC DATA CBC showed white count 6.2, hemoglobin 9.3, hematocrit 28.5, platelets 182,000. Chem panel totally normal except BUN 23, creatinine 1.8, carbon dioxide 20, blood sugar 229. ASSESSMENT 1. Metastatic renal cell carcinoma of the left kidney with metastasis to the left iliac bone and multiple pulmonary metastases, mediastinal adenopathy, bilateral adrenal and intra-abdominal adenopathy and left axillary adenopathy. MRI of the brain done December 19, 2017 was negative for brain metastasis but there may be some osseous metastasis of the posterior right parietal skull bone. PET/CT scan December 20, 2017, showed a large mass involving the left kidney measuring 13 cm with SUV 21.3 with bilateral adrenal gland metastases, mediastinal and lung metastases, intra-abdominal adenopathy, left axillary lymphadenopathy and extensive osseous metastatic disease. CT-guided biopsy of the left iliac bone done December 22, 2017 came back positive for metastases from clear cell carcinoma. Patient started treatment with Yervoy and Opdivo the beginning of January 2018. He received three courses and treatment was stopped because of the development of elevation of the liver enzymes, which normalizes after stopping the treatment and steroid therapy. Patient developed also hematuria on anticoagulation so the patient was referred to the hospital in [facility] with placement of inferior vena cava filter and tying of the blood vessels with resolution of the kidney bleeding. 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 CT chest, abdomen and pelvis done August 29, 2018 showed stable disease. The left renal mass decreased in size. The subcarinal mass also decreased in size. There was only one spot in the anterior mediastinal which showed increase in size and patient received radiation therapy for those spots in the lung and continued on temsirolimus. He is tolerating the treatment very well so far except for itchy skin rash, which resolved. I am planning to proceed with his cycle #7 today. I am planning with his next visit in a month to repeat his CT chest, abdomen and pelvis again. 2. Bony metastasis. We will continue Xgeva 120 mg subcutaneously every four weeks. 3. 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 We will consider Aranesp therapy and blood transfusion if his hemoglobin drops below 7 g/dL. PLAN 1. Temsirolimus cycle #7. 2. CBC, chem panel to be checked weekly prior to each dose of temsirolimus. 4. Patient to return in four weeks with CBC, chem panel, CT chest, abdomen and pelvis. 5. Continue Xgeva every four weeks for bone metastasis. 6. Patient to contact us for any new concerns or complaints. MTDD
[2018-11-22 11:00] VITALS: BP 121/80
[2018-11-29 09:00] VITALS: BP 98/69
[2018-11-29] MEDS: LIDOCAINE/SOD BICARB 8.4% SYR ID PRN (09:04)
[2018-11-29] MEDS: NS(*) 0.9% 1000 ML BAG 1,000 ML IV PRN (09:05)
[2018-11-29] MEDS: diphenhydrAMINE 25 MG CAP PO PRN (09:59)
--- NOTE | 2018-11-29 15:36 | ONCOLOGY FOLLOW UP NOTE ---
EVENT DATE: November 29, 2018 CHIEF COMPLAINT Followup for metastatic renal cell carcinoma. HISTORY OF PRESENT ILLNESS Patient is a 78-year-old male who was seen today for ongoing temsirolimus. He is now on cycle 7 of treatment. He is tolerating this well, although has noted increasing pruritic rash on lateral aspects of lower extremities bilaterally, left greater than right. He also noted some bruising with mild swelling in his right second toe. He denies any trauma. He has had intermittent, but fairly chronic diarrhea, improved on Citrucel. ONCOLOGY HISTORY Patient is a 78-year-old male who presented with low back pain and left groin pain in October 2017. He had some physical therapy and cortisone injection into the left hip without improvement. He had an MRI, which showed renal mass with mets to the spine, followed by CT chest, abdomen, and pelvis done on December 11, 2017, which showed a big heterogeneous mass of the left kidney, 12.5 cm. There was also venous thrombosis with multiple veins in the pelvis and upper thighs, likely extending into the inferior vena cava. There were numerous pulmonary nodules, likely representing pulmonary metastases, with mediastinal adenopathy, likely metastatic. There were numerous lytic destructive lesions in the bones including the anterior aspect of the right 10th and 11th ribs, T7, L1, and L4. There was also a large destructive lesion involving the left iliac bone with a large heterogeneous soft tissue mass component extending into the anterior aspect of the left acetabulum where there is pathologic fracture. PET/CT scan done on the December showed a large mass involving the left kidney measuring nearly 13 cm with maximum SUV of 21.3. There were bilateral adrenal gland metastases, mediastinal and lung metastases, intra-abdominal adenopathy, left axillary lymphadenopathy, and extensive osseous metastatic disease. CT- guided biopsy on the December of the left iliac crest showed metastases consistent with clear-cell renal cell carcinoma. 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 Began single-agent Opdivo on April 13, 2018. Opdivo was discontinued on May 11, 2018, because of increased liver function tests. Began temsirolimus on June 07, 2018. Completed radiation to the mediastinal lymph nodes from October 03, 2018 through 11/07/18. PAST MEDICAL HISTORY 1. Metastatic renal cell carcinoma. 2. Bone metastases. 3. BPH with urinary retention. 4. Bilateral lower extremity DVT. PAST SURGICAL HISTORY 1. Right knee replacement in 2010. 2. Prostate biopsy in 2008. 3. Left rotator cuff injury repair. 4. Bilateral cataract surgery. 5. Left renal embolization, 01/16/18. FAMILY HISTORY Brother had squamous cell carcinoma of the lip. Father had lung cancer. Sister had lung cancer. He had a brother with kidney cancer. He had multiple cousins with brain, kidney, and lung cancer. SOCIAL HISTORY Patient is with two children. 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 He is a never smoker. He occasionally drinks beer. Denies any abuse of illicit drugs. CURRENT MEDICATIONS 1. Tamsulosin 0.4 mg b.i.d. 2. Chlorpromazine 25 mg t.i.d. p.r.n. 3. Eliquis. 4. Protonix 40 mg daily. 5. Levothyroxine. 6. Probiotic. 7. Prednisone 5 mg daily. ALLERGIES OXYCONTIN causes rash. REVIEW OF SYSTEMS A 12-point review of systems is performed and is negative except as stated above. PHYSICAL EXAMINATION VITAL SIGNS: Weight 73.3 kg. BP 98/69, P 98, R 16, temp 97.8, O2 sat 98%. GENERAL: Patient is a well-developed, well-nourished male in no acute distress. HEAD: Normocephalic, atraumatic. EYES: Sclerae anicteric. MOUTH: Moist mucous membranes. LUNGS: Clear bilaterally. CARDIOVASCULAR: Heart rate regular, 94 per minute. EXTREMITIES: Mild edema in the right foot. There is bruising noted over the right second toe. NEUROLOGIC: Nonfocal. DERM: Patient has bilateral dry, slightly scaly rashes on the lateral aspects of his lower extremities, left greater than right. This had been ongoing, but appears worsened. He has been using Neosporin. LABORATORY CBC today reveals a WBC of 5.2, hemoglobin 8.5, hematocrit 26.3, platelets 168,000. CMP is within normal limits except for a stable creatinine of 1.8. IMPRESSION The patient is a 78-year-old male diagnosed with metastatic renal cell carcinoma. 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 Restarted single-agent Opdivo on April 13, 2018, discontinued on May 11, 2018 due to increased LFTs. Began temsirolimus on June 07, 2018. Completed radiation to the mediastinal lymph nodes from 10/03/18 through 11/07/18. PLAN 1. Metastatic renal cell carcinoma. Continue temsirolimus. Due to several issues, he may require a dose reduction in the future. 2. Anemia. Hemoglobin has decreased from 9.5 last week to 8.5 today. He denies any increased shortness of breath. He has noted no bleeding. As above, we will consider dose reduction if decrease continues. 3. Rash. Presents with a dry, pruritic, slightly patchy rash on the lateral aspects of both lower extremities, left greater than right. I have reviewed this with Dr. Ross. Rash is a known side effect in approximately 50% of patients on temsirolimus. He will be referred to Dermatology for further evaluation. I recommended stopping the Neosporin and using hydrocortisone cream until he sees Dermatology. 4. Hypotension. Recently started on amlodipine 5 mg daily. Blood pressure today is 98/69. His states that he is occasionally "wobbly." Will continue to monitor as he may require holding or dose reducing the amlodipine. 5. Follow up as scheduled for continued care, earlier if there is a problem. MTDD
[2018-12-06 08:51] VITALS: BP 114/80
[2018-12-06] MEDS: LIDOCAINE/SOD BICARB 8.4% SYR ID PRN (09:07)
[2018-12-06] MEDS: NS(*) 0.9% 1000 ML BAG 1,000 ML IV PRN (09:07)
[2018-12-06] MEDS: HEPARIN FLSH (PORT) 500 UN/5ML IVP PRN (09:09)
[2018-12-06 09:33] LABS: PLATELET COUNT, AUTOMATED 177 K/uL (150-450)
[2018-12-06] MEDS: diphenhydrAMINE 25 MG CAP PO PRN (10:08)
--- NOTE | 2018-12-06 16:47 | ONCOLOGY FOLLOW UP NOTE ---
EVENT DATE: December 06, 2018 CHIEF COMPLAINT Followup for metastatic renal cell carcinoma. HISTORY OF PRESENT ILLNESS Patient is a 78-year-old male who was seen today for consideration of cycle 7, day 15 of temsirolimus. He is tolerating this well. He has some mild chronic fatigue. He was slightly hypotensive last week, but this has improved today. Hemoglobin last week decreased from 9.5 to 8.5, but he denies any active bleeding. He presented with rash on the lateral aspects of both lower extremities, but used hydrocortisone cream for this. He denies any other new complaints. ONCOLOGY HISTORY Patient is a 78-year-old male who presented with low back pain and left groin pain in October 2017. He had some physical therapy and cortisone injection into the left hip without improvement. He had an MRI, which showed renal mass with mets to the spine, followed by CT chest, abdomen, and pelvis done on December 11, 2017, which showed a big heterogeneous mass of the left kidney, 12.5 cm. There was also venous thrombosis with multiple veins in the pelvis and upper thighs, likely extending into the inferior vena cava. There were numerous pulmonary nodules, likely representing pulmonary metastases, with mediastinal adenopathy, likely metastatic. There were numerous lytic destructive lesions in the bones including the anterior aspect of the right 10th and 11th ribs, T7, L1, and L4. There was also a large destructive lesion involving the left iliac bone with a large heterogeneous soft tissue mass component extending into the anterior aspect of the left acetabulum where there is pathologic fracture. PET/CT scan done on the December showed a large mass involving the left kidney measuring nearly 13 cm with maximum SUV of 21.3. There were bilateral adrenal gland metastases, mediastinal and lung metastases, intra-abdominal adenopathy, left axillary lymphadenopathy, and extensive osseous metastatic disease. CT- guided biopsy on the December of the left iliac crest showed metastases consistent with clear-cell renal cell carcinoma. 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 Began single-agent Opdivo on April 13, 2018. Opdivo was discontinued on May 11, 2018, because of increased liver function tests. Began temsirolimus on June 07, 2018. Completed radiation to the mediastinal lymph nodes from October 03, 2018 through 11/07/18. PAST MEDICAL HISTORY 1. Metastatic renal cell carcinoma. 2. Bone metastases. 3. BPH with urinary retention. 4. Bilateral lower extremity DVT. PAST SURGICAL HISTORY 1. Right knee replacement in 2010. 2. Prostate biopsy in 2008. 3. Left rotator cuff injury repair. 4. Bilateral cataract surgery. 5. Left renal embolization, 01/16/18. FAMILY HISTORY Brother had squamous cell carcinoma of the lip. Father had lung cancer. Sister had lung cancer. He had a brother with kidney cancer. He had multiple cousins with brain, kidney, and lung cancer. SOCIAL HISTORY Patient is with two children. 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 He is a never smoker. He occasionally drinks beer. Denies any abuse of illicit drugs. CURRENT MEDICATIONS 1. Tamsulosin 0.4 mg b.i.d. 2. Chlorpromazine 25 mg t.i.d. p.r.n. 3. Eliquis. 4. Protonix 40 mg daily. 5. Levothyroxine. 6. Probiotic. 7. Prednisone 5 mg daily. ALLERGIES OXYCONTIN causes rash. REVIEW OF SYSTEMS A 12-point review of systems is performed and is negative except as stated above. PHYSICAL EXAMINATION VITAL SIGNS: Weight 73.3 kg. BP 114/80, P 100, R 16, temp 97.8, O2 sat 98%. GENERAL: Patient is a well-developed, well-nourished male in no acute distress. HEAD: Normocephalic, atraumatic. EYES: Sclerae anicteric. MOUTH: Moist mucous membranes. LUNGS: Clear bilaterally. CARDIOVASCULAR: Heart rate regular, 100 per minute. EXTREMITIES: No edema. Previously described dry, slightly scaly rash on the lateral aspects of both lower extremities, left greater than right, has improved significantly. NEUROLOGIC: Nonfocal. LABORATORY CBC today reveals a WBC of 4.9, ANC of 3.8, hemoglobin 8.7, hematocrit 26.9, platelets 174,000. MCV is 75.8. CMP is within normal limits except for a stable, but elevated creatinine of 1.8. Random glucose is 147. IMPRESSION The patient is a 78-year-old male diagnosed with metastatic renal cell carcinoma. 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 Restarted single-agent Opdivo on April 13, 2018, discontinued on May 11, 2018, due to increased LFTs. Began temsirolimus on June 07, 2018. Completed radiation to the mediastinal lymph nodes from 10/03/18 through 11/07/18. PLAN 1. Metastatic renal cell carcinoma. Cycle 7, day 15 of temsirolimus. He continues to tolerate this without issue. 2. Anemia. Hemoglobin has decreased from 9.5 to 8.7. He does have some mild fatigue, but no increased shortness of breath. Will obtain urinalysis and stool for occult blood to rule out any microscopic bleeding. Iron panel will be done as MCV is 70. 3. Renal insufficiency. Chronic and stable. Creatinine today is 1.8. 4. Rash. Presented with a dry, pruritic, slightly patchy rash on the lateral aspect of both lower extremities, left greater than right. He used hydrocortisone this week, and rash has markedly improved with only mild dry skin noted on the right lower extremity. He has been referred to Dermatology, and we may cancel this appointment if this is controlled. 5. Follow up weekly for continued care. He will see Dr. Ross on 12/21/18. PATI
[2018-12-13] MEDS: NS(*) 0.9% 1000 ML BAG 1,000 ML IV PRN (08:56)
[2018-12-13] MEDS: LIDOCAINE/SOD BICARB 8.4% SYR ID PRN (08:56)
[2018-12-13 08:57] VITALS: BP 116/81
[2018-12-13] MEDS: diphenhydrAMINE 25 MG CAP PO PRN (09:38)
--- NOTE | 2018-12-14 07:29 | ONCOLOGY FOLLOW UP NOTE ---
EVENT DATE: December 13, 2018 CHIEF COMPLAINT Followup for metastatic renal cell carcinoma. HISTORY OF PRESENT ILLNESS Patient is a 78-year-old male who was seen today for consideration of cycle 7, day 22 of temsirolimus. Dose was decreased at last visit as he has become more anemic and increasingly fatigued. His weight is down 1.5 kg and both he and his state he "just does not feel like eating as much". Rash on both lower extremities has improved as has the rash on his back. He denies any new complaints, although has noted more fatigue. ONCOLOGY HISTORY Patient is a 78-year-old male who presented with low back pain and left groin pain in October 2017. He had some physical therapy and cortisone injection into the left hip without improvement. He had an MRI, which showed renal mass with mets to the spine, followed by CT chest, abdomen, and pelvis done on December 11, 2017, which showed a big heterogeneous mass of the left kidney, 12.5 cm. There was also venous thrombosis with multiple veins in the pelvis and upper thighs, likely extending into the inferior vena cava. There were numerous pulmonary nodules, likely representing pulmonary metastases, with mediastinal adenopathy, likely metastatic. There were numerous lytic destructive lesions in the bones including the anterior aspect of the right 10th and 11th ribs, T7, L1, and L4. There was also a large destructive lesion involving the left iliac bone with a large heterogeneous soft tissue mass component extending into the anterior aspect of the left acetabulum where there is pathologic fracture. PET/CT scan done on the December showed a large mass involving the left kidney measuring nearly 13 cm with maximum SUV of 21.3. There were bilateral adrenal gland metastases, mediastinal and lung metastases, intra-abdominal adenopathy, left axillary lymphadenopathy, and extensive osseous metastatic disease. CT- guided biopsy on the December of the left iliac crest showed metastases consistent with clear-cell renal cell carcinoma. 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 Began single-agent Opdivo on April 13, 2018. Opdivo was discontinued on May 11, 2018, because of increased liver function tests. Began temsirolimus on June 07, 2018. Completed radiation to the mediastinal lymph nodes from October 03, 2018 through 11/07/18. PAST MEDICAL HISTORY 1. Metastatic renal cell carcinoma. 2. Bone metastases. 3. BPH with urinary retention. 4. Bilateral lower extremity DVT. PAST SURGICAL HISTORY 1. Right knee replacement in 2010. 2. Prostate biopsy in 2008. 3. Left rotator cuff injury repair. 4. Bilateral cataract surgery. 5. Left renal embolization, 01/16/18. FAMILY HISTORY Brother had squamous cell carcinoma of the lip. Father had lung cancer. Sister had lung cancer. He had a brother with kidney cancer. He had multiple cousins with brain, kidney, and lung cancer. SOCIAL HISTORY Patient is with two children. 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 He is a never smoker. He occasionally drinks beer. Denies any abuse of illicit drugs. CURRENT MEDICATIONS 1. Tamsulosin 0.4 mg b.i.d. 2. Chlorpromazine 25 mg t.i.d. p.r.n. 3. Eliquis. 4. Protonix 40 mg daily. 5. Levothyroxine. 6. Probiotic. 7. Prednisone 5 mg daily. ALLERGIES OXYCONTIN causes rash. REVIEW OF SYSTEMS A 12-point review of systems is performed and is negative except as stated above. PHYSICAL EXAMINATION VITAL SIGNS: Weight 71.8 kg. BP 116/81, P 106, R 16, temp 98, O2 sat 98%. GENERAL: Patient is a well-developed but fatigued appearing male in no acute distress. HEAD: Normocephalic, atraumatic. EYES: Sclerae anicteric. MOUTH: Moist mucous membranes. LUNGS: Clear bilaterally. CARDIOVASCULAR: Heart rate regular, 106 per minute. EXTREMITIES: No edema. Rashes on both lateral aspects of the lower extremities, right greater than left, have improved significantly. There is a dry area on the right lateral lower extremity. NEUROLOGIC: Nonfocal. LABORATORY CBC today reveals a WBC of 5.5, ANC of 4.2, hemoglobin 9.4, hematocrit 28.9, platelets 200,000. CMP shows a stable creatinine of 1.7, slightly improved. IMPRESSION The patient is a 78-year-old male diagnosed with metastatic renal cell carcinoma. 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 Restarted single-agent Opdivo on April 13, 2018, discontinued on May 11, 2018, due to increased LFTs. Began temsirolimus on June 07, 2018. Completed radiation to the mediastinal lymph nodes from 10/03/18 through 11/07/18. PLAN 1. Metastatic renal cell carcinoma. Cycle 7, day 22 of temsirolimus. This will continue at the 20 mg dose. 2. Anemia. Hemoglobin had decreased from 9.5 to 8.7. Iron studies were within normal limits. Stool for guaiac and urinalysis were negative for blood. Hemoglobin today has increased to 9.4. As above, we will continue with 20 mg dosing. 3. Rash. Improved on both lower extremities. The rash on his back is also quiescent at this time. He will continue using hydrocortisone as needed. 4. Renal insufficiency. Chronic and stable. Creatinine today was 1.7 with a normal BUN. 5. Restaging. He will undergo CT of the chest, abdomen and pelvis on December 18, 2018. 6. Followup with Dr. Ross on December 20, 2018 for continued care. MTDD
[~2018-12-20] VITALS: Ht 176.5 cm; Wt 71.7 kg
[~2018-12-20 08:30] MED LIST changes: +ALTEPLASE RECOMB 2 MG VIAL IVP PRN; +DENOSUMAB 120 MG/1.7 ML VIAL SUBQ ONE; +DEXTROSE 5%(*) 100 ML BAG 100 ML IVPB PRN; -IOPAMIDOL 76% 100 ML INFUS BTL 100 ML ONE; +NS 0.9% IV ONE; +NS(*) 0.9% 100 ML BAG 100 ML IVPB PRN; +NS(*) 0.9% 500 ML BAG 500 ML IV ONE; +NS(*) 0.9% 500 ML BAG 500 ML IV PRN; +WATER FOR INJ,STERILE 20 ML IVP PRN; +[UNRECOGNIZED DRUG - OTHER] IV ONE; +[UNRECOGNIZED DRUG - OTHER] IV ONE
[2018-12-20 08:58] VITALS: BP 107/69
[2018-12-20] MEDS: diphenhydrAMINE 25 MG CAP PO PRN (09:58)
[2018-12-20] MEDS: LIDOCAINE/SOD BICARB 8.4% SYR ID PRN (09:58)
[2018-12-20] MEDS: HEPARIN FLSH (PORT) 500 UN/5ML IVP PRN (09:58)
[2018-12-20] MEDS: NS(*) 0.9% 1000 ML BAG 1,000 ML IV PRN (09:59)
[2018-12-20] MEDS ORDERED: [UNRECOGNIZED DRUG - OTHER] IV ONE (11:00)
[2018-12-20] MEDS ORDERED: NS 0.9% IV ONE (11:00)
--- NOTE | 2018-12-20 18:28 | ONCOLOGY FOLLOW UP NOTE ---
EVENT DATE: December 20, 2018 DIAGNOSES 1. Metastatic renal cell carcinoma. 2. Bone metastases. CHIEF COMPLAINT Patient is here today for followup of his treatment with temsirolimus for his metastatic renal cell carcinoma. ONCOLOGY HISTORY Patient is a 78-year-old male who saw Nola Nunez for low back pain and left groin pain. He started the process of followup of his pain since October, as per patient. He had some physical therapy and cortisone injection into the left hip without improvement. He had an MRI, which showed renal mass with metastases to the spine, so the patient had after that CT chest, abdomen, and pelvis done on December 11, 2017, which showed a big heterogeneous mass of the left kidney, 12.5 cm. There was also venous thrombosis with multiple veins in the pelvis and upper thighs, likely extending into the inferior vena cava. There were numerous pulmonary nodules, likely representing pulmonary metastases with mediastinal adenopathy, likely metastatic. There were numerous lytic, destructive lesions in the bones including the anterior aspect of the right 10th and 11th ribs, T7, L1, and L4. There was also a large destructive lesion involving the left iliac bone with a large heterogeneous soft tissue mass component extending into the anterior aspect of the left acetabulum where there was pathologic fracture. The uncinate process of the liver is heterogeneous. PET/CT scan done on December 20, 2017, showed a large mass involving the left kidney measuring nearly 13 cm with maximum SUV of 21.3. There were bilateral adrenal gland metastases, mediastinal and lung metastases, intra-abdominal adenopathy, left axillary lymphadenopathy, and extensive osseous metastatic disease. CT-guided biopsy of the left iliac crest showed metastases consistent with clear-cell renal cell carcinoma, and the biopsy was done on December 22, 2017. Patient started treatment with Opdivo and Yervoy at the beginning of January 2018. Patient received three doses of Yervoy and Opdivo every month, and the treatment was stopped after that because of the elevation of the liver enzymes, thought to be due to immune reaction. Patient started Opdivo single agent on April 13, 2018. Treatment with Opdivo was stopped on May 11, 2018, because of the rise of the liver enzymes again. Patient started treatment with temsirolimus September 2018. HISTORY OF PRESENT ILLNESS Patient is here today for followup of his renal cell carcinoma, on treatment with temsirolimus. He is totally asymptomatic today except for burning urine sometimes. Other than that, he is really doing very well. PAST MEDICAL HISTORY Benign prostatic hypertrophy with urinary retention in 2016, currently on tamsulosin. PAST SURGICAL HISTORY 1. Right knee replacement in 2010. 2. Prostate biopsy in 2008. 3. Left rotator cuff injury repair. 4. Bilateral cataract surgery. FAMILY HISTORY Brother had squamous cell carcinoma of the lip. Father had lung cancer. Sister had lung cancer. He had a brother with kidney cancer. He had multiple cousins with brain, kidney, and lung cancer. SOCIAL HISTORY Patient is with two children. 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 He is a never smoker. He occasionally drinks beer. Denies any abuse of illicit drugs. CURRENT MEDICATIONS 1. Tamsulosin 0.4 mg daily. 2. Baclofen 10 mg t.i.d. p.r.n. ALLERGIES OXYCONTIN, which caused rash. REVIEW OF SYSTEMS CONSTITUTIONAL: No appetite or weight change. No fever, chills, or sweating. No recent infection. HEENT: Ears: No tinnitus or hearing problem. Nose: No nasal discharge or epistaxis. Throat: No sore throat or mouth ulcers. Eyes: No diplopia or visual changes. RESPIRATORY: No shortness of breath. No cough, expectoration, or hemoptysis. CARDIOVASCULAR: No chest pain, orthopnea, or paroxysmal nocturnal dyspnea (PND). No edema. No palpitations. GASTROINTESTINAL: No nausea or vomiting. No diarrhea or constipation. No change in bowel movements. No heartburn or swallowing difficulties. No abdominal pain. No jaundice. No hematemesis, melena, or rectal bleeding. GENITOURINARY: He has some dysuria. MUSCULOSKELETAL: No pain in the muscles, joints, or bones. NEUROLOGIC: No tingling or numbness in the hands or feet. No headaches or convulsions. HEMATOLOGIC/LYMPHATIC: No bleeding or easy bruising. No weakness or fatigue. No enlarged lymph nodes. SKIN: No skin rash or lumps. PSYCHIATRIC: No anxiety or depression. PHYSICAL EXAMINATION GENERAL: Looks stable. Well developed, well nourished, and in no acute distress. VITAL SIGNS: Blood pressure 107/71, pulse 90 per minute, respirations 16 per minute, temperature 98.5, pulse ox 95% on room air. HEENT: Head: Atraumatic. No sinus tenderness to palpation. Eyes: No icterus or conjunctivitis. Mouth and Throat: No oral thrush or mucositis. NECK: Supple. No cervical or supraclavicular lymphadenopathy. LUNGS: Clear to auscultation and percussion bilaterally. HEART: Regular rate and rhythm. No gallops, murmurs, clicks, or rubs. ABDOMEN: Soft and lax. No tenderness. No hepatosplenomegaly. No masses. EXTREMITIES: No cyanosis, clubbing, or edema. LYMPHATICS: No peripheral lymphadenopathy. NEUROLOGIC: Conscious, alert, and oriented times three. No focal motor or sensory deficits. PSYCHIATRIC: Mood and affect appear normal. SKIN: No skin rash, bruise, or purpuric eruption. DIAGNOSTIC DATA CBC showed white count 5.4, hemoglobin 9.4, hematocrit 28.8, platelets 178,000. ASSESSMENT 1. Metastatic renal cell carcinoma of the left kidney with metastases to the left iliac bone and multiple pulmonary metastases and mediastinal adenopathy, bilateral adrenal and intra-abdominal adenopathy, and left axillary adenopathy. MRI of the brain done December 19, 2017, was negative for brain metastasis, but there may be some osseous metastasis in the posterior right parietal skull bone. PET/CT scan December 20, 2017, showed a large mass involving the left kidney, 13 cm, with SUV 21.3 with bilateral adrenal gland metastases, mediastinal and lung metastases, intra-abdominal adenopathy, left axillary lymphadenopathy, and extensive osseous metastatic disease. CT-guided biopsy of the left iliac bone on December 22, 2017, came back positive for metastases from clear-cell carcinoma. Patient started treatment with Yervoy and Opdivo the beginning of January 2018. He received three courses of treatment, which was stopped because of the development of elevation of the liver enzymes, which normalizes after stopping the treatment and the steroid therapy. Patient developed also hematuria on anticoagulation, so the patient was referred to the [facility] in [place] where he underwent placement of an inferior vena cava filter and tying of the blood vessels with resolution of the kidney bleeding. 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 CT chest, abdomen, and pelvis August 29, 2018, showed stable disease, and his current CT chest, abdomen, and pelvis on the December showed stable pulmonary and bone metastases. The left renal mass decreased in size. It was 4.7 x 6 x 8.1 cm and currently 4.6 x 6.5 x 7.7 cm with invasion of the quadratus lumborum muscle, which is stable. Prostate was enlarged. The subcarinal lymph node increased in size from 2.3 x 1 cm to 2.3 x 1.8 cm. AP window and right hilar lymph nodes were stable. Pretracheal lymph node increased in size from 7 x 6 mm to 10 x 8 mm, while the anterior mediastinal lymph node decreased in size from 2.3 x 2 cm to 1.9 x 1.8 cm. It seems that patient has reasonable response, and regarding these two lymph nodes which enlarged in size, I am planning to refer the patient to radiation oncologist to see if the patient can receive some directed radiation for those two lymph nodes. In the meantime, we are going to continue treatment with temsirolimus. I explained that to the patient and his . They are agreeable with the plan of management. In the meantime, I am planning to continue treatment with temsirolimus. This will be cycle #8. I will see him again in four weeks with CBC and chemistry panel prior to his next dose of treatment. 2. Bony metastasis. Patient will continue Xgeva 120 mg subcutaneously every four weeks. 3. 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 We will consider Aranesp therapy if his anemia worsens in the future. PLAN 1. Temsirolimus cycle #8. 2. Radiation therapy consultation for radiation of the two lymph nodes enlarged by the recent CT chest done on the December. 3. CBC, chem panel to be checked weekly. 4. Patient to return in four weeks with CBC, chem panel. 5. Continue Xgeva 120 mg subcutaneously every month for bone metastases. 6. Patient to contact us for any new concerns or complaints. MTDD
== END 2018-12-25 ==
LOC: ONC 08:30
PROVIDERS: ATTEND Internal Medicine Hematology
DX: Z51.11 Encounter for antineoplastic chemotherapy (principal); C64.2 Malignant neoplasm of left kidney, except renal pelvis; C78.00 Secondary malignant neoplasm of unspecified lung; C79.72 Secondary malignant neoplasm of left adrenal gland; C79.71 Secondary malignant neoplasm of right adrenal gland; C79.51 Secondary malignant neoplasm of bone; Z79.899 Other long term (current) drug therapy; D69.6 Thrombocytopenia, unspecified; R21 Rash and other nonspecific skin eruption; R11.0 Nausea; R19.7 Diarrhea, unspecified
CPT/HCPCS: 81001; 82274; 82728; 83540; 83550; 83735; 84100; 84439; 84443; 84480; 84481; 85025; 85027; 96361; 96372; 96413; 96415; J0897; J1642; J7030; J7040; J7050; J9330; Q0163; 82040; 82247; 82310; 82374; 82435; 82565; 82947; 84075; 84132; 84155; 84295; 84450; 84460; 84520; 99212